=== PATIENT | female | born 1940 | race Caucasian/White ===

== ENCOUNTER 2024-08-23 14:46 | Outpatient (AMB) | payer MEDICARE, SELFPAY ==
--- NOTE | 2024-08-23 14:50 | HO.NEPHOV ---
Vital Signs 08/23/24 15:05 Height 5 ft 7 in Weight 202 lb BMI 31.6 BP 124/70 Blood Pressure Location Lt brachial Position Sitting Pulse 60 Pulse Source Pulse Oximeter Pulse Oximetry (%) 99 Oxygen Delivery Method Room Air Intake Visit Reasons: ENP: CKD STG 3B-# Not in service Medical Assistant Ob Gyn Required: No Accompanied by: Daughter Allergies No Known Allergies Allergy (Verified 08/23/24 15:02) HPI Comments Details: I had the pleasure of seeing Lauren who is a delightful 84-year-old, for chronic kidney disease. She has had history of aortic valve replacement following symptoms due to [place] aortic valve dysfunction. She has been told lately that her bioprosthetic AVR is not functioning very well and is not a candidate for valve replacement. She has history of cardiorenal syndrome in the past. Recently she had aspiration pneumonitis as well as congestive heart failure needing intubation and ventilation. She also has history of chronic diastolic heart failure. She had not tolerated spironolactone in the past due to side effects like dizziness, fatigue. She has history of renal calculi and is followed up with the Dr. Nichols. Recently she developed LANETTE during her hospitalization in [place]. Her renal functions have gone back to baseline now. She has been having C diff infection and is on tapering dose of vancomycin. She denies any dizziness, pedal edema, chest pain, shortness of breath, paroxysmal nocturnal dyspnea, orthopnea or active urinary symptoms. Her blood sugar control is suboptimal. She feels well. [facility] Medical History (Updated 08/26/24 @ 06:28 by Kem Vernon MD) Pilonidal cyst Mitral regurgitation Diabetic neuropathy Chronic kidney disease Rectal polyp Sleep apnea Kidney stones Atrial fibrillation Diabetes Hypertension High cholesterol Surgical History (Updated 08/23/24 @ 15:02 by Alvina Gold MA) History of hip surgery Hx of cardiac cath H/O colonoscopy History of rectal surgery History of ankle surgery Hx of aortic valve replacement Family History (Updated 08/23/24 @ 15:01 by Alvina Gold MA) Father Heart disease Mother Stomach cancer Anemia Brother Hypertension Diabetes Social History (Updated 08/23/24 @ 15:00 by Alvina Gold MA) Alcohol intake: never Patient Tobacco Use Status: Never used Tobacco Review of Systems Const All systems reviewed & are unremarkable except as noted in HPI and below Physical Exam Vital Signs: Last Vital Signs Pulse 60 08/23/24 15:05 BP 124/70 08/23/24 15:05 Pulse Ox 99 08/23/24 15:05 Oxygen Delivery Method Room Air 08/23/24 15:05 BMI result Body Mass Index 31.6 Const General: comfortable and no acute distress Orientation/consciousness: patient oriented x3 HEENT Head: Yes normocephalic Mouth: Normal oral and palatal mucosa present Eyes EOM: EOMs intact bilaterally Neck Neck: Yes supple Resp Auscultation: clear to auscultation bilaterally Cardio Jugular venous distension: no JVD Rate: regular rate GI Palpation (GI): Soft to palpation Auscultation: normal bowel sounds General: Yes no CVA tenderness Back/Spine/Pelvis Back: no CVA tenderness Skin General skin exam: no rashes or lesions noted Neuro General: patient oriented x3 and moves all extremities Extrem General: Yes no pedal edema Results Reviewed Nephrology Results: No Data to Display Assessment & Plan Assessment & Plan (1) Hypertension: Code(s): I10 - Essential (primary) hypertension Category: Medical Qualifiers: Hypertension type: primary hypertension Qualified Code(s): I10 - Essential (primary) hypertension (2) Kidney stones: Code(s): N20.0 - Calculus of kidney Category: Medical (3) CKD (chronic kidney disease) stage 3, GFR 30-59 ml/min: Code(s): N18.30 - Chronic kidney disease, stage 3 unspecified Category: Medical Qualifiers: Chronic kidney disease stage 3 subtype: stage 3a (GFR 45-59) Qualified Code(s): N18.31 - Chronic kidney disease, stage 3a Plan Lauren has CKD stage 3 due to diabetes, hypertension and loss of 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 Recently she had LANETTE but her serum creatinine is back to baseline now. Her volume status is optimal. Her fluid status can be quite tenuous given her aortic valve situation. Her blood pressure is currently at goal. She has history of renal calculi which has not caused any recent issues. She follows up closely with Dr. Nichols. She is on appropriate medications with stability in her hemodynamics and renal functions. I ordered workup for close monitoring of her renal functions. Time spent reviewing her records, patient encounter and documentation involved 51 minutes. All her and her daughter's questions were answered Orders: Orders Uric Acid 2 Months I10 - Essential (primary) hypertension, N18.30 - Chronic kidney disease, stage 3 unspecified, N20.0 - Calculus of kidney Blood Urea Nitrogen 2 Months I10 - Essential (primary) hypertension, N18.30 - Chronic kidney disease, stage 3 unspecified, N20.0 - Calculus of kidney Calcium 2 Months I10 - Essential (primary) hypertension, N18.30 - Chronic kidney disease, stage 3 unspecified, N20.0 - Calculus of kidney Phosphorus 2 Months I10 - Essential (primary) hypertension, N18.30 - Chronic kidney disease, stage 3 unspecified, N20.0 - Calculus of kidney Protein Creatinine Ratio, Ur 2 Months I10 - Essential (primary) hypertension, N18.30 - Chronic kidney disease, stage 3 unspecified, N20.0 - Calculus of kidney Immunofixation, Random Urine 2 Months I10 - Essential (primary) hypertension, N18.30 - Chronic kidney disease, stage 3 unspecified, N20.0 - Calculus of kidney Vitamin D 25-OH Total 2 Months I10 - Essential (primary) hypertension, N18.30 - Chronic kidney disease, stage 3 unspecified, N20.0 - Calculus of kidney Creatinine 2 Months I10 - Essential (primary) hypertension, N18.30 - Chronic kidney disease, stage 3 unspecified, N20.0 - Calculus of kidney Electrolytes 2 Months I10 - Essential (primary) hypertension, N18.30 - Chronic kidney disease, stage 3 unspecified, N20.0 - Calculus of kidney Parathyroid Hormone Intact 2 Months I10 - Essential (primary) hypertension, N18.30 - Chronic kidney disease, stage 3 unspecified, N20.0 - Calculus of kidney Complete Blood Count Auto Diff 2 Months I10 - Essential (primary) hypertension, N18.30 - Chronic kidney disease, stage 3 unspecified, N20.0 - Calculus of kidney Immunofixation Pnl, Serum 2 Months I10 - Essential (primary) hypertension, N18.30 - Chronic kidney disease, stage 3 unspecified, N20.0 - Calculus of kidney Coding Level of Care Code New Pt Level 5 (53812) Diagnoses Primary hypertension I10 Hypertension type: primary hypertension Kidney stones N20.0 Stage 3a chronic kidney disease N18.31 Chronic kidney disease stage 3 subtype: stage 3a (GFR 45-59)
--- OUTSIDE RECORDS SUMMARY | 2024-08-23 14:51 | XMS_ITS ---
Author Organization [facility] Address [address] [place] [address] Care Team Providers Care Fiberglass Roller Name Role Phone Cesar SALGADO, Ricky Primary Care Provider Unavailab santiago Kay Case Unavailable [phone] Allergies Allergen (clinical drug ingredient) Drug/Non Drug Allergy documented on EMR Reaction Allergy Type Onset Date Status ibuprofen Advil Unknown Drug Allergy Active Aleve Unknown Drug Allergy Active Motrin Unknown Drug Allergy Active Novocain Unknown Drug Allergy Active aspirin Aspirin Unknown Drug Allergy Active epinephrine Epinephrine Unknown Drug Allergy Act krysta REASON FOR VISIT At Risk Footcare, Ingrown Nail Medications Medication SIG (Take, Route, Frequency, Duration) Notes Start Date End Date Status Warfarin Sodium Acti ve metFORMIN HCl 1000 MG TAKE 1 TABLET BY MOUTH TWICE DAILY Oral for 90 Active Allopurinol 100 MG TAKE 2 TABLETS BY MOUTH EVERY DAY Oral for 30 Active Valsartan-hydroCHLOROt hiazide 160-12.5 MG TAKE 1 TABLET BY MOUTH DAILY. Oral for 90 days Active Metoprolol Succinate ER 100 MG TAKE 1 TABLET BY MOUTH DAILY Orally 25MG NIGHT TIME Active Tylenol 325 MG 1 tablet as needed Orally every 6 hrs Active Torsemide 20 MG as directed Ac tive Cholecalciferol Unkn own Ascorbic Acid Unknow n Gabapentin Active traMADol HCl 25 MG as directed Orally Active Senna-Docusate Sodium 8.6-50 MG 1 tablet as needed Orally Twice a day Active Physical Therapy 3-4x per week for 3-4 weeks 12/15/2016 Not-Taking Polyethylene Glycol Active Methocarbamol 500 MG 1.5 tablets Orally every 4 hrs Active Ammonium Lactate 12 % 1 application to affected area Externally to feet Twice a day for 30 days Active Chlorthalidone 25 MG TAKE 1 TABLET BY MOUTH IN THE MORNING WITH FOOD DAILY 90 DAYS Oral for 90 Days Active amLODIPine Besylate 5 MG TAKE 1 TABLET BY MOUTH EVERY DAY Oral for 30 5MG in AM & 2.5MG in PM Not-Taking Furosemide 40 MG TAKE 1 TABLET BY MOUTH EVERY MORNING & EVERY EVENING Oral for 45 Not-Taking coumadin 1 tab Oral Not-Takin g Extra Depth Orthopedic Shoes (1 Pair) with Customized Heat Molded Multidensity Innersoles (3 Pair) as directed Dx: NIDDM/Polyneuropathy (E11.42), Hammertoe Foot Deformity (M20.41,M20.42), Preulcerative Skin Lesion(s) (L85.1 03/14/2019 Active Centrum Silver Unkno wn Simvastatin 20 MG 1 tablet in the evening Orally Once a day Active Immunizations Vaccine Route Administration Date Status Comme nts Influenza Unknown 01/29/2024 Refused Social History Tobacco Use: Social History Observation Description Date Details (start date - stop date) Never Smoker NA - NA Tobacco Use/Smoking Question Answer Notes Are you a: nonsmoker Tobacco use other than smoking: Question Answer Notes Are you an other tobacco user? No Vital Signs Height 5 ft 7 in in 01/29/2024 Weight 210 lbs 01/29/2024 BMI 32.89 kg/m2 01/29/2024 Blood pressure systolic 112 mm Hg 01/29/20 24 Blood pressure diastolic 56 mm Hg 024 Procedures Procedure Date Ordered Date Performed Result Body Sit e 88375-Tbqwtaki Plate 01/29/2024 N/A 25021-TMXW SKIN LESIONS, 2 TO 4 01/29/2024 N/A [id number] DYSTROPHIC NAILS ANY # 01/29/2024 N/A Encounters Encounter Location Date Provider Diagnosis [facility] [address] [place] [address] 01/29/2024 Kay Black Type 2 diabetes mellitus with diabetic polyneuropathy E11.42 and Ingrown nail L60.0 Assessments Encounter Date Diagnosis (ICD Code) Assessment Notes Treatment Notes Treatment Clinical Notes Section Notes 01/29/2024 Type 2 diabetes mellitus with diabetic polyneuropathy (ICD-10 - E11.42) 01/29/2024 Ingrown nail (ICD-10 - L60.0) 01/29/2024 Other Plan Of Treatment Pending Test Test Name Order Date 56239-Nkhcdnau Plate 01/29/2024 78888-EDWP SKIN LESIONS, 2 TO 4 01/29/20 24 [id number] DYSTROPHIC NAILS ANY # Next Appt Details Follow Up: 2 Weeks,prn, Reas on: Provider Name:Kay Case , 11/18/2024 04:00:00 PM, [address] [place] [address], [phone], Procedure Notes * Category Sub-Category Detail Notes Nail Avulsion Procedure A fine sterile e levator was placed between the eponychium, nail fold, and nail plate to separate the structures. A sterile nail splitter, and/or sterile 316 blade, was then used to longitudinally section the nail along its entire length through the eponychium to the area under the nail fold. The offending portion of nail was from the nail bed with a rolling action and then removed with a hemostat. No underlying bone was identified. There was minimal bleeding as hemostasis was achieved through the temporary use of either a digital tourniquet or the aforementioned local with epinephrine. A bacitracin sterile dressing was applied. Local wound aftercare instructions were discussed and dispensed. The patient was informed of both conservative and future surgical procedures to prevent recurrence. Tylenol or Motrin was recommended for pain or discomfort (82236) Anesthesia was deferred - NEURO RAMEZ: patient has medically documented neuropathic condition affecting sensation Location Medial nail border , T5 Keratoma Treatment Parring or Cutting o f Benign Hyperkeratotic Lesion(s) 52382 (2-4 Lesions) - The Benign hyperkeratotic lesions, as described above were pared, and/or cut utilizing a sterile #15 blade, tissue nippers, and/or dremel Nail Reduction Nail Reduction Trimming of dyst rophic nails performed to reduce/remove overall nail length and girth, by manual and electrical means with use of a nail nipper and/or dremel, to more viable healthy nail plate or bed tissue 6-10 (G0127) Progress Notes * Lauren MULLER IDOB:[birth year] (83 yo F)Acc No.[id number]:01/29/2024 Progress Note Patient:?Lauren Muller I Provider:?Kay Case DPM :1940???Age:83 Y???Sex:Female D ate:01/29/2024 Address:[address] [place] [address] [id number] Pcp:Ricky Guerrero MD Subjective: * Chief Complaints: * ???At Risk FootcareIngrown N ail * HPI: ???At Risk footcare:?Pt States Last PCP Visit:?Date?01/04/2024 * Medical History:? * Surgical History:?Open Heart 11/21/2014nkle surgery 1979pilonidal cyst excision 1980 * Hospitalization/Major Diagno stic Procedure:?Broken Hip 12/05[facility]- Broken ribs 01/24/24 * Family History:?Mother: dece ased.?Father: .?Siblings: alive, diabetes, high blood pressure.? * Social History:?Tobacco Use:?Tobacco Use/Smoking?Are you a:?nonsmoker ?Tobacco use other than smoking?Are you an other tobacco user??No ???Miscellaneous:?no Caffeine, Decafe coffee , 1-2 cups per day. ?Children: yes. ?Exercise: yes, occasional. ?Marital status: . 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 * Medications:?TakingtraMADol HCl 25 MG Tablet as directed Orally Senna-Docusate Sodium 8.6-50 MG Tablet 1 tablet as needed Orally Twice a dayPolyethylene Glycol Methocarbamol 500 MG Tablet 1.5 tablets Orally every 4 hrsGabapentin Tylenol 325 MG Tablet 1 tablet as needed Orally every 6 hrsTorsemide 20 MG Tablet as directed Warfarin Sodium metFORMIN HCl 1000 MG Tablet TAKE 1 TABLET BY MOUTH TWICE DAILY Oral Allopurinol 100 MG Tablet TAKE 2 TABLETS BY MOUTH EVERY DAY Oral Valsartan-hydroCHLOROthiazide 160-12.5 MG Tablet TAKE 1 TABLET BY MOUTH DAILY. Oral Metoprolol Succinate ER 100 MG Tablet Extended Release 24 Hour TAKE 1 TABLET BY MOUTH DAILY Orally , Notes: 25MG NIGHT TIMESimvastatin 20 MG Tablet 1 tablet in the evening Orally Once a dayExtra Depth Orthopedic Shoes (1 Pair) with Customized Heat Molded Multidensity Innersoles (3 Pair) as directed Dx: NIDDM/Polyneuropathy (E11.42), Hammertoe Foot Deformity (M20.41,M20.42), Preulcerative Skin Lesion(s) (L85.1Ammonium Lactate 12 % Cream 1 application to affected area Externally to feet Twice a dayChlorthalidone 25 MG Tablet TAKE 1 TABLET BY MOUTH IN THE MORNING WITH FOOD DAILY 90 DAYS Oral Taking traMADol HCl 25 MG Tablet as directed Orally Taking Senna-Docusate Sodium 8.6-50 MG Tablet 1 tablet as needed Orally Twice a dayTaking Polyethylene Glycol Taking Methocarbamol 500 MG Tablet 1.5 tablets Orally every 4 hrsTaking Gabapentin Taking Tylenol 325 MG Tablet 1 tablet as needed Orally every 6 hrsTaking Torsemide 20 MG Tablet as directed Taking Warfarin Sodium Taking metFORMIN HCl 1000 MG Tablet TAKE 1 TABLET BY MOUTH TWICE DAILY Oral Taking Allopurinol 100 MG Tablet TAKE 2 TABLETS BY MOUTH EVERY DAY Oral Taking Valsartan- hydroCHLOROthiazide 160-12.5 MG Tablet TAKE 1 TABLET BY MOUTH DAILY. Oral Taking Metoprolol Succinate ER 100 MG Tablet Extended Release 24 Hour TAKE 1 TABLET BY MOUTH DAILY Orally , Notes: 25MG NIGHT TIMETaking Simvastatin 20 MG Tablet 1 tablet in the evening Orally Once a dayTaking Extra Depth Orthopedic Shoes (1 Pair) with Customized Heat Molded Multidensity Innersoles (3 Pair) as directed Dx: NIDDM/Polyneuropathy (E11.42), Hammertoe Foot Deformity (M20.41,M20.42), Preulcerative Skin Lesion(s) (L85.1Taking Ammonium Lactate 12 % Cream 1 application to affected area Externally to feet Twice a dayTaking Chlorthalidone 25 MG Tablet TAKE 1 TABLET BY MOUTH IN THE MORNING WITH FOOD DAILY 90 DAYS Oral Not-Taking/PRNamLODIPine Besylate 5 MG Tablet TAKE 1 TABLET BY MOUTH EVERY DAY Oral , Notes: 5MG in AM & 2.5MG in PMFurosemide 40 MG Tablet TAKE 1 TABLET BY MOUTH EVERY MORNING & EVERY EVENING Oral coumadin 1 tab Oral Physical Therapy 3-4x per week for 3-4 weeks Not-Taking/PRN amLODIPine Besylate 5 MG Tablet TAKE 1 TABLET BY MOUTH EVERY DAY Oral , Notes: 5MG in AM & 2.5MG in PMNot- Taking/PRN Furosemide 40 MG Tablet TAKE 1 TABLET BY MOUTH EVERY MORNING & EVERY EVENING Oral Not-Taking/PRN coumadin 1 tab Oral Not-Taking/PRN Physical Therapy 3-4x per week for 3-4 weeks UnknownCholecalciferol Ascorbic Acid Centrum Silver Unknown Cholecalciferol Unknown Ascorbic Acid Unknown Centrum Silver * Allergies:?AspirinAdvilAleve MotrinNovocainEpinephrineyes[Allergies Verified] Objective: * Vitals:?Ht: 5 ft 7 in, Wt: 2 10, BMI: 32.89, Shoe size: 10, BP: 112/56 mm Hg, BS: not taken, Wt-k.25 kg. * ???Past Orders: ???Lab:HEMOGLOBIN A1C (GLYCO HEMOGLOBIN) (Order Date - 05/17/2023) (Collection Date - 05/17/2023) ? Value Reference Range ?HEMOGLOBIN A1C % (HH) 8.5 * Examination: ???Ophthalmology Referral: ?DIABETES EYE EXAM?Ingrown Nail: ?INSPECTION:?Reveals nail incurvation, pain on palpation, groove hypertrophy , groove ischemia , Medial nail border , T5.?Dermatologic: ?SKIN FINDINGS:?, Skin exam reveals keratotic lesion(s) located at , Lateral, Midfoot, B/L, , Heel(s), Right .?Nails: ?NAILS are:?Elongated, overgrown, dystrophic, , , 1-5 Left foot , 2-5 Right foot.?Neurological: ?SENSORY:?exam demonstrates. reduced vibration lower extremity , reduced proprioception sensation, reduced light touch sensation, 5.07 monofilament test performed at plantar aspects of 5 varied sites per foot shows sensation, absent at Forefoot, at Midfoot, B/LPt relates increased anesthesia.? Assessment: * Assessment: 1.?Type 2 diabetes mellitus with diabetic polyneuropathy - E11.42 (Primary)?2.?Ingrown nail - L60.0? Plan: * Treatment: 2.?Ingrown nail?Procedure: 42607-Frshjngg Plate * Procedures:?Keratoma Treatment:?Parring or Cutting of Benign Hyperkeratotic Lesion(s)?05810 (2-4 Lesions) - The Benign hyperkeratotic lesions, as described above were pared, and/or cut utilizing a sterile #15 blade, tissue nippers, and/or dremel.?Nail Avulsion:?Location?Medial nail border , T5.?Anesthesia?was deferred - NEUROPATHY: patient has medically documented neuropathic condition affecting sensation.?Procedure?A fine sterile elevator was placed between the eponychium, nail fold, and nail plate to separate the structures. A sterile nail splitter, and/or sterile 316 blade, was then used to longitudinally section the nail along its entire length through the eponychium to the area under the nail fold. The offending portion of nail was from the nail bed with a rolling action and then removed with a hemostat. No underlying bone was identified. There was minimal bleeding as hemostasis was achieved through the temporary use of either a digital tourniquet or the aforementioned local with epinephrine. A bacitracin sterile dressing was applied. Local wound aftercare instructions were discussed and dispensed. The patient was informed of both conservative and future surgical procedures to prevent recurrence. Tylenol or Motrin was recommended for pain or discomfort (55896).?Nail Reduction:?Nail Reduction?Trimming of dystrophic nails performed to reduce/remove overall nail length and girth, by manual and electrical means with use of a nail nipper and/or dremel, to more viable healthy nail plate or bed tissue 6-10 (G0127).? * Immunizations:? Influenza (Not administered - Refused: Patient decision) * Procedure Codes:?67247 Avuls ion Plate, Modifiers: T5 54338 TRIM SKIN LESIONS, 2 TO 4, Modifiers: XS G0127 TRIMMING DYSTROPHIC NAILS ANY #, Modifiers: XS * Follow Up:?2 Weeks,prn * Images: * Sign off status: Completed true * Provider:Shamir Case DPM Date:?2023 Generated for Printi ng/Fawhitneyg/eTransmitting on:?08/23/2024 02:51 PM EST History and Physical Notes * HPI (History of Present Illness) Category Sub-Category Detail Notes Category Not es At Risk footcare Pt States Last PCP Visit: Date: 4 Examination Category Sub-Category Detail Notes Category Not es Ingrown Nail INSPECTION: Reveals nail inc urvation, pain on palpation, groove hypertrophy , groove ischemia , Medial nail border , T5 Neurological SENSORY: exam demonstrate s. reduced vibration lower extremity , reduced proprioception sensation, reduced light touch sensation, 5.07 monofilament test performed at plantar aspects of 5 varied sites per foot shows sensation, absent at Forefoot, at Midfoot, B/LPt relates increased anesthesia Dermatologic SKIN FINDINGS: , Skin exam reve als keratotic lesion(s) located at , Lateral, Midfoot, B/L, , Heel(s), Right ULCER: Ophthalmology Referral DIABETES EYE EXAM Diabetic Retinopa thy Screening:: Yes Findings of Diabetic Eye Exam:: no retin opathy Nails NAILS are: Elongated, overg rown, dystrophic, , , 1-5 Left foot , 2-5 Right foot Abscess/infected nail INSPECTION
--- OUTSIDE RECORDS SUMMARY | 2024-08-23 14:51 | XMS_ITS ---
[facility] Address [address] [place] [address] Care Team Providers Care Senior International Tax Manager Name Role Phone Cesar SALGADO, Ricky Primary Care Provider Unavailab santiago Kay Case Unavailable [phone] Allergies Allergen (clinical drug ingredient) Drug/Non Drug Allergy documented on EMR Reaction Allergy Type Onset Date Status ibuprofen Advil Unknown Drug Allergy Active Aleve Unknown Drug Allergy Active Motrin Unknown Drug Allergy Active Novocain Unknown Drug Allergy Active aspirin Aspirin Unknown Drug Allergy Active epinephrine Epinephrine Unknown Drug Allergy Act krysta REASON FOR VISIT At Risk Footcare, Skin problem(s) Medications Medication SIG (Take, Route, Frequency, Duration) Notes Start Date End Date Status Centrum Silver Unkno wn Ascorbic Acid Unknow n Cholecalciferol Unkn own Vancomycin HCl Activ e Physical Therapy 3-4x per week for 3-4 weeks 12/15/2016 Not-Taking coumadin 1 tab Oral Not-Takin g Furosemide 40 MG TAKE 1 TABLET BY MOUTH EVERY MORNING & EVERY EVENING Oral for 45 Not-Taking amLODIPine Besylate 5 MG TAKE 1 TABLET BY MOUTH EVERY DAY Oral for 30 5MG in AM & 2.5MG in PM Not-Taking Chlorthalidone 25 MG TAKE 1 TABLET BY MOUTH IN THE MORNING WITH FOOD DAILY 90 DAYS Oral for 90 Days Not-Taking Tylenol 325 MG 1 tablet as needed Orally every 6 hrs Not-Taking Senna-Docusate Sodium 8.6-50 MG 1 tablet as needed Orally Twice a day Not-Taking traMADol HCl 25 MG as directed Orally Not-Taking Gabapentin Not-Takin g Methocarbamol 500 MG 1.5 tablets Orally every 4 hrs Not-Taking Polyethylene Glycol Not-Taking Ammonium Lactate 12 % 1 application to affected area Externally to feet Twice a day for 30 days Not-Taking Simvastatin 20 MG 1 tablet in the evening Orally Once a day Active Metoprolol Succinate ER 100 MG TAKE 1 TABLET BY MOUTH DAILY Orally 25MG NIGHT TIME Active Valsartan-hydroCHLOROt hiazide 160-12.5 MG TAKE 1 TABLET BY MOUTH DAILY. Oral for 90 days Not-Taking Extra Depth Orthopedic Shoes (1 Pair) with Customized Heat Molded Multidensity Innersoles (3 Pair) as directed Dx: NIDDM/Polyneuropathy (E11.42), Hammertoe Foot Deformity (M20.41,M20.42), Preulcerative Skin Lesion(s) (L85.1 03/14/2019 Not-Taking Ammonium Lactate 12 % 1 application Externally to affected areas of dry skin to feet except for between the toes Twice a day for 30 days Active Allopurinol 100 MG TAKE 2 TABLETS BY MOUTH EVERY DAY Oral for 30 Active metFORMIN HCl 1000 MG TAKE 1 TABLET BY MOUTH TWICE DAILY Oral for 90 Not-Taking Warfarin Sodium Acti ve Torsemide 20 MG as directed Ac tive Jardiance 25 MG 1 tablet Orally Once a day Active Florastor Active Social History Tobacco Use: Social History Observation Description Date Details (start date - stop date) Never Smoker NA - NA Tobacco Use/Smoking Question Answer Notes Are you a: nonsmoker Tobacco use other than smoking: Question Answer Notes Are you an other tobacco user? No Vital Signs Height 5 ft 7 in in 08/19/2024 Weight 202 lbs 08/19/2024 BMI 31.63 kg/m2 08/19/2024 Blood pressure systolic 120 mm Hg 08/19/19 25 Blood pressure diastolic 70 mm Hg 025 Procedures Procedure Date Ordered Date Performed Result Body Sit e 93278-AADA SKIN LESIONS, 2 TO 4 08/19/2024 N/A [id number] DYSTROPHIC NAILS ANY # 08/19/2024 N/A Encounters Encounter Location Date Provider Diagnosis [facility] [address] [place] [address] 08/19/2024 Kay Black Type 2 diabetes mellitus with diabetic polyneuropathy E11.42 and Xerosis of skin L85.3 Assessments Encounter Date Diagnosis (ICD Code) Assessment Notes Treatment Notes Treatment Clinical Notes Section Notes 08/19/2024 Type 2 diabetes mellitus with diabetic polyneuropathy (ICD-10 - E11.42) 08/19/2024 Xerosis of skin (ICD-10 - L85.3) Plan Of Treatment Medication Medication Name Sig Start Date Stop Date Notes Ammonium Lactate 12 % 1 application Exte rnally to affected areas of dry skin to feet except for between the toes Twice a day for 30 days Pending Test Test Name Order Date 37101-GHHZ SKIN LESIONS, 2 TO 4 08/19/19 25 [id number] DYSTROPHIC NAILS ANY # Next Appt Details Follow Up: prn, Reason: Provider Name:Kay Case , 11/18/2024 04:00:00 PM, [address] [place] [address], [phone], Procedure Notes * Category Sub-Category Detail Notes Keratoma Treatment Parring or Cutting o f Benign Hyperkeratotic Lesion(s) (-56) 2-4 Lesions - Due to the at risk nature of the patients medical condition as documented in the exam findings, performance of this keratoderma treatment is medically necessary as its management by an unskilled/untrained nonprofessional would put this patients foot and overall health at risk. Therefore, the benign hyperkeratotic lesions, ( __ ) in total, locations as stated and described in the exam ( Lateral, Midfoot, B/L, plantar Heel(s), ), were pared, and/or cut utilizing a sterile 15 blade, tissue nippers, and/or power dremel instrumentation by the physician of record - 85222 Nail Reduction Nail Reduction (-27) Trimming o f all dystrophic nails - Due to the at risk nature of the patients medical condition as documented in the exam findings, performance of this nail treatment is medically necessary as its management by an unskilled/untrained nonprofessional would put this patients foot and overall health at risk. Therefore, the dystrophic nails, in locations as stated and described in the exam ( TA, T1, T2, T3, T4, T5, T6, T7, T8, T9, ), were debrided by the phisician of record to reduce/remove overall nail length and girth, by manual and electrical means with use of a nail nipper and/or dremel, to more viable healthy nail plate or bed tissue - G0127 Progress Notes * Lauren MULLER IDOB:[birth year] (84 yo F)Acc No.[id number]:08/19/2024 Progress Note Patient:Lauren MALDONADO I Provider:?Kay Case DPM :1940???Age:84 Y???Sex:Female D ate:08/19/2024 Address:[address] [place] [address] [id number] Pcp:Ricky Guerrero MD Subjective: * Chief Complaints: * ???At Risk FootcareSkin prob diego(s) * HPI: ???At Risk footcare:?Pt States Last PCP Visit:?Date?06/07/2024 ???Skin problems:?Nature:?dryness , scaling.?Location:?B/L .?Duration:?several days.?Course:?worse.? * ROS:?General/Constitutional:?Nausea?denies.?Vomiting?denies.?Hunger Thirst?denies.?Loss appetite?denies.?Chills?denies.?Fatigue?denies.?Fever?denies.?Night Sweats?denies.?Unexplained weight loss?denies.?Unexplained weight gain?denies.?HEENTM:?Dentures?denies.?Dizziness?denies.?Glasses/contacts?admits.?Retinopathy?den ies.?Blurred/double vision?denies.?TMJ?denies.?Discharge/drainage?denies.?Implants?denies.?Sore throat?denies.?Dental implants?denies.?Hard of hearing ?denies.?Difficulty chewing/swallowing/speaking?denies.?Nose bleeds?denies.?Sore mouth?denies.?Respiratory:?On O xygen?denies.?Pneumonia/pleurisy?denies.?Bronchitis?denies.?Emphysema?denies.?Co ughing?denies.?Cough blood?denies.?Shortness of breath?denies.?Wheezing?denies.?Cardiovascular:?Pacemaker?denies.?MVP?denies.?WPW?denies.?CHF?denies.?Heart attack?denies.?Septal defect?denies.?Rapid beat?denies.?Chest pain ?denies.?Atrial Fib.?denies.?Murmur/Palpitations?denies.?Gastrointestinal:?Hemorrhoids?denies.?Stomach/Abdominal pain?denies.?Dark blood stool?denies.?Irritable bowel ?denies.?Constipation?denies.?Diarrhea?denies.?Hematology:?Swelling?denies.?Clots?denies.?Varicose Veins?denies.?Bruising?denies.?Bleeding problem?denies.?Genitourinary:?Blood urine?denies.?Frequent/Painfu/urination/bladder control?denies.?Kidney stones?denies.?Infection (UTI)?denies.?Nephropathy?denies.?sex trans dis (STD)?denies.?Prostate?denies.?Musculoskeletal:?Hammertoes?admits.?Bunions?denies.?Back Pain?denies.?Muscle Cramps/ Resting?admits.?Muscle cramps / walking?denies.?Generalized aches and pains?denies.?Weakness?denies.?Integ.:?Zarate?denies.?Scars?denies.?Corns/calluses?, admits.?Ingrown nails?admits.?Painful nails?admits.?Open Sores?denies.?Rashes?denies.?Neurologic:?Difficulty sleeping?denies.?Brain disorder?denies.?Numbness?admits.?Balance t rouble?denies.?Confusion?denies.?Fainting/blackouts?denies.?Tingling?denies.?Gage mors?denies.? * Medical History:? * Surgical History:?Open Heart 11/21/2014nkle surgery 1980pilonidal cyst excision 1980 * Hospitalization/Major Diagno stic Procedure:?Broken Hip 12/05[facility]- Broken ribs 01/24/24[facility]- aspiration 06/2024 * Family History:?Mother: dece ased.?Father: .?Siblings: alive, diabetes, high blood pressure.? * Social History:?Tobacco Use:?Tobacco Use/Smoking?Are you a:?nonsmoker ?Tobacco use other than smoking?Are you an other tobacco user??No ???Miscellaneous:?Caffeine: no, Decafe coffee , 1-2 cups per day. ?Children: yes. ?Exercise: yes, occasional. ?Marital status: . 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 * Medications:?TakingVancomyci n HCl Florastor Jardiance 25 MG Tablet 1 tablet Orally Once a day Torsemide 20 MG Tablet as directed Warfarin Sodium Allopurinol 100 MG Tablet TAKE 2 TABLETS BY MOUTH EVERY DAY Oral Metoprolol Succinate ER 100 MG Tablet Extended Release 24 Hour TAKE 1 TABLET BY MOUTH DAILY Orally , Notes to Pharmacist: 25MG NIGHT TIMESimvastatin 20 MG Tablet 1 tablet in the evening Orally Once a day Taking Vancomycin HCl Taking Florastor Taking Jardiance 25 MG Tablet 1 tablet Orally Once a day Taking Torsemide 20 MG Tablet as directed Taking Warfarin Sodium Taking Allopurinol 100 MG Tablet TAKE 2 TABLETS BY MOUTH EVERY DAY Oral Taking Metoprolol Succinate ER 100 MG Tablet Extended Release 24 Hour TAKE 1 TABLET BY MOUTH DAILY Orally , Notes to Pharmacist: 25MG NIGHT TIMETaking Simvastatin 20 MG Tablet 1 tablet in the evening Orally Once a day Not-Taking/PRNmetFORMIN HCl 1000 MG Tablet TAKE 1 TABLET BY MOUTH TWICE DAILY Oral Valsartan-hydroCHLOROthiazide 160-12.5 MG Tablet TAKE 1 TABLET BY MOUTH DAILY. Oral Ammonium Lactate 12 % Cream 1 application to affected area Externally to feet Twice a day Extra Depth Orthopedic Shoes (1 Pair) with Customized Heat Molded Multidensity Innersoles (3 Pair) as directed Dx: NIDDM/Polyneuropathy (E11.42), Hammertoe Foot Deformity (M20.41,M20.42), Preulcerative Skin Lesion(s) (L85.1 traMADol HCl 25 MG Tablet as directed Orally Senna-Docusate Sodium 8.6-50 MG Tablet 1 tablet as needed Orally Twice a day Polyethylene Glycol Methocarbamol 500 MG Tablet 1.5 tablets Orally every 4 hrs Gabapentin Tylenol 325 MG Tablet 1 tablet as needed Orally every 6 hrs Chlorthalidone 25 MG Tablet TAKE 1 TABLET BY MOUTH IN THE MORNING WITH FOOD DAILY 90 DAYS Oral amLODIPine Besylate 5 MG Tablet TAKE 1 TABLET BY MOUTH EVERY DAY Oral , Notes to Pharmacist: 5MG in AM & 2.5MG in PMFurosemide 40 MG Tablet TAKE 1 TABLET BY MOUTH EVERY MORNING & EVERY EVENING Oral coumadin 1 tab Oral Physical Therapy 3-4x per week for 3-4 weeks Not-Taking/PRN metFORMIN HCl 1000 MG Tablet TAKE 1 TABLET BY MOUTH TWICE DAILY Oral Not-Taking/PRN Valsartan-hydroCHLOROthiazide 160-12.5 MG Tablet TAKE 1 TABLET BY MOUTH DAILY. Oral Not-Taking/PRN Ammonium Lactate 12 % Cream 1 application to affected area Externally to feet Twice a day Not-Taking/PRN Extra Depth Orthopedic Shoes (1 Pair) with Customized Heat Molded Multidensity Innersoles (3 Pair) as directed Dx: NIDDM/Polyneuropathy (E11.42), Hammertoe Foot Deformity (M20.41,M20.42), Preulcerative Skin Lesion(s) (L85.1 Not-Taking/PRN traMADol HCl 25 MG Tablet as directed Orally Not-Taking/PRN Senna-Docusate Sodium 8.6-50 MG Tablet 1 tablet as needed Orally Twice a day Not-Taking/PRN Polyethylene Glycol Not- Taking/PRN Methocarbamol 500 MG Tablet 1.5 tablets Orally every 4 hrs Not-Taking/PRN Gabapentin Not-Taking/PRN Tylenol 325 MG Tablet 1 tablet as needed Orally every 6 hrs Not-Taking/PRN Chlorthalidone 25 MG Tablet TAKE 1 TABLET BY MOUTH IN THE MORNING WITH FOOD DAILY 90 DAYS Oral Not-Taking/PRN amLODIPine Besylate 5 MG Tablet TAKE 1 TABLET BY MOUTH EVERY DAY Oral , Notes to Pharmacist: 5MG in AM & 2.5MG in PMNot- Taking/PRN Furosemide 40 MG Tablet TAKE 1 TABLET BY MOUTH EVERY MORNING & EVERY EVENING Oral Not-Taking/PRN coumadin 1 tab Oral Not-Taking/PRN Physical Therapy 3-4x per week for 3-4 weeks UnknownCholecalciferol Ascorbic Acid Centrum Silver Medication List reviewed and reconciled with the patientUnknown Cholecalciferol Unknown Ascorbic Acid Unknown Centrum Silver Medication List reviewed and reconciled with the patient * Allergies:?AspirinAdvilAleve MotrinNovocainEpinephrineyes[Allergies Verified] Objective: * Vitals:?Ht: 5 ft 7 in, Wt: 2 02, BMI: 31.63, Shoe size: 10, BP: 120/70 mm Hg, BS: not taken, Wt-k.63 kg. * ???Past Orders: ???Lab:HEMOGLOBIN A1C (GLYCO HEMOGLOBIN) (Order Date - 05/17/2024) (Collection Date & Time - 05/17/2024 03:42 PM) ? Value Reference Range ?HEMOGLOBIN A1C % (HH) 7.1 * Examination: ???Ophthalmology Referral: ?DIABETES EYE EXAM?General Examination: ?GENERAL APPEARANCE:?Reveals a pleasant, alert, well nourished, well- developed, well hydrated individual, who demonstrates proper attention to hygiene/body habitus, and is in no acute distress, Pt serves as own historian for office visit today.?ORIENTED:?person, place, and time.?FOOT EXAM:?Footwear Evaluation?Dermatologic: ?SKIN FINDINGS:?, Skin exam reveals keratotic lesion(s) located at , Lateral, Midfoot, B/L, plantar?Heel(s), Right , Skin shows sign(s) of, dryness, scaling, in a stocking fashion, no fissure(s) present, B/L.?Nails: ?NAILS are:?Elongated, overgrown, dystrophic, , , 1-5 Left foot , 2-5 Right foot , Nail plate intact.?Neurological: ?SENSORY:?exam demonstrates. reduced vibration lower extremity , reduced proprioception sensation, reduced light touch sensation, 5.07 monofilament test performed at plantar aspects of 5 varied sites per foot shows sensation, absent at Forefoot, at Midfoot, B/LPt relates increased anesthesia.?Orthopedic: ?FOOTWEAR:?good condition, exhibit proper fit and accommodation for pedal deformities. OT were inspected and noted to be worn, but in good condition giving proper support at the present time.? Assessment: * Assessment: 1.?Type 2 diabetes mellitus with diabetic polyneuropathy - E11.42 (Primary)???2.?Xerosis of skin - L85.3???Specify :Acute problem, Uncomplicated (3),Rx Management (4)??? Plan: * Treatment: 2.?Xerosis of skin? Start Ammonium Lactate Cream, 12 %, 1 application, Externally to affected areas of dry skin to feet except for between the toes, Twice a day, 30 days, 280, Refills 3.?? * Procedures:?Keratoma Treatment:?Parring or Cutting of Benign Hyperkeratotic Lesion(s)?(-56) 2-4 Lesions - Due to the at risk nature of the patients medical condition as documented in the exam findings, performance of this keratoderma treatment is medically necessary as its management by an unskilled/untrained nonprofessional would put this patients foot and overall health at risk. Therefore, the benign hyperkeratotic lesions, ( __ ) in total, locations as stated and described in the exam ( Lateral, Midfoot, B/L, plantar Heel(s), ), were pared, and/or cut utilizing a sterile 15 blade, tissue nippers, and/or power dremel instrumentation by the physician of record - 18045.?Nail Reduction:?Nail Reduction?(-27) Trimming of all dystrophic nails - Due to the at risk nature of the patients medical condition as documented in the exam findings, performance of this nail treatment is medically necessary as its management by an unskilled/untrained nonprofessional would put this patients foot and overall health at risk. Therefore, the dystrophic nails, in locations as stated and described in the exam ( TA, T1, T2, T3, T4, T5, T6, T7, T8, T9, ), were debrided by the phisician of record to reduce/remove overall nail length and girth, by manual and electrical means with use of a nail nipper and/or dremel, to more viable healthy nail plate or bed tissue - G0127.? * Procedure Codes:?70642 TRIM SKIN LESIONS, 2 TO 4, Modifiers: XS G0127 TRIMMING DYSTROPHIC NAILS ANY #, Modifiers: XS * Preventive Medicine:? ??Counseling:?Discussion:?-13: Office or other outpatient visit for the evaluation and management of an established patient, which required a medically appropriate history and/or examination and LOW level of DECISION MAKING for: 1 STABLE ACUTE UNCOMPLICATED PROBLEM, 2 OR MORE MINOR PROBLEMS, OR 1 STABLE CHRONIC PROBLEM, THAT POSE(S) A LOW RISK FOR MORBIDITY/MORTALITY. The visit on the day of the encounter encompassed interpreting the data and educating the patient as to the nature of their condition, treatment options available according to their individual PMH, meds, allergies, and overall health/living conditions, as well as any potential risks or complications that may occur from a failure to adhere to, and participate in, the recommended course of therapy. The discussion included a complete verbal, and/or written explanation of the examination results, any x-rays taken, the proposed diagnosis, and outline of the treatment plan. A schedule for future care needs was also explained. The patient verbalized an understanding of the instructions at this time and agreed to be an active participant in their treatment. If the patient should think of any questions or concerns after the visit, I have encouraged the patient to call the office.?Xerosis:?The patient was counseled on the diagnosis, potential etiologies, and treatment options for their skin condition. We discussed the risks and benefits of each option from performing no treatment, to utilizing OTC topical skin creams/ointments, to utilizing prescription topical creams/ointments, to utilizing customized compounded topical medications and use of nocturnal occlusion with any/all previously detailed therapies. We discussed the advantages and disadvantages of each possible treatment and importance for adherence to all the recommended therapies for optimum success and avoid potential complications such as open sore/infection/possible hospitalization. We discussed the potential effectiveness of each topical preparation as well as each ones possible side effects and/or patient medication interactions. Patient questions re: use, dosage, successful outcomes, and application consistency were reviewed and the patient verbalized that all answers were clearly understood. The patient has decided to apply Rx skin creams to their feet save the interspaces while paying special attention to the heels. Such was sent to their pharmacy at the time of visit.? ??Screening/Special Tests:?Fall Risk?Assessment:?Not performed, due to medical reason ?Plan of Care:?Not documented, no reason specified ?Screening:?One fall with injury in the past year ?FALLS: Screening for Future Fall Risk?Have you had any falls with injury in the past year??Yes * Follow Up:?prn * Images: * Sign off status: Completed true * Provider:?Kay Case DPM Date:?2024 Generated for Bruno allison/Pati/Jami on:?08/23/2024 02:51 PM EST History and Physical Notes * HPI (History of Present Illness) Category Sub-Category Detail Notes Category Not es Skin problems Nature: dryness , scaling Location: B/L Duration: several days Course: worse At Risk footcare Pt States Last PCP Visit: Date: 4 Examination Category Sub-Category Detail Notes Category Not es Ingrown Nail INSPECTION: Neurological SENSORY: exam demonstrate s. reduced vibration lower extremity , reduced proprioception sensation, reduced light touch sensation, 5.07 monofilament test performed at plantar aspects of 5 varied sites per foot shows sensation, absent at Forefoot, at Midfoot, B/LPt relates increased anesthesia Dermatologic SKIN FINDINGS: , Skin exam reve als keratotic lesion(s) located at , Lateral, Midfoot, B/L, plantar Heel(s), Right , Skin shows sign(s) of, dryness, scaling, in a stocking fashion, no fissure(s) present, B/L ULCER: Orthopedic FOOTWEAR: good condition, exhibit proper fit and accommodation for pedal deformities. OT were inspected and noted to be worn, but in good condition giving proper support at the present time General Examination GENERAL APPEARANCE: Reveals a pleasant, alert, well nourished, well-developed, well hydrated individual, who demonstrates proper attention to hygiene/body habitus, and is in no acute distress, Pt serves as own historian for office visit today FOOT EXAM: Lower Extremity Neurological Exa m performed:: Yes Visual exam of foot performed:: Yes Date: 05/06/2024 Sensory testing performed:: sensations d iminished Sensory and motor testing performed:: se nsations diminished Pedal pulse taking performed:: 2+ ORIENTED: person, place, and t temitope Footwear Evaluation Footwear Evaluation performe d:: Yes Ophthalmology Referral DIABETES EYE EXAM Procedure Perform ed:: Yes ?Date of Exam Performed: 01/15/2024 Findings of Diabetic Eye Exam:: no retin opathy Nails NAILS are: Elongated, overg rown, dystrophic, , , 1-5 Left foot , 2-5 Right foot , Nail plate intact Abscess/infected nail INSPECTION
--- OUTSIDE RECORDS SUMMARY | 2024-08-23 14:51 | XMS_ITS | Patient Health Record ---
Author Organization [facility] Address [address] [place] [address] Care Team Providers Care Boiler Testing Technician Name Role Phone Cesar SALGADO, Ricky Primary Care Provider Unavailab Kay Lacy Unavailable [phone] Allergies Allergen (clinical drug ingredient) Drug/Non Drug Allergy documented on EMR Reaction Allergy Type Onset Date Status ibuprofen Advil Unknown Drug Allergy Active Aleve Unknown Drug Allergy Active Motrin Unknown Drug Allergy Active Novocain Unknown Drug Allergy Active aspirin Aspirin Unknown Drug Allergy Active epinephrine Epinephrine Unknown Drug Allergy Act krysta Results Component Value Reference Range Notes HEMOGLOBIN A1C (GLYCOHEMOGLO BIN) Reviewed date:08/19/2024 03:43:19 PM Interpretation: Performing Lab: Notes/Report: HEMOGLOBIN A1C % (HH) 7.1 Reason For Referral No Information Medications Medication SIG (Take, Route, Frequency, Duration) Notes Start Date End Date Status Furosemide 40 MG TAKE 1 TABLET BY MOUTH EVERY MORNING & EVERY EVENING Oral for 45 Not-Taking amLODIPine Besylate 5 MG TAKE 1 TABLET BY MOUTH EVERY DAY Oral for 30 5MG in AM & 2.5MG in PM Not-Taking Ammonium Lactate 12 % 1 application Externally to affected areas of dry skin to feet except for between the toes Twice a day for 30 days Active Chlorthalidone 25 MG TAKE 1 TABLET BY MOUTH IN THE MORNING WITH FOOD DAILY 90 DAYS Oral for 90 Days Not-Taking Vancomycin HCl Activ e Jardiance 25 MG 1 tablet Orally Once a day Active Florastor Active Allopurinol 100 MG TAKE 2 TABLETS BY MOUTH EVERY DAY Oral for 30 Active metFORMIN HCl 1000 MG TAKE 1 TABLET BY MOUTH TWICE DAILY Oral for 90 Not-Taking Warfarin Sodium Acti ve Torsemide 20 MG as directed Ac tive Ammonium Lactate 12 % 1 application to affected area Externally to feet Twice a day for 30 days Not-Taking coumadin 1 tab Oral Not-Takin g Simvastatin 20 MG 1 tablet in the evening Orally Once a day Active Metoprolol Succinate ER 100 MG TAKE 1 TABLET BY MOUTH DAILY Orally 25MG NIGHT TIME Active Valsartan-hydroCHLOROt hiazide 160-12.5 MG TAKE 1 TABLET BY MOUTH DAILY. Oral for 90 days Not-Taking Centrum Silver Unkno wn Ascorbic Acid Unknow n Cholecalciferol Unkn own Physical Therapy 3-4x per week for 3-4 weeks 12/15/2016 Not-Taking Senna-Docusate Sodium 8.6-50 MG 1 tablet as needed Orally Twice a day Not-Taking traMADol HCl 25 MG as directed Orally Not-Taking Extra Depth Orthopedic Shoes (1 Pair) with Customized Heat Molded Multidensity Innersoles (3 Pair) as directed Dx: NIDDM/Polyneuropathy (E11.42), Hammertoe Foot Deformity (M20.41,M20.42), Preulcerative Skin Lesion(s) (L85.1 03/14/2019 Not-Taking Tylenol 325 MG 1 tablet as needed Orally every 6 hrs Not-Taking Gabapentin Not-Takin g Methocarbamol 500 MG 1.5 tablets Orally every 4 hrs Not-Taking Polyethylene Glycol Not-Taking Immunizations Vaccine Route Administration Date Status Comme nts COVID-19 Pfizer BioNTech Vaccine Unknown 04/15/2021 Administered First Dose: 08/16/2020 Second Dose: 09/07/2020 Influenza Unknown 12/15/2016 Refused Influenza Unknown 04/20/2017 Refused Influenza Unknown 08/27/2018 Refused Influenza Unknown 07/20/2020 Refused Influenza Unknown 01/29/2024 Refused Social History Tobacco Use: Social History Observation Description Date Details (start date - stop date) Never Smoker NA - NA Tobacco Use/Smoking Question Answer Notes Are you a: nonsmoker Alcohol Screen Question Answer Notes Did you have a drink containing alcohol in the p ast year? No Points 0 Interpretation Negative Tobacco use other than smoking: Question Answer Notes Are you an other tobacco user? No Problems Problem Type SNOMED Code ICD Code Onset Dates Problem Status W/U Status Risk Notes Problem Localized, primary osteoarthritis of the ankle and/or foot (143174992) Primary osteoarthritis, right ankle and foot (M19.071) Active confirmed Problem Acquired hammer toe of right foot (1877605367421399 ) Other hammer toe(s) (acquired), right foot (M20.41) Active confirmed Problem Acquired hammer toe of left foot (1599400160440252 ) Other hammer toe(s) (acquired), left foot (M20.42) Active confirmed Problem Polyneuropathy due to type 2 diabetes mellitus (188133499) Type 2 diabetes mellitus with diabetic polyneuropathy (E11.42) Active confirmed Vital Signs Blood pressure diastolic 70 mm Hg 08/19/2024 Height 5 ft 7 in in 08/19/2024 Blood pressure systolic 120 mm Hg 08/19/2024 Weight 202 lbs 08/19/2024 BMI 31.63 kg/m2 08/19/2024 Procedures Procedure Date Ordered Date Performed [place] [address] I&D ABSCESS- SIMPLE,SINGLE 10/02/2023 N/A 46065-RVVP SKIN LESIONS, 2 TO 4 10/02/2023 N/A F5075-UHKNZLEJ DYSTROPHIC NAILS ANY # 10/02/2023 N/A 44196-Nduprllt Plate 01/29/2024 N/A 61249-YLOX SKIN LESIONS, 2 TO 4 01/29/2024 N/A L6782-QHQMHDMY DYSTROPHIC NAILS ANY # 01/29/2024 N/A 80823-Mzwbtxqm Plate 05/06/2024 N/A 56852- Debride <25 sq cm 05/06/2024 N/A 12894-HSBJ SKIN LESIONS, 2 TO 4 05/06/2024 N/A L8608-GRHHNIDY DYSTROPHIC NAILS ANY # 05/06/2024 N/A 48481-GAYL SKIN LESIONS, 2 TO 4 08/19/2024 N/A L6928-NQSGADLI DYSTROPHIC NAILS ANY # 08/19/2024 N/A Encounters Encounter Location Date Provider Diagnosis [facility] [address] [address] 10/02/2023 Kay Black Type 2 diabetes mellitus with diabetic polyneuropathy E11.42 and Abscess of toe, left L02.612 [facility] [address] [address] 01/29/2024 Kay Black Type 2 diabetes mellitus with diabetic polyneuropathy E11.42 and Ingrown nail L60.0 [facility] [address] 05/06/2024 Kay Black Type 2 diabetes mellitus with diabetic polyneuropathy E11.42 ; Contusion of lesser toe of right foot without damage to nail, initial encounter S90.121A ; Ingrown nail L60.0 ; Pain in right toe(s) M79.674 and Skin ulcer of toe of right foot, limited to breakdown of skin L97.[address] [facility] [address] 08/19/2024 Kay Black Type 2 diabetes mellitus with diabetic polyneuropathy E11.42 and Xerosis of skin L85.3 Assessments Encounter Date Diagnosis (ICD Code) Assessment Notes Treatment Notes Treatment Clinical Notes Section Notes 10/02/2023 Type 2 diabetes mellitus with diabetic polyneuropathy (ICD-10 - E11.42) 01/29/2024 Type 2 diabetes mellitus with diabetic polyneuropathy (ICD-10 - E11.42) 01/29/2024 Ingrown nail (ICD-10 - L60.0) 05/06/2024 Type 2 diabetes mellitus with diabetic polyneuropathy (ICD-10 - E11.42) 05/06/2024 Contusion of lesser toe of right foot without damage to nail, initial encounter (ICD-10 - S90.121A) 08/19/2024 Type 2 diabetes mellitus with diabetic polyneuropathy (ICD-10 - E11.42) 08/19/2024 Xerosis of skin (ICD-10 - L85.3) 05/06/2024 Ingrown nail (ICD-10 - L60.0) 10/02/2023 Abscess of toe, left (ICD-10 - L02.612) Patient Educated with: WOUND CARE INSTRUCTIONS. pdf (WOUND CARE INSTRUCTIONS. pdf) 05/06/2024 Pain in right toe(s) (ICD-10 - M79.674) 05/06/2024 Skin ulcer of toe of right foot, limited to breakdown of skin (ICD-10 - L97.511) 01/29/2024 Other Plan Of Treatment Pending Test Test Name Order Date X ray : Foot, right 2V 11/16/2020 X ray : Foot, right 3V 12/15/2016 52242-Zskwnczo Plate 09/11/2017 47547-Wajocyiz Plate 02/19/2018 03643-Uluclrcd Plate 06/17/2019 97591-Pzkuuaqa Plate 02/15/2021 95362-Gruvhppm Plate 05/27/2021 08010-Inwjgnyk Plate 08/03/2021 95808-Vanffrqp Plate 11/08/2021 85159-Sqmakeui Plate 01/29/2024 63366-Duhsyymp Plate 05/06/2024 98373-Udhcbrna Plate Each Additional 46380-Regwmrcr Plate Each Additional 08/2020 26553-Krkujghb Plate Each Additional 08/2018 95666- Debride <25 sq cm 11/26/2018 39221- Debride <25 sq cm 07/20/2020 52782- Debride <25 sq cm 09/25/2017 67205- Debride <25 sq cm 08/15/2022 14780- Debride <25 sq cm 05/06/2024 52556 I&D ABSCESS- SIMPLE,SINGLE 024 76439 I&D ABSCESS- SIMPLE,SINGLE 022 34442 I&D ABSCESS- SIMPLE,SINGLE 023 29203-LJIN SKIN LESIONS, OVER 4 11/21/19 18 62952-QOMY SKIN LESIONS, 2 TO 4 05/28/20 18 27034-WHEI SKIN LESIONS, 2 TO 4 02/20/20 18 05566-IIDO SKIN LESIONS, 2 TO 4 12/16/19 17 09186-QFPN SKIN LESIONS, 2 TO 4 04/20/20 17 73273-CFGH SKIN LESIONS, 2 TO 4 07/03/20 17 50943-YFWQ SKIN LESIONS, 2 TO 4 09/11/19 18 10601-HBPM SKIN LESIONS, 2 TO 4 07/20/19 21 56603-QHWY SKIN LESIONS, 2 TO 4 04/02/20 20 72496-BICW SKIN LESIONS, 2 TO 4 09/19/19 20 50890-OUUK SKIN LESIONS, 2 TO 4 11/27/19 19 52089-JNIX SKIN LESIONS, 2 TO 4 08/27/19 19 76732-VDUE SKIN LESIONS, 2 TO 4 06/17/20 19 12464-OFVH SKIN LESIONS, 2 TO 4 03/14/20 19897-VXEM SKIN LESIONS, 2 TO 4 03/13/20 36036-LCNW SKIN LESIONS, 2 TO 4 06/19/20 99528-DULO SKIN LESIONS, 2 TO 4 10/02/19 24 90042-ILHH SKIN LESIONS, 2 TO 4 11/15/19 19970-PMQP SKIN LESIONS, 2 TO 4 08/15/19 99390-QVLW SKIN LESIONS, 2 TO 4 05/02/20 09035-FXAB SKIN LESIONS, 2 TO 4 02/16/20 03805-HENK SKIN LESIONS, 2 TO 4 11/17/19 33462-JPSB SKIN LESIONS, 2 TO 4 11/09/19 01208-HAAM SKIN LESIONS, 2 TO 4 05/27/20 30589-UMVF SKIN LESIONS, 2 TO 4 08/03/19 99069-SBUU SKIN LESIONS, 2 TO 4 01/29/20 26003-GVKR SKIN LESIONS, 2 TO 4 08/19/19 09286-KKDH SKIN LESIONS, 2 TO 4 05/06/20 79547-Swcn. Subungual Hematoma 57096-CTVZ NAIL(S) 11/16/2020 75017-AWJF NAIL(S) 02/15/2021 32952-WNYS NAIL(S) 05/27/2021 51957-ZJSD NAIL(S) 08/15/2022 80165-EWFY NAIL(S) 03/14/2019 44667-IZMR NAIL(S) 08/27/2018 17624-CVVC NAIL(S) 11/26/2018 31793-VQPG NAIL(S) 09/19/2019 60606-DFAV NAIL(S) 06/17/2019 20412-GSTN NAIL(S) 04/02/2020 20480-FTOU NAIL(S) 07/20/2020 74256-THAB NAIL(S) 07/03/2017 75229-YGRS NAIL(S) 04/20/2017 34915-DGDS NAIL(S) 12/15/2016 00785-DHZQ NAIL(S) 02/19/2018 76737-HRQK NAIL(S) 05/28/2018 43844-JKRR NAIL(S) 11/20/2017 J7220-JMARDQDR DYSTROPHIC NAILS ANY # Y4730-LMZRJHBF DYSTROPHIC NAILS ANY # B4388-GMPCFFEQ DYSTROPHIC NAILS ANY # K1237-IJUOTQLB DYSTROPHIC NAILS ANY # S2543-FFZSVCFJ DYSTROPHIC NAILS ANY # E4880-DKRZSCSN DYSTROPHIC NAILS ANY # W3710-LFPWOLYM DYSTROPHIC NAILS ANY # R2566-JSPAPUGQ DYSTROPHIC NAILS ANY # T3408-SCAUURTO DYSTROPHIC NAILS ANY # U3096-WKRHPEDT DYSTROPHIC NAILS ANY # Z0390-UBREFQFF DYSTROPHIC NAILS ANY # Next Appt Details Provider Name:Kay Case , 11/18/2024 04:00:00 PM, [address] [place] [address], [phone], Insurance Providers Payer Name Payer Address Payer Phone Subscriber Number Group Number Insured Name Patient Relationship to Insured Coverage Start Date Coverage End Date Medicare National Govt [facility] [address] [place] [address] [id number] Mayra rivera Lauren Self - patient is the insured 7 [employer] [address] [place] [address] [phone] [id number] Mayra rivera Lauren Self - patient is the insured Medical (General) History Medical History History ICD Code Broken bones Cataracts Diabetic type two Heart disease High blood pressure Chicken pox Measles Joint implants/screws Replacement Heart Valves Retinal Arterial Macro Aneurisum Water around heart, heart failure Broken ribs Surgical History Surgery Date(Month/Year) Open Heart 11/21/2014 ankle surgery 1980 pilonidal cyst excision 1980 Hospitalization History Reason Date(Month/Year) Broken Hip 12/05 [facility]- aspiration 06/2024 [facility]- Broken ribs 01/24/24
--- OUTSIDE RECORDS SUMMARY | 2024-08-23 14:51 | XMS_ITS ---
Author Organization [facility] [place] Address [address] [place] [address] Care Team Providers Care Varnish Melter Helper Name Role Phone Cesar SALGADO, Ricky Primary Care Provider Unavailab santiago Kay Case Unavailable [phone] Allergies Allergen (clinical drug ingredient) Drug/Non Drug Allergy documented on EMR Reaction Allergy Type Onset Date Status ibuprofen Advil Unknown Drug Allergy Active Aleve Unknown Drug Allergy Active Motrin Unknown Drug Allergy Active Novocain Unknown Drug Allergy Active aspirin Aspirin Unknown Drug Allergy Active epinephrine Epinephrine Unknown Drug Allergy Act krysta REASON FOR VISIT At Risk Footcare, Ingrown Nail, Painful Toe(s) Medications Medication SIG (Take, Route, Frequency, Duration) Notes Start Date End Date Status Ammonium Lactate 12 % 1 application to affected area Externally to feet Twice a day for 30 days Active traMADol HCl 25 MG as directed Orally Not-Taking Metoprolol Succinate ER 100 MG TAKE 1 TABLET BY MOUTH DAILY Orally 25MG NIGHT TIME Active Extra Depth Orthopedic Shoes (1 Pair) with Customized Heat Molded Multidensity Innersoles (3 Pair) as directed Dx: NIDDM/Polyneuropathy (E11.42), Hammertoe Foot Deformity (M20.41,M20.42), Preulcerative Skin Lesion(s) (L85.1 03/14/2019 Not-Taking Simvastatin 20 MG 1 tablet in the evening Orally Once a day Active Warfarin Sodium Acti ve Torsemide 20 MG as directed Ac tive Allopurinol 100 MG TAKE 2 TABLETS BY MOUTH EVERY DAY Oral for 30 Active metFORMIN HCl 1000 MG TAKE 1 TABLET BY MOUTH TWICE DAILY Oral for 90 Active Valsartan-hydroCHLOROt hiazide 160-12.5 MG TAKE 1 TABLET BY MOUTH DAILY. Oral for 90 days Active Cholecalciferol Unkn own Physical Therapy 3-4x per week for 3-4 weeks 12/15/2016 Not-Taking Centrum Silver Unkno wn Ascorbic Acid Unknow n coumadin 1 tab Oral Not-Takin g Tylenol 325 MG 1 tablet as needed Orally every 6 hrs Not-Taking Gabapentin Not-Takin g amLODIPine Besylate 5 MG TAKE 1 TABLET BY MOUTH EVERY DAY Oral for 30 5MG in AM & 2.5MG in PM Not-Taking Chlorthalidone 25 MG TAKE 1 TABLET BY MOUTH IN THE MORNING WITH FOOD DAILY 90 DAYS Oral for 90 Days Not-Taking Furosemide 40 MG TAKE 1 TABLET BY MOUTH EVERY MORNING & EVERY EVENING Oral for 45 Not-Taking Methocarbamol 500 MG 1.5 tablets Orally every 4 hrs Not-Taking Polyethylene Glycol Not-Taking Senna-Docusate Sodium 8.6-50 MG 1 tablet as needed Orally Twice a day Not-Taking Social History Tobacco Use: Social History Observation [...] Signs Height 5 ft 7 in in 05/06/2024 Weight 210 lbs 05/06/2024 BMI 32.89 kg/m2 05/06/2024 Blood pressure systolic 136 mm Hg 05/06/20 24 Blood pressure diastolic 70 mm Hg 024 Procedures Procedure Date Ordered Date Performed Result Body Sit e 18171-Lzqalgjz Plate 05/06/2024 N/A 68915- Debride <25 sq cm 05/06/2024 N/A 41965-FKPO SKIN LESIONS, 2 TO 4 05/06/2024 N/A Q9906-PZERRJFS DYSTROPHIC NAILS ANY # 05/06/2024 N/A Encounters Encounter Location Date Provider Diagnosis [facility] [address] [place] [address] 05/06/2024 Kay Black Type 2 diabetes mellitus with diabetic polyneuropathy E11.42 ; Contusion of lesser toe of right foot without damage to nail, initial encounter S90.121A ; Ingrown nail L60.0 ; Pain in right toe(s) M79.674 and Skin ulcer of toe of right foot, limited to breakdown of skin L97.511 Assessments Encounter Date Diagnosis (ICD Code) Assessment Notes Treatment Notes Treatment Clinical Notes Section Notes 05/06/2024 Type 2 diabetes mellitus with diabetic polyneuropathy (ICD-10 - E11.42) 05/06/2024 Contusion of lesser toe of right foot without damage to nail, initial encounter (ICD-10 - S90.121A) 05/06/2024 Ingrown nail (ICD-10 - L60.0) 05/06/2024 Pain in right toe(s) (ICD-10 - M79.674) 05/06/2024 Skin ulcer of toe of right foot, limited to breakdown of skin (ICD-10 - L97.511) Plan Of Treatment Pending Test Test Name Order Date 49780-Zfsyzeqb Plate 05/06/2024 49224- Debride <25 sq cm 05/06/2024 57301-XABH SKIN LESIONS, 2 TO 4 05/06/20 24 M5029-HWIWUEZU DYSTROPHIC NAILS ANY # Next Appt Details Follow Up: 2 Weeks, Reason: Provider Name:Kay Case , 11/18/2024 04:00:00 PM, [address] [place] [address], [phone], Procedure Notes * Category Sub-Category Detail Notes [...] Motrin was recommended for pain or discomfort (84632) Anesthesia was deferred - NEURO RAMEZ: patient has medically documented neuropathic condition affecting sensation Location Medial nail border , , TA Debride skin< 25 sq cm Open wound NEUROPATH Y: Physician of record performed open wound selective debridement of first 25 sq cm or less, of devitilized necrotic/nonviable soft tissue, fibrin, and exudate extending from the epidermis through the dermis, utilizing sharp dissection with sterile 15 blade, and/or tissue nippers. Hemostasis was controlled through direct pressure. Sterile antibiotic dressing applied, ANESTHESIA was not required due to presence of NEUROPATHY. Post debridement measurements: 12mm x 9 mm x 2mm. Character of the wound post debridement is stable (63849) Keratoma Treatment Parring or Cutting o f Benign Hyperkeratotic Lesion(s) 69550 (2-4 Lesions) - The Benign hyperkeratotic lesions, [...] (G0127) Progress Notes * Lauren MULLER IDOB:[birth year] (84 yo F)Acc No.[id number]:05/06/2024 Progress Note Patient:?Lauren MULLER I Provider:?Kay Case DPM :1940???Age:84 Y???Sex:Female D ate:05/06/2024 Address:[address] [place] [address] [place] [id number] Pcp:Ricky Guerrero MD Subjective: * Chief Complaints: * ???At Risk FootcareIngrown N ailPainful Toe(s) * HPI: ???At Risk footcare:?Pt States Last PCP Visit:?Date?03/14/2024 ???Toe pain:?Nature:?aching,?bruising,?discoloration,?swelling,?tenderness,.?Location:?Right foot.?Duration:?since DOI (04/30/2024).?Onset/Cause:?states traumatic ( banged toe?).?Course:?, improved.?Aggravated by:?any pressure, standing/walking, shoes.?Treatments:?rest/alter normal daily activity, ice.? * ROS:?General/Constitutional:?Nausea?denies.?Vomiting?denies.?Hunger Thirst?denies.?Loss appetite?denies.?Chills?denies.?Fatigue?denies.?Fever?denies.?Night Sweats?denies.?Unexplained weight loss?denies.?Unexplained weight gain?denies.?HEENTM:?Dentures?denies.?Dizziness?denies.?Glasses/contacts?admits.?Retinopathy?den ies.?Blurred/double vision?denies.?TMJ?denies.?Discharge/drainage?denies.?Implants?denies.?Sore throat?denies.?Dental implants?denies.?Hard of hearing ?denies.?Difficulty chewing/swallowing/speaking?denies.?Nose bleeds?denies.?Sore mouth?denies.?Respiratory:?On O xygen?denies.?Pneumonia/pleurisy?denies.?Bronchitis?denies.?Emphysema?denies.?Co ughing?denies.?Cough blood?denies.?Shortness of breath?denies.?Wheezing?denies.?Cardiovascular:?Pacemaker?denies.?MVP?denies.?WPW?denies.?CHF?denies.?Heart attack?denies.?Septal defect?denies.?Rapid beat?denies.?Chest pain ?denies.?Atrial Fib.?denies.?Murmur/Palpitations?denies.?Gastrointestinal:?Hemorrhoids?denies.?Stomach/Abdominal pain?denies.?Dark blood stool?denies.?Irritable bowel ?denies.?Constipation?denies.?Diarrhea?denies.?Hematology:?Swelling?denies.?Clots?denies.?Varicose Veins?denies.?Bruising?denies.?Bleeding problem?denies.?Genitourinary:?Blood urine?denies.?Frequent/Painfu/urination/bladder control?denies.?Kidney stones?denies.?Infection (UTI)?denies.?Nephropathy?denies.?sex trans dis (STD)?denies.?Prostate?denies.?Musculoskeletal:?Hammertoes?admits.?Bunions?denies.?Back Pain?denies.?Muscle Cramps/ Resting?admits.?Muscle cramps / walking?denies.?Generalized aches and pains?denies.?Weakness?denies.?Integ.:?Zarate?denies.?Scars?denies.?Corns/calluses?denies.?Ingrown nails?admits.?Painful nails?admits.?Open Sores?denies.?Rashes?denies.?Neurologic:?Difficulty sleeping?denies.?Brain disorder?denies.?Numbness?admits.?Balance t rouble?denies.?Confusion?denies.?Fainting/blackouts?denies.?Tingling?denies.?Gage mors?denies.? * Medical History:? * Surgical History:?Open Heart 11/21/2015ankle surgery 1979pilonidal cyst excision 1980 * Hospitalization/Major Diagno stic Procedure:?Broken Hip 12/05[facility]- Broken ribs 01/24/24 * Family History:?Mother: dece ased.?Father: .?Siblings: alive, diabetes, high blood pressure.? * Social History:?Tobacco Use:?Tobacco Use/Smoking?Are you a:?nonsmoker ?Tobacco use other than smoking?Are you an other tobacco user??No ???Drugs/Alcohol:?Drugs?Have you used drugs other than those for medical reasons in the past 12 months??No ?Alcohol Screen?Did you have a drink containing alcohol in the past year??No ?Points?0 ?Interpretation?Negative ???Miscellaneous:?Caffeine: no, Decafe coffee , 1-2 cups per day. ?Children: yes. ?Exercise: yes, occasional. ?Marital status: . 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 * Medications:?TakingTorsemide 20 MG Tablet as directed Warfarin Sodium [...] in the evening Orally Once a day Ammonium Lactate 12 % Cream 1 application to affected area Externally to feet Twice a day Taking Torsemide 20 MG Tablet [...] the evening Orally Once a day Taking Ammonium Lactate 12 % Cream 1 application to affected area Externally to feet Twice a day Not-Taking/PRNExtra Depth Orthopedic Shoes (1 Pair) with Customized [...] 3-4x per week for 3-4 weeks Not-Taking/PRN Extra Depth Orthopedic Shoes (1 Pair) with Customized Heat Molded Multidensity Innersoles (3 Pair) as directed Dx: NIDDM/Polyneuropathy (E11.42), Hammertoe Foot Deformity (M20.41,M20.42), Preulcerative Skin Lesion(s) (L85.1 Not-Taking/PRN traMADol HCl 25 MG Tablet as directed Orally Not- Taking/PRN Senna-Docusate Sodium 8.6-50 MG Tablet 1 tablet as needed Orally Twice a day Not-Taking/PRN Polyethylene Glycol Not-Taking/PRN Methocarbamol 500 MG Tablet 1.5 tablets Orally [...] Pharmacist: 5MG in AM & 2.5MG in PMNot-Taking/PRN Furosemide 40 MG Tablet TAKE 1 TABLET BY MOUTH EVERY MORNING & EVERY EVENING Oral Not-Taking/PRN coumadin 1 tab Oral Not-Taking/PRN Physical Therapy 3-4x per week for 3-4 weeks UnknownCholecalciferol Ascorbic Acid Centrum [place] Medication List reviewed and reconciled with the patientUnknown Cholecalciferol Unknown Ascorbic Acid Unknown Centrum Silver Medication List reviewed and reconciled with the patient * Allergies:?AspirinAdvilAleve MotrinNovocainEpinephrineyes[Allergies Verified] Objective: * Vitals:?Ht: 5 ft 7 in, Wt: 2 10, BMI: 32.89, Shoe size: 10, BP: 136/70 mm Hg, BS: not taken, Wt-k.25 kg. * ???Past Orders: ???Lab:HEMOGLOBIN A1C (GLYCO HEMOGLOBIN) (Order Date - 05/17/2023) (Collection Date & Time - 05/17/2023 03:23 PM) ? Value Reference Range ?HEMOGLOBIN A1C % (HH) 8.5 * Examination: ???Ophthalmology Referral: ?DIABETES EYE EXAM?Ingrown Nail: ?INSPECTION:?Reveals nail incurvation, pain on palpation, groove hypertrophy , groove ischemia , Medial nail border , , TA.?Dermatologic: ?SKIN FINDINGS:?, Skin exam reveals keratotic lesion(s) located at , Lateral, Midfoot, B/L, , Heel(s), Right .?ULCER:?Dorsal , T9 , LOCATION, SIZE, 10mm X 4mm X 2mm, BASE, granular, RIM, hyperkeratotic, UNDERMINING, absent, TRACKING, Full thickness breakdown of skin, DRAINAGE, serosanguineous, mild, NECROTIC TISSUE, loosely-adherent, yellow slough, MALODOR, absent, CALOR, absent, ERYTHEMA, absent, PAIN ON PALPATION, present.?Nails: ?NAILS are:?Elongated, overgrown, dystrophic, , , 1-5 Left foot , 2-5 Right foot , Nail plate intact.?Neurological: ?SENSORY:?exam demonstrates. reduced vibration lower extremity , reduced proprioception sensation, reduced light touch sensation, 5.07 monofilament test performed at plantar aspects of 5 varied sites per foot shows sensation, absent at Forefoot, at Midfoot, B/LPt relates increased anesthesia.?General Examination: ?GENERAL APPEARANCE:?Reveals a pleasant, alert, well nourished, well- developed, well hydrated individual, who demonstrates proper attention to hygiene/body habitus, and is in no acute distress, Pt serves as own historian for office visit today.?ORIENTED:?person, place, and time.?FOOT EXAM:?Footwear Evaluation?Orthopedic: ?FOOTWEAR:?good condition, exhibit proper fit and accommodation for pedal deformities. OT were inspected and noted to be worn, but in good condition giving proper support at the present time.? Assessment: * Assessment: 1.?Type 2 diabetes mellitus with diabetic polyneuropathy - E11.42???2.?Contusion of lesser toe of right foot without damage to nail, initial encounter - S90.121A (Primary)???Specify :Acute problem, Uncomplicated (3)???3.?Ingrown nail - L60.0???4.?Pain in right toe(s) - M79.674???5.?Skin ulcer of toe of right foot, limited to breakdown of skin - L97.511??? Plan: * Treatment: 2.?Ingrown nail?Procedure: 64021-Suzlgvzf Plate 3.?Skin ulcer of toe of righ t foot, limited to breakdown of skin?Procedure: 52193- Debride <25 sq cm * Procedures:?Debride skin< 25 sq cm:?Open wound?NEUROPATHY: Physician of record performed open wound selective debridement of first 25 sq cm or less, of devitilized necrotic/nonviable soft tissue, fibrin, and exudate extending from the epidermis through the dermis, utilizing sharp dissection with sterile 15 blade, and/or tissue nippers. Hemostasis was controlled through direct pressure. Sterile antibiotic dressing applied, ANESTHESIA was not required due to presence of NEUROPATHY. Post debridement measurements: 12mm x 9 mm x 2mm. Character of the wound post debridement is stable (88819).?Keratoma Treatment:?Parring or Cutting of Benign Hyperkeratotic Lesion(s)?36551 (2-4 Lesions) - The Benign hyperkeratotic lesions, as described above were pared, and/or cut utilizing a sterile #15 blade, tissue nippers, and/or dremel.?Nail Avulsion:?Location?Medial nail border , , TA.?Anesthesia?was deferred - NEUROPATHY: patient has medically documented [...] Motrin was recommended for pain or discomfort (67656).?Nail Reduction:?Nail Reduction?Trimming of dystrophic nails performed to reduce/remove overall nail length and girth, by manual and electrical means with use of a nail nipper and/or dremel, to more viable healthy nail plate or bed tissue 6-10 (G0127).? * Procedure Codes:?03410 Avuls ion [place], [place] [address] TRIM SKIN LESIONS, 2 TO 4, Modifiers: XS G0127 TRIMMING DYSTROPHIC NAILS ANY #, Modifiers: XS 65186 ACTIVE WOUND CARE/20 CM OR <, Modifiers: T9 * Preventive Medicine:? ??Counseling:?Discussion:?-13: Office or other [...] have encouraged the patient to call the office.?P.R.I.C.E.:?The patient was counseled on the use of P.R.I.C.E. and NSAIDS (if well tolerated) to aid in the recovery from their painful condition..? ??Screening/Special Tests:?Fall Risk?Assessment:?Performed ?Plan of Care:?Not documented, no reason specified ?Screening:?One fall with injury in the past year ?FALLS: Screening for Future Fall Risk?Have you had any falls with injury in the past year??Yes * Follow Up:?2 Weeks * Images: * Sign off status: Completed true * Provider:?Kay Case DPM Date:?2023 Generated for Bruno allison/Pati/Jami on:?08/23/2024 02:51 PM EST History and Physical Notes * HPI (History of Present Illness) Category Sub-Category Detail Notes Category Not es Toe pain Nature: aching, bruising , discoloration, swelling, tenderness, Location: Right foot Duration: since DOI () Onset/Cause: states traumatic ( b anged toe ) Course: , improved Aggravated by: any pressure, standi ng/walking, shoes Treatments: rest/alter normal da marci activity, ice At Risk footcare Pt States Last PCP Visit: Date: 4 Examination Category Sub-Category Detail Notes Category Not es Ingrown Nail INSPECTION: Reveals nail inc urvation, pain on palpation, groove hypertrophy , groove ischemia , Medial nail border , , TA Neurological SENSORY: exam demonstrate s. reduced vibration lower extremity , reduced proprioception sensation, reduced light touch sensation, 5.07 monofilament test performed at plantar aspects of 5 varied sites per foot shows sensation, absent at Forefoot, at Midfoot, B/LPt relates increased anesthesia Dermatologic SKIN FINDINGS: , Skin exam reve als keratotic lesion(s) located at , Lateral, Midfoot, B/L, , Heel(s), Right ULCER: Dorsal , T9 , LOCATI ON, SIZE, 10mm X 4mm X 2mm, BASE, granular, RIM, hyperkeratotic, UNDERMINING, absent, TRACKING, Full thickness breakdown of skin, DRAINAGE, serosanguineous, mild, NECROTIC TISSUE, loosely-adherent, yellow slough, MALODOR, absent, CALOR, absent, ERYTHEMA, absent, PAIN ON PALPATION, present Orthopedic FOOTWEAR: good condition, exhibit proper fit [...] Perform ed:: Yes ?Date of Exam Performed: 01/24/2024 Diabetic Retinopathy Screening:: Yes Findings of Diabetic Eye Exam:: no retin opathy Nails NAILS are: Elongated, overg rown, dystrophic, , , 1-5 Left foot , 2-5 Right foot , Nail plate intact Abscess/infected nail INSPECTION
--- OUTSIDE RECORDS SUMMARY | 2024-08-23 14:51 | XMS_ITS ---
Author Name [facility] Organization Unknown Results Test Name/Text Value Interpretation Date Range Source POC Glucose 163mg/dL Above high normal [id number] 65 - 99 [facility] POC Glucose 153mg/dL Above high normal 046918541231 65 - 99 [facility] POC Glucose 113mg/dL Above high normal 504234039448 65 - 99 H[facility] pro BNP, N-terminal 2480pg/mL Above high normal 279791371218 - 450 [facility]CT Magnesium SerPl-mCnc 2.1mg/dL Normal [id number] 1.6 - 2.7 H[facility]CT Chloride SerPl-sCnc 94mmol/L Below low normal 857364707103 98 - 107 H[facility]CT Glucose SerPl-mCnc 113mg/dL Above high normal 690417835187 65 - 99 HHCCT GFR/BSA.pred SerPlBld YVS-RTW-UqPYyl 22 Below low normal 062008104877 59 - HHCCT Creat SerPl-mCnc 2.2mg/dL Above high normal 514017966261 0. 4 - 1.1 HHCCT BUN/Creat SerPl 24Ratio Normal [id number] 10 - 25 H HCCT Anion Gap Bld-sCnc 13 Normal 546522242032 7 - 17 H[facility]CT Calcium SerPl-mCnc 9.5mg/dL Normal [id number] 8.7 - 10 .5 HHCCT CO2 SerPl-sCnc 26mmol/L Normal 624334897014 22 - 33 HH CCT BUN SerPl-mCnc 52mg/dL Above high normal 537177599852 8 - 21 HHCCT Sodium SerPl-sCnc 133mmol/L Below low normal 500851708936 13 6 - 145 HHCCT Potassium SerPl-sCnc 4.1mmol/L Normal 968901289848 3.4 - 5.3 HHCCT Phosphate SerPl-mCnc 4.3mg/dL Normal 557982804986 2.7 - 4.5 HHCCT LMWH PPP Research Archaeologist-aCnc 0.63IU/mL Normal [id number] CCT INR PPP 1.3 Normal 933332259615 CCT Prothrombin time 15.5seconds Above high normal 756595682908 10 - 13.5 HHCCT MCH RBC Qn Auto 28.1pg Normal 490560374922 27 - 31 H HCCT PMV Bld Auto 10.2fL Normal [id number] 7.5 - 12.[address] RDW RBC Auto-Rto 16.6% Above high normal 193248671320 11.5 - 14.5 HHCCT Hct VFr Bld Auto 27% Below low normal 167716792701 35 - 47 H[facility]CT Platelet num Bld Auto 194Thou/uL Normal [id number] 150 - 450 HHCCT MCHC RBC Auto-mCnc 31.1g/dL Normal [id number] 30 - 36 HHCCT MCV RBC Auto 90fL Normal [id number] 80 - 100 HHCC T WBC num Bld Auto 6.3Thou/uL Normal [id number] 4 - 11 HHCCT RBC num Bld Auto 2.99Mil/uL Below low normal [id number] 4 - 5.4 HHCCT Hgb Bld-mCnc 8.4g/dL Below low normal [id number] 11.7 - 15.7 HHCCT Anticoagulant WARFARIN (COUMADIN) Normal [id number] CCT Anticoagulant IV HEPARIN, UNFRACTIONATED Normal 604657916940 CCT POC Glucose 186mg/dL Above high normal 445318843051 65 - 99 H[facility]CT POC Glucose 115mg/dL Above high normal 022390152913 65 - 99 HHCCT POC Glucose 112mg/dL Above high normal 966705068380 65 - 99 HHCCT POC Glucose 123mg/dL Above high normal 799801501759 65 - 99 HHCCT Magnesium SerPl-mCnc 2.2mg/dL Normal 751650027345 1.6 - 2.7 HHCCT Chloride SerPl-sCnc 95mmol/L Below low normal 095621009813 98 - 107 HHCCT Glucose SerPl-mCnc 126mg/dL Above high normal 840583702970 65 - 99 HHCCT GFR/BSA.pred SerPlBld WYV-UHN-OmIXrb 22 Below low normal 496814170301 59 - HHCCT Creat SerPl-mCnc 2.2mg/dL Above high normal 354647128182 0. 4 - 1.1 HHCCT BUN/Creat SerPl 23Ratio Normal [id number] 10 - 25 H HCCT Anion Gap Bld-sCnc 13 Normal 592833151734 7 - 17 HHCCT Calcium SerPl-mCnc 9.4mg/dL Normal 450828844098 8.7 - 10 .5 HHCCT CO2 SerPl-sCnc 26mmol/L Normal [id number] 22 - 33 HH CCT BUN SerPl-mCnc 50mg/dL Above high normal 412490280659 8 - 21 HHCCT Sodium SerPl-sCnc 134mmol/L Below low normal 940383454190 13 6 - 145 HHCCT Potassium SerPl-sCnc 4.3mmol/L Normal 583061503719 3.4 - 5.3 HHCCT pro BNP, N-terminal 3087pg/mL Above high normal 696961455512 - 450 HHCCT INR PPP 1.2 Normal 269463730336 HHCCT Prothrombin time 14.4seconds Above high normal 408523104956 10 - 13.5 HHCCT LMWH PPP Research Archaeologist-aCnc 0.63IU/mL Normal [id number] HHCCT POC Glucose 126mg/dL Above high normal [id number] 65 - 99 HHCCT Anticoagulant WARFARIN (COUMADIN) Normal 444269619419 HHCCT Anticoagulant IV HEPARIN, UNFRACTIONATED Normal 540586202705 HHCCT POC Glucose 268mg/dL Above high normal [id number] 65 - 99 HHCCT POC Glucose 181mg/dL Above high normal 331853988244 65 - 99 HHCCT INR PPP 1.3 Normal [id number] HHCCT Prothrombin time 14.7seconds Above high normal 209469413521 10 - 13.5 HHCCT Anticoagulant WARFARIN (COUMADIN) Normal 339512325693 HHCCT POC Glucose 214mg/dL Above high normal 411310135517 65 - 99 HHCCT LMWH PPP Research Archaeologist-aCnc 0.58IU/mL Normal 570226487771 HHCCT POC Glucose 146mg/dL Above high normal 337610786872 - HHCCT Anticoagulant IV HEPARIN, UNFRACTIONATED Normal 274234068903 HHCCT POC Glucose 164mg/dL Above high normal 731206915679 HHCCT POC Glucose 240mg/dL Above high normal 796290271716 HHCCT POC Glucose 166mg/dL Above high normal 272420973403 HHCCT POC Glucose 144mg/dL Above high normal 903567494335 HHCCT LMWH PPP Research Archaeologist-aCnc 0.6IU/mL Normal 233223963542 HHCCT Phosphate SerPl-mCnc 4.2mg/dL Normal [id number] 2.7 - 4.5 HHCCT Magnesium SerPl-mCnc 2.2mg/dL Normal [id number] 1.6 - 2.7 HHCCT Chloride SerPl-sCnc 97mmol/L Below low normal [id number] 98 - 107 HHCCT Glucose SerPl-mCnc 136mg/dL Above high normal 272346969979 HHCCT GFR/BSA.pred SerPlBld KPD-TFY-YiRLkf 24 Below low normal [id number] 59 - HHCCT Creat SerPl-mCnc 2mg/dL Above high normal [id number] 0. 4 - 1.1 HHCCT BUN/Creat SerPl 25Ratio Normal [id number] 10 - 25 H HCCT Anion Gap Bld-sCnc 11 Normal [id number] 7 - 17 HHCCT Calcium SerPl-mCnc 9.6mg/dL Normal [id number] 8.7 - 10 .5 HHCCT CO2 SerPl-sCnc 27mmol/L Normal [id number] 22 - 33 HH CCT BUN SerPl-mCnc 49mg/dL Above high normal 392849318954 8 - 21 HHCCT Sodium SerPl-sCnc 135mmol/L Below low normal 309307584974 13 6 - 145 HHCCT Potassium SerPl-sCnc 4.3mmol/L Normal [id number] 3.4 - 5.3 HHCCT MCH RBC Qn Auto 28.1pg Normal [id number] 27 - 31 H HCCT PMV Bld Auto 10.2fL Normal [id number] 7.5 - 12.[address] RDW RBC Auto-Rto 16.4% Above high normal 681414615549 11.5 - 14.5 HHCCT Hct VFr Bld Auto 27.2% Below low normal 853983233095 35 - 47 HHCCT Platelet num Bld Auto 195Thou/uL Normal [id number] 150 - 450 HHCCT MCHC RBC Auto-mCnc 31.3g/dL Normal [id number] 30 - 36 HHCCT MCV RBC Auto 90fL Normal [id number] 80 - 100 HHCC T WBC num Bld Auto 5.5Thou/uL Normal [id number] 4 - 11 HHCCT RBC num Bld Auto 3.02Mil/uL Below low normal 4 - 5.4 HHCCT Hgb Bld-mCnc 8.5g/dL Below low normal [id number] 11.7 - 15.7 HHCCT Anticoagulant IV HEPARIN, UNFRACTIONATED Normal [id number] HHCCT POC Glucose 223mg/dL Above high normal [id number] 65 - 99 HHCCT POC Glucose 159mg/dL Above high normal 965058250563 65 - 99 HHCCT POC Glucose 183mg/dL Above high normal 399200426606 65 - 99 HHCCT Folate SerPl-mCnc 20ng/mL Normal [id number] 7.2 - HHCCT Phosphate SerPl-mCnc 4.3mg/dL Normal [id number] 2.7 - 4.5 HHCCT Magnesium SerPl-mCnc 2.2mg/dL Normal [id number] 1.6 - 2.7 HHCCT Ferritin SerPl-mCnc 266ug/L Normal [id number] 30 - 400 HHCCT Vit B12 SerPl-mCnc 736pg/mL Normal [id number] 243 - 89 4 HHCCT Iron SerPl-mCnc 37ug/dL Below low normal 618835826017 59 - 151 HHCCT Iron Satn MFr SerPl 16% Below low normal [id number] 20 - 50 HHCCT TIBC SerPl-mCnc 236ug/dL Normal [id number] 100 - 400 H HCCT UIBC SerPl-mCnc 199ug/dL Normal [id number] 112 - 346 H HCCT Chloride SerPl-sCnc 93mmol/L Below low normal [id number] 98 - 107 HHCCT Glucose SerPl-mCnc 142mg/dL Above high normal 716559393752 65 - 99 HHCCT GFR/BSA.pred SerPlBld YTI-GUJ-MlLXth 24 Below low normal 036550563594 59 - HHCCT Creat SerPl-mCnc 2mg/dL Above high normal [id number] 0. 4 - 1.1 HHCCT BUN/Creat SerPl 27Ratio Above high normal [id number] 10 - 25 HHCCT Anion Gap Bld-sCnc 12 Normal [id number] 7 - 17 HHCCT Calcium SerPl-mCnc 9.3mg/dL Normal [id number] 8.7 - 10 .5 HHCCT CO2 SerPl-sCnc 26mmol/L Normal [id number] 22 - 33 HH CCT BUN SerPl-mCnc 53mg/dL Above high normal 164896605987 8 - 21 HHCCT Sodium SerPl-sCnc 131mmol/L Below low normal 404564691058 13 6 - 145 HHCCT Potassium SerPl-sCnc 4.1mmol/L Normal [id number] 3.4 - 5.3 HHCCT POC Glucose 153mg/dL Above high normal 633907108478 65 - 99 HHCCT LMWH PPP Research Archaeologist-aCnc 0.49IU/mL Normal [id number] HHCCT MCH RBC Qn Auto 27.9pg Normal [id number] 27 - 31 H HCCT PMV Bld Auto 10.2fL Normal [id number] 7.5 - 12.[address] RDW RBC Auto-Rto 16.4% Above high normal [id number] 11.5 - 14.5 HHCCT Hct VFr Bld Auto 25.5% Below low normal [id number] 35 - 47 HHCCT Platelet num Bld Auto 185Thou/uL Normal [id number] 150 - 450 HHCCT MCHC RBC Auto-mCnc 30.6g/dL Normal [id number] 30 - 36 HHCCT MCV RBC Auto 91fL Normal [id number] 80 - 100 HHCC T WBC num Bld Auto 5.9Thou/uL Normal [id number] 4 - 11 HHCCT RBC num Bld Auto 2.8Mil/uL Below low normal 854073786578 4 - 5.4 HHCCT Hgb Bld-mCnc 7.8g/dL Below low normal 510276582090 11.7 - 15.7 HHCCT POC Glucose 158mg/dL Above high normal 922330664715 65 - HHCCT Anticoagulant IV HEPARIN, UNFRACTIONATED Normal [id number] HHCCT POC Glucose 240mg/dL Above high normal 395244520372 65 - HHCCT POC Glucose 159mg/dL Above high normal 789711188305 65 - 99 HHCCT WBC num/area UrnS HPF 3perhpf Normal [id number] 0 - 4 HHCCT Ketones Ur Strip-mCnc Normal [id number] - HHCCT Squamous num/area UrnS HPF 7PERHPF Normal [id number] HHCCT Prot Ur Strip-mCnc Normal [id number] - HHCCT Glucose Ur Strip-mCnc 0mg/dL Normal [id number] 0 - 99 HHCCT Nitrite Ur Ql Strip Normal [id number] - HHCCT Leukocyte esterase Ur Ql Strip Normal [id number] - HHCCT Bilirub Ur Strip-mCnc Normal [id number] - HHCCT Sp Gr Ur Strip 1.009 Normal [id number] 1.003 - 1.03 HHCCT RBC num/area UrnS HPF 1perhpf Normal [id number] 0 - 4 HHCCT pH Ur Strip 5 Normal [id number] 5 - 8 HHCCT Color Ur Normal [id number] HHCCT Clarity Ur Normal 796501354197 HHCCT Hgb Ur Ql Strip Normal [id number] - H HCCT pro BNP, N-terminal 4565pg/mL Above high normal [id number] - 450 HHCCT Sodium Ur-sCnc 25mmol/L Normal 949613232065 HH CCT UUN Ur-mCnc 502mg/dL Normal 364343282611 HHCCT Creat Ur-mCnc 70mg/dL Normal [id number] [facility] CT POC Glucose 188mg/dL Above high normal 445346441801 65 - 99 HHCCT BUN/Creat SerPl 27Ratio Above high normal [id number] 10 - 25 HHCCT BUN SerPl-mCnc 53mg/dL Above high normal 063848932486 8 - 21 HHCCT Magnesium SerPl-mCnc 2.2mg/dL Normal [id number] 1.6 - 2.7 HHCCT Chloride SerPl-sCnc 91mmol/L Below low normal [id number] 98 - 107 HHCCT Glucose SerPl-mCnc 204mg/dL Above high normal 878989946423 65 - 99 HHCCT GFR/BSA.pred SerPlBld IRV-ZIM-AfIOhq 24 Below low normal 664716329143 59 - HHCCT Creat SerPl-mCnc 2mg/dL Above high normal [id number] 0. 4 - 1.1 HHCCT Anion Gap Bld-sCnc 13 Normal [id number] 7 - 17 HHCCT Calcium SerPl-mCnc 9.5mg/dL Normal [id number] 8.7 - 10 .5 HHCCT CO2 SerPl-sCnc 26mmol/L Normal [id number] 22 - 33 HH CCT Sodium SerPl-sCnc 130mmol/L Below low normal 435503167122 13 6 - 145 HHCCT Potassium SerPl-sCnc 4.4mmol/L Normal [id number] 3.4 - 5.3 HHCCT Phosphate SerPl-mCnc 4.5mg/dL Normal [id number] 2.7 - 4.5 HHCCT LMWH PPP Research Archaeologist-aCnc 0.6IU/mL Normal 258321809084 HHCCT MCH RBC Qn Auto 28pg Normal [id number] 27 - 31 H HCCT PMV Bld Auto 10.6fL Normal [id number] 7.5 - 12.[address] RDW RBC Auto-Rto 16.5% Above high normal [id number] 11.5 - 14.5 HHCCT Hct VFr Bld Auto 27.3% Below low normal [id number] 35 - 47 HHCCT Platelet num Bld Auto 200Thou/uL Normal [id number] 150 - 450 HHCCT MCHC RBC Auto-mCnc 31.1g/dL Normal [id number] 30 - 36 HHCCT MCV RBC Auto 90fL Normal [id number] 80 - 100 HHCC T WBC num Bld Auto 6.2Thou/uL Normal [id number] 4 - 11 HHCCT RBC num Bld Auto 3.04Mil/uL Below low normal 601291255345 4 - 5.4 HHCCT Hgb Bld-mCnc 8.5g/dL Below low normal [id number] 11.7 - 15.7 HHCCT POC Glucose 138mg/dL Above high normal [id number] 65 - 99 HHCCT POC Glucose 161mg/dL Above high normal [id number] 65 - 99 HHCCT Anticoagulant IV HEPARIN, UNFRACTIONATED Normal 369893246650 HHCCT POC Glucose 219mg/dL Above high normal [id number] 65 - 99 HHCCT POC Glucose 255mg/dL Above high normal [id number] 65 - 99 HHCCT POC Glucose 172mg/dL Above high normal 246718860189 65 - 99 HHCCT POC Glucose 154mg/dL Above high normal [id number] 65 - 99 HHCCT Chloride SerPl-sCnc 93mmol/L Below low normal 218996217313 98 - 107 HHCCT Glucose SerPl-mCnc 137mg/dL Above high normal [id number] 65 - 99 HHCCT GFR/BSA.pred SerPlBld YBR-HSR-KzJFri 24 Below low normal 959083580984 59 - HHCCT Creat SerPl-mCnc 2mg/dL Above high normal [id number] 0. 4 - 1.1 HHCCT BUN/Creat SerPl 27Ratio Above high normal [id number] 10 - 25 HHCCT Anion Gap Bld-sCnc 12 Normal [id number] 7 - 17 HHCCT Calcium SerPl-mCnc 9.4mg/dL Normal [id number] 8.7 - 10 .5 HHCCT CO2 SerPl-sCnc 28mmol/L Normal [id number] 22 - 33 HH CCT BUN SerPl-mCnc 53mg/dL Above high normal [id number] 8 - 21 HHCCT Sodium SerPl-sCnc 133mmol/L Below low normal 356035381232 13 6 - 145 HHCCT Potassium SerPl-sCnc 4.1mmol/L Normal [id number] 3.4 - 5.3 HHCCT Phosphate SerPl-mCnc 4.6mg/dL Above high normal [id number] 2.7 - 4.5 HHCCT Magnesium SerPl-mCnc 2.1mg/dL Normal [id number] 1.6 - 2.7 HHCCT LMWH PPP Research Archaeologist-aCnc 0.53IU/mL Normal 690803235599 HHCCT MCH RBC Qn Auto 27.9pg Normal 791632077108 27 - 31 H HCCT PMV Bld Auto 10.2fL Normal [id number] 7.5 - 12.[address] RDW RBC Auto-Rto 16.2% Above high normal [id number] 11.5 - 14.5 HHCCT Hct VFr Bld Auto 27.1% Below low normal 539270411210 35 - 47 HHCCT Platelet num Bld Auto 196Thou/uL Normal [id number] 150 - 450 HHCCT MCHC RBC Auto-mCnc 31.4g/dL Normal [id number] 30 - 36 HHCCT MCV RBC Auto 89fL Normal [id number] 80 - 100 HHCC T WBC num Bld Auto 7.4Thou/uL Normal [id number] 4 - 11 HHCCT RBC num Bld Auto 3.05Mil/uL Below low normal 514102793500 4 - 5.4 HHCCT Hgb Bld-mCnc 8.5g/dL Below low normal [id number] 11.7 - 15.7 HHCCT Anticoagulant IV HEPARIN, UNFRACTIONATED Normal 403148460555 HHCCT POC Glucose 217mg/dL Above high normal 941665583928 65 - 99 HHCCT INR PPP 1.3 Normal [id number] HHCCT Prothrombin time 15.4seconds Above high normal [id number] 10 - 13.5 HHCCT Anticoagulant Normal [id number] [facility] CT POC Glucose 143mg/dL Above high normal 653749344274 65 - 99 HHCCT POC Glucose 170mg/dL Above high normal 270959373847 65 - 99 HHCCT Phosphate SerPl-mCnc 3.9mg/dL Normal [id number] 2.7 - 4.5 HHCCT Magnesium SerPl-mCnc 2.2mg/dL Normal [id number] 1.6 - 2.7 HHCCT Chloride SerPl-sCnc 93mmol/L Below low normal 931244549628 98 - 107 HHCCT Glucose SerPl-mCnc 136mg/dL Above high normal 140658088486 65 - 99 HHCCT GFR/BSA.pred SerPlBld XUN-NQF-CzLMck 26 Below low normal [id number] 59 - HHCCT Creat SerPl-mCnc 1.9mg/dL Above high normal 754966033112 0. 4 - 1.1 HHCCT BUN/Creat SerPl 25Ratio Normal [id number] 10 - 25 H HCCT Anion Gap Bld-sCnc 14 Normal [id number] 7 - 17 HHCCT Calcium SerPl-mCnc 9.4mg/dL Normal [id number] 8.7 - 10 .5 HHCCT CO2 SerPl-sCnc 27mmol/L Normal [id number] 22 - 33 HH CCT BUN SerPl-mCnc 47mg/dL Above high normal [id number] 8 - 21 HHCCT Sodium SerPl-sCnc 134mmol/L Below low normal 967283525845 13 6 - 145 HHCCT Potassium SerPl-sCnc 4mmol/L Normal [id number] 3.4 - 5.3 HHCCT LMWH PPP Research Archaeologist-aCnc 0.54IU/mL Normal 237609568596 HHCCT Imm Granulocytes/leuk NFr Bld Auto 1.5% Normal 448596698589 HHCCT Lymphocytes/leuk NFr Bld Auto 12.2% Normal 223653612601 HHCCT PMV Bld Auto 10fL Normal [id number] 7.5 - 12.[address] Monocytes num Bld Auto 0.53Thou/uL Normal 167444123988 0.2 - 1.5 HHCCT Hct VFr Bld Auto 28.2% Below low normal 542466333986 35 - 47 HHCCT Neutrophils num Bld Auto 5.99Thou/uL Normal [id number] 2 - 7.5 HHCCT Neutrophils/leuk NFr Bld Auto 72.6% Normal [id number] HHCCT Basophils/leuk NFr Bld Auto 1.1% Normal [id number] HHCCT Basophils num Bld Auto 0.09Thou/uL Normal 641856652210 0 - 0.2 HHCCT Monocytes/leuk NFr Bld Auto 6.4% Normal [id number] HHCCT Eosinophil num Bld Auto 0.51Thou/uL Normal 857826825480 0 - 0.7 HHCCT MCH RBC Qn Auto 28pg Normal [id number] 27 - 31 H HCCT Eosinophil/leuk NFr Bld Auto 6.2% Normal 312955866587 HHCCT Imm Granulocytes num Bld Auto 0.12Thou/uL Above high normal 225403717035 0 - 0.1 HHCCT RDW RBC Auto-Rto 16.1% Above high normal 428222137715 11.5 - 14.5 HHCCT Platelet num Bld Auto 231Thou/uL Normal [id number] 150 - 450 HHCCT MCHC RBC Auto-mCnc 31.2g/dL Normal [id number] 30 - 36 HHCCT MCV RBC Auto 90fL Normal 840378497154 80 - 100 HHCC T WBC num Bld Auto 8.3Thou/uL Normal 425206574804 4 - 11 HHCCT RBC num Bld Auto 3.14Mil/uL Below low normal 207886066498 4 - 5.4 HHCCT Hgb Bld-mCnc 8.8g/dL Below low normal 247939698558 11.7 - 15.7 HHCCT Lymphocytes num Bld Auto 1.01Thou/uL Below low normal [id number] 1.5 - 4.5 HHCCT POC Glucose 149mg/dL Above high normal 506004443997 65 - 99 HHCCT Anticoagulant IV HEPARIN, UNFRACTIONATED Normal 698891698222 HHCCT POC Glucose 181mg/dL Above high normal 130241725659 65 - 99 HHCCT POC Glucose 174mg/dL Above high normal [id number] 65 - 99 HHCCT POC Glucose 134mg/dL Above high normal 934158566659 65 - 99 HHCCT pro BNP, N-terminal 8560pg/mL Above high normal 395329947823 - 450 HHCCT POC Glucose 143mg/dL Above high normal 143075874073 65 - 99 HHCCT Magnesium SerPl-mCnc 2.2mg/dL Normal 249893274523 1.6 - 2.7 HHCCT Phosphate SerPl-mCnc 3.7mg/dL Normal [id number] 2.7 - 4.5 HHCCT Chloride SerPl-sCnc 93mmol/L Below low normal 801499168667 98 - 107 HHCCT Glucose SerPl-mCnc 134mg/dL Above high normal 738172826180 65 - 99 HHCCT GFR/BSA.pred SerPlBld PFP-EEQ-NxCQfp 30 Below low normal 033276821165 59 - HHCCT Creat SerPl-mCnc 1.7mg/dL Above high normal 928084772973 0. 4 - 1.1 HHCCT BUN/Creat SerPl 28Ratio Above high normal 299730444800 10 - 25 HHCCT Anion Gap Bld-sCnc 12 Normal [id number] 7 - 17 HHCCT Calcium SerPl-mCnc 9.3mg/dL Normal [id number] 8.7 - 10 .5 HHCCT CO2 SerPl-sCnc 28mmol/L Normal 22 - 33 HH CCT BUN SerPl-mCnc 47mg/dL Above high normal 523797092722 8 - 21 HHCCT Sodium SerPl-sCnc 133mmol/L Below low normal 945710420050 13 6 - 145 HHCCT Potassium SerPl-sCnc 4mmol/L Normal 150767655460 3.4 - 5.3 HHCCT LMWH PPP Research Archaeologist-aCnc 0.45IU/mL Normal 501547154969 HHCCT MCH RBC Qn Auto 27.8pg Normal [id number] 27 - 31 H HCCT PMV Bld Auto 10.1fL Normal 596075915912 7.5 - 12.[address] RDW RBC Auto-Rto 15.9% Above high normal 878720065596 11.5 - 14.5 HHCCT Hct VFr Bld Auto 28.4% Below low normal 658936673454 35 - 47 HHCCT Platelet num Bld Auto 206Thou/uL Normal [id number] 150 - 450 HHCCT MCHC RBC Auto-mCnc 31g/dL Normal [id number] 30 - 36 HHCCT MCV RBC Auto 90fL Normal [id number] 80 - 100 HHCC T WBC num Bld Auto 7.1Thou/uL Normal [id number] 4 - 11 HHCCT RBC num Bld Auto 3.16Mil/uL Below low normal 244303162967 4 - 5.4 HHCCT Hgb Bld-mCnc 8.8g/dL Below low normal 419124462762 11.7 - 15.7 HHCCT Anticoagulant IV HEPARIN, UNFRACTIONATED Normal 368318687311 HHCCT POC Glucose 165mg/dL Above high normal 584848715516 65 - 99 HHCCT POC Glucose 137mg/dL Above high normal 034309004917 65 - 99 HHCCT POC Glucose 162mg/dL Above high normal 348864817309 65 - 99 HHCCT Chloride SerPl-sCnc 97mmol/L Below low normal 393602236396 98 - 107 HHCCT Glucose SerPl-mCnc 133mg/dL Above high normal 274491420498 65 - 99 HHCCT GFR/BSA.pred SerPlBld COI-TGQ-VvLYgd 32 Below low normal 781573635072 59 - HHCCT Creat SerPl-mCnc 1.6mg/dL Above high normal 448514188465 0. 4 - 1.1 HHCCT BUN/Creat SerPl 31Ratio Above high normal [id number] 10 - 25 HHCCT Anion Gap Bld-sCnc 10 Normal [id number] 7 - 17 HHCCT Calcium SerPl-mCnc 9mg/dL Normal 242501357569 8.7 - 10 .5 HHCCT CO2 SerPl-sCnc 28mmol/L Normal [id number] 22 - 33 HH CCT BUN SerPl-mCnc 49mg/dL Above high normal 536434616749 8 - 21 HHCCT Sodium SerPl-sCnc 135mmol/L Below low normal 517331084303 13 6 - 145 HHCCT Potassium SerPl-sCnc 4.1mmol/L Normal 261554039913 3.4 - 5.3 HHCCT Phosphate SerPl-mCnc 3.7mg/dL Normal [id number] 2.7 - 4.5 HHCCT Magnesium SerPl-mCnc 2.2mg/dL Normal [id number] 1.6 - 2.7 HHCCT LMWH PPP Research Archaeologist-aCnc 0.43IU/mL Normal 049718329848 HHCCT MCH RBC Qn Auto 27.5pg Normal [id number] 27 - 31 H HCCT PMV Bld Auto 10.6fL Normal [id number] 7.5 - 12.[address] RDW RBC Auto-Rto 15.8% Above high normal 323174225498 11.5 - 14.5 HHCCT Hct VFr Bld Auto 26.3% Below low normal [id number] 35 - 47 HHCCT Platelet num Bld Auto 194Thou/uL Normal [id number] 150 - 450 HHCCT MCHC RBC Auto-mCnc 30g/dL Normal [id number] 30 - 36 HHCCT MCV RBC Auto 92fL Normal [id number] 80 - 100 HHCC T WBC num Bld Auto 7.3Thou/uL Normal 895984183833 4 - 11 HHCCT RBC num Bld Auto 2.87Mil/uL Below low normal 275183658732 4 - 5.4 HHCCT Hgb Bld-mCnc 7.9g/dL Below low normal [id number] 11.7 - 15.7 HHCCT POC Glucose 137mg/dL Above high normal 722840698701 65 - 99 HHCCT Anticoagulant IV HEPARIN, UNFRACTIONATED Normal 066388460071 HHCCT POC Glucose 175mg/dL Above high normal 594827394430 65 - 99 HHCCT POC Glucose 142mg/dL Above high normal 876534907984 65 - 99 HHCCT Chloride SerPl-sCnc 96mmol/L Below low normal 828283100917 98 - 107 HHCCT Glucose SerPl-mCnc 185mg/dL Above high normal 595629481331 65 - 99 HHCCT GFR/BSA.pred SerPlBld JPF-BHQ-LfXWgm 32 Below low normal 734193539082 59 - HHCCT Creat SerPl-mCnc 1.6mg/dL Above high normal [id number] 0. 4 - 1.1 HHCCT BUN/Creat SerPl 33Ratio Above high normal [id number] 10 - 25 [facility]CT Anion Gap Bld-sCnc 13 Normal [id number] 7 - 17 HHCCT Calcium SerPl-mCnc 9.1mg/dL Normal [id number] 8.7 - 10 .5 HHCCT CO2 SerPl-sCnc 28mmol/L Normal 22 - 33 HH CCT BUN SerPl-mCnc 52mg/dL Above high normal [id number] 8 - 21 HHCCT Sodium SerPl-sCnc 137mmol/L Normal [id number] 136 - 145 HHCCT Potassium SerPl-sCnc 4.4mmol/L Normal [id number] 3.4 - 5.3 HHCCT Phosphate SerPl-mCnc 3.1mg/dL Normal [id number] 2.7 - 4.5 HHCCT Magnesium SerPl-mCnc 2.4mg/dL Normal [id number] 1.6 - 2.7 HHCCT POC Glucose 168mg/dL Above high normal [id number] 65 - 99 HHCCT LMWH PPP Research Archaeologist-aCnc 0.48IU/mL Normal [id number] HHCCT POC Glucose 136mg/dL Above high normal [id number] 65 - 99 HHCCT Anticoagulant IV HEPARIN, UNFRACTIONATED Normal [id number] HHCCT LMWH PPP Research Archaeologist-aCnc 0.43IU/mL Normal [id number] HHCCT pro BNP, N-terminal 82990yo/mL Above high normal 165556185630 - 450 HHCCT Anticoagulant IV HEPARIN, UNFRACTIONATED Normal [id number] HHCCT POC Glucose 151mg/dL Above high normal 790124835007 65 - 99 HHCCT Magnesium SerPl-mCnc 2.3mg/dL Normal [id number] 1.6 - 2.7 HHCCT Phosphate SerPl-mCnc 3.9mg/dL Normal [id number] 2.7 - 4.5 HHCCT Chloride SerPl-sCnc 98mmol/L Normal [id number] 98 - 107 HHCCT Glucose SerPl-mCnc 121mg/dL Above high normal [id number] 65 - 99 HHCCT GFR/BSA.pred SerPlBld FRI-NAN-EkJDum 32 Below low normal [id number] 59 - HHCCT Creat SerPl-mCnc 1.6mg/dL Above high normal [id number] 0. 4 - 1.1 HHCCT BUN/Creat SerPl 36Ratio Above high normal [id number] 10 - 25 HHCCT Anion Gap Bld-sCnc 13 Normal [id number] 7 - 17 HHCCT Calcium SerPl-mCnc 8.4mg/dL Below low normal 282188467477 8 .7 - 10.5 HHCCT CO2 SerPl-sCnc 26mmol/L Normal [id number] 22 - 33 HH CCT BUN SerPl-mCnc 57mg/dL Above high normal [id number] 8 - 21 HHCCT Sodium SerPl-sCnc 137mmol/L Normal [id number] 136 - 145 HHCCT Potassium SerPl-sCnc 3.6mmol/L Normal [id number] 3.4 - 5.3 HHCCT Imm Granulocytes/leuk NFr Bld Auto 2.1% Normal [id number] HHCCT Lymphocytes/leuk NFr Bld Auto 13.5% Normal [id number] HHCCT PMV Bld Auto 10.3fL Normal [id number] 7.5 - 12.[address] Monocytes num Bld Auto 0.48Thou/uL Normal [id number] 0.2 - 1.5 HHCCT Hct VFr Bld Auto 24.3% Below low normal [id number] 35 - 47 HHCCT Neutrophils num Bld Auto 5.12Thou/uL Normal [id number] 2 - 7.5 HHCCT Neutrophils/leuk NFr Bld Auto 70.9% Normal [id number] HHCCT Basophils/leuk NFr Bld Auto 1% Normal [id number] HHCCT Basophils num Bld Auto 0.07Thou/uL Normal [id number] 0 - 0.2 HHCCT Monocytes/leuk NFr Bld Auto 6.7% Normal [id number] HHCCT Eosinophil num Bld Auto 0.42Thou/uL Normal [id number] 0 - 0.7 HHCCT MCH RBC Qn Auto 28.4pg Normal [id number] 27 - 31 H HCCT Eosinophil/leuk NFr Bld Auto 5.8% Normal [id number] HHCCT Imm Granulocytes num Bld Auto 0.15Thou/uL Above high normal 469821499540 0 - 0.1 HHCCT RDW RBC Auto-Rto 15.5% Above high normal [id number] 11.5 - 14.5 HHCCT Platelet num Bld Auto 162Thou/uL Normal [id number] 150 - 450 HHCCT MCHC RBC Auto-mCnc 31.3g/dL Normal [id number] 30 - 36 HHCCT MCV RBC Auto 91fL Normal [id number] 80 - 100 [facility] T WBC num Bld Auto 7.2Thou/uL Normal [id number] 4 - 11 [facility] RBC num Bld Auto 2.68Mil/uL Below low normal 377353653201 4 - 5.4 [facility] Hgb Bld-mCnc 7.6g/dL Below low normal 668828359711 11.7 - 15.7 [facility] Lymphocytes num Bld Auto 0.97Thou/uL Below low normal 290790932835 1.5 - 4.5 [facility] POC Glucose 164mg/dL Above high normal 767670169759 65 - 99 [facility] Chloride SerPl-sCnc 96mmol/L Below low normal 383625388717 98 - 107 [facility] Glucose SerPl-mCnc 158mg/dL Above high normal 184119495474 65 - 99 [facility] GFR/BSA.pred SerPlBld JSA-BLU-OxEMtk 30 Below low normal 017099545019 59 - HHCCT Creat SerPl-mCnc 1.7mg/dL Above high normal 339475590921 0. 4 - 1.1 H[facility]CT BUN/Creat SerPl 37Ratio Above high normal [id number] 10 - 25 [facility] Anion Gap Bld-sCnc 14 Normal [id number] 7 - 17 [facility] Calcium SerPl-mCnc 9.1mg/dL Normal [id number] 8.7 - 10 .5 H[facility]CT CO2 SerPl-sCnc 29mmol/L Normal [id number] 22 - 33 HH CCT BUN SerPl-mCnc 63mg/dL Above high normal 314526964016 8 - 21 [facility]CT Sodium SerPl-sCnc 139mmol/L Normal [id number] 136 - 145 [facility]CT Potassium SerPl-sCnc 4.2mmol/L Normal 3.4 - 5.3 H[facility]CT LMWH PPP Research Archaeologist-aCnc 0.3IU/mL Normal [id number] H[facility]CT Potassium SerPl-sCnc 4.1mmol/L Normal 3.4 - 5.3 H[facility]CT GFR/BSA.pred SerPlBld RJJ-YBG-KvREay 28 Below low normal 713984062060 59 - HHCCT Creat SerPl-mCnc 1.8mg/dL Above high normal 146963877733 0. 4 - 1.1 H[facility]CT Magnesium SerPl-mCnc 2.3mg/dL Normal 1.6 - 2.7 H[facility]CT Phosphate SerPl-mCnc 4.3mg/dL Normal 2.7 - 4.5 H[facility]CT POC Glucose 165mg/dL Above high normal [id number] 65 - 99 H[facility]CT Prot SerPl-mCnc 6.9g/dL Normal [id number] 6.3 - 8.3 H HCCT LDH SerPl L to P-cCnc 239U/L Normal [id number] 120 - 260 [facility]CT POC Glucose 206mg/dL Above high normal 773903444108 65 - 99 [facility]CT LMWH PPP Research Archaeologist-aCnc 0.04IU/mL Normal [id number] [facility] Anticoagulant IV HEPARIN, UNFRACTIONATED Normal [id number] [facility] Anticoagulant IV HEPARIN, UNFRACTIONATED Normal [id number] [facility] Monocytes/leuk NFr Fld 3% Normal [id number] [facility] Eosinophil/leuk NFr Fld Manual 2% Normal 732535117434 [facility] Histiocytes/leuk NFr Fld 22% Normal [id number] [facility] Mesothl Cell/leuk NFr Fld Manual 7% Normal 793812008749 [facility] Basophils/leuk NFr Fld Manual 5% Normal 893004736831 [facility] Appearance Fld Normal [id number] [facility] Color Fld Normal [id number] [facility] Cell Fract Fld-Imp Normal 788453886171 [facility] Neutrophil, Fluid 18% Normal [id number] [facility] Lymphocyte, Fluid 43% Normal 910007558949 [facility] LDH Fld L to P-cCnc 196U/L Normal 621932944144 [facility] Prot Fld-mCnc 1.7g/dL Normal [id number] [facility] CT Glucose Fld-mCnc 143mg/dL Normal 590577827107 [facility] RBC num Fld Auto 28408/CUMM Normal 659718259401 [facility] Nuc cell num Fld Auto 2024/CUMM Normal 419618055232 [facility] pH Fld 7.39 Normal 348170572484 [facility] pro BNP, N-terminal 39214pi/mL Above high normal 694535773976 - 450 [facility] POC Glucose 148mg/dL Above high normal 900343197998 65 - 99 [facility] Fluid Source PLEURAL Normal [id number] [facility] T Fluid Source PLEURAL Normal [id number] [facility] T Fluid Source PLEURAL Normal 284229477508 [facility] T Fluid Source PLEURAL Normal 253713808899 [facility] T Magnesium SerPl-mCnc 2.5mg/dL Normal [id number] 1.6 - 2.7 [facility]CT Chloride SerPl-sCnc 97mmol/L Below low normal 508360634318 98 - 107 [facility]CT Glucose SerPl-mCnc 140mg/dL Above high normal 839330217219 65 - 99 [facility]CT GFR/BSA.pred SerPlBld IFW-NPA-JjXStv 30 Below low normal 731211937428 59 - HHCCT Creat SerPl-mCnc 1.7mg/dL Above high normal 681788047707 0. 4 - 1.1 H[facility]CT BUN/Creat SerPl 38Ratio Above high normal 993630356149 10 - 25 [facility]CT Anion Gap Bld-sCnc 15 Normal 341939552026 7 - 17 [facility]CT Calcium SerPl-mCnc 8.9mg/dL Normal 926981687736 8.7 - 10 .5 [facility]CT CO2 SerPl-sCnc 25mmol/L Normal 236327561397 22 - 33 HH CCT BUN SerPl-mCnc 64mg/dL Above high normal 894157366739 8 - 21 [facility]CT Sodium SerPl-sCnc 137mmol/L Normal [id number] 136 - 145 [facility]CT Potassium SerPl-sCnc 3.8mmol/L Normal [id number] 3.4 - 5.3 H[facility]CT Phosphate SerPl-mCnc 4.3mg/dL Normal [id number] 2.7 - 4.5 [facility]CT LMWH PPP Research Archaeologist-aCnc 0.39IU/mL Normal 423839445497 [facility] Imm Granulocytes/leuk NFr Bld Auto 2.2% Normal 792888474592 [facility] Lymphocytes/leuk NFr Bld Auto 13.3% Normal 740801350113 [facility] PMV Bld Auto 10.5fL Normal [id number] 7.5 - 12.[address] Monocytes num Bld Auto 0.8Thou/uL Normal [id number] 0.2 - 1.5 H[facility]CT Hct VFr Bld Auto 27% Below low normal [id number] 35 - 47 [facility] Neutrophils num Bld Auto 5.79Thou/uL Normal 591886958311 2 - 7.5 [facility]CT Neutrophils/leuk NFr Bld Auto 68.4% Normal 045485016512 [facility] Basophils/leuk NFr Bld Auto 0.9% Normal 567041731183 [facility] Basophils num Bld Auto 0.08Thou/uL Normal [id number] 0 - 0.2 [facility]CT Monocytes/leuk NFr Bld Auto 9.4% Normal [id number] [facility] Eosinophil num Bld Auto 0.49Thou/uL Normal 286066948627 0 - 0.7 [facility]CT MCH RBC Qn Auto 28.4pg Normal 581156646316 27 - 31 H [facility] Eosinophil/leuk NFr Bld Auto 5.8% Normal 182411809532 [facility] Imm Granulocytes num Bld Auto 0.19Thou/uL Above high normal 494821717750 0 - 0.1 [facility]CT RDW RBC Auto-Rto 15.5% Above high normal 161875701154 11.5 - 14.5 [facility]CT Platelet num Bld Auto 162Thou/uL Normal [id number] 150 - 450 [facility]CT MCHC RBC Auto-mCnc 30.7g/dL Normal [id number] 30 - 36 H[facility]CT MCV RBC Auto 93fL Normal 249007005138 80 - 100 [facility] T WBC num Bld Auto 8.5Thou/uL Normal 951474526970 4 - 11 [facility]CT RBC num Bld Auto 2.92Mil/uL Below low normal 345511436041 4 - 5.4 H[facility]CT Hgb Bld-mCnc 8.3g/dL Below low normal 913697604227 11.7 - 15.7 H[facility]CT Lymphocytes num Bld Auto 1.13Thou/uL Below low normal 950868671265 1.5 - 4.5 H[facility]CT POC Glucose 147mg/dL Above high normal 278589576481 65 - 99 H[facility]CT LMWH PPP Research Archaeologist-aCnc 0.36IU/mL Normal 618614836580 [facility] POC Glucose 169mg/dL Above high normal 225141061061 65 - 99 [facility]CT Anticoagulant IV HEPARIN, UNFRACTIONATED Normal 664884179964 [facility] POC Glucose 156mg/dL Above high normal [id number] - 99 [facility]CT Anticoagulant IV HEPARIN, UNFRACTIONATED Normal [id number] [facility]CT Phosphate SerPl-mCnc 4mg/dL Normal 2.7 - 4.5 HHCCT Chloride SerPl-sCnc 100mmol/L Normal 98 - 107 [facility]CT Glucose SerPl-mCnc 146mg/dL Above high normal 086457227783 65 - 99 HHCCT GFR/BSA.pred SerPlBld VFV-LZU-UqUYat 30 Below low normal 801570744680 59 - HHCCT Creat SerPl-mCnc 1.7mg/dL Above high normal 861621924408 0. 4 - 1.1 H[facility]CT BUN/Creat SerPl 39Ratio Above high normal 648310694029 10 - 25 H[facility]CT Anion Gap Bld-sCnc 13 Normal [id number] 7 - 17 H[facility]CT Calcium SerPl-mCnc 9.1mg/dL Normal [id number] 8.7 - 10 .5 HHCCT CO2 SerPl-sCnc 28mmol/L Normal 22 - 33 HH CCT BUN SerPl-mCnc 66mg/dL Above high normal 341535311223 8 - 21 H[facility]CT Sodium SerPl-sCnc 141mmol/L Normal [id number] 136 - 145 HHCCT Potassium SerPl-sCnc 4.1mmol/L Normal [id number] 3.4 - 5.3 HHCCT Magnesium SerPl-mCnc 2.7mg/dL Normal [id number] 1.6 - 2.7 HHCCT POC Glucose 160mg/dL Above high normal 998330168380 65 - 99 [facility]CT POC Glucose 130mg/dL Above high normal 943398592595 65 - 99 [facility]CT POC Glucose 133mg/dL Above high normal 104034776119 65 - 99 HHCCT Chloride SerPl-sCnc 100mmol/L Normal [id number] 98 - 107 H[facility]CT Glucose SerPl-mCnc 121mg/dL Above high normal [id number] 65 - 99 HHCCT GFR/BSA.pred SerPlBld IKS-DXI-ZpPMrp 26 Below low normal 283531721818 59 - HHCCT Creat SerPl-mCnc 1.9mg/dL Above high normal 349207783129 0. 4 - 1.1 HHCCT BUN/Creat SerPl 38Ratio Above high normal [id number] 10 - 25 HHCCT Anion Gap Bld-sCnc 11 Normal [id number] 7 - 17 HHCCT Calcium SerPl-mCnc 9.2mg/dL Normal 792978411039 8.7 - 10 .5 HHCCT CO2 SerPl-sCnc 30mmol/L Normal [id number] 22 - 33 HH CCT BUN SerPl-mCnc 72mg/dL Above high normal 524549435786 8 - 21 HHCCT Sodium SerPl-sCnc 141mmol/L Normal [id number] 136 - 145 HHCCT Potassium SerPl-sCnc 4.1mmol/L Normal [id number] 3.4 - 5.3 HHCCT Phosphate SerPl-mCnc 4.4mg/dL Normal [id number] 2.7 - 4.5 HHCCT Magnesium SerPl-mCnc 2.7mg/dL Normal [id number] 1.6 - 2.7 H[facility]CT Globulin Ser Calc-mCnc 3.6g/dL Normal [id number] 1.5 - 3.9 HHCCT ALT SerPl-cCnc 10U/L Normal [id number] 10 - 50 HH CCT AST SerPl-cCnc 24U/L Normal 175849924026 10 - 50 HH CCT Albumin SerPl-mCnc 3.3g/dL Below low normal [id number] 3 .4 - 4.8 HHCCT Bilirub Direct SerPl-mCnc 0.3mg/dL Above high normal 971054920249 0 - 0.2 HHCCT Albumin/Glob SerPl 0.9Ratio Below low normal 229963702067 1 - 3 HHCCT Prot SerPl-mCnc 6.9g/dL Normal [id number] 6.3 - 8.3 H HCCT Bilirub SerPl-mCnc 0.5mg/dL Normal [id number] 0.2 - 1 HHCCT ALP SerPl-cCnc 156U/L Above high normal 316827987261 32 - 122 HHCCT pro BNP, N-terminal 33920mr/mL Above high normal 072989146898 - 450 H[facility]CT LMWH PPP Research Archaeologist-aCnc 0.36IU/mL Normal [id number] H[facility]CT MCH RBC Qn Auto 27.8pg Normal [id number] 27 - 31 H HCCT PMV Bld Auto 10.4fL Normal [id number] 7.5 - 12.[address] RDW RBC Auto-Rto 15.7% Above high normal 256438523564 11.5 - 14.5 HHCCT Hct VFr Bld Auto 27% Below low normal 022991284395 35 - 47 [facility]CT Platelet num Bld Auto 164Thou/uL Normal [id number] 150 - 450 [facility]CT MCHC RBC Auto-mCnc 30g/dL Normal [id number] 30 - 36 HHCCT MCV RBC Auto 93fL Normal 765040882757 80 - 100 [facility] T WBC num Bld Auto 8.7Thou/uL Normal [id number] 4 - 11 [facility]CT RBC num Bld Auto 2.91Mil/uL Below low normal 433810059190 4 - 5.4 H[facility]CT Hgb Bld-mCnc 8.1g/dL Below low normal 515268044600 11.7 - 15.7 HHCCT POC Glucose 136mg/dL Above high normal 946829448669 65 - 99 H[facility]CT Anticoagulant IV HEPARIN, UNFRACTIONATED Normal 675284068154 [facility]CT POC Glucose 144mg/dL Above high normal 155755952331 65 - 99 H[facility]CT POC Glucose 163mg/dL Above high normal 313054500729 65 - 99 HHCCT Anion Gap Bld-sCnc 14 Normal [id number] 7 - 17 HHCCT Chloride SerPl-sCnc 100mmol/L Normal [id number] 98 - 107 H[facility]CT Glucose SerPl-mCnc 133mg/dL Above high normal 601550479644 65 - 99 HHCCT GFR/BSA.pred SerPlBld QTF-LRB-AcYPdb 28 Below low normal 948831915796 59 - HHCCT Creat SerPl-mCnc 1.8mg/dL Above high normal 563053988953 0. 4 - 1.1 HHCCT BUN/Creat SerPl 38Ratio Above high normal [id number] 10 - 25 H[facility]CT Calcium SerPl-mCnc 9.3mg/dL Normal [id number] 8.7 - 10 .5 HHCCT CO2 SerPl-sCnc 28mmol/L Normal [id number] 22 - 33 HH CCT BUN SerPl-mCnc 69mg/dL Above high normal 199233304267 8 - 21 HHCCT Sodium SerPl-sCnc 142mmol/L Normal [id number] 136 - 145 HHCCT Potassium SerPl-sCnc 4.1mmol/L Normal [id number] 3.4 - 5.3 HHCCT Phosphate SerPl-mCnc 4.3mg/dL Normal [id number] 2.7 - 4.5 HHCCT Magnesium SerPl-mCnc 2.7mg/dL Normal [id number] 1.6 - 2.7 HHCCT POC Glucose 138mg/dL Above high normal 444211378847 65 - 99 HHCCT POC Glucose 160mg/dL Above high normal 010819634017 65 - 99 HHCCT POC Glucose 159mg/dL Above high normal 953413417005 65 - 99 HHCCT pro BNP, N-terminal 71396of/mL Above high normal 002970620133 - 450 HHCCT Phosphate SerPl-mCnc 4.2mg/dL Normal [id number] 2.7 - 4.5 HHCCT Magnesium SerPl-mCnc 2.6mg/dL Normal 267951649971 1.6 - 2.7 HHCCT Chloride SerPl-sCnc 105mmol/L Normal [id number] 98 - 107 HHCCT Glucose SerPl-mCnc 136mg/dL Above high normal 707193834510 65 - 99 HHCCT GFR/BSA.pred SerPlBld NAA-GNX-UnNTkn 30 Below low normal 831832644332 59 - HHCCT Creat SerPl-mCnc 1.7mg/dL Above high normal [id number] 0. 4 - 1.1 HHCCT BUN/Creat SerPl 41Ratio Above high normal 036761359853 10 - 25 HHCCT Anion Gap Bld-sCnc 14 Normal 981098799794 7 - 17 HHCCT Calcium SerPl-mCnc 8.7mg/dL Normal 604708435563 8.7 - 10 .5 HHCCT CO2 SerPl-sCnc 27mmol/L Normal [id number] 22 - 33 HH CCT BUN SerPl-mCnc 69mg/dL Above high normal 499754330155 8 - 21 HHCCT Sodium SerPl-sCnc 146mmol/L Above high normal 790063467139 1 36 - 145 HHCCT Potassium SerPl-sCnc 4.1mmol/L Normal [id number] 3.4 - 5.3 HHCCT LMWH PPP Research Archaeologist-aCnc 0.38IU/mL Normal [id number] HHCCT MCH RBC Qn Auto 28pg Normal [id number] 27 - 31 H HCCT PMV Bld Auto 10.4fL Normal [id number] 7.5 - 12.[address] RDW RBC Auto-Rto 15.9% Above high normal 033974798524 11.5 - 14.5 HHCCT Hct VFr Bld Auto 25.5% Below low normal 441612093617 35 - 47 HHCCT Platelet num Bld Auto 148Thou/uL Below low normal 590844051028 150 - 450 HHCCT MCHC RBC Auto-mCnc 30.6g/dL Normal [id number] 30 - 36 HHCCT MCV RBC Auto 91fL Normal [id number] 80 - 100 [facility] T WBC num Bld Auto 7.7Thou/uL Normal [id number] 4 - 11 HHCCT RBC num Bld Auto 2.79Mil/uL Below low normal 510752185842 4 - 5.4 HHCCT Hgb Bld-mCnc 7.8g/dL Below low normal 438350044495 11.7 - 15.7 HHCCT Anticoagulant HEPARIN, LOW MOLECULAR WEIGHT Normal 602159904689 HHCCT POC Glucose 156mg/dL Above high normal 303543665764 65 - 99 HHCCT POC Glucose 152mg/dL Above high normal 684542540525 65 - 99 HHCCT POC Glucose 118mg/dL Above high normal 596635745759 65 - 99 HHCCT POC Glucose 110mg/dL Above high normal 129703862500 65 - 99 HHCCT Magnesium SerPl-mCnc 2.4mg/dL Normal [id number] 1.6 - 2.7 HHCCT Phosphate SerPl-mCnc 3.7mg/dL Normal 072782048136 2.7 - 4.5 HHCCT Chloride SerPl-sCnc 104mmol/L Normal [id number] 98 - 107 HHCCT Glucose SerPl-mCnc 137mg/dL Above high normal 801177440386 65 - 99 HHCCT GFR/BSA.pred SerPlBld PYZ-IKL-MdKCto 30 Below low normal 328315642331 59 - HHCCT Creat SerPl-mCnc 1.7mg/dL Above high normal 467111687570 0. 4 - 1.1 HHCCT BUN/Creat SerPl 39Ratio Above high normal [id number] 10 - 25 HHCCT Anion Gap Bld-sCnc 13 Normal [id number] 7 - 17 HHCCT Calcium SerPl-mCnc 8.4mg/dL Below low normal 167047477355 8 .7 - 10.5 HHCCT CO2 SerPl-sCnc 26mmol/L Normal [id number] 22 - 33 HH CCT BUN SerPl-mCnc 66mg/dL Above high normal 413655117998 8 - 21 HHCCT Sodium SerPl-sCnc 143mmol/L Normal 224155131119 136 - 145 HHCCT Potassium SerPl-sCnc 4mmol/L Normal [id number] 3.4 - 5.3 HHCCT INR PPP 1.9 Normal 754835327172 HHCCT Prothrombin time 22.3seconds Above high normal 125050086585 10 - 13.5 HHCCT Anticoagulant IV HEPARIN, UNFRACTIONATED Normal 830627303614 HHCCT SaO2 % BldA 99.3% Above high normal 439101522867 94 - 97 HHCCT pCO2, Arterial 44mmHG Normal [id number] 32 - 45 HH CCT Total CO2, Arterial 29mmol/L Above high normal 304479427849 22 - 28 HHCCT P/F Ratio 253 Normal 794554323716 HHCCT pH, Arterial 7.42 Normal [id number] 7.35 - 7.45 HHCCT Base excess BldA Calc-sCnc 3.7mmol/L Normal [id number] HHCCT O2 Ct VFr BldA Calc 11.4mL/dL Below low normal 595818360307 15.7 - 21.6 HHCCT MetHgb MFr Bld 0.5% Normal [id number] 0.4 - 1.5 HH CCT COHgb MFr Bld 2.3% Above high normal 292943702019 0 - 2 HHCCT Hgb Bld-mCnc 8.2g/dL Below low normal 626307647301 11.7 - 15.7 HHCCT pO2, Arterial 101mmHG Above high normal 261637366887 75 - 95 HHCCT POC Glucose 195mg/dL Above high normal 066148310142 65 - 99 HHCCT Respiratory Information VENT 40% Normal [id number] HHCCT POC Glucose 172mg/dL Above high normal 020518825817 65 - 99 HHCCT POC Glucose 185mg/dL Above high normal 206641429221 65 - 99 HHCCT Phosphate SerPl-mCnc 3.6mg/dL Normal [id number] 2.7 - 4.5 HHCCT Chloride SerPl-sCnc 101mmol/L Normal [id number] 98 - 107 HHCCT Glucose SerPl-mCnc 163mg/dL Above high normal 608389152786 65 - 99 HHCCT GFR/BSA.pred SerPlBld DGX-BDO-WvRBaj 24 Below low normal 677971326134 59 - HHCCT Creat SerPl-mCnc 2mg/dL Above high normal 090590634564 0. 4 - 1.1 HHCCT BUN/Creat SerPl 34Ratio Above high normal 486643659799 10 - 25 HHCCT Anion Gap Bld-sCnc 11 Normal 401579885032 7 - 17 HHCCT Calcium SerPl-mCnc 8.6mg/dL Below low normal [id number] 8 .7 - 10.5 HHCCT CO2 SerPl-sCnc 26mmol/L Normal [id number] 22 - 33 HH CCT BUN SerPl-mCnc 67mg/dL Above high normal 961876923831 8 - 21 HHCCT Sodium SerPl-sCnc 138mmol/L Normal 295172024911 136 - 145 HHCCT Potassium SerPl-sCnc 4.2mmol/L Normal 249443036221 3.4 - 5.3 HHCCT pro BNP, N-terminal 45599cg/mL Above high normal 792912363668 - 450 HHCCT Magnesium SerPl-mCnc 2.4mg/dL Normal 993065835886 1.6 - 2.7 HHCCT LMWH PPP Research Archaeologist-aCnc 0.3IU/mL Normal 474183513196 HHCCT MCH RBC Qn Auto 27.7pg Normal 337455817592 27 - 31 H HCCT PMV Bld Auto 10.9fL Normal 767820628893 7.5 - 12.[address] RDW RBC Auto-Rto 15.9% Above high normal 565569564822 11.5 - 14.5 HHCCT Hct VFr Bld Auto 24.8% Below low normal 759331297150 35 - 47 HHCCT Platelet num Bld Auto 123Thou/uL Below low normal 552556390058 150 - 450 HHCCT MCHC RBC Auto-mCnc 30.6g/dL Normal 730993370825 30 - 36 HHCCT MCV RBC Auto 91fL Normal [id number] 80 - 100 [facility]CC T WBC num Bld Auto 8.6Thou/uL Normal [id number] 4 - 11 HHCCT RBC num Bld Auto 2.74Mil/uL Below low normal 880880465155 4 - 5.4 HHCCT Hgb Bld-mCnc 7.6g/dL Below low normal 781826893049 11.7 - 15.7 HHCCT POC Glucose 184mg/dL Above high normal 847996681959 65 - 99 HHCCT Anticoagulant IV HEPARIN, UNFRACTIONATED Normal 029055278675 HHCCT POC Glucose 206mg/dL Above high normal 414890112508 65 - 99 HHCCT POC Glucose 177mg/dL Above high normal 531499082893 65 - 99 HHCCT Phosphate SerPl-mCnc 3.6mg/dL Normal [id number] 2.7 - 4.5 HHCCT Chloride SerPl-sCnc 100mmol/L Normal 343538111000 98 - 107 HHCCT Glucose SerPl-mCnc 172mg/dL Above high normal 372366980911 65 - 99 HHCCT GFR/BSA.pred SerPlBld ZPY-BTS-MuICcu 23 Below low normal 146095878640 59 - HHCCT Creat SerPl-mCnc 2.1mg/dL Above high normal 705043432161 0. 4 - 1.1 HHCCT BUN/Creat SerPl 31Ratio Above high normal 636831238863 10 - 25 HHCCT Anion Gap Bld-sCnc 13 Normal 620468828542 7 - 17 HHCCT Calcium SerPl-mCnc 8.4mg/dL Below low normal 655099889495 8 .7 - 10.5 HHCCT CO2 SerPl-sCnc 25mmol/L Normal 763258291945 22 - 33 HH CCT BUN SerPl-mCnc 66mg/dL Above high normal 483488077249 8 - 21 HHCCT Sodium SerPl-sCnc 138mmol/L Normal 412479835517 136 - 145 HHCCT Potassium SerPl-sCnc 3.6mmol/L Normal 209403597669 3.4 - 5.3 HHCCT Magnesium SerPl-mCnc 2.3mg/dL Normal [id number] 1.6 - 2.7 HHCCT Hct VFr Bld Auto 24.1% Below low normal 683744134944 35 - 47 HHCCT Hgb Bld-mCnc 7.5g/dL Below low normal 641130637756 11.7 - 15.7 HHCCT POC Glucose 180mg/dL Above high normal 691043669938 65 - 99 HHCCT Hct VFr Bld Auto 23.3% Below low normal 412601194968 35 - 47 HHCCT Hgb Bld-mCnc 7.1g/dL Below low normal 701815735329 11.7 - 15.7 HHCCT POC Glucose 197mg/dL Above high normal 399000833841 65 - 99 HHCCT Hct VFr Bld Auto 22.8% Below low normal 318997090066 35 - 47 HHCCT Hgb Bld-mCnc 7g/dL Below low normal 925852271301 11.7 - 15.7 HHCCT POC Glucose 230mg/dL Above high normal 802382486321 65 - 99 HHCCT Phosphate SerPl-mCnc 3.6mg/dL Normal 961202595351 2.7 - 4.5 HHCCT Magnesium SerPl-mCnc 2.2mg/dL Normal 352809408385 1.6 - 2.7 HHCCT Chloride SerPl-sCnc 98mmol/L Normal [id number] 98 - 107 HHCCT Glucose SerPl-mCnc 179mg/dL Above high normal 189074801284 65 - 99 HHCCT GFR/BSA.pred SerPlBld RCT-TNX-KaFMkd 23 Below low normal 812390365115 59 - HHCCT Creat SerPl-mCnc 2.1mg/dL Above high normal 616396802404 0. 4 - 1.1 HHCCT BUN/Creat SerPl 30Ratio Above high normal 587256615595 10 - 25 HHCCT Anion Gap Bld-sCnc 13 Normal 362751206400 7 - 17 HHCCT Calcium SerPl-mCnc 8.4mg/dL Below low normal 797178350188 8 .7 - 10.5 HHCCT CO2 SerPl-sCnc 25mmol/L Normal 750282841418 22 - 33 HH CCT BUN SerPl-mCnc 63mg/dL Above high normal 149919400145 8 - 21 HHCCT Sodium SerPl-sCnc 136mmol/L Normal [id number] 136 - 145 HHCCT Potassium SerPl-sCnc 3.7mmol/L Normal [id number] 3.4 - 5.3 HHCCT pro BNP, N-terminal 58317mz/mL Above high normal 142260507506 - 450 HHCCT LMWH PPP Research Archaeologist-aCnc 0.37IU/mL Normal 200772123591 HHCCT MCH RBC Qn Auto 29pg Normal 113355792358 27 - 31 H HCCT PMV Bld Auto 10.8fL Normal [id number] 7.5 - 12.[address] RDW RBC Auto-Rto 15.9% Above high normal 373065665189 11.5 - 14.5 HHCCT Hct VFr Bld Auto 23.3% Below low normal 703879825852 35 - 47 HHCCT Platelet num Bld Auto 112Thou/uL Below low normal 743208281525 150 - 450 HHCCT MCHC RBC Auto-mCnc 31.3g/dL Normal 472542643658 30 - 36 HHCCT MCV RBC Auto 93fL Normal [id number] 80 - 100 HHCC T WBC num Bld Auto 9.6Thou/uL Normal [id number] 4 - 11 HHCCT RBC num Bld Auto 2.52Mil/uL Below low normal 215992259895 4 - 5.4 HHCCT Hgb Bld-mCnc 7.3g/dL Below low normal 514188784517 11.7 - 15.7 HHCCT POC Glucose 193mg/dL Above high normal 288124320679 65 - 99 HHCCT POC Glucose 179mg/dL Above high normal 863893931587 65 - 99 HHCCT Anticoagulant IV HEPARIN, UNFRACTIONATED Normal 112963191109 HHCCT POC Glucose 217mg/dL Above high normal 687136846710 65 - 99 HHCCT POC Glucose 171mg/dL Above high normal 570351137683 65 - 99 HHCCT Phosphate SerPl-mCnc 4mg/dL Normal 750380461835 2.7 - 4.5 HHCCT Chloride SerPl-sCnc 97mmol/L Below low normal 411054357338 98 - 107 HHCCT Glucose SerPl-mCnc 166mg/dL Above high normal 674076394825 65 - 99 HHCCT GFR/BSA.pred SerPlBld [id number] 23 Below low normal [id number] 59 - HHCCT Creat SerPl-mCnc 2.1mg/dL Above high normal [id number] 0. 4 - 1.1 HHCCT BUN/Creat SerPl 27Ratio Above high normal 520744284051 10 - 25 HHCCT Anion Gap Bld-sCnc 13 Normal 403010859750 7 - 17 HHCCT Calcium SerPl-mCnc 8.5mg/dL Below low normal 306088050139 8 .7 - 10.5 HHCCT CO2 SerPl-sCnc 25mmol/L Normal [id number] 22 - 33 HH CCT BUN SerPl-mCnc 56mg/dL Above high normal 632449812871 8 - 21 HHCCT Sodium SerPl-sCnc 135mmol/L Below low normal 622621741600 13 6 - 145 HHCCT Potassium SerPl-sCnc 3.6mmol/L Normal 392304458732 3.4 - 5.3 HHCCT Magnesium SerPl-mCnc 2.1mg/dL Normal 570204763178 1.6 - 2.7 HHCCT pO2 BldV 57mmHG Normal 489212105019 0 - 60 HHCCT pH BldV 7.4 Normal [id number] 7.33 - 7.[address] VFr BldV Calc 9.2mL/dL Normal [id number] 7.2 - 17.2 HHCCT pCO2 BldV 46mmHG Normal [id number] 35 - 50 HHCCT CO2 BldV-sCnc 29mmol/L Normal [id number] 23 - [address] Base excess BldA Calc-sCnc 2.8mmol/L Normal 157440359388 HHCCT SaO2 % BldV from pO2 90.9% Normal 809516789046 HHCCT MetHgb MFr Bld 0.7% Normal [id number] 0.4 - 1.5 HH CCT COHgb MFr Bld 2% Normal [id number] 0 - [address] Hgb Bld-mCnc 7.3g/dL Below low normal 040992571929 11.7 - 15.7 HHCCT Respiratory Information VENT 40% Normal 822002996764 HHCCT POC Glucose 205mg/dL Above high normal 920351940546 65 - 99 HHCCT Hct VFr Bld Auto 24.7% Below low normal 834237367460 35 - 47 HHCCT Hgb Bld-mCnc 7.7g/dL Below low normal 847974116927 11.7 - 15.7 HHCCT POC Glucose 181mg/dL Above high normal 395211462174 65 - 99 HHCCT LMWH PPP Research Archaeologist-aCnc 0.44IU/mL Normal 206123576394 HHCCT INR PPP 3.1 Normal 748909572830 HHCCT Prothrombin time 36.4seconds Above high normal 688471839444 10 - 13.5 HHCCT POC Glucose 284mg/dL Above high normal 056369732728 65 - 99 HHCCT Anticoagulant IV HEPARIN, UNFRACTIONATED Normal [id number] HHCCT Anticoagulant WARFARIN (COUMADIN) Normal 244271635088 HHCCT POC Glucose 201mg/dL Above high normal 379606738839 - 99 HHCCT LMWH PPP Research Archaeologist-aCnc 0.41IU/mL Normal [id number] HHCCT Anticoagulant IV HEPARIN, UNFRACTIONATED Normal 153291519663 HHCCT POC Glucose 154mg/dL Above high normal [id number] 65 - 99 HHCCT Chloride SerPl-sCnc 98mmol/L Normal 832731886699 98 - 107 HHCCT Glucose SerPl-mCnc 161mg/dL Above high normal 572518859573 65 - 99 HHCCT GFR/BSA.pred SerPlBld [id number] 22 Below low normal 346872627948 59 - HHCCT Creat SerPl-mCnc 2.2mg/dL Above high normal [id number] 0. 4 - 1.1 HHCCT BUN/Creat SerPl 25Ratio Normal 070940861134 10 - 25 H HCCT Anion Gap Bld-sCnc 14 Normal 858966910547 7 - 17 HHCCT Calcium SerPl-mCnc 8.6mg/dL Below low normal 654979213990 8 .7 - 10.5 HHCCT CO2 SerPl-sCnc 25mmol/L Normal [id number] 22 - 33 HH CCT BUN SerPl-mCnc 56mg/dL Above high normal 814109216887 8 - 21 HHCCT Sodium SerPl-sCnc 137mmol/L Normal 151863731593 136 - 145 HHCCT Potassium SerPl-sCnc 3.5mmol/L Normal [id number] 3.4 - 5.3 HHCCT Magnesium SerPl-mCnc 2.1mg/dL Normal 816794359902 1.6 - 2.7 HHCCT Phosphate SerPl-mCnc 3.3mg/dL Normal [id number] 2.7 - 4.5 HHCCT pro BNP, N-terminal 60938pq/mL Above high normal 410635352011 - 450 HHCCT Troponin T SerPl-mCnc 615ng/L Critically high 453672323084 - 15 HHCCT Delta 586 Above high normal 167375604300 - 3 HHCCT MCH RBC Qn Auto 28.6pg Normal 345245627807 27 - 31 H HCCT PMV Bld Auto 10.6fL Normal 322876454027 7.5 - 12.[address] RDW RBC Auto-Rto 15.9% Above high normal 596101096494 11.5 - 14.5 HHCCT Hct VFr Bld Auto 25.8% Below low normal [id number] 35 - 47 [facility] Platelet num Bld Auto 159Thou/uL Normal [id number] 150 - 450 [facility] MCHC RBC Auto-mCnc 32.2g/dL Normal [id number] 30 - 36 [facility] MCV RBC Auto 89fL Normal [id number] 80 - 100 HHCC T WBC num Bld Auto 20.8Thou/uL Above high normal 861752876210 4 - 11 [facility] RBC num Bld Auto 2.9Mil/uL Below low normal 911040983928 4 - 5.4 [facility]CT Hgb Bld-mCnc 8.3g/dL Below low normal 994928462417 11.7 - 15.7 HHCCT POC Glucose 174mg/dL Above high normal [id number] 65 - 99 H[facility]CT Troponin T SerPl-mCnc 658ng/L Critically high 021863449380 - 15 [facility] Delta 629 Above high normal 924077351292 - 3 HHCCT LMWH PPP Research Archaeologist-aCnc 0.23IU/mL Normal 863998816501 H[facility]CT Anticoagulant IV HEPARIN, UNFRACTIONATED Normal [id number] H[facility]CT pCO2, Arterial 33mmHG Normal [id number] 32 - 45 HH CCT Total CO2, Arterial 29mmol/L Above high normal [id number] 22 - 28 [facility]CT P/F Ratio 230 Normal HHCCT pH, Arterial 7.54 Above high normal 7.3 5 - 7.45 H[facility]CT Base excess BldA Calc-sCnc 5.3mmol/L Normal HHCCT pO2, Arterial 92mmHG Normal 75 - [address] Respiratory Information VENT 40% Normal HHCCT POC Glucose 203mg/dL Above high normal 65 - 99 H[facility]CT Chloride SerPl-sCnc 95mmol/L Below low normal 98 - 107 [facility] Glucose SerPl-mCnc 223mg/dL Above high normal 65 - 99 H[facility]CT GFR/BSA.pred SerPlBld QAQ-GAB-SfPMed 22 Below low normal [id number] 59 - HHCCT Creat SerPl-mCnc 2.2mg/dL Above high normal 0. 4 - 1.1 H[facility]CT BUN/Creat SerPl 26Ratio Above high normal [id number] 10 - 25 [facility] Anion Gap Bld-sCnc 15 Normal [id number] 7 - 17 [facility]CT Calcium SerPl-mCnc 8.9mg/dL Normal [id number] 8.7 - 10 .5 H[facility]CT CO2 SerPl-sCnc 25mmol/L Normal 22 - 33 HH CCT BUN SerPl-mCnc 57mg/dL Above high normal 8 - 21 H[facility]CT Sodium SerPl-sCnc 135mmol/L Below low normal 388956773866 13 6 - 145 [facility]CT Potassium SerPl-sCnc 3.8mmol/L Normal [id number] 3.4 - 5.3 H[facility]CT Phosphate SerPl-mCnc 3.2mg/dL Normal [id number] 2.7 - 4.5 H[facility]CT Magnesium SerPl-mCnc 2mg/dL Normal 036659479025 1.6 - 2.7 HHCCT aPTT PPP 34seconds Normal [id number] 25 - 36 [facility]CT Anticoagulant IV HEPARIN, UNFRACTIONATED Normal [id number] HHCCT Troponin T SerPl-mCnc 547ng/L Critically high 823566059541 - 15 [facility] Delta 518 Above high normal [id number] - 3 H[facility]CT LMWH PPP Research Archaeologist-aCnc 0.05IU/mL Normal [id number] HHCCT Anticoagulant WARFARIN (COUMADIN), BEING HELD Normal [id number] HHCCT POC Glucose 217mg/dL Above high normal 272876770026 65 - 99 H[facility]CT Est. average glucose Bld gHb Est-mCnc 177mg/dL Normal 627680360730 HHCCT Hgb A1c MFr Bld 7.8% Above high normal 035245682088 - 5 .7 H[facility]CT Chloride SerPl-sCnc 95mmol/L Below low normal 566044776215 98 - 107 [facility]CT Glucose SerPl-mCnc 234mg/dL Above high normal [id number] 65 - 99 H[facility]CT GFR/BSA.pred SerPlBld PGQ-RRG-SuYNwq 21 Below low normal 517294494980 59 - HHCCT Creat SerPl-mCnc 2.3mg/dL Above high normal [id number] 0. 4 - 1.1 H[facility]CT BUN/Creat SerPl 25Ratio Normal [id number] 10 - 25 H [facility]CT Anion Gap Bld-sCnc 14 Normal [id number] 7 - 17 [facility]CT Calcium SerPl-mCnc 9mg/dL Normal [id number] 8.7 - 10 .5 H[facility]CT CO2 SerPl-sCnc 25mmol/L Normal [id number] 22 - 33 HH CCT BUN SerPl-mCnc 58mg/dL Above high normal 742149188514 8 - 21 H[facility]CT Sodium SerPl-sCnc 134mmol/L Below low normal 103488483644 13 6 - 145 H[facility]CT Potassium SerPl-sCnc 3.8mmol/L Normal [id number] 3.4 - 5.3 HHCCT Troponin T SerPl-mCnc 426ng/L Critically high 962989728676 - 15 [facility]CT Delta 397 Above high normal 378124746899 - 3 H[facility]CT INR PPP 2.2 Normal 416468381045 HHCCT Prothrombin time 25.4seconds Above high normal 005923443788 10 - 13.5 HHCCT MCH RBC Qn Auto 28.4pg Normal [id number] 27 - 31 H [facility]CT PMV Bld Auto 10fL Normal [id number] 7.5 - 12.5 [facility] RDW RBC Auto-Rto 15.3% Above high normal [id number] 11.5 - 14.5 HHCCT Hct VFr Bld Auto 28.8% Below low normal 711829257905 35 - 47 [facility]CT Platelet num Bld Auto 192Thou/uL Normal [id number] 150 - 450 [facility]CT MCHC RBC Auto-mCnc 31.6g/dL Normal [id number] 30 - 36 H[facility]CT MCV RBC Auto 90fL Normal [id number] 80 - 100 HH[facility] T WBC num Bld Auto 25.1Thou/uL Above high normal 524215004940 4 - 11 [facility]CT RBC num Bld Auto 3.2Mil/uL Below low normal 769660992568 4 - 5.4 H[facility]CT Hgb Bld-mCnc 9.1g/dL Below low normal 817499615519 11.7 - 15.7 HHCCT POC Glucose 214mg/dL Above high normal [id number] 65 - 99 HHCCT Anticoagulant WARFARIN (COUMADIN) Normal [id number] HHCCT Phosphate SerPl-mCnc 4.4mg/dL Normal [id number] 2.7 - 4.5 HHCCT POC Glucose 229mg/dL Above high normal [id number] 65 - 99 H[facility]CT INR PPP Normal 149956108866 HHCCT Prothrombin time Normal [id number] 10 - 13.5 HHCCT COMMENT Normal [id number] HHCCT Anticoagulant OTHER AGENT OR UNKNOWN Normal [id number] HHCCT Troponin T SerPl-mCnc 95ng/L Critically high 737917177212 - 15 H[facility]CT Delta 66 Above high normal 433722533754 - 3 HHCCT Trigl SerPl-mCnc 163mg/dL Above high normal 180215066559 - 150 H[facility]CT Lactate SerPl-sCnc 2.8mmol/L Above high normal [id number] 0.5 - 1.9 HHCCT WBC num/area UrnS HPF 13perhpf Above high normal 309059443840 0 - 4 HHCCT Squamous num/area UrnS HPF 1PERHPF Normal [id number] HHCCT Bacteria UrnS Ql Micro Abnormal [id number] - HHCCT RBC num/area UrnS HPF 1perhpf Normal [id number] 0 - 4 HHCCT Ketones Ur Strip-mCnc Normal [id number] - HHCCT Prot Ur Strip-mCnc Normal 091084726076 - HHCCT Glucose Ur Strip-mCnc 0mg/dL Normal [id number] 0 - 99 HHCCT Nitrite Ur Ql Strip Normal [id number] - HHCCT Leukocyte esterase Ur Ql Strip Abnormal [id number] - HHCCT Bilirub Ur Strip-mCnc Normal [id number] - HHCCT Sp Gr Ur Strip 1.009 Normal [id number] 1.003 - 1.03 HHCCT pH Ur Strip 5 Normal [id number] 5 - 8 HHCCT Color Ur Normal [id number] HHCCT Clarity Ur Normal 882504971223 HHCCT Hgb Ur Ql Strip Normal [id number] - H HCCT Globulin Ser Calc-mCnc 4.3g/dL Above high normal [id number] 1.5 - 3.9 HHCCT ALT SerPl-cCnc 14U/L Normal [id number] 10 - 50 HH CCT AST SerPl-cCnc Normal [id number] 10 - 50 HH CCT Albumin SerPl-mCnc 3.9g/dL Normal [id number] 3.4 - 4. 8 HHCCT Bilirub Direct SerPl-mCnc Normal [id number] 0 - 0.2 HHCCT Albumin/Glob SerPl 0.9Ratio Below low normal [id number] 1 - 3 HHCCT Prot SerPl-mCnc 8.2g/dL Normal [id number] 6.3 - 8.3 H HCCT Bilirub SerPl-mCnc 0.6mg/dL Normal [id number] 0.2 - 1 HHCCT ALP SerPl-cCnc 137U/L Above high normal [id number] 32 - 122 HHCCT pro BNP, N-terminal 2389pg/mL Above high normal [id number] - 450 H[facility]CT Troponin T SerPl-mCnc 29ng/L Above high normal 821402607838 - 15 H[facility]CT Delta Normal 156348576022 - 3 HHCCT Magnesium SerPl-mCnc 2.3mg/dL Normal [id number] 1.6 - 2.7 HHCCT Chloride SerPl-sCnc 94mmol/L Below low normal [id number] 98 - 107 [facility]CT Glucose SerPl-mCnc 235mg/dL Above high normal [id number] 65 - 99 HHCCT GFR/BSA.pred SerPlBld QMM-QHT-UwIHky 28 Below low normal [id number] 59 - HHCCT Creat SerPl-mCnc 1.8mg/dL Above high normal [id number] 0. 4 - 1.1 HHCCT BUN/Creat SerPl 29Ratio Above high normal [id number] 10 - 25 HHCCT Anion Gap Bld-sCnc 19 Above high normal [id number] 7 - 17 H[facility]CT Calcium SerPl-mCnc 9.6mg/dL Normal [id number] 8.7 - 10 .5 HHCCT CO2 SerPl-sCnc 23mmol/L Normal [id number] 22 - 33 HH CCT BUN SerPl-mCnc 53mg/dL Above high normal [id number] 8 - 21 HHCCT Sodium SerPl-sCnc 136mmol/L Normal [id number] 136 - 145 HHCCT Potassium SerPl-sCnc 4.3mmol/L Normal [id number] 3.4 - 5.3 HHCCT Lactate SerPl-sCnc 4.3mmol/L Critically high [id number] 0. 5 - 1.9 HHCCT Imm Granulocytes/leuk NFr Bld Auto 0.5% Normal [id number] HHCCT Lymphocytes/leuk NFr Bld Auto 8.3% Normal [id number] HHCCT PMV Bld Auto 11.9fL Normal [id number] 7.5 - 12.[address] Monocytes num Bld Auto 0.94Thou/uL Normal [id number] 0.2 - 1.5 HHCCT Hct VFr Bld Auto 33.5% Below low normal [id number] 35 - 47 HHCCT Neutrophils num Bld Auto 14.89Thou/uL Above high normal [id number] 2 - 7.5 HHCCT Neutrophils/leuk NFr Bld Auto 84.5% Normal 989934980440 HHCCT Basophils/leuk NFr Bld Auto 0.3% Normal [id number] HHCCT Basophils num Bld Auto 0.06Thou/uL Normal [id number] 0 - 0.2 HHCCT Monocytes/leuk NFr Bld Auto 5.3% Normal [id number] HHCCT Eosinophil num Bld Auto 0.2Thou/uL Normal [id number] 0 - 0.7 HHCCT MCH RBC Qn Auto 28.5pg Normal [id number] 27 - 31 H HCCT Eosinophil/leuk NFr Bld Auto 1.1% Normal [id number] HHCCT Imm Granulocytes num Bld Auto 0.09Thou/uL Normal [id number] 0 - 0.1 HHCCT RDW RBC Auto-Rto 15.7% Above high normal [id number] 11.5 - 14.5 HHCCT Platelet num Bld Auto 276Thou/uL Normal [id number] 150 - 450 HHCCT MCHC RBC Auto-mCnc 31.6g/dL Normal [id number] 30 - 36 HHCCT MCV RBC Auto 90fL Normal [id number] 80 - 100 HHCC T WBC num Bld Auto 17.6Thou/uL Above high normal [id number] 4 - 11 HHCCT RBC num Bld Auto 3.72Mil/uL Below low normal [id number] 4 - 5.4 HHCCT Hgb Bld-mCnc 10.6g/dL Below low normal [id number] 11.7 - 15.7 HHCCT Lymphocytes num Bld Auto 1.46Thou/uL Below low normal [id number] 1.5 - 4.5 HHCCT INR PPP Normal [id number] HHCCT Prothrombin time Normal [id number] 10 - 13.5 HHCCT pO2 BldV 88mmHG Above high normal [id number] 0 - 60 HHCCT pH BldV 7.28 Below low normal [id number] 7.33 - 7.43 HHCCT pCO2 BldV 62mmHG Above high normal [id number] 35 - 50 HHCCT CO2 BldV-sCnc 30mmol/L Above high normal [id number] 23 - 29 HHCCT Base excess BldA Calc-sCnc 0.5mmol/L Normal [id number] HHCCT Respiratory Information VENT 100% Normal [id number] HHCCT Anticoagulant OTHER AGENT OR UNKNOWN Normal [id number] HHCCT Hgb A1c MFr Bld 9.2% Above high normal 750532292169 - 5 .7 HHCCT Est. average glucose Bld gHb Est-mCnc 217mg/dL Normal [id number] HHCCT POC Glucose 285mg/dL Above high normal [id number] 65 - 99 HHCCT POC Glucose 226mg/dL Above high normal [id number] 65 - 99 HHCCT Magnesium SerPl-mCnc 2.5mg/dL Normal [id number] 1.6 - 2.7 HHCCT AST SerPl-cCnc 24U/L Normal [id number] 10 - 50 HH CCT ALT SerPl-cCnc 12U/L Normal [id number] 10 - 50 HH CCT Creat SerPl-mCnc 2.2mg/dL Above high normal [id number] 0. 4 - 1.1 HHCCT Globulin Ser Calc-mCnc 3.4g/dL Normal [id number] 1.5 - 3.9 HHCCT CO2 SerPl-sCnc 29mmol/L Normal [id number] 22 - 33 HH CCT Albumin/Glob SerPl 0.9Ratio Below low normal [id number] 1 - 3 HHCCT Anion Gap Bld-sCnc 13 Normal [id number] 7 - 17 HHCCT Potassium SerPl-sCnc 3.5mmol/L Normal [id number] 3.4 - 5.3 HHCCT Bilirub SerPl-mCnc 0.6mg/dL Normal [id number] 0.2 - 1 HHCCT Calcium SerPl-mCnc 9.7mg/dL Normal [id number] 8.7 - 10 .5 HHCCT BUN SerPl-mCnc 58mg/dL Above high normal [id number] 8 - 21 HHCCT ALP SerPl-cCnc 111U/L Normal [id number] 32 - 122 HH CCT GFR/BSA.pred SerPlBld RDK-QLM-BmGGgg 22 Below low normal [id number] 59 - HHCCT Chloride SerPl-sCnc 95mmol/L Below low normal [id number] 98 - 107 HHCCT BUN/Creat SerPl 26Ratio Above high normal [id number] 10 - 25 HHCCT Albumin SerPl-mCnc 3.2g/dL Below low normal [id number] 3 .4 - 4.8 HHCCT Prot SerPl-mCnc 6.6g/dL Normal [id number] 6.3 - 8.3 H HCCT Glucose SerPl-mCnc 179mg/dL Above high normal [id number] 65 - 99 HHCCT Sodium SerPl-sCnc 137mmol/L Normal [id number] 136 - 145 HHCCT Phosphate SerPl-mCnc 4.6mg/dL Above high normal [id number] 2.7 - 4.5 HHCCT INR PPP 3 Normal [id number] HHCCT Prothrombin time 34.5seconds Above high normal [id number] 10 - 13.5 HHCCT Neutrophils num Bld Auto 3.79Thou/uL Normal [id number] 2 - 7.5 HHCCT Monocytes num Bld Auto 0.62Thou/uL Normal [id number] 0.2 - 1.5 HHCCT Eosinophil num Bld Auto 0.39Thou/uL Normal [id number] 0 - 0.7 HHCCT WBC num Bld Auto 5.8Thou/uL Normal [id number] 4 - 11 HHCCT MCHC RBC Auto-mCnc 32.2g/dL Normal [id number] 30 - 36 HHCCT Monocytes/leuk NFr Bld Auto 10.7% Normal [id number] HHCCT Hct VFr Bld Auto 29.8% Below low normal [id number] 35 - 47 HHCCT RBC num Bld Auto 3.11Mil/uL Below low normal [id number] 4 - 5.4 HHCCT RDW RBC Auto-Rto 15% Above high normal [id number] 11.5 - 14.5 HHCCT PMV Bld Auto 10.6fL Normal [id number] 7.5 - 12.[address] Eosinophil/leuk NFr Bld Auto 6.7% Normal [id number] HHCCT MCH RBC Qn Auto 30.9pg Normal [id number] 27 - 31 H HCCT Basophils/leuk NFr Bld Auto 0.9% Normal [id number] HHCCT Basophils num Bld Auto 0.05Thou/uL Normal [id number] 0 - 0.2 HHCCT Platelet num Bld Auto 127Thou/uL Below low normal [id number] 150 - 450 HHCCT Neutrophils/leuk NFr Bld Auto 65.3% Normal [id number] HHCCT MCV RBC Auto 96fL Normal [id number] 80 - 100 HHCC T Lymphocytes/leuk NFr Bld Auto 15.9% Normal [id number] HHCCT Lymphocytes num Bld Auto 0.92Thou/uL Below low normal [id number] 1.5 - 4.5 HHCCT Imm Granulocytes/leuk NFr Bld Auto 0.5% Normal [id number] HHCCT Hgb Bld-mCnc 9.6g/dL Below low normal [id number] 11.7 - 15.7 HHCCT Imm Granulocytes num Bld Auto 0.03Thou/uL Normal [id number] 0 - 0.1 HHCCT Calcium SerPl-mCnc 9.9mg/dL Normal [id number] 8.7 - 10 .5 HHCCT BUN SerPl-mCnc 63mg/dL Above high normal [id number] 8 - 21 HHCCT Creat SerPl-mCnc 2.2mg/dL Above high normal [id number] 0. 4 - 1.1 HHCCT GFR/BSA.pred SerPlBld AAD-BOS-MrLJxi 22 Below low normal [id number] 59 - HHCCT Chloride SerPl-sCnc 94mmol/L Below low normal [id number] 98 - 107 HHCCT BUN/Creat SerPl 29Ratio Above high normal [id number] 10 - 25 HHCCT CO2 SerPl-sCnc 28mmol/L Normal [id number] 22 - 33 HH CCT Anion Gap Bld-sCnc 14 Normal [id number] 7 - 17 HHCCT Potassium SerPl-sCnc 3.6mmol/L Normal [id number] 3.4 - 5.3 HHCCT Glucose SerPl-mCnc 190mg/dL Above high normal [id number] 65 - 99 HHCCT Sodium SerPl-sCnc 136mmol/L Normal [id number] 136 - 145 HHCCT Magnesium SerPl-mCnc 2.1mg/dL Normal [id number] 1.6 - 2.7 HHCCT Phosphate SerPl-mCnc 4.3mg/dL Normal [id number] 2.7 - 4.5 HHCCT Delta Normal [id number] - 3 HHCCT Troponin T SerPl-mCnc 35ng/L Above high normal 087411162054 - 15 HHCCT Neutrophils num Bld Auto 4.01Thou/uL Normal [id number] 2 - 7.5 HHCCT Monocytes num Bld Auto 0.61Thou/uL Normal [id number] 0.2 - 1.5 HHCCT Eosinophil num Bld Auto 0.4Thou/uL Normal [id number] 0 - 0.7 HHCCT WBC num Bld Auto 6.1Thou/uL Normal [id number] 4 - 11 HHCCT MCHC RBC Auto-mCnc 33.2g/dL Normal [id number] 30 - 36 HHCCT Monocytes/leuk NFr Bld Auto 10.1% Normal [id number] HHCCT Hct VFr Bld Auto 28% Below low normal [id number] 35 - 47 HHCCT RBC num Bld Auto 2.95Mil/uL Below low normal [id number] 4 - 5.4 HHCCT RDW RBC Auto-Rto 14.9% Above high normal [id number] 11.5 - 14.5 HHCCT PMV Bld Auto 10.7fL Normal [id number] 7.5 - 12.[address] Eosinophil/leuk NFr Bld Auto 6.6% Normal [id number] HHCCT MCH RBC Qn Auto 31.5pg Above high normal [id number] 27 - 31 HHCCT Basophils/leuk NFr Bld Auto 0.8% Normal [id number] HHCCT Basophils num Bld Auto 0.05Thou/uL Normal [id number] 0 - 0.2 HHCCT Platelet num Bld Auto 130Thou/uL Below low normal [id number] 150 - 450 HHCCT Neutrophils/leuk NFr Bld Auto 66.3% Normal [id number] HHCCT MCV RBC Auto 95fL Normal [id number] 80 - 100 HHCC T Lymphocytes/leuk NFr Bld Auto 15.9% Normal [id number] HHCCT Lymphocytes num Bld Auto 0.96Thou/uL Below low normal [id number] 1.5 - 4.5 HHCCT Imm Granulocytes/leuk NFr Bld Auto 0.3% Normal [id number] HHCCT Hgb Bld-mCnc 9.3g/dL Below low normal [id number] 11.7 - 15.7 HHCCT Imm Granulocytes num Bld Auto 0.02Thou/uL Normal [id number] 0 - 0.1 HHCCT POC Glucose 220mg/dL Above high normal [id number] 65 - 99 HHCCT Anticoagulant WARFARIN (COUMADIN), BEING HELD Normal [id number] HHCCT POC Glucose 267mg/dL Above high normal [id number] 65 - 99 HHCCT INR PPP 2.4 Normal [id number] HHCCT Prothrombin time 27.3seconds Above high normal [id number] 10 - 13.5 HHCCT Anticoagulant WARFARIN (COUMADIN) Normal [id number] HHCCT AST SerPl-cCnc 25U/L Normal [id number] 10 - 50 HH CCT ALT SerPl-cCnc 17U/L Normal [id number] 10 - 50 HH CCT Creat SerPl-mCnc 2.4mg/dL Above high normal [id number] 0. 4 - 1.1 HHCCT Globulin Ser Calc-mCnc 4g/dL Above high normal [id number] 1.5 - 3.9 HHCCT CO2 SerPl-sCnc 30mmol/L Normal [id number] 22 - 33 HH CCT Albumin/Glob SerPl 0.9Ratio Below low normal [id number] 1 - 3 HHCCT Anion Gap Bld-sCnc 12 Normal [id number] 7 - 17 HHCCT Potassium SerPl-sCnc 3.7mmol/L Normal [id number] 3.4 - 5.3 HHCCT Bilirub SerPl-mCnc 0.5mg/dL Normal [id number] 0.2 - 1 HHCCT Calcium SerPl-mCnc 10.8mg/dL Above high normal [id number] 8.7 - 10.5 HHCCT BUN SerPl-mCnc 61mg/dL Above high normal [id number] 8 - 21 HHCCT ALP SerPl-cCnc 133U/L Above high normal [id number] 32 - 122 HHCCT GFR/BSA.pred SerPlBld AYO-TJD-KuERod 20 Below low normal [id number] 59 - HHCCT Chloride SerPl-sCnc 94mmol/L Below low normal [id number] 98 - 107 HHCCT BUN/Creat SerPl 25Ratio Normal [id number] 10 - 25 H HCCT Albumin SerPl-mCnc 3.7g/dL Normal [id number] 3.4 - 4. 8 HHCCT Prot SerPl-mCnc 7.7g/dL Normal [id number] 6.3 - 8.3 H HCCT Glucose SerPl-mCnc 212mg/dL Above high normal [id number] 65 - 99 HHCCT Sodium SerPl-sCnc 136mmol/L Normal [id number] 136 - 145 HHCCT Neutrophils num Bld Auto 5.41Thou/uL Normal [id number] 2 - 7.5 HHCCT Monocytes num Bld Auto 0.8Thou/uL Normal [id number] 0.2 - 1.5 HHCCT Eosinophil num Bld Auto 0.38Thou/uL Normal [id number] 0 - 0.7 HHCCT WBC num Bld Auto 8Thou/uL Normal [id number] 4 - 11 HHCCT MCHC RBC Auto-mCnc 32.8g/dL Normal [id number] 30 - 36 HHCCT Monocytes/leuk NFr Bld Auto 10% Normal [id number] HHCCT Hct VFr Bld Auto 31.1% Below low normal [id number] 35 - 47 HHCCT RBC num Bld Auto 3.27Mil/uL Below low normal [id number] 4 - 5.4 HHCCT RDW RBC Auto-Rto 14.9% Above high normal [id number] 11.5 - 14.5 HHCCT PMV Bld Auto 10.1fL Normal [id number] 7.5 - 12.[address] Eosinophil/leuk NFr Bld Auto 4.8% Normal [id number] HHCCT MCH RBC Qn Auto 31.2pg Above high normal [id number] 27 - 31 HHCCT Basophils/leuk NFr Bld Auto 0.8% Normal [id number] HHCCT Basophils num Bld Auto 0.06Thou/uL Normal [id number] 0 - 0.2 HHCCT Platelet num Bld Auto 151Thou/uL Normal [id number] 150 - 450 HHCCT Neutrophils/leuk NFr Bld Auto 67.5% Normal [id number] HHCCT MCV RBC Auto 95fL Normal [id number] 80 - 100 HHCC T Lymphocytes/leuk NFr Bld Auto 16.4% Normal [id number] HHCCT Lymphocytes num Bld Auto 1.31Thou/uL Below low normal [id number] 1.5 - 4.5 HHCCT Imm Granulocytes/leuk NFr Bld Auto 0.5% Normal [id number] HHCCT Hgb Bld-mCnc 10.2g/dL Below low normal [id number] 11.7 - 15.7 HHCCT Imm Granulocytes num Bld Auto 0.04Thou/uL Normal [id number] 0 - 0.1 HHCCT History of Medication Use Medication Directions Dispensed Refills Start Date End Date Stat metFORMIN (FORTAMET) 1000 MG (OSM) 24 hr tablet Take 1 tablet (1,000 mg total) by mouth every morning with breakfast. suspended simvastatin (ZOCOR) 20 MG tablet Take 1 tablet (20 mg total) by mouth nightly. 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
--- OUTSIDE RECORDS SUMMARY | 2024-08-23 14:52 | XMS_ITS | Encounter Summary ---
Author Organization [facility] Address [address] [place] [address] Care Team Providers Care Loan Interviewer Mortgage Name Role Phone Ricky Guerrero MD Primary Care Provider [phone] Nile Garcia MD Unavailable [phone] Encounter Details Date Type Department Care Team (Late st Contact Info) Description 06/06/2024 Scanned Document [place] [id number] [address] [place] [address] Provider, Generic Social History Tobacco Use Types Packs/Day Years Used Date Smoking Tobacco: Never Smokeless Tobacco: Never Alcohol Use Standard Drinks/Week Comments Never 0 (1 standard drink = 0.6 oz pur e alcohol) [facility] Utilities Answer Date Recorded In the past 12 months has th e electric, gas, oil, or water company threatened to shut off services in your home? No 05/27/2024 Overall Financial Resource Strain (CARDIA) Answe r Date Recorded How hard is it for you to pa y for the very basics like food, housing, medical care, and heating? Not hard at all 05/27/2024 Hunger Vital Sign Answer Date Recorded Within the past 12 months, y ou worried that your food would run out before you got the money to buy more. Never true 05/27/20 24 Within the past 12 months, t he food you bought just didn't last and you didn't have money to get more. Never true 05/27/2024 PRAPARE - Transportation Answer Date Re corded In the past 12 months, has l ack of transportation kept you from medical appointments or from getting medications? No 05/17 In the past 12 months, has l ack of transportation kept you from meetings, work, or from getting things needed for daily living? No 05/27/2024 Housing Stability Vital Sign Answer Jose Luis e Recorded In the last 12 months, was t here a time when you were not able to pay the mortgage or rent on time? No 05/27/2024 In the past 12 months, how m any times have you moved where you were living? 1 05/27/2024 At any time in the past 12 m [facility], were you homeless or living in a half-way (including now)? No 05/27/2024 Sex and Gender Information Value Date Recorded Sex Assigned at Female 07/21/2023 8:17 AM EST Gender Identity Female 07/21/2023 8:17 AM EST Sexual Orientation Heterosexual (straight) 07/21 8:17 AM EST documented as of this encounter Plan of Treatment Not on file documented as of this encounter Procedures Procedure Name Priority Date/Time Associated Diagnosis Comments CARDIOLOGY ECHO 06/06/2024 10:32 AM EST documented in this encounter Results * CARDIOLOGY ECHO (06/06/2024 10:32 AM EST) Anatomical Region Laterality Modality Other Narrative 06/06/2024 10:32 AM EST Ordered by an unspecified provider. Generic Provider HX AMB PROCEDURES documented in this encounter Visit Diagnoses Not on filedocumented in this encounter Care Teams Loan Interviewer Mortgage Relationship Specialty Start Date End Date Ricky Guerrero MD [address] [place] [id number] PCP - General 01/24/24 Nile Garcia MD [address] [place] [id number] Primary Surface [employer] Supervisor Cardiovascular Disease 06/12/24 documented as of this encounter
--- OUTSIDE RECORDS SUMMARY | 2024-08-23 14:52 | XMS_ITS | Clinical Summary ---
Author Organization [facility] Address [address] [place] [address] Care Team Providers [facility] Name Role Phone Ricky Guerrero MD Primary Care Provider [phone] Nile Garcia MD Unavailable [phone] Allergies Active Allergy Reactions Criticality Noted Date Comments Aspirin Unknown/Patient and Family Unable to Define Medium 12/28/2023 Ibuprofen Unknown/Patient and Family Unable to Define Medium 12/28/2023 Naproxen Unknown/Patient and Family Unable to Define Medium 12/28/2023 Medications Medication Sig Dispensed Refills Start Date End Date Status simvastatin (ZOCOR) 20 MG tablet Take 1 tablet (20 mg total) by mouth nightly. Active allopurinol (ZYLOPRIM) 100 mg tablet Take 1 tablet (100 mg total) by mouth 2 (two) times a day. Active metoPROLOL SUCCINATE (TOPROL-XL) 50 MG 24 hr tablet Take 1 tablet (50 mg total) by mouth 2 times a day. Active warfarin (COUMADIN) 5 MG tabletIndications:Mu ltiple rib fractures involving four or more ribs Take 1 tablet (5 mg total) by mouth daily at the same time. From 5-7.5 mg Do not start before June 12, 2024. 30 tablet 06/12/2024 Active torsemide (DEMADEX) 20 MG tabletIndications:[place] decompensated heart failure (HCC) Take 4 tablets (80 mg total) by mouth daily. 60-80 mg daily 120 tablet 06/11/2024 Active ferrous sulfate 300 mg/5 mL oral solutionIndications: Iron deficiency anemia, unspecified iron deficiency anemia type Take 5 mL (300 mg total) by mouth daily. Take 2 hours before or 4 hours after acid reducers. 150 mL 06/11/2024 Active ascorbic acid (VITAMIN C) 500 MG tabletIndications:Ir on deficiency anemia, unspecified iron deficiency anemia type Take 1 tablet (500 mg total) by mouth daily. 30 tablet 06/11/2024 Active polyethylene glycol (miraLAx) 17 g packetIndications:Ir on deficiency anemia, unspecified iron deficiency anemia type,Constipation, unspecified constipation type Take 1 packet (17 g total) by mouth daily. 30 packet 06/11/2024 Active spironolactone (ALDACTONE) 25 MG tabletIndications:[place] decompensated heart failure (HCC) Take 1 tablet (25 mg total) by mouth every morning with breakfast. 30 tablet 06/11/2024 Active thiamine mononitrate (VITAMIN B-1) 100 MG tabletIndications:Ir on deficiency anemia, unspecified iron deficiency anemia type Take 1 tablet (100 mg total) by mouth daily. 30 tablet 06/11/2024 Active OneTouch Verio stripIndications:Typ e 2 diabetes mellitus without complication, without long-term current use of insulin ([facility]) Test blood glucose 3 times Daily or as instructed. 100 test strip 06/11/2024 Active OneTouch Delica Lancets 30G Misc lancetIndications:Ty pe 2 diabetes mellitus without complication, without long-term current use of insulin ([facility]) Test blood glucose 3 times Daily or as instructed. 100 lancet(s) 06/11/2024 Active Blood Glucose Monitoring Suppl (OneTouch Verio Flex System) w/Device KitIndications:Type 2 Diabetes Mellitus 1 Device by Does not apply route 3 (three) times a day before meals. Use as directed. 1 kit 06/11/2024 Active empagliflozin (JARDIANCE) 25 MG tabletIndications:[place] decompensated heart failure (HCC),Type 2 diabetes mellitus without complication, without long-term current use of insulin ([facility]) Take 1 tablet (25 mg total) by mouth daily. 30 tablet 06/12/2024 Active enoxaparin (LOVENOX) 80 MG/0.8ML injectionIndications :Acute on chronic renal insufficiency Inject 0.7 mL (70 mg total) under the skin every 24 hours. Do not start before June 12, 2024. 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/2024 Atrial fibrillation 06/02/2024 Acute hypoxemic respiratory failure 05/25/2024 LANETTE (acute kidney injury) 01/26/2024 Multiple rib fractures involving four or more ri bs 01/25/2024 Hyperlipidemia 01/25/2024 Resolved Problems Problem Noted Date Diagnosed Date Resolved Date Aspiration pneumonia 06/02/2024 024 Encounters Date Type Department Care Team Description 06/14/2024 Orders Only [address] [phone] Goran Thomas MD Acute on chronic renal insufficiency 06/12/2024 Orders Only [address] [phone] Goran Thomas MD Atrial fibrillation, unspecified type ([facility]) 06/11/2024 1:50 PM EST Ancillary Procedure [facility] [address] [place] [phone] Provider, File Room 06/11/2024 1:45 PM EST Ancillary Procedure [facility] [address] [place] [phone] Provider, File Room 06/11/2024 1:40 PM EST Ancillary Procedure [facility] [address] [place] [phone] Provider, File Room 06/11/2024 1:40 PM EST Ancillary Procedure [facility] [address] [place] [phone] Provider, File Room 06/10/2024 Documentation [facility] [place] [facility] [address] [place] [phone] Rhonda Up RN, NURSE NAVIGATOR 06/06/2024 Scanned Document [address] [phone] Provider, Generic 05/24/2024 9:52 PM EST - 06/11/2024 6:15 PM EST Hospital Encounter [address] [phone] Flavio Johnson MD Perkins, MD Diaz Terrell Megan, MD Powner, Jordan T, Sravan Hills MD Haw, MD Kimani Nath Gagan, MD Khan, MD Karin Brown, MD William Vallecillo Olushola O, MD McClure, Mitchell H, MD Acute respiratory failure (HCC) (Primary Dx); Multiple rib fractures involving four or more ribs; Acute decompensated heart failure (HCC); Severe aortic stenosis; Type 2 diabetes mellitus without complication, without long-term current use of insulin (HCC); Iron deficiency anemia, unspecified iron deficiency anemia type; Acute on chronic renal insufficiency; Atrial fibrillation, unspecified type (HCC); Constipation, unspecified constipation type Discharge Disposition: Home with Health Care Services 05/24/2024 Travel from Last 3 Months Social History Tobacco Use Types Packs/Day Years Used Date Smoking Tobacco: Never Smokeless Tobacco: Never Tobacco Cessation:Counseling Given: Not Answered Alcohol Use Standard Drinks/Week Comments Never 0 (1 standard drink = 0.6 oz pur e alcohol) [facility] Utilities Answer Date Recorded In the past 12 months has th e electric, gas, oil, or water [employer] threatened to shut off services in your [...] any time in the past 12 m [facility], were you homeless or living in a half-way (including now)? No 05/27/2024 Sex and Gender Information Value Date Recorded Sex Assigned at Female 07/21/2023 8:17 AM EST Gender Identity Female 07/21/2023 8:17 AM EST Sexual Orientation Heterosexual (straight) 07/21 8:17 AM EST Last Filed Vital Signs Vital Sign Reading Time Taken Comments Blood Pressure 131/58 06/11/2024 4:16 PM EST Pulse 66 06/11/2024 4:16 PM EST Temperature 36.1 ??C (96.9 ??F) 06/11/2024 4:16 PM ES T Respiratory Rate 18 06/11/2024 4:16 PM EST Oxygen Saturation 98% 06/11/2024 4:16 PM EST Inhaled Oxygen Concentration - - Weight 93 kg (205 lb) 06/11/2024 6:00 AM EST Height 172.7 cm (5' 8 ) 05/25/2024 3:10 AM EST Body Mass Index 31.17 05/25/2024 3:10 AM EST Plan of Treatment Health Maintenance Due Date Last Done Comments DTaP/Tdap/Td Vaccines (1 - Tdap) 1961 Pneumococcal Vaccines 50+ (1 of 2 - PCV) 1961 Zoster (Shingles) Vaccine (1 of 2) 1992 DXA Bone Density (Females,Ages 65 and older) 2007 RSV Vaccine 60 years and older and Patients (1 - 1-dose 75+ series) 2017 Influenza Vaccine 02/15/2024 COVID-19 Vaccine (4 - 2023-2 5 season) 2024 04/15/2021, 09/07/2020, 08/16/2020 Hepatitis B Vaccines Aged Out No long er eligible based on patient's age to complete this topic Procedures Procedure Name Priority Date/Time Associated Diagnosis Comments POCT GLUCOSE, FINGERSTICK Routine 06/11/2024 4:45 PM EST DENEEN ARCHIVE FOR REFERENCE ONLY XA Routine 06/11/2024 1:40 PM EST OUTSIDE ECHO IMAGE ARCHIVE Routine 06/11/2024 1:35 PM EST OUTSIDE ECHO IMAGE ARCHIVE Routine 06/11/2024 1:35 PM EST OUTSIDE ECHO IMAGE ARCHIVE Routine 06/11/2024 1:35 PM EST POCT GLUCOSE, FINGERSTICK Routine 06/11/2024 11:59 AM EST POCT GLUCOSE, FINGERSTICK Routine 06/11/2024 8:15 AM EST PROBNP, N-TERMINAL Routine 06/11/2024 6: 57 AM EST PROTIME-INR Routine 06/11/2024 6:57 AM EST HEPARIN ASSAY (ANTI-XA) Routine 06/11/20 6:57 AM EST PHOSPHORUS Routine 06/11/2024 6:57 AM EST MAGNESIUM Routine 06/11/2024 6:57 AM EST BASIC METABOLIC PANEL Routine 06/11/2024 6:57 AM EST COMPLETE BLOOD COUNT, WITHOUT DIFFERENTIAL Routine 06/11/2024 6:57 AM EST POCT GLUCOSE, FINGERSTICK Routine 06/10/2024 8:50 PM EST POCT GLUCOSE, FINGERSTICK Routine 06/10/2024 4:58 PM EST METANEB Routine 06/10/2024 2:01 PM EST POCT GLUCOSE, FINGERSTICK Routine 06/10/2024 12:52 PM EST POCT GLUCOSE, FINGERSTICK Routine 06/10/2024 12:26 PM EST METANEB Routine 06/10/2024 8:01 AM EST POCT GLUCOSE, FINGERSTICK Routine 06/10/2024 8:00 AM EST PROTIME-INR Routine 06/10/2024 7:30 AM EST PROBNP, N-TERMINAL Routine 06/10/2024 7: 30 AM EST MAGNESIUM Routine 06/10/2024 7:30 AM EST BASIC METABOLIC PANEL Routine 06/10/2024 7:30 AM EST HEPARIN ASSAY (ANTI-XA) Routine 06/10/20 7:30 AM EST METANEB Routine 06/09/2024 10:00 PM EST POCT GLUCOSE, FINGERSTICK Routine 06/09/2024 8:49 PM EST POCT GLUCOSE, FINGERSTICK Routine 06/09/2024 4:53 PM EST METANEB Routine 06/09/2024 2:00 PM EST PROTIME-INR Routine 06/09/2024 12:40 PM EST POCT GLUCOSE, FINGERSTICK Routine 06/09/2024 11:44 AM EST METANEB Routine 06/09/2024 8:00 AM EST HEPARIN ASSAY (ANTI-XA) Routine 06/09/20 7:38 AM EST POCT GLUCOSE, FINGERSTICK Routine 06/09/2024 7:23 AM EST METANEB Routine 06/08/2024 10:00 PM EST POCT GLUCOSE, FINGERSTICK Routine 06/08/2024 8:20 PM EST POCT GLUCOSE, FINGERSTICK Routine 06/08/2024 4:26 PM EST METANEB Routine 06/08/2024 2:00 PM EST POCT GLUCOSE, FINGERSTICK Routine 06/08/2024 12:42 PM EST POCT GLUCOSE, FINGERSTICK Routine 06/08/2024 8:20 AM EST METANEB Routine 06/08/2024 8:00 AM EST PHOSPHORUS Routine 06/08/2024 6:30 AM EST MAGNESIUM Routine 06/08/2024 6:30 AM EST BASIC METABOLIC PANEL Routine 06/08/2024 6:30 AM EST COMPLETE BLOOD COUNT, WITHOUT DIFFERENTIAL Routine 06/08/2024 6:30 AM EST HEPARIN ASSAY (ANTI-XA) Routine 06/08/20 6:30 AM EST METANEB Routine 06/07/2024 10:00 PM EST POCT GLUCOSE, FINGERSTICK Routine 06/07/2024 8:14 PM EST POCT GLUCOSE, FINGERSTICK Routine 06/07/2024 5:29 PM EST METANEB Routine 06/07/2024 2:01 PM EST POCT GLUCOSE, FINGERSTICK Routine 06/07/2024 11:59 AM EST METANEB Routine 06/07/2024 8:01 AM EST POCT GLUCOSE, FINGERSTICK Routine 06/07/2024 7:50 AM EST FOLATE LEVEL Routine 06/07/2024 6:22 AM EST VITAMIN B12 Routine 06/07/2024 6:22 AM EST FERRITIN Routine 06/07/2024 6:22 AM EST IRON AND TOTAL IRON BINDING CAPACITY Routine 06/07/2024 6:22 AM EST PHOSPHORUS Routine 06/07/2024 6:22 AM EST MAGNESIUM Routine 06/07/2024 6:22 AM EST BASIC METABOLIC PANEL Routine 06/07/2024 6:22 AM EST COMPLETE BLOOD COUNT, WITHOUT DIFFERENTIAL Routine 06/07/2024 6:22 AM EST HEPARIN ASSAY (ANTI-XA) Routine 06/07/20 6:22 AM EST XR CHEST 1 VIEW-PORTABLE Routine 06/07/2024 6:17 AM EST POCT GLUCOSE, FINGERSTICK Routine 06/07/2024 2:09 AM EST US RENAL Routine 06/07/2024 1:01 AM EST METANEB Routine 06/06/2024 10:00 PM EST POCT GLUCOSE, FINGERSTICK Routine 06/06/2024 8:52 PM EST POCT GLUCOSE, FINGERSTICK Routine 06/06/2024 5:20 PM EST METANEB Routine 06/06/2024 2:01 PM EST UREA NITROGEN, URINE, RANDOM Routine 06/06/2024 12:40 PM EST CREATININE, URINE, RANDOM Routine 06/06/2024 12:40 PM EST SODIUM, URINE, RANDOM Routine 06/06/2024 12:40 PM EST URINALYSIS WITH REFLEX TO MICROSCOPIC Routine 06/06/2024 12:35 PM EST POCT GLUCOSE, FINGERSTICK Routine 06/06/2024 12:16 PM EST TYPE AND SCREEN Routine 06/06/2024 11:10 AM EST CARDIOLOGY ECHO 06/06/2024 10:32 AM EST PROBNP, N-TERMINAL Routine 06/06/2024 9: 29 AM EST PHOSPHORUS Routine 06/06/2024 9:29 AM EST MAGNESIUM Routine 06/06/2024 9:29 AM EST BASIC METABOLIC PANEL Routine 06/06/2024 9:29 AM EST COMPLETE BLOOD COUNT, WITHOUT DIFFERENTIAL Routine 06/06/2024 9:29 AM EST HEPARIN ASSAY (ANTI-XA) Routine 06/06/20 9:29 AM EST METANEB Routine 06/06/2024 8:01 AM EST POCT GLUCOSE, FINGERSTICK Routine 06/06/2024 7:54 AM EST POCT GLUCOSE, FINGERSTICK Routine 06/06/2024 2:07 AM EST METANEB Routine 06/05/2024 10:00 PM EST POCT GLUCOSE, FINGERSTICK Routine 06/05/2024 9:27 PM EST ECG 12-LEAD Routine 06/05/2024 5:15 PM EST POCT GLUCOSE, FINGERSTICK Routine 06/05/2024 4:41 PM EST METANEB Routine 06/05/2024 2:01 PM EST POCT GLUCOSE, FINGERSTICK Routine 06/05/2024 12:08 PM EST POCT GLUCOSE, FINGERSTICK Routine 06/05/2024 8:12 AM EST METANEB Routine 06/05/2024 8:02 AM EST PHOSPHORUS Routine 06/05/2024 7:06 AM EST MAGNESIUM Routine 06/05/2024 7:06 AM EST BASIC METABOLIC PANEL Routine 06/05/2024 7:06 AM EST COMPLETE BLOOD COUNT, WITHOUT DIFFERENTIAL Routine 06/05/2024 7:06 AM EST HEPARIN ASSAY (ANTI-XA) Routine 06/05/20 7:06 AM EST METANEB Routine 06/04/2024 10:00 PM EST POCT GLUCOSE, FINGERSTICK Routine 06/04/2024 8:24 PM EST POCT GLUCOSE, FINGERSTICK Routine 06/04/2024 4:39 PM EST METANEB Routine 06/04/2024 2:00 PM EST POCT GLUCOSE, FINGERSTICK Routine 06/04/2024 12:02 PM EST POCT GLUCOSE, FINGERSTICK Routine 06/04/2024 8:09 AM EST METANEB Routine 06/04/2024 8:01 AM EST PROTIME-INR Routine 06/04/2024 7:28 AM EST PHOSPHORUS Routine 06/04/2024 7:28 AM EST MAGNESIUM Routine 06/04/2024 7:28 AM EST BASIC METABOLIC PANEL Routine 06/04/2024 7:28 AM EST COMPLETE BLOOD COUNT, WITH DIFFERENTIAL Routine 06/04/2024 7:28 AM EST HEPARIN ASSAY (ANTI-XA) Routine 06/04/20 7:28 AM EST METANEB Routine 06/03/2024 10:00 PM EST POCT GLUCOSE, FINGERSTICK Routine 06/03/2024 8:59 PM EST POCT GLUCOSE, FINGERSTICK Routine 06/03/2024 4:33 PM EST METANEB Routine 06/03/2024 2:01 PM EST POCT GLUCOSE, FINGERSTICK Routine 06/03/2024 11:59 AM EST POCT GLUCOSE, FINGERSTICK Routine 06/03/2024 8:07 AM EST METANEB Routine 06/03/2024 8:01 AM EST PROBNP, N-TERMINAL Routine 06/03/2024 7: 20 AM EST PHOSPHORUS Routine 06/03/2024 7:20 AM EST MAGNESIUM Routine 06/03/2024 7:20 AM EST BASIC METABOLIC PANEL Routine 06/03/2024 7:20 AM EST COMPLETE BLOOD COUNT, WITHOUT DIFFERENTIAL Routine 06/03/2024 7:20 AM EST HEPARIN ASSAY (ANTI-XA) Routine 06/03/20 7:20 AM EST METANEB Routine 06/02/2024 10:00 PM EST POCT GLUCOSE, FINGERSTICK Routine 06/02/2024 8:55 PM EST POCT GLUCOSE, FINGERSTICK Routine 06/02/2024 4:56 PM EST METANEB Routine 06/02/2024 2:00 PM EST POCT GLUCOSE, FINGERSTICK Routine 06/02/2024 12:10 PM EST METANEB Routine 06/02/2024 8:00 AM EST POCT GLUCOSE, FINGERSTICK Routine 06/02/2024 7:59 AM EST HEPARIN ASSAY (ANTI-XA) Routine 06/02/20 7:39 AM EST PHOSPHORUS Routine 06/02/2024 7:39 AM EST MAGNESIUM Routine 06/02/2024 7:39 AM EST COMPLETE BLOOD COUNT, WITHOUT DIFFERENTIAL Routine 06/02/2024 7:39 AM EST BASIC METABOLIC PANEL Routine 06/02/2024 7:39 AM EST METANEB Routine 06/01/2024 10:00 PM EST POCT GLUCOSE, FINGERSTICK Routine 06/01/2024 8:31 PM EST POCT GLUCOSE, FINGERSTICK Routine 06/01/2024 5:00 PM EST METANEB Routine 06/01/2024 2:00 PM EST PHOSPHORUS Routine 06/01/2024 12:58 PM EST MAGNESIUM Routine 06/01/2024 12:58 PM EST BASIC METABOLIC PANEL Routine 06/01/2024 12:58 PM EST POCT GLUCOSE, FINGERSTICK Routine 06/01/2024 11:58 AM EST HEPARIN ASSAY (ANTI-XA) Routine 06/01/20 24 9:10 AM EST POCT GLUCOSE, FINGERSTICK Routine 06/01/2024 8:04 AM EST METANEB Routine 06/01/2024 8:00 AM EST HEPARIN ASSAY (ANTI-XA) Routine 06/01/20 24 3:13 AM EST POCT GLUCOSE, FINGERSTICK Routine 06/01/2024 2:08 AM EST PROBNP, N-TERMINAL Routine 06/01/2024 12 :30 AM EST MAGNESIUM Routine 06/01/2024 12:30 AM EST PHOSPHORUS Routine 06/01/2024 12:30 AM EST COMPLETE BLOOD COUNT, WITH DIFFERENTIAL Routine 06/01/2024 12:30 AM EST BASIC METABOLIC PANEL Routine 06/01/2024 12:30 AM EST METANEB Routine 05/31/2024 10:00 PM EST POCT GLUCOSE, FINGERSTICK Routine 05/31/2024 8:10 PM EST BASIC METABOLIC PANEL Routine 05/31/2024 5:31 PM EST HEPARIN ASSAY (ANTI-XA) Routine 05/31/20 5:06 PM EST POCT GLUCOSE, FINGERSTICK Routine 05/31/2024 3:32 PM EST METANEB Routine 05/31/2024 2:01 PM EST POTASSIUM Routine 05/31/2024 12:42 PM EST CREATININE WITH EGFR Routine 05/31/2024 12:42 PM EST PHOSPHORUS Routine 05/31/2024 12:42 PM EST MAGNESIUM Routine 05/31/2024 12:42 PM EST PROTEIN, TOTAL Routine 05/31/2024 12:42 PM EST LACTATE DEHYDROGENASE (LDH) Routine 05/31/2024 12:42 PM EST METANEB Routine 05/31/2024 12:22 PM EST METANEB Routine 05/31/2024 12:22 PM EST METANEB Routine 05/31/2024 12:22 PM EST POCT GLUCOSE, FINGERSTICK Routine 05/31/2024 11:53 AM EST HEPARIN ASSAY (ANTI-XA) Routine 05/31/20 11:09 AM EST XR CHEST 1 VIEW-PORTABLE Routine 05/31/2024 10:50 AM EST POCT GLUCOSE, FINGERSTICK Routine 05/31/2024 8:05 AM EST US GUIDED BEDSIDE THORACENTESIS-LEFT Routine 05/31/2024 8:01 AM EST PROTEIN, BODY FLUID Routine 05/31/2024 7 :54 AM EST PH, BODY FLUID Routine 05/31/2024 7:54 AM EST LACTATE DEHYDROGENASE (LDH), BODY FLUID Routine 05/31/2024 7:54 AM EST GLUCOSE, BODY FLUID Routine 05/31/2024 7 :54 AM EST CELL COUNT REFLEX DIFFERENTIAL, BODY FLUID Routine 05/31/2024 7:54 AM EST BODY FLUID CULTURE (AEROBIC, ANAEROBIC AND GRAM STAIN) Routine 05/31/2024 7:54 AM EST PROBNP, N-TERMINAL Routine 05/31/2024 1: 58 AM EST MAGNESIUM Routine 05/31/2024 1:58 AM EST PHOSPHORUS Routine 05/31/2024 1:58 AM EST COMPLETE BLOOD COUNT, WITH DIFFERENTIAL Routine 05/31/2024 1:58 AM EST BASIC METABOLIC PANEL Routine 05/31/2024 1:58 AM EST HEPARIN ASSAY (ANTI-XA) Routine 05/31/20 1:58 AM EST POCT GLUCOSE, FINGERSTICK Routine 05/31/2024 1:20 AM EST HEPARIN ASSAY (ANTI-XA) Routine 05/31/20 12:17 AM EST POCT GLUCOSE, FINGERSTICK Routine 05/30/2024 8:08 PM EST POCT GLUCOSE, FINGERSTICK Routine 05/30/2024 4:18 PM EST PHOSPHORUS Routine 05/30/2024 12:39 PM EST MAGNESIUM Routine 05/30/2024 12:39 PM EST BASIC METABOLIC PANEL Routine 05/30/2024 12:39 PM EST POCT GLUCOSE, FINGERSTICK Routine 05/30/2024 11:49 AM EST METANEB Routine 05/30/2024 9:01 AM EST BED THERAPY, PERCUSSION & VIBRATION Routine 05/30/2024 9:01 AM EST POCT GLUCOSE, FINGERSTICK Routine 05/30/2024 7:42 AM EST POCT GLUCOSE, FINGERSTICK Routine 05/30/2024 4:03 AM EST PROBNP, N-TERMINAL Routine 05/30/2024 12 :53 AM EST PHOSPHORUS Routine 05/30/2024 12:53 AM EST HEPATIC FUNCTION PANEL Routine 12:53 AM EST MAGNESIUM Routine 05/30/2024 12:53 AM EST HEPARIN ASSAY (ANTI-XA) Routine 05/30/20 12:53 AM EST COMPLETE BLOOD COUNT, WITHOUT DIFFERENTIAL Routine 05/30/2024 12:53 AM EST BASIC METABOLIC PANEL Routine 05/30/2024 12:53 AM EST POCT GLUCOSE, FINGERSTICK Routine 05/30/2024 12:04 AM EST METANEB Routine 05/29/2024 9:00 PM EST BED THERAPY, PERCUSSION & VIBRATION Routine 05/29/2024 9:00 PM EST POCT GLUCOSE, FINGERSTICK Routine 05/29/2024 8:02 PM EST POCT GLUCOSE, FINGERSTICK Routine 05/29/2024 4:20 PM EST PHOSPHORUS Routine 05/29/2024 12:00 PM EST MAGNESIUM Routine 05/29/2024 12:00 PM EST BASIC METABOLIC PANEL Routine 05/29/2024 12:00 PM EST POCT GLUCOSE, FINGERSTICK Routine 05/29/2024 11:51 AM EST XR CHEST 1 VIEW-PORTABLE STAT 05/29/2024 9:04 AM EST METANEB Routine 05/29/2024 9:01 AM EST BED THERAPY, PERCUSSION & VIBRATION Routine 05/29/2024 9:01 AM EST POCT GLUCOSE, FINGERSTICK Routine 05/29/2024 7:32 AM EST POCT GLUCOSE, FINGERSTICK Routine 05/29/2024 4:05 AM EST PROBNP, N-TERMINAL Routine 05/29/2024 1: 10 AM EST PHOSPHORUS Routine 05/29/2024 1:10 AM EST HEPARIN ASSAY (ANTI-XA) Routine 05/29/20 1:10 AM EST MAGNESIUM Routine 05/29/2024 1:10 AM EST COMPLETE BLOOD COUNT, WITHOUT DIFFERENTIAL Routine 05/29/2024 1:10 AM EST BASIC METABOLIC PANEL Routine 05/29/2024 1:10 AM EST POCT GLUCOSE, FINGERSTICK Routine 05/29/2024 12:35 AM EST METANEB Routine 05/28/2024 9:00 PM EST BED THERAPY, PERCUSSION & VIBRATION Routine 05/28/2024 9:00 PM EST POCT GLUCOSE, FINGERSTICK Routine 05/28/2024 7:28 PM EST XR CHEST 1 VIEW-PORTABLE STAT 05/28/2024 3:40 PM EST POCT GLUCOSE, FINGERSTICK Routine 05/28/2024 3:14 PM EST POCT GLUCOSE, FINGERSTICK Routine 05/28/2024 2:24 PM EST PROTIME-INR Routine 05/28/2024 1:12 PM EST BASIC METABOLIC PANEL Routine 05/28/2024 1:12 PM EST MAGNESIUM Routine 05/28/2024 1:12 PM EST PHOSPHORUS Routine 05/28/2024 1:12 PM EST EXTUBATION Routine 05/28/2024 12:13 PM EST POCT GLUCOSE, FINGERSTICK Routine 05/28/2024 11:57 AM EST BLOOD GAS WITH COOXIMETRY, ARTERIAL Routine 05/28/2024 11:53 AM EST METANEB Routine 05/28/2024 9:00 AM EST BED THERAPY, PERCUSSION & VIBRATION Routine 05/28/2024 9:00 AM EST POCT GLUCOSE, FINGERSTICK Routine 05/28/2024 7:23 AM EST POCT GLUCOSE, FINGERSTICK Routine 05/28/2024 3:57 AM EST POCT GLUCOSE, FINGERSTICK Routine 05/28/2024 12:17 AM EST COMPLETE BLOOD COUNT, WITHOUT DIFFERENTIAL Routine 05/28/2024 12:00 AM EST PROBNP, N-TERMINAL Routine 05/28/2024 12 :00 AM EST PHOSPHORUS Routine 05/28/2024 12:00 AM EST MAGNESIUM Routine 05/28/2024 12:00 AM EST BASIC METABOLIC PANEL Routine 05/28/2024 12:00 AM EST HEPARIN ASSAY (ANTI-XA) Routine 05/28/20 12:00 AM EST METANEB Routine 05/27/2024 9:00 PM EST BED THERAPY, PERCUSSION & VIBRATION Routine 05/27/2024 9:00 PM EST POCT GLUCOSE, FINGERSTICK Routine 05/27/2024 7:24 PM EST POCT GLUCOSE, FINGERSTICK Routine 05/27/2024 3:50 PM EST HEMOGLOBIN AND HEMATOCRIT Routine 05/27/2024 1:10 PM EST PHOSPHORUS Routine 05/27/2024 1:10 PM EST MAGNESIUM Routine 05/27/2024 1:10 PM EST BASIC METABOLIC PANEL Routine 05/27/2024 1:10 PM EST ECHOCARDIOGRAM (TTE) COMPREHENSIVE (CONTRAST PRN) Routine 05/27/2024 11:13 AM EST POCT GLUCOSE, FINGERSTICK Routine 05/27/2024 11:12 AM EST HEMOGLOBIN AND HEMATOCRIT Routine 05/27/2024 10:19 AM EST METANEB Routine 05/27/2024 9:02 AM EST BED THERAPY, PERCUSSION & VIBRATION Routine 05/27/2024 9:02 AM EST POCT GLUCOSE, FINGERSTICK Routine 05/27/2024 7:21 AM EST HEMOGLOBIN AND HEMATOCRIT Routine 05/27/2024 5:46 AM EST POCT GLUCOSE, FINGERSTICK Routine 05/27/2024 3:42 AM EST POCT GLUCOSE, FINGERSTICK Routine 05/27/2024 12:23 AM EST POCT GLUCOSE, FINGERSTICK Routine 05/26/2024 11:59 PM EST HEPARIN ASSAY (ANTI-XA) Routine 05/26/20 11:48 PM EST PROBNP, N-TERMINAL Routine 05/26/2024 11 :48 PM EST COMPLETE BLOOD COUNT, WITHOUT DIFFERENTIAL Routine 05/26/2024 11:48 PM EST PHOSPHORUS Routine 05/26/2024 11:48 PM EST MAGNESIUM Routine 05/26/2024 11:48 PM EST BASIC METABOLIC PANEL Routine 05/26/2024 11:48 PM EST METANEB Routine 05/26/2024 9:00 PM EST BED THERAPY, PERCUSSION & VIBRATION Routine 05/26/2024 9:00 PM EST POCT GLUCOSE, FINGERSTICK Routine 05/26/2024 7:39 PM EST POCT GLUCOSE, FINGERSTICK Routine 05/26/2024 3:30 PM EST BLOOD GAS WITH COOXIMETRY, VENOUS Routine 05/26/2024 1:54 PM EST PHOSPHORUS Routine 05/26/2024 1:54 PM EST MAGNESIUM Routine 05/26/2024 1:54 PM EST BASIC METABOLIC PANEL Routine 05/26/2024 1:54 PM EST POCT GLUCOSE, FINGERSTICK Routine 05/26/2024 11:45 AM EST METANEB Routine 05/26/2024 9:00 AM EST BED THERAPY, PERCUSSION & VIBRATION Routine 05/26/2024 9:00 AM EST XR CHEST 1 VIEW-PORTABLE Routine 05/26/2024 7:36 AM EST POCT GLUCOSE, FINGERSTICK Routine 05/26/2024 7:30 AM EST HEMOGLOBIN AND HEMATOCRIT Routine 05/26/2024 7:19 AM EST HEPARIN ASSAY (ANTI-XA) Routine 05/26/20 6:47 AM EST PROTIME-INR Routine 05/26/2024 6:47 AM EST POCT GLUCOSE, FINGERSTICK Routine 05/26/2024 4:20 AM EST HEPARIN ASSAY (ANTI-XA) Routine 05/26/20 1:08 AM EST POCT GLUCOSE, FINGERSTICK Routine 05/25/2024 11:41 PM EST HIGH SENSITIVITY TROPONIN T CARD 05/25/2024 10:19 PM EST PROBNP, N-TERMINAL Routine 05/25/2024 10 :19 PM EST COMPLETE BLOOD COUNT, WITHOUT DIFFERENTIAL Routine 05/25/2024 10:19 PM EST PHOSPHORUS Routine 05/25/2024 10:19 PM EST MAGNESIUM Routine 05/25/2024 10:19 PM EST BASIC METABOLIC PANEL Routine 05/25/2024 10:19 PM EST METANEB Routine 05/25/2024 9:00 PM EST BED THERAPY, PERCUSSION & VIBRATION Routine 05/25/2024 9:00 PM EST POCT GLUCOSE, FINGERSTICK Routine 05/25/2024 8:05 PM EST HIGH SENSITIVITY TROPONIN T CARD 05/25/2024 6:07 PM EST HEPARIN ASSAY (ANTI-XA) Routine 05/25/20 6:07 PM EST BLOOD GAS, ARTERIAL Routine 05/25/2024 4 :26 PM EST POCT GLUCOSE, FINGERSTICK Routine 05/25/2024 3:56 PM EST RESPIRATORY CULTURE Routine 05/25/2024 1 2:11 PM EST PARTIAL THROMBOPLASTIN TIME (PTT) Routine 05/25/2024 12:01 PM EST BASIC METABOLIC PANEL Routine 05/25/2024 12:01 PM EST PHOSPHORUS Routine 05/25/2024 12:01 PM EST MAGNESIUM Routine 05/25/2024 12:01 PM EST POCT GLUCOSE, FINGERSTICK Routine 05/25/2024 11:19 AM EST METANEB Routine 05/25/2024 10:23 AM EST METANEB Routine 05/25/2024 10:23 AM EST METANEB Routine 05/25/2024 10:23 AM EST HEPARIN ASSAY (ANTI-XA) Routine 05/25/20 10:23 AM EST XR CHEST 1 VIEW-PORTABLE STAT 05/25/2024 10:16 AM EST HIGH SENSITIVITY TROPONIN T CARD 05/25/2024 10:16 AM EST BED THERAPY, PERCUSSION & VIBRATION Routine 05/25/2024 9:00 AM EST POCT GLUCOSE, FINGERSTICK Routine 05/25/2024 7:20 AM EST ECG 12-LEAD Routine 05/25/2024 5:40 AM EST HEMOGLOBIN A1C WITH ESTIMATED AVERAGE GLUCOSE Routine 05/25/2024 4:49 AM EST HIGH SENSITIVITY TROPONIN T CARD 05/25/2024 4:49 AM EST PROTIME-INR Routine 05/25/2024 4:49 AM EST COMPLETE BLOOD COUNT, WITHOUT DIFFERENTIAL Routine 05/25/2024 4:49 AM EST BASIC METABOLIC PANEL Routine 05/25/2024 4:49 AM EST POCT GLUCOSE, FINGERSTICK Routine 05/25/2024 4:45 AM EST BED THERAPY, PERCUSSION & VIBRATION Routine 05/25/2024 4:28 AM EST BED THERAPY, PERCUSSION & VIBRATION Routine 05/25/2024 4:28 AM EST POCT GLUCOSE, FINGERSTICK Routine 05/25/2024 3:49 AM EST PROTIME-INR STAT 05/25/2024 1:[address] THORAX W/O CONTRAST STAT 1:32 AM EST URINALYSIS W/ REFLEX TO MICROSCOPIC AND CULTURE STAT 05/25/2024 12:11 AM EST REFLEXIVE URINE CULTURE Routine 05/25/20 12:11 AM EST PHOSPHORUS CARD 05/24/2024 11:46 PM EST TRIGLYCERIDES STAT 05/24/2024 11:46 PM EST BLOOD CULTURE STAT 05/24/2024 11:46 PM EST BLOOD CULTURE STAT 05/24/2024 11:46 PM EST LACTIC ACID, PLASMA STAT 05/24/2024 1 1:46 PM EST HIGH SENSITIVITY TROPONIN T CARD 05/24/2024 11:46 PM EST INTUBATION Routine 05/24/2024 11:20 PM EST ECG 12-LEAD Routine 05/24/2024 11:09 PM EST XR CHEST 1 VIEW-PORTABLE STAT 05/24/2024 11:04 PM EST XR CHEST 1 VIEW-PORTABLE STAT 05/24/2024 10:24 PM EST ECG 12-LEAD STAT 05/24/2024 10:08 PM EST BLOOD GAS, VENOUS STAT 05/24/2024 9:5 8 PM EST LACTIC ACID, PLASMA STAT 05/24/2024 9 :58 PM EST PROTIME-INR STAT 05/24/2024 9:58 PM EST PROBNP, N-TERMINAL STAT 05/24/2024 9: 58 PM EST HIGH SENSITIVITY TROPONIN T CARD 05/24/2024 9:58 PM EST HEPATIC FUNCTION PANEL STAT 9:58 PM EST MAGNESIUM STAT 05/24/2024 9:58 PM EST BASIC METABOLIC PANEL STAT 05/24/2024 9:58 PM EST COMPLETE BLOOD COUNT, WITH DIFFERENTIAL STAT 05/24/2024 9:58 PM EST from Last 3 Months Results * (ABNORMAL) POCT Glucose, Fingerstick (06/11/2024 4:45 PM EST) Only the most recent of90 resultswithin the time period is included. POC Glucose 163(H) 65 - 99 mg/dL 06/11/2024 4:46 PM EST Blood specimen / Unknown 06/11/2024 4:45 PM EST 06/11/2024 4:46 PM EST Gregorio Healy MD POINT OF CARE TEST ORDERABLES HOSPITAL LAB See Below * DENEEN Archive for reference only XA (06/11/2024 1:40 PM EST) Narrative SYSTEMGENERATED, DOCUMENTATION - 06/11/2024 1:35 PM EST This order has been auto-finalized and does not contain a result. File Room Provider IMG DIGITIZE FILMS * Outside Echo Image Archive (06/11/2024 1:35 PM EST) File Room Provider CV ECHO ORDERABLES * Outside Echo Image Archive (06/11/2024 1:35 PM EST) File Room Provider CV ECHO ORDERABLES * Outside Echo Image Archive (06/11/2024 1:35 PM EST) File Room Provider CV ECHO ORDERABLES * (ABNORMAL) proBNP, N-terminal (06/11/2024 6:57 AM EST) Only the most recent of12 resultswithin the time period is included. proBNP, N-terminal 2,480(H) <450 pg/mL 06/11/2024 8:11 AM EST [facility] Plasma specimen / Unknown 06/11/2024 6:57 AM EST 06/11/2024 7:38 AM EST Goran Thomas MD [place] [address], [place] [address] * (ABNORMAL) Protime-INR (06/11/2024 6:57 AM EST) Only the most recent of9 resultswithin the time period is included. [facility] Anticoagulant WARFARIN (COUMADIN) 06/10/2024 11:00 PM EST Prothrombin Time (PT) 15.5(H) 10.0 - 13.5 seconds 06/11/2024 8:01 AM EST [facility] INR 1.3 06/11/2024 8:01 AM [facility] Comment:INR Therapeutic Rang es: Standard dose anticoagulant 2.0 to 3.0, High dose anticoagulant 2.5-3.5. Blood Plasma specimen / Unknown 06/11/2024 6:57 AM EST 06/11/2024 7:38 AM EST Sebastian Pacheco MD LAB BLOOD ORDERABL ES Performing Organization Address City/State/[facility] [place] [address], [place] [address] * Heparin Assay (Anti Xa) (06/11/2024 6:57 AM EST) Only the most recent of24 resultswithin the time period is included. [facility] Anti Xa 0.63 IU/mL 06/11/2024 8:01 AM [facility] Comment: (NOTE) Heparin Thromboembolic/Standard/Full Dose Protocol: Therapeutic Range: ? Age 18+: ? 0.30 - 0.70 IU/mL ? Age 0 - 17: ?? 0.35 - 0.70 IU/mL ? Heparin Cardiac/Low Dose Protocol: ? Therapeutic Range: ? 0.30 - 0.50 IU/mL ? Low Molecular Weight Heparin: ? Therapeutic Range: ? Age 18+: ? 0.50 - 1.50 IU/mL ? Age 0 - 17: ?? 0.50 - 1.00 ??IU/mL ? Anticoagulant IV HEPARIN, UNFRACTIONATED 06/10/2024 11:00 PM EST Blood Plasma specimen / Unknown 06/11/2024 6:57 AM EST 06/11/2024 7:38 AM EST Pham Faulkner MD LAB BLOOD ORDERABLES Performing Organization Address [facility]/State/[place] [address], [place] [address] * (ABNORMAL) Complete Blood Count, without Differential (06/11/2024 6:57 AM EST) Only the most recent of13 resultswithin the time period is included. White Blood Cell Count 6.3 4.0 - 11.0 Thou/uL 06/11/2024 7:53 AM EST [facility] Platelet Count 194 150 - 450 Thou/uL 06/11/2024 7:53 AM [facility] Hemoglobin 8.4(L) 11.7 - 15.7 g/dL 06/11/2024 7:53 AM [facility] Hematocrit 27.0(L) 35.0 - 47.0 % 06/11/2024 7:53 AM [facility] Red Blood Cell Count 2.99(L) 4.00 - 5.40 Mil/uL 06/11/2024 7:53 AM [facility] MCV 90 80 - 100 fL 06/11/2024 7:53 AM [facility] MCH 28.1 27.0 - 31.0 pg 06/11/2024 7:53 AM [facility] MCHC 31.1 30.0 - 36.0 g/dL 06/11/2024 7:53 AM [facility] RDW 16.6(H) 11.5 - 14.5 % 06/11/2024 7:53 AM [facility] MPV 10.2 7.5 - 12.5 fL 06/11/2024 7:53 AM [facility] Blood Blood specimen / Unknown 06/11/2024 6:57 AM EST 06/11/2024 7:38 AM EST Goran Thomas MD LAB BLOOD ORDERAB LES Performing Organization Address City/[facility]/[place] [address], [place] [address] * Phosphorus (06/11/2024 6:57 AM EST) Only the most recent of24 resultswithin the time period is included. Phosphorus 4.3 2.7 - 4.5 mg/dL 06/11/2024 8:11 AM [facility] Blood (Plasma/Serum) 06/11/2024 6:57 AM EST 06/11/2024 7:38 AM EST Goran Thomas MD [place] [address], [place] [address] * Magnesium (06/11/2024 6:57 AM EST) Only the most recent of25 resultswithin the time period is included. Magnesium 2.1 1.6 - 2.7 mg/dL 06/11/2024 8:11 AM [facility] Blood (Plasma/Serum) 06/11/2024 6:57 AM EST 06/11/2024 7:38 AM EST Goran Thomas MD [place] [address], [place] [address] * (ABNORMAL) Basic Metabolic Panel (06/11/2024 6:57 AM EST) Only the most recent of26 resultswithin the time period is included. Glucose 113(H) 65 - 99 mg/dL 06/11/2024 8:11 AM [facility] Comment:Fasting: <100 mg/dL, Non-Fasting: <200 mg/dL (ADA 2005) Blood Urea Nitrogen (BUN) 52(H) 8 - 21 mg/dL 06/11/2024 8:11 AM [facility] Creatinine 2.2(H) 0.4 - 1.1 mg/dL 06/11/2024 8:11 AM [facility] eGFR 22(L) >59 06/11/2024 8:11 AM [facility] Comment:CKD-EPI (2020) in mL /min/1.73 sq meters. Sodium 133(L) 136 - 145 mmol/L 06/11/2024 8:11 AM [facility] Potassium 4.1 3.4 - 5.3 mmol/L 06/11/2024 8:11 AM [facility] Chloride 94(L) 98 - 107 mmol/L 06/11/2024 8:11 AM [facility] CO2 26 22 - 33 mmol/L 06/11/2024 8:11 AM [facility] Anion Gap 13 7 - 17 06/11/2024 8:11 AM [facility] Calcium 9.5 8.7 - 10.5 mg/dL 06/11/2024 8:11 AM [facility] BUN/Creatinine Ratio 24 10.0 - 25.0 Ratio 06/11/2024 8:11 AM [facility] Blood (Plasma/Serum) 06/11/2024 6:57 AM EST 06/11/2024 7:38 AM EST Goran Thomas MD LAB BLOOD ORDERAB LES Performing Organization Address [facility] [place] [address], [place] [address] * (ABNORMAL) Iron and Total Iron Binding Capacity (06/07/2024 6:22 AM EST) Iron 37(L) 59 - 151 ug/dL 06/07/2024 8:01 AM [facility] UIBC 199 112 - 346 ug/dL 06/07/2024 8:01 AM [facility] Total Iron Binding Capacity 236 100 - 400 ug/dL 06/07/2024 8:01 AM [facility] Iron Sat 16(L) 20 - 50 % 06/07/2024 8:01 AM [facility] Blood (Plasma/Serum) 06/07/2024 6:22 AM EST 06/07/2024 7:21 AM EST Goran Thomas MD LAB BLOOD ORDERAB LES [facility] [address] [place] [address], [place] [address] * Folate Level (06/07/2024 6:22 AM EST) Folate, Serum >20.0 >7.2 ng/mL 06/07/2024 9:06 AM [facility] Comment:Specimen hemolyzed. Results may be artifactually elevated. Blood Serum specimen / Unknown 06/07/2024 6:22 AM EST 06/07/2024 7:21 AM EST Goran Thomas MD LAB BLOOD ORDERAB LES Performing Organization Address City/[facility]/[place] [address], [place] [address] * Ferritin (06/07/2024 6:22 AM EST) Ferritin 266 30 - 400 ug/L 06/07/2024 8:01 AM EST [facility] Blood (Plasma/Serum) 06/07/2024 6:22 AM EST 06/07/2024 7:21 AM EST Goran Thomas MD LAB BLOOD ORDERAB LES Performing Organization Address City/[facility] [place] [address], [place] [address] * Vitamin B12 (06/07/2024 6:22 AM EST) Vitamin B12 736 243 - 894 pg/mL 06/07/2024 8:01 AM EST [facility] Blood (Plasma/Serum) 06/07/2024 6:22 AM EST 06/07/2024 7:21 AM EST Goran Thomas MD LAB BLOOD ORDERAB LES Performing Organization Address City/[facility] [place] [address], [place] [address] * XR Chest 1 view-Portable (Morning) (06/07/2024 6:17 AM EST) Only the most recent of8 resultswithin the time period is included. Anatomical Region Laterality Modality Chest Computed Radiogr aphy 06/07/2024 5:20 AM EST Impressions 06/11/2024 8:40 AM EST 1. ??Pulmonary vascular congestion and interstitial edema. 2. ??Small bilateral pleural effusions, left greater than right, slightly more conspicuous from prior. 3. ??Patchy bibasilar opacities may represent atelectasis and/or infectious/inflammatory process. Narrative 06/11/2024 8:40 AM EST EXAMINATION: XR CHEST CLINICAL INFORMATION: Left pleural effusion COMPARISON: Chest radiograph from 05/31/2024. TECHNIQUE: Frontal view of the chest was obtained. FINDINGS: Midline sternotomy wires. Cardiac valve prosthesis. Surgical clips project over the mediastinum. Telemetry leads project over the thorax. Patchy bibasilar opacities. Central vascular and bilateral interstitial prominence. Blunting of the bilateral costophrenic angles. No discernible pneumothorax. Cardiomediastinal silhouette is unchanged. No acute osseous abnormality. Procedure Note Sarthak Branch MD - 06/11/2024 EXAMINATION: XR CHEST CLINICAL INFORMATION: Left pleural effusion COMPARISON: Chest radiograph from 05/31/2024. TECHNIQUE: Frontal view of the chest was obtained. FINDINGS: Midline sternotomy wires. Cardiac valve prosthesis. Surgical clips project over the mediastinum. Telemetry leads project over the thorax. Patchy bibasilar opacities. Central vascular and bilateral interstitial prominence. Blunting of the bilateral costophrenic angles. No discernible pneumothorax. Cardiomediastinal silhouette is unchanged. No acute osseous abnormality. IMPRESSION: 1. Pulmonary vascular congestion and interstitial edema. 2. Small bilateral pleural effusions, left greater than right, slightly more conspicuous from prior. 3. Patchy bibasilar opacities may represent atelectasis and/or infectious/inflammatory process. Goran Thomas MD IMG DIAGNOSTIC IM AGING ORDERABLES * US Renal (06/07/2024 1:01 AM EST) Anatomical Region Laterality Modality Abdomen Ultrasound 06/07/2024 12:4 4 AM EST Impressions 06/11/2024 11:26 AM EST 1. ??No hydronephrosis or nephrolithiasis. 2. ??Incidental slight increased echogenicity of the liver, which may represent hepatic steatosis. Narrative 06/11/2024 11:26 AM EST EXAMINATION: US RETROPERITONEUM LIMITED (RENAL ULTRASOUND) CLINICAL INFORMATION: Acute kidney injury COMPARISON: None available. TECHNIQUE: Real-time imaging of the kidneys and bladder. FINDINGS: RIGHT KIDNEY: Normal. No hydronephrosis. No renal calculi or focal parenchymal lesions. The kidney measures 11.4 x 5.1 x 5.1 cm (sag x AP x TRV). LEFT KIDNEY: Normal. No hydronephrosis. No renal calculi or focal parenchymal lesions. The kidney measures 10.1 x 5.1 x 5.3 cm (sag x AP x TRV). BLADDER: Normal. Incidental slight increased echogenicity of the liver, which may represent hepatic steatosis. Procedure Note Alex Shaw MD - 06/11/2024 EXAMINATION: US RETROPERITONEUM LIMITED (RENAL ULTRASOUND) CLINICAL INFORMATION: Acute kidney injury COMPARISON: None available. TECHNIQUE: Real-time imaging of the kidneys and bladder. FINDINGS: RIGHT KIDNEY: Normal. No hydronephrosis. No renal calculi or focal parenchymal lesions. The kidney measures 11.4 x 5.1 x 5.1 cm (sag x AP x TRV). LEFT KIDNEY: Normal. No hydronephrosis. No renal calculi or focal parenchymal lesions. The kidney measures 10.1 x 5.1 x 5.3 cm (sag x AP x TRV). BLADDER: Normal. Incidental slight increased echogenicity of the liver, which may represent hepatic steatosis. IMPRESSION: 1. No hydronephrosis or nephrolithiasis. 2. Incidental slight increased echogenicity of the liver, which may represent hepatic steatosis. Goran Thomas MD [facility] US ORDERABLES * Urea Nitrogen, Urine, Random (06/06/2024 12:40 PM EST) Urea Nitrogen, Random Urine 502 mg/dL 06/06/2024 1:30 PM EST [facility] Comment:Reference range not established for random specimen. Urine Urine specimen / Unknown 06/06/2024 12:40 PM EST 06/06/2024 12:55 PM EST Goran Thomas [place] [address], [place] [address] * Sodium, Urine, Random (06/06/2024 12:40 PM EST) Sodium, Urine Random 25 mmol/L 06/06/2024 1:30 PM [facility] Comment:Reference range not established for random specimen. Urine Urine specimen / Unknown 06/06/2024 12:40 PM EST 06/06/2024 12:55 PM EST Goran Thomas MD URINE ORDERABLES Performing Organization Address City/[facility]/[place] [address], [place] [address] * Creatinine, Urine, Random (06/06/2024 12:40 PM EST) Creatinine, Urine, Random 70 mg/dL 06/06/2024 1:30 PM [facility] Comment:Reference range not established for random specimen. Urine Urine specimen / Unknown 06/06/2024 12:40 PM EST 06/06/2024 12:55 PM EST Goran Thomas MD URINE ORDERABLES Performing Organization Address City/[facility]/[place] [address], [place] [address] * Urinalysis with Reflex to Microscopic (06/06/2024 12:35 PM EST) Color Yellow 06/06/2024 1:35 PM [facility] Clarity Slightly cloudy 06/06/2024 1:35 PM [facility] Specific [place] 1.009 1.003 - 1.030 06/06/2024 1:35 PM [facility] pH 5.0 5.0 - 8.0 06/06/2024 1:35 PM [facility] Leukocyte Esterase Negative Negative 06/06/2024 1:35 PM [facility] Nitrite Negative Negative 06/06/2024 1:35 PM [facility] Protein Negative Negative 06/06/2024 1:35 PM [facility] Glucose 0 0 - 99 mg/dL 06/06/2024 1:35 PM [facility] Ketones Negative Negative 06/06/2024 1:35 PM [facility] Blood Negative Negative 06/06/2024 1:35 PM [facility] Bilirubin Negative Negative 06/06/2024 1:35 PM [facility] WBC 3 0 - 4 per hpf 06/06/2024 1:35 PM [facility] RBC 1 0 - 4 per hpf 06/06/2024 1:35 PM [facility] Squamous Epithelial Cells 7 PER HPF 06/06/2024 1:35 PM [facility] X-Specimen 16 Voided urine specimen / Unknown 06/06/2024 12:35 PM EST 06/06/2024 12:54 PM EST Goran Thomas [place] [address], [place] [address] * Type and Screen (06/06/2024 11:10 AM EST) ABO/Rh AB POSITIVE 06/06/2024 12:56 PM [facility] Antibody Screen NEGATIVE 06/06/2024 12:56 PM [facility] Specimen Expiration 06/09/2024 06/06/2024 12:56 PM [facility] Blood Blood specimen / Unknown 06/06/2024 11:10 AM EST 06/06/2024 11:46 AM EST Katie Zepeda APRN [place]LOOD [place] [address], [place] [address] * CARDIOLOGY ECHO (06/06/2024 10:32 AM EST) Anatomical Region Laterality Modality Other Narrative 06/06/2024 10:32 AM EST Ordered by an unspecified provider. Generic Provider HX AMB PROCEDURES * ECG 12 lead (06/05/2024 5:15 PM EST) Only the most recent of4 resultswithin the time period is included. Pathologist [facility] Systolic BP 111 mmHg EKG [facility] Diastolic BP 51 mmHg EKG [facility] Ventricular rate 68 BPM EKG [facility] Atrial rate 63 BPM EKG [facility] QRS duration 138 ms EKG [facility] Q-T interval 424 ms EKG [facility] QTC calculation (Bazett) 450 ms EKG [facility] R axis -42 degrees EKG [facility] T axis 145 [facility] 06/05/2024 5:15 PM EST Narrative EKG [facility] - 06/05/2024 8:20 PM EST afib with pvc Left axis deviation Non-specific intra-ventricular conduction block Nonspecific T wave abnormality Abnormal ECG When compared with ECG of 25-May-2024 05:40, Nonspecific T wave abnormality, worse in Anterolateral leads Confirmed by MD Zazueta Daniel ([id number]) on 06/05/2024 8:20:32 PM Procedure Note Saulo Zazueta MD - 06/05/2024 afib with pvc Left axis deviation Non-specific intra-ventricular conduction block Nonspecific T wave abnormality Abnormal ECG When compared with ECG of 25-May-2024 05:40, Nonspecific T wave abnormality, worse in Anterolateral leads Confirmed by MD Zazueta Daniel ([id number]) on 06/05/2024 8:20:32 PM Flavio Johnson MD ECG ORDERABLES [facility] * (ABNORMAL) Complete Blood Count WITH Differential - in AM (06/04/2024 7:28 AM EST) Only the most recent of4 resultswithin the time period is included. Pathologist [facility] [place] White Blood Cell Count 8.3 4.0 - 11.0 Thou/uL 06/04/2024 8:13 AM EST [facility] Platelet Count 231 150 - 450 Thou/uL 06/04/2024 8:13 AM [facility] Hemoglobin 8.8(L) 11.7 - 15.7 g/dL 06/04/2024 8:13 AM [facility] Hematocrit 28.2(L) 35.0 - 47.0 % 06/04/2024 8:13 AM [facility] Red Blood Cell Count 3.14(L) 4.00 - 5.40 Mil/uL 06/04/2024 8:13 AM [facility] MCV 90 80 - 100 fL 06/04/2024 8:13 AM [facility] MCH 28.0 27.0 - 31.0 pg 06/04/2024 8:13 AM [facility] MCHC 31.2 30.0 - 36.0 g/dL 06/04/2024 8:13 AM [facility] RDW 16.1(H) 11.5 - 14.5 % 06/04/2024 8:13 AM [facility] MPV 10.0 7.5 - 12.5 fL 06/04/2024 8:13 AM [facility] Neutrophils Auto 72.6 % 06/04/20 8:13 AM [facility] Immature Granulocytes 1.5 % 06/04/2024 8:13 AM [facility] Lymphocytes Auto 12.2 % 06/04/20 8:13 AM [facility] Monocytes Auto 6.4 % 06/04/2024 8:13 [facility] Eosinophils Auto 6.2 % 06/04/20 8:13 AM [facility] Basophils Auto 1.1 % 06/04/2024 8:13 AM [facility] Abs Neutrophils Auto 5.99 2.00 - 7.50 Thou/uL 06/04/2024 8:13 AM [facility] Abs Immature Granulocytes 0.12(H) 0.00 - 0.10 Thou/uL 06/04/2024 8:13 AM [facility] Abs Lymphocytes Auto 1.01(L) 1.50 - 4.50 Thou/uL 06/04/2024 8:13 AM [facility] Abs Monocytes Auto 0.53 0.20 - 1.50 Thou/uL 06/04/2024 8:13 AM [facility] Abs Eosinophils Auto 0.51 0.00 - 0.70 Thou/uL 06/04/2024 8:13 AM EST [facility] Abs Basophils Auto 0.09 0.00 - 0.20 Thou/uL 06/04/2024 8:13 AM [facility] Blood Blood specimen / Unknown 06/04/2024 7:28 AM EST 06/04/2024 8:03 AM EST Renan Frazier MD [place] [address], [place] [address] * Protein, Total (05/31/2024 12:42 PM EST) Protein, Total 6.9 6.3 - 8.3 g/dL 05/31/2024 1:59 PM [facility] Blood (Plasma/Serum) 05/31/2024 12:42 PM EST 05/31/2024 1:25 PM EST Rachele Manning PA-C LAB BLOOD ORDERAB LES Performing Organization Address [facility] [place] [address], [place] [address] * POTASSIUM (05/31/2024 12:42 PM EST) Potassium 4.1 3.4 - 5.3 mmol/L 05/31/2024 5:28 PM EST [facility] Plasma/Serum 05/31/2024 12:4 2 PM EST 05/31/2024 1:25 PM EST Rachele Manning PA-C LAB BLOOD ORDERAB LES Performing Organization Address [facility] [place] [address], [place] [address] * Lactate Dehydrogenase (LDH) (05/31/2024 12:42 PM EST) Lactate Dehydrogenase (LDH) 239 120 - 260 U/L 05/31/2024 1:59 PM EST [facility] Blood (Plasma/Serum) 05/31/2024 12:42 PM EST 05/31/2024 1:25 PM EST Rachele Manning PA-C LAB BLOOD ORDERAB LES Performing Organization Address City/[facility] [place] [address], [place] [address] * (ABNORMAL) Creatinine with eGFR (05/31/2024 12:42 PM EST) Creatinine 1.8(H) 0.4 - 1.1 mg/dL 05/31/2024 5:28 PM EST [facility] eGFR 28(L) >59 05/31/2024 5:28 PM EST [facility] Comment:CKD-EPI (2020) in mL /min/1.73 sq meters. Plasma/Serum 05/31/2024 12:4 2 PM EST 05/31/2024 1:25 PM EST Rachele Manning PA-C LAB BLOOD ORDERAB LES Performing Organization Address [facility] [place] [address], [place] [address] * US Guided Bedside Thoracentesis-Left (05/31/2024 8:01 AM EST) Anatomical Region Laterality Modality Ultrasound Impressions 05/31/2024 8:12 AM EST Successful left ultrasound-guided diagnostic and therapeutic thoracentesis yielding 1250 mL of yellow fluid. ?? This procedure was performed and dictated by BELLE Harley Narrative 05/31/2024 8:12 AM EST PROCEDURE: Ultrasound-guided thoracentesis INDICATION: Left pleural effusion. SPECIMEN: Specimen collected as requested. Sample left with bedside RN. ACCESS: 6 Kinyarwanda [id number] closed needle/catheter system ?? REQUESTING PRACTITIONER: Rahcele Manning PA-C CLINICIAN(S): BELLE Harley PA CONSENT: Informed consent was obtained from the patient prior to the procedure. During this process, the procedure and potential alternatives were explained along with the intended outcome and benefits. The risks of the procedure, including the possibility of an unsuccessful procedure as well as the risk of not doing the procedure were discussed. the patient was given the opportunity to ask any questions regarding the procedure and appeared competent to make medical decisions. A signed consent form which documents this discussion was placed in the medical record. A timeout procedure was performed. HISTORY: Lauren Doan is a 84 y.o. old female with a suspected left pleural effusion. The patient was referred for an ultrasound-guided thoracentesis. MEDICATIONS: 10ml 1% lidocaine. ?? TECHNIQUE/FINDINGS: Appropriate pre-procedure medical history and imaging studies were reviewed. The ultrasound machine was brought to the patients bedside. Ultrasound images of the left thorax were obtained to localize a moderate pleural effusion. Images were permanently saved to the record. An area of the patient's back was prepped and draped in the standard sterile fashion. 10 mL of 1% lidocaine was used to obtain local anesthesia of the skin and deeper tissues. A standard small bore needle was introduced to sample fluid and demonstrated a safe access route. There was no evidence of traversing adjacent organs or vascular structures. A 6 Kinyarwanda [id number]-Y-Grgnhxfl closed needle/catheter system was utilized for access. 1250 mL of yellow fluid was aspirated before drainage ceased. The catheter was removed and a sterile dressing applied. The patient tolerated the procedure well without evidence of complications. ?? Rachele Manning PA-C IMG US ORDERABLES * Cell Count, Reflex Differential, Body Fluid (05/31/2024 7:54 AM EST) Appearance, Body Fluid Cloudy 05/31/2024 10:31 AM [facility] Color Pharr 05/31/2024 10:31 AM [facility] Nucleated Cells, Fluid 2,024 /CUMM 05/31/2024 9:18 AM [facility] RBC, Fluid 15,000 /CUMM 05/31/2024 9:18 AM [facility] Neutrophil, Body Fluid 18 % 05/31/2024 10:31 AM [facility] Lymphoctye, Body Fluid 43 % 05/31/2024 10:31 AM [facility] Monocyte, Body Fluid 3 % 05/31/2024 10:31 AM [facility] Histiocyte, Body Fluid 22 % 05/31/2024 10:31 AM [facility] Mesothelial, Body Fluid 7 % 05/31/2024 10:31 AM [facility] Eosinophil, Body Fluid 2 % 05/31/2024 10:31 AM [facility] Basophil, Body Fluid 5 % 05/31/2024 10:31 AM [facility] Smear Comment, Body Fluid The reference interval and other method performance specifications are unavailable for this body fluid. Comparison of the result with concentration in the blood, serum, or plasma is recommended 05/31/2024 10:31 AM [facility] Specimen from pleura obtained by thoracentesis / Unknown 05/31/2024 7:54 AM EST 05/31/2024 9:06 AM EST Rachele Manning PA-C BODY FLUIDS AND S TOOLS ORDERABLES Performing Organization Address City/[facility]/[place] [address], [place] [address] * Culture - Pleural Fluid (aerobic, anaerobic and Gram stain) (05/31/2024 7:54 AM EST) Gram stain suggestive of No neutrophils No organisms seen 05/31/2024 9:48 AM [facility] Culture No aerobes and anaerobes isolated after 7 days 06/07/2024 2:48 PM [facility] Microbiology Specimen from pleura obtained by thoracentesis / Unknown 05/31/2024 7:54 AM EST 05/31/2024 9:22 AM EST Rachele Manning PA-C MICROBIOLOGY - GE NERAL ORDERABLES [facility] [address] [place] [address], [address] [address] * Protein - Pleural Fluid (05/31/2024 7:54 AM EST) Source PLEURAL 05/31/2024 7:55 AM EST Protein, Body Fluid 1.7 g/dL 05/31/2024 9:32 AM EST [facility] Comment:The reference interv al(s) and other method performance specifications are unavailable for this body fluid. Comparison of this result with the concentration in the blood, serum, or plasma is recommended. Specimen from pleura obtained by thoracentesis / Unknown 05/31/2024 7:54 AM EST 05/31/2024 9:06 AM EST Rachele Manning PA-C BODY FLUIDS AND S TOOLS ORDERABLES Performing Organization Address City/[facility]/[place] [address], [place] [address] * LDH - Pleural Fluid (05/31/2024 7:54 AM EST) Source PLEURAL 05/31/2024 7:55 AM EST Lactate Dehydrogenase, Body Fluid 196 U/L 05/31/2024 9:32 AM EST [facility] Comment:The reference interv al(s) and other method performance specifications are unavailable for this body fluid. Comparison of this result with the concentration in the blood, serum, or plasma is recommended. Body Fluid Specimen from pleura obtained by thoracentesis / Unknown 05/31/2024 7:54 AM EST 05/31/2024 9:06 AM EST Rachele PADILLAC BODY FLUIDS AND S TOOLS ORDERABLES Performing Organization Address City/[facility]/ZIP Co de Phone Number [address] [address], [address] [address] * Glucose - Pleural Fluid (05/31/2024 7:54 AM EST) Source PLEURAL 05/31/2024 7:54 AM EST Glucose, Body Fluid 143 mg/dL 05/31/2024 9:32 AM EST [facility] Comment:The reference interv al(s) and other method performance specifications are unavailable for this body fluid. Comparison of this result with the concentration in the blood, serum, or plasma is recommended. Specimen from pleura obtained by thoracentesis / Unknown 05/31/2024 7:54 AM EST 05/31/2024 9:06 AM EST Rachele Manning PA-C BODY FLUIDS AND S TOOLS ORDERABLES Performing Organization Address City/[facility] [place] [address], [place] [address] * pH - Pleural Fluid (not avail at [facility]) (05/31/2024 7:54 AM EST) Source PLEURAL 05/31/2024 7:55 AM EST pH, Body Fluid 7.39 05/31/2024 9:14 AM [facility] Body Fluid Specimen from pleura obtained by thoracentesis / Unknown 05/31/2024 7:54 AM EST 05/31/2024 9:06 AM EST Rachele Manning PA-C BODY FLUIDS AND S TOOLS ORDERABLES Performing Organization Address City/[facility] [place] [address], [place] [address] * (ABNORMAL) HEPATIC FUNCTION PANEL (05/30/2024 12:53 AM EST) Only the most recent of2 resultswithin the time period is included. Pathologist [facility] [place] Alkaline Phosphatase 156(H) 32 - 122 U/L 05/30/2024 1:48 AM EST [facility] Aspartate Aminotrans (AST) 24 10 - 50 U/L 05/30/2024 1:48 AM [facility] Alanine Aminotrans (ALT) 10 10 - 50 U/L 05/30/2024 1:48 AM [facility] Bilirubin, Total 0.5 0.2 - 1.0 mg/dL 05/30/2024 1:48 AM [facility] Protein, Total 6.9 6.3 - 8.3 g/dL 05/30/2024 1:48 AM [facility] Albumin 3.3(L) 3.4 - 4.8 g/dL 05/30/2024 1:48 AM [facility] Bilirubin, Direct 0.3(H) 0 - 0.2 mg/dL 05/30/2024 1:48 AM [facility] Globulin 3.6 1.5 - 3.9 g/dL 05/30/2024 1:48 AM [facility] Albumin/Globulin Ratio 0.9(L) 1.0 - 3.0 Ratio 05/30/2024 1:48 AM [facility] Blood (Plasma/Serum) 05/30/2024 12:53 AM EST 05/30/2024 1:24 AM EST Miller Cherry DO [place] [address], [place] [address] * (ABNORMAL) Blood Gas with Cooximetry, Arterial (05/28/2024 11:53 AM EST) Respiratory Info VENT 40% 05/28/20 24 11:53 AM EST pH, Arterial 7.42 7.35 - 7.45 05/28/2024 12:10 PM [facility] pCO2, Arterial 44 32 - 45 mmHG 05/28/2024 12:10 PM [facility] pO2, Arterial 101(H) 75 - 95 mmHG 05/28/2024 12:10 PM [facility] CO2, Total 29(H) 22 - 28 mmol/L 05/28/2024 12:10 PM [facility] P/F Ratio 253 05/28/2024 12:10 PM [facility] Comment:P/F < 300 or < 200: question ALI or ARDS. Base Excess 3.7 mmol/L 05/28/2024 12:10 PM [facility] Comment:Reference Range: Neg ative 2 to Positive 3 Hemogloblin, Total 8.2(L) 11.7 - 15.7 g/dL 05/28/2024 12:10 PM [facility] O2 Saturation, Arterial 99.3(H) 94 - 97 % 05/28/2024 12:10 PM [facility] Carboxyhemoglobin 2.3(H) 0.0 - 2.0 % 05/28/2024 12:10 PM [facility] Methemoglobin 0.5 0.4 - 1.5 % 05/28/2024 12:10 PM [facility] O2 Content, Arterial 11.4(L) 15.7 - 21.6 mL/dL 05/28/2024 12:10 PM [facility] Blood specimen / Unknown 05/28/2024 11:53 AM EST 05/28/2024 12:02 PM EST Judson Goodwin PA-C LAB BLOOD ORDERABL ES Performing Organization Address City/[facility]/[place] [address], [place] [address] * (ABNORMAL) Hemoglobin and Hematocrit (05/27/2024 1:10 PM EST) Only the most recent of4 resultswithin the time period is included. Hematocrit 24.1(L) 35.0 - 47.0 % 05/27/2024 1:31 PM [facility] Hemoglobin 7.5(L) 11.7 - 15.7 g/dL 05/27/2024 1:31 PM [facility] Blood Blood specimen / Unknown 05/27/2024 1:10 PM EST 05/27/2024 1:21 PM EST Stanislav Carrillo PA-C LAB BLOOD ORDERABLE S Performing Organization Address City/[facility]/[place] [address], [place] [address] * ECHOCARDIOGRAM COMPREHENSIVE (05/27/2024 11:13 AM EST) Heart Rate 97 bpm BP Systolic 133 mmHg BP Diastolic 59 mmHg Height 68.00 inches Weight 218.00 lbs BSA 2.12 m2 LV perez vol 3D 160.0 mL LV Diastolic Volume 177 mL LV sys vol 3D 90.0 mL LV Systolic Volume 105 mL IVS (F:0.6-0.9, M:0.6-1.0) 0.9 cm IVS Mean (F:0.6-0.9, M:0.6-1.0) 0.9 cm LVIDD (F:3.8-5.2, M:4.2-5.8) 5.5 cm LVIDD Mean (F:3.8-5.2, M:4.2-5.8) 5.5 cm LVIDS (F:2.2-3.5, M:2.5-4.0) 3.5 cm LVIDS (F:2.2-3.5, M:2.5-4.0) 3.5 cm LVOT diameter 2.2 cm LVOT diameter mean 2.2 cm LVOT mn grad mean 2.0 mmHg LVOT VTI MEAN 18.4 cm LVOT mn grad 2.0 mmHg LVOT VTI 19.9 cm LVOT peak lon 1.0 m/s LVOT peak lon mean 1.0 m/s PW (F:0.6-0.9, M:0.6-1.0) 0.9 cm PW Mean (F:0.6-0.9, M:0.6-1.0) 0.9 cm LA sup-inf (apical 2-ch view) 8.29 cm LA volume 236.0 mL RA area 17.4 cm2 RA 2D Volume 42.0 mL AV mean gradient 37.0 mmHg Ao VTI 81.1 cm Ao peak lon 4.1 m/s Ao peak lon mean 3.7 m/s Sinuses of Valsalva 2.9 cm Sinuses of Valsalva Mean 2.9 cm Ascending aorta 3.2 cm Ascending aorta mean 3.2 cm MV Peak E-Wave 181.0 cm/s MV Peak E-Wave Mean 181.0 cm/s MV mean gradient mean 81.0 mmHg MV VTI MEAN 141.0 cm MV mean gradient 87.0 mmHg MV VTI 151.0 cm MV peak gradient 129.0 mmHg RVID d 3.5 cm RVID d Mean 3.5 cm RV Free wall pk S' 8.8 cm/s RV Free wall pk S' Mean 8.8 cm/s Tapse 1.8 cm Tapse Mean 1.8 cm TR Peak Lon 2.6 m/s Reeves BP EF (55-75) 41 % EF - 3D Echo 44 % LV Diastolic Volume Index (F:29-61, M:35-75) 83.5 mL/m2 LV Systolic Volume Index (F:8-24, M:11-31) 49.5 mL/m2 LV mass 185.8 g LV Mass Index (F:43-95, M:49-115) 87.7 g/m2 LV RWT 0.33 LA Volume Index (16-34) 111.3 mL/m2 LA Volume Index 19.8 mL/m2 LVOT area 3.8 cm2 Sinuses of Valsalva Index 1.4 cm/m2 Ascending aorta Index 1.5 cm/m2 TR Peak Gradient 27 mmHg AV LVOT peak gradient 4.0 mmHg AV peak gradient 67.2 mmHg LVOT stroke volume 76 mL SVI 35 mL/m2 Left Ventricular Cardiac Index 3.5 L/min/m2 Left Ventricular Cardiac Output 7.3 L/min AV area by cont VTI 0.9 cm2 Valve area - Index 0.4 cm2/m2 Dimensionless Index 0.25 LVOT SI 35.66 mL/m2 MV valve area by continuity eq 0.5 cm2 GLS 6.8 % Anatomical Region Laterality Modality Ultrasound Narrative 05/27/2024 11:34 AM EST ?The left ventricle is severely dilated. Left ventricular systolic function is mildly decreased. The quantitative EF is 44% by 3D imaging, and 41% by 2D Reeves biplane. The mid distal septum and anterior apex are akinetic. ?Right ventricular systolic function is normal. ?The left atrial cavity is severely dilated. ?There is severe aortic stenosis. The calculated valve area is 0.9 cm2, with a peak velocity of 4.1 m/s, a mean gradient of 37.0 mmHg, and a dimensionless index of ??0.25. ?There is severe degenerative mitral regurgitation. ?Compared to previous study on 07/21/2023, The septal wall motion abnormality is new. ??LV systolic function has decreased. ??MR has increased. Technical Details Overall the study quality was adequate. The study was technically difficult due to patient's body habitus. Left Ventricle The left ventricle is severely dilated. Wall thickness is normal. Left ventricular systolic function is mildly decreased. The quantitative EF is 44% by 3D imaging, and 41% by 2D Reeves biplane. Global longitudinal strain is abnormal at -6.8%. The mid distal septum and anterior apex are akinetic. Diastolic function could not be accurately assessed. Stroke volume is normal. Right Ventricle The right ventricle is normal in size. Right ventricular systolic function is normal. Left Atrium The left atrial cavity is severely dilated. Right Atrium Right atrial size is normal. Right atrial pressure cannot be accurately assessed in the setting of mechanical ventilation. Mitral Valve There is thickening and calcification of the mitral subvalvular apparatus. There is moderate mitral annular calcification. There is severe degenerative mitral regurgitation. Tricuspid Valve The tricuspid valve is structurally normal. There is trace tricuspid regurgitation. The estimated right ventricular systolic pressure is 27 mmHg plus right atrial pressure. The right atrial pressure could not be obtained. Aortic Valve The aortic valve leaflets are moderately thickened and exhibit severely reduced excursion.There is no aortic regurgitation. There is severe aortic stenosis. The calculated valve area is 0.9 cm2, with a peak velocity of 4.1 m/s, a mean gradient of 37.0 mmHg, and a dimensionless index of 0.25. Pulmonic Valve The pulmonic valve is structurally normal. There is trace pulmonic regurgitation. Ascending Aorta The aortic root dimension is normal. Pericardium There is no pericardial effusion. Prior Study Compared to previous study on 07/21/2023, The septal wall motion abnormality is new. LV systolic function has decreased. MR has increased.. Authorizing Provider Result Gerri Carrillo PA-C CV ECHO ORDERABLES * (ABNORMAL) Blood Gas with Cooximetry, Venous (05/26/2024 1:54 PM EST) Respiratory Info VENT 40% 05/26/20 24 1:55 PM EST Venous Blood PH 7.40 7.33 - 7.43 05/26/2024 2:19 PM [facility] Venous pCO2 46 35 - 50 mmHG 05/26/2024 2:19 PM [facility] Venous pO2 57 0 - 60 mmHG 05/26/2024 2:19 PM [facility] Venous Total CO2 29 23 - 29 mmol/L 05/26/2024 2:19 PM [facility] Base Excess 2.8 mmol/L 05/26/2024 2:19 PM [facility] Comment:Reference Range: Neg ative 2 to Positive 3 Hemogloblin, Total 7.3(L) 11.7 - 15.7 g/dL 05/26/2024 2:19 PM [facility] O2 Saturation, Venous 90.9 % 04/2024 2:19 PM [facility] Carboxyhemoglobin 2.0 0.0 - 2.0 % 05/26/2024 2:19 PM [facility] Methemoglobin 0.7 0.4 - 1.5 % 05/26/2024 2:19 PM [facility] Venous O2 Content 9.2 7.2 - 17.2 mL/dL 05/26/2024 2:19 PM [facility] Blood specimen / Unknown 05/26/2024 1:54 PM EST 05/26/2024 2:10 PM EST Alejandrina Aguilar PA-[place] [address], [place] [address] * (ABNORMAL) High Sensitivity Troponin T (Once) (05/25/2024 10:19 PM EST) Only the most recent of6 resultswithin the time period is included. High Sensitivity Troponin T 615(HH) <15 ng/L 05/25/2024 11:20 PM [facility] Comment:Recurring Critical R esult. Previously phoned. Delta (Change) 586(H) <3 05/25/2024 11:20 PM [facility] Comment:Increased Blood (Plasma/Serum) 05/25/2024 10:19 PM EST 05/25/2024 10:53 PM EST Laura Garland PA-C LAB BLOOD ORDERABLE S Performing Organization Address City/[facility]/[place] [address], [place] [address] * (ABNORMAL) Blood Gas, Arterial (STAT) (05/25/2024 4:26 PM EST) pH, Arterial 7.54(H) 7.35 - 7.45 05/25/2024 5:38 PM [facility] pCO2, Arterial 33 32 - 45 mmHG 05/25/2024 5:38 PM [facility] pO2, Arterial 92 75 - 95 mmHG 05/25/2024 5:38 PM [facility] CO2, Total 29(H) 22 - 28 mmol/L 05/25/2024 5:38 PM [facility] Respiratory Info VENT 40% 05/25/20 24 4:26 PM EST P/F Ratio 230 05/25/2024 5:38 PM [facility] Comment:P/F < 300 or < 200: question ALI or ARDS. Base Excess 5.3 mmol/L 05/25/2024 5:38 PM [facility] Comment:Reference Range: Neg ative 2 to Positive 3 Blood Blood specimen / Unknown 05/25/2024 4:26 PM EST 05/25/2024 5:30 PM EST Stanislav Carrillo PA-C LAB BLOOD ORDERABLE S Performing Organization Address City/[facility]/[place] [address], [place] [address] * Respiratory culture (aerobic and Gram stain) (05/25/2024 12:11 PM EST) Gram stain suggestive of Moderate neutrophils No squamous cells No organisms seen 05/25/2024 2:04 PM [facility] Culture Mixed normal kalli 05/27/2024 9:58 AM [facility] Microbiology Sputum specimen / Unknown 05/25/2024 12:11 PM EST 05/25/2024 1:25 PM EST Stanislav Carrillo PA-C MICROBIOLOGY - GENE RAL ORDERABLES Performing Organization Address City/[facility]/ZIP Co de Phone Number [facility] [address] [place] [address], [place] [address] * Partial Thromboplastin Time (PTT) (05/25/2024 12:01 PM EST) Anticoagulant IV HEPARIN, UNFRACTIONATED 05/25/2024 12:01 PM EST Partial Thromboplastin Time (PTT) 34 25 - 36 seconds 05/25/2024 12:56 PM EST [facility] Blood Plasma specimen / Unknown 05/25/2024 12:01 PM EST 05/25/2024 12:33 PM EST Stanislav Carrillo PA-C LAB BLOOD ORDERABLE S Performing Organization Address [facility] [place] [address], [place] [address] * (ABNORMAL) Hemoglobin A1c with Estimated Average Glucose (AM) (05/25/2024 4:49 AM EST) Hemoglobin A1C 7.8(H) <5.7 % 05/25/2024 5:28 AM EST [facility] Comment: A1c% ? Interpretation 5.7 - 6.0 ?Increase risk of diabetes 6.1 - 6.4 ?Higher risk of diabetes > or = 6.5 ?? Consistent with diabetes Diabetes Care, 33(Supp 1):S1-S61, 2010 Estimated Average Glucose 177 mg/dL 05/25/2024 5:28 AM EST [facility] Blood Blood specimen / Unknown 05/25/2024 4:49 AM EST 05/25/2024 4:55 AM EST Gregorio Healy MD LAB BLOOD ORDERABLE S Performing Organization Address City/[facility] Co de Phone Number [address] [address], [address] [place] [address] * CT Thorax w/o contrast (05/25/2024 1:32 AM EST) Anatomical Region Laterality Modality Chest Computed Tomogra phy 05/25/2024 1:17 AM EST Impressions 05/25/2024 4:14 PM EST 1. ??Findings concerning for bilateral aspiration pneumonitis with multifocal patchy opacities as described above. Additionally There is a moderate-sized left-sided pleural effusion. 2. ??Significant volume loss of the left lower lobe is likely secondary due to mucous plugging. 3. ??The appearance of diffusely calcified distal bronchi raise suspicion of sequelae of chronic aspiration. 4. ??Dependently layering material seen within the distal trachea likely represents acute aspirated material.. 5. ??Cardiomegaly. 6. ??Severe calcific atherosclerotic changes of the aortic arch as well as the coronary arteries. Prominent dilatation of the left atrium and left ventricle. Fleischner guidelines were followed. Interpreted by: ??Gregorio Oneill DO Foot Piece Assembler I personally reviewed the images and the resident's preliminary report and AGREE with the report as it is now presented ([id number]). Narrative 05/25/2024 4:14 PM EST EXAMINATION: CT CHEST WITHOUT CONTRAST CLINICAL INFORMATION: effusion vs edema vs pneumonia?. COMPARISON: Chest x-ray May 24, 2024. TECHNIQUE: Multidetector volumetric imaging was performed from the thoracic inlet to below the diaphragms without intravenous contrast. Sagittal and coronal reformatted images were obtained on the technologist workstation. This CT examination was performed using dose optimization techniques as appropriate, variously including the following: *Automated exposure control *Adjustment of mA and/or kV according to patient size (this includes techniques or standardized protocols for targeted exams where dose is matched to indication/reason for exam; i.e. extremities or head) *Use of iterative reconstruction technique Total exam dose-length product 215.8 mGy-cm FINDINGS: LUNG: Diffuse calcifications are seen throughout the distal bronchi particularly on the left. Distal mucous plugs are seen throughout the left lower lobe with associated significant volume loss and scattered groundglass opacities throughout the remainder of the left upper lobe. Scattered groundglass opacities in tree-in-bud appearance are seen throughout the right lung with right lower lobe volume loss and calcification of the bronchi. PLEURA: Moderate size left-sided pleural effusion. CORONARY ARTERY CALCIFICATION: Severe coronary artery calcifications. MEDIASTINUM: Cardiomegaly with severe dilatation of the left atrium and left ventricle. No pericardial effusion. ??No hilar or mediastinal lymphadenopathy. VASCULAR: Normal caliber thoracic aorta. CHEST WALL/AXILLA: No axillary or internal mammary lymphadenopathy. OSSEOUS STRUCTURES: No acute or suspicious osseous abnormality. UPPER ABDOMEN: Unremarkable. Procedure Note Jace Malone MD - 05/25/2024 EXAMINATION: CT CHEST WITHOUT CONTRAST CLINICAL INFORMATION: effusion vs edema vs pneumonia?. COMPARISON: Chest x-ray May 24, 2024. TECHNIQUE: Multidetector volumetric imaging was performed from the thoracic inlet to below the diaphragms without intravenous contrast. Sagittal and coronal reformatted images were obtained on the technologist workstation. This CT examination was performed using dose optimization techniques as appropriate, variously including the following: *Automated exposure control *Adjustment of mA and/or kV according to patient size (this includes techniques or standardized protocols for targeted exams where dose is matched to indication/reason for exam; i.e. extremities or head) *Use of iterative reconstruction technique Total exam dose-length product 215.8 mGy-cm FINDINGS: LUNG: Diffuse calcifications are seen throughout the distal bronchi particularly on the left. Distal mucous plugs are seen throughout the left lower lobe with associated significant volume loss and scattered groundglass opacities throughout the remainder of the left upper lobe. Scattered groundglass opacities in tree-in-bud appearance are seen throughout the right lung with right lower lobe volume loss and calcification of the bronchi. PLEURA: Moderate size left-sided pleural effusion. CORONARY ARTERY CALCIFICATION: Severe coronary artery calcifications. MEDIASTINUM: Cardiomegaly with severe dilatation of the left atrium and left ventricle. No pericardial effusion. No hilar or mediastinal lymphadenopathy. VASCULAR: Normal caliber thoracic aorta. CHEST WALL/AXILLA: No axillary or internal mammary lymphadenopathy. OSSEOUS STRUCTURES: No acute or suspicious osseous abnormality. UPPER ABDOMEN: Unremarkable. IMPRESSION: 1. Findings concerning for bilateral aspiration pneumonitis with multifocal patchy opacities as described above. Additionally There is a moderate-sized left-sided pleural effusion. 2. Significant volume loss of the left lower lobe is likely secondary due to mucous plugging. 3. The appearance of diffusely calcified distal bronchi raise suspicion of sequelae of chronic aspiration. 4. Dependently layering material seen within the distal trachea likely represents acute aspirated material.. 5. Cardiomegaly. 6. Severe calcific atherosclerotic changes of the aortic arch as well as the coronary arteries. Prominent dilatation of the left atrium and left ventricle. Fleischner guidelines were followed. Interpreted by: Gregorio Oneill DO Foot Piece Assembler I personally reviewed the images and the resident's preliminary report and AGREE with the report as it is now presented ([email or web address]). Gregorio Healy MD IMG CT ORDERABLES * (ABNORMAL) Urinalysis with Reflex to Microscopic and Culture (05/25/2024 12:11 AM EST) Color Yellow 05/25/2024 12:46 AM [facility] Clarity Slightly cloudy 05/25/2024 12:46 AM [facility] Specific [place] 1.009 1.003 - 1.030 05/25/2024 12:46 AM [facility] pH 5.0 5.0 - 8.0 05/25/2024 12:46 AM [facility] Leukocyte Esterase Small(A) Negative 05/25/2024 12:46 AM [facility] Nitrite Negative Negative 05/25/2024 12:46 AM [facility] Protein Negative Negative 05/25/2024 12:46 AM [facility] Glucose 0 0 - 99 mg/dL 05/25/2024 12:46 AM [facility] Ketones Negative Negative 05/25/2024 12:46 AM [facility] Blood Negative Negative 05/25/2024 12:46 AM [facility] Bilirubin Negative Negative 05/25/2024 12:46 AM [facility] WBC 13(H) 0 - 4 per hpf 05/25/2024 12:46 AM [facility] RBC 1 0 - 4 per hpf 05/25/2024 12:46 AM [facility] Bacteria Present(A) Absent 05/25/2024 12:46 AM [facility] Squamous Epithelial Cells 1 PER HPF 05/25/2024 12:46 AM [facility] X-Specimen 16 Urine specimen collection, closed drainage / Unknown 05/25/2024 12:11 AM EST 05/25/2024 12:19 AM EST Flavio Johnson MD URINE ORDERABLES [address] [address], [address] [address] * (ABNORMAL) Reflexive Urine Culture (05/25/2024 12:11 AM EST) Culture Klebsiella pneumoniae >=100,000 col/mL (A) 05/26/2024 2:17 PM EST [facility] Urine specimen collection, closed drainage / Unknown 05/25/2024 12:11 AM EST 05/25/2024 12:19 AM EST Narrative Organism Antibiotic Method Susceptibility Klebsiella pneumoniae Amoxicillin/Clavulanat e (REPORT) BACTERIAL TATY AND INTERPRETATION (MCG/ML) <=4/2: Susceptible Klebsiella pneumoniae Ampicillin (REPORT) BACTERIAL TATY AND INTERPRETATION (MCG/ML) >16: Resistant Klebsiella pneumoniae Cefazolin (REPORT) BACTERIAL TATY AND INTERPRETATION (MCG/ML) 2: Susceptible Klebsiella pneumoniae Ceftriaxone (REPORT) BACTERIAL TATY AND INTERPRETATION (MCG/ML) <=1: Susceptible Klebsiella pneumoniae Ciprofloxacin (REPORT) BACTERIAL TATY AND INTERPRETATION (MCG/ML) <=0.25: Susceptible Klebsiella pneumoniae Gentamicin (REPORT) BACTERIAL TATY AND INTERPRETATION (MCG/ML) <=2: Susceptible Klebsiella pneumoniae Levofloxacin (REPORT) BACTERIAL TATY AND INTERPRETATION (MCG/ML) <=0.5: Susceptible Klebsiella pneumoniae Nitrofurantoin (REPORT) BACTERIAL TATY AND INTERPRETATION (MCG/ML) >64: Resistant Klebsiella pneumoniae Tetracycline (REPORT) BACTERIAL TATY AND INTERPRETATION (MCG/ML) 4: Susceptible Klebsiella pneumoniae Tobramycin (REPORT) BACTERIAL TATY AND INTERPRETATION (MCG/ML) <=2: Susceptible Klebsiella pneumoniae Trimethoprim/Sulfameth oxazole (REPORT) BACTERIAL TATY AND INTERPRETATION (MCG/ML) <=0.5/9.5: Susceptible Klebsiella pneumoniae Ampicillin/Sulbactam (REPORT) BACTERIAL TATY AND INTERPRETATION (MCG/ML) 16/8: Intermediate Flavio Johnson MD MICROBIOLOGY - GENER AL ORDERABLES [facility] [address] [place] [address], * BLOOD CULTURE Peripheral (05/24/2024 11:46 PM EST) Only the most recent of2 resultswithin the time period is included. Culture Sterile after 5 days 05/30/2024 7:55 AM EST [facility] Microbiology Peripheral blood specimen / Unknown 05/24/2024 11:46 PM EST 05/25/2024 1:30 AM EST Gregorio Healy MD LAB BLOOD ORDERABLE S [facility] [address] * (ABNORMAL) Triglycerides (05/24/2024 11:46 PM EST) Triglycerides 163(H) <150 mg/dL 05/25/2024 12:56 AM EST [facility] Blood (Plasma/Serum) 05/24/2024 11:46 PM EST 05/25/2024 12:28 AM EST Flavio Johnson MD LAB BLOOD ORDERABLES Performing Organization Address [facility] [place] [address], [place] [address] * (ABNORMAL) Lactate Level X 2 (05/24/2024 11:46 PM EST) Only the most recent of2 resultswithin the time period is included. Lactic Acid 2.8(H) 0.5 - 1.9 mmol/L 05/25/2024 12:54 AM EST [facility] Blood Plasma specimen / Unknown 05/24/2024 11:46 PM EST 05/25/2024 12:28 AM EST Flavio Johnson MD LAB BLOOD ORDERABLES Performing Organization Address City/[facility] [place] [address], [place] [address] * INTUBATION (05/24/2024 11:20 PM EST) Narrative Flavio Johnson MD - 05/24/2024 11:20 PM EST Jessica Abrams, DO ? 05/24/2024 11:21 PM Intubation Date/Time: 05/24/2024 11:20 PM Performed by: Jessica Abrams, DO Authorized by: Flavio Johnson MD ?? Consent: ??Consent obtained: ??Emergent situation ??Consent given by: ??Patient and healthcare agent ??Alternatives discussed: ??Delayed treatment and no treatment Carmine protocol: ??Patient identity confirmed: ??Arm band Pre-procedure details: ??Indications: airway protection, altered consciousness and respiratory distress ?Patient status: ??Altered mental status ??Look externally: no concerns ?Neck mobility: normal ?Pharmacologic strategy: RSI ?Induction agents: ??Etomidate ??Paralytics: ??Rocuronium Procedure details: ??Preoxygenation: ??BiLevel ??CPR in progress: no ?Number of attempts: ??1 Successful intubation attempt details: ??Intubation method: ??Oral ??Intubation technique: direct and video assisted ?Laryngoscope blade: ??Mac 3 ??Tube size (mm): ??7.5 ??Tube type: ??Cuffed ??Tube visualized through cords: yes ?? Placement assessment: ??ETT at teeth/gumline (cm): ??23 ??Tube secured with: ??ETT vaughn ??Breath sounds: ??Equal ??Placement verification: chest rise, CXR verification, direct visualization, equal breath sounds, numeric ETCO2, tube exhalation and waveform ETCO2 ?CXR findings: ??Appropriate position Post-procedure details: ??Procedure completion: ??Tolerated well, no immediate complications Flavio Johnson MD PROCEDURE/MINOR SURG ICAL ORDERABLES * (ABNORMAL) Blood Gas, Venous (VBG) (05/24/2024 9:58 PM EST) Venous Blood PH 7.28(L) 7.33 - 7.43 05/24/2024 10:42 PM [facility] Venous pCO2 62(H) 35 - 50 mmHG 05/24/2024 10:42 PM [facility] Venous pO2 88(H) 0 - 60 mmHG 05/24/2024 10:42 PM [facility] Venous Total CO2 30(H) 23 - 29 mmol/L 05/24/2024 10:42 PM [facility] Respiratory Info VENT 100% 05/24/20 9:59 PM EST Base Excess 0.5 mmol/L 05/24/2024 10:42 PM [facility] Comment:Reference Range: Neg ative 2 to Positive 3 Blood Blood specimen / Unknown 05/24/2024 9:58 PM EST 05/24/2024 10:34 PM EST Flavio Johnson MD [place] [address], [address] [address] from Last 3 Months Advance Directives * Full Code (Latest Code Status on File) Date Activated Date Inactivated Comments 05/25/2024 1:19 AM * Full Code Date Activated Date Inactivated Comments 01/25/2024 10:24 AM 05/24/2024 9:48 PM Care Teams Cone [employer]er Relationship Specialty Start Date End Date Ricky Guerrero MD [address] [place] [id number] PCP - General 01/24/24 Nile Garcia MD [address] [place] [address] Primary Workers' Compensation Commissioner Cardiovascular Disease 06/12/24
[2024-08-23 15:05] VITALS: BP 124/70; PULSE 60; O2SAT 99; BMI 31.6
== END 2024-08-23 15:54 | disposition home or self-care (01) ==
PROVIDERS: PCP Internal Medicine; Referring Provider Internal Medicine; Visit Provider Internal Medicine Nephrology
DX: N20.0 Calculus of kidney (principal); I12.9 Hypertensive chronic kidney disease with stage 1 through stage 4 chronic kidney disease, or unspecified chronic kidney disease
CPT/HCPCS: 99204

== ENCOUNTER → 2024-08-23 14:46 | Outpatient (BNVA) | payer MEDICARE, SELFPAY | PROVIDERS: PCP Internal Medicine; Referring Provider Internal Medicine; Visit Provider Internal Medicine Nephrology | DX: I12.9 Hypertensive chronic kidney disease with stage 1 through stage 4 chronic kidney disease, or unspecified chronic kidney disease (principal); N18.30 Chronic kidney disease, stage 3 unspecified; N20.0 Calculus of kidney; Z95.2 Presence of prosthetic heart valve | CPT/HCPCS: 99202 ==

== ENCOUNTER 2024-10-25 14:37 | Outpatient (AMB) | payer MEDICARE, SELFPAY ==
--- NOTE | 2024-10-25 14:38 | HO.NEPHOV_ITS ---
Vital Signs 10/25/24 14:39 Height 5 ft 7 in BP 120/62 Blood Pressure Location Rt brachial Position Sitting Pulse 59 Pulse Source Pulse Oximeter Pulse Oximetry (%) 98 Oxygen Delivery Method Room Air Intake Visit Reasons: CKD-LVM Automobile Or Truck Rental Dispatcher Required: No Accompanied by: Daughter Allergies No Known Allergies Allergy (Verified 10/25/24 14:40) Do you need a note to return to daycare/school/sports/work: No HPI Comments Details: I had the pleasure of seeing Lauren who is a delightful 84-year-old, for F/U of chronic kidney disease. She has had history of aortic valve replacement following symptoms due to [place] aortic valve dysfunction. She has been told lately that her bioprosthetic AVR is not functioning very well and is not a candidate for valve replacement. She has history of cardiorenal syndrome in the past. Recently she had aspiration pneumonitis as well as congestive heart failure needing intubation and ventilation. She also has history of chronic diastolic heart failure. She had not tolerated spironolactone in the past due to side effects like dizziness, fatigue. She has history of renal calculi and is followed up with the Dr. Nichols. Recently she developed LANETTE during her hospitalization in [place]. Her renal functions have gone back to baseline now. She has been having C diff infection and is on tapering dose of vancomycin. She denies any dizziness, pedal edema, chest pain, shortness of breath, paroxysmal nocturnal dyspnea, orthopnea or active urinary symptoms. Her blood sugar control is suboptimal. She recently started on PO Vancomycin for 2 weeks for C Diff. She is also started on Cholestyramine. Her EF has improved to baseline. She is on Warfarin. [facility] Medical History Pilonidal cyst Mitral regurgitation Diabetic neuropathy Chronic kidney disease Rectal polyp Sleep apnea Kidney stones Atrial fibrillation Diabetes Hypertension High cholesterol Surgical History History of hip surgery Hx of cardiac cath H/O colonoscopy History of rectal surgery History of ankle surgery Hx of aortic valve replacement Family History Father Heart disease Mother Stomach cancer Anemia Brother Hypertension Diabetes Social History Alcohol intake: never Patient Tobacco Use Status: Never used Tobacco Review of Systems Const All systems reviewed & are unremarkable except as noted in HPI and below Physical Exam Const General: comfortable and no acute distress Orientation/consciousness: patient oriented x3 HEENT Head: Yes normocephalic Mouth: Normal oral and palatal mucosa present Eyes EOM: EOMs intact bilaterally Neck Neck: Yes supple Resp Auscultation: clear to auscultation bilaterally Cardio Jugular venous distension: no JVD Rate: regular rate GI Palpation (GI): Soft to palpation Auscultation: normal bowel sounds General: Yes no CVA tenderness Back/Spine/Pelvis Back: no CVA tenderness Skin General skin exam: no rashes or lesions noted Neuro General: patient oriented x3 and moves all extremities Extrem General: Yes no pedal edema Results Reviewed Nephrology Results: No Data to Display Assessment & Plan Assessment & Plan (1) CKD (chronic kidney disease) stage 3, GFR 30-59 ml/min: Code(s): N18.30 - Chronic kidney disease, stage 3 unspecified Category: Medical Qualifiers: Chronic kidney disease stage 3 subtype: stage 3a (GFR 45-59) Qualified Code(s): N18.31 - Chronic kidney disease, stage 3a (2) Kidney stones: Code(s): N20.0 - Calculus of kidney Category: Medical (3) Hypertension: Code(s): I10 - Essential (primary) hypertension Category: Medical Qualifiers: Hypertension type: primary hypertension Qualified Code(s): I10 - Essential (primary) hypertension Plan Lauren has CKD stage 3 due to diabetes, hypertension and loss of 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 Recently she had LANETTE but her serum creatinine is back to baseline now. Her volume status is optimal. Her fluid status can be quite tenuous given her aortic valve situation. Her blood pressure is currently at goal. She has history of renal calculi which has not caused any recent issues. She follows up closely with Dr. Nichols. She is on appropriate medications with stability in her hemodynamics and renal functions. ( She was on Spironolactone , Valsartan and Chlorthalidone before). I shall consider increasing her Jardiance to 25 mg daily & introduce ARB with time and ordered F/U labs for close monitoring of her renal functions. All her and her daughter's questions were answered Orders: Orders Blood Urea Nitrogen 3 Months I10 - Essential (primary) hypertension, N18.31 - Chronic kidney disease, stage 3a, N20.0 - Calculus of kidney Creatinine 3 Months I10 - Essential (primary) hypertension, N18.31 - Chronic kidney disease, stage 3a, N20.0 - Calculus of kidney Electrolytes 3 Months I10 - Essential (primary) hypertension, N18.31 - Chronic kidney disease, stage 3a, N20.0 - Calculus of kidney Coding Level of Care Code Est Pt Level 4 (28709) Diagnoses Stage 3a chronic kidney disease N18.31 Chronic kidney disease stage 3 subtype: stage 3a (GFR 45-59) Kidney stones N20.0 Primary hypertension I10 Hypertension type: primary hypertension
[2024-10-25 14:39] VITALS: BP 120/62; PULSE 59; O2SAT 98
--- OUTSIDE RECORDS SUMMARY | 2024-10-25 14:52 | XMS_ITS ---
Author Organization [facility] Address [address] [place] [address] Care Team Providers Care Director Of Architecture Name Role Phone Cesar SALGADO, Ricky Primary Care Provider Unavailab santiago Kay Case Unavailable [phone] Allergies Allergen (clinical drug ingredient) Drug/Non Drug [...] Ordered Date Performed Result Body Sit e 76992-Hcbqpkey Plate 01/29/2024 N/A 91554-NXNB SKIN LESIONS, 2 TO 4 01/29/2024 N/A T6133-ZYLKNQPJ DYSTROPHIC NAILS ANY # 01/29/2024 N/A Encounters Encounter Location Date Provider Diagnosis [facility] [address] [place] [address] 01/29/2024 Kay Black Type 2 diabetes mellitus with diabetic polyneuropathy E11.42 and Ingrown nail L60.0 Assessments Encounter Date Diagnosis (ICD Code) Assessment Notes Treatment Notes Treatment Clinical Notes Section Notes 01/29/2024 Type 2 diabetes mellitus with diabetic polyneuropathy (ICD-10 - E11.42) 01/29/2024 Ingrown nail (ICD-10 - L60.0) 01/29/2024 Other Plan Of Treatment Pending Test Test Name Order Date 84935-Iayjmtqm Plate 01/29/2024 09449-RBIS SKIN LESIONS, 2 TO 4 01/29/20 24 D8161-EFUWIOVN DYSTROPHIC NAILS ANY # Next Appt Details Follow Up: 2 Weeks,prn, Reas on: Provider Name:Kay Case , 11/18/2024 04:00:00 PM, [address] [place] [address], [phone], Procedure Notes * Category Sub-Category Detail Notes [...] Motrin was recommended for pain or discomfort (57232) Anesthesia was deferred - NEURO RAMEZ: patient has medically documented neuropathic condition affecting sensation Location Medial nail border , T5 Keratoma Treatment Parring or Cutting o f Benign Hyperkeratotic Lesion(s) 43165 (2-4 Lesions) - The Benign hyperkeratotic lesions, [...] * Lauren MULLER IDOB:[birth year] (83 yo F)Acc No.[id number]:01/29/2024 Progress Note Patient:?Lauren Muller I Provider:?Kay Case DPM :1940???Age:83 Y???Sex:Female D ate:01/29/2024 Address:[address] [place] [address] [id number] Pcp:Ricky Guerrero MD Subjective: * Chief Complaints: [...] 8.5 * Examination: ???Ophthalmology Referral: ?DIABETES EYE EXAM?Diabetic Retinopathy Screening:?Yes ?Findings of Diabetic Eye Exam:?no retinopathy?Ingrown Nail: ?INSPECTION:?Reveals nail incurvation, pain on palpation, [...] - L60.0? Plan: * Treatment: 2.?Ingrown nail?Procedure: 20765-Pqajaucf Plate * Procedures:?Keratoma Treatment:?Parring or Cutting of Benign Hyperkeratotic Lesion(s)?70465 (2-4 Lesions) - The Benign hyperkeratotic lesions, [...] Motrin was recommended for pain or discomfort (22247).?Nail Reduction:?Nail Reduction?Trimming of dystrophic nails performed to reduce/remove overall nail length and girth, by manual and electrical means with use of a nail nipper and/or dremel, to more viable healthy nail plate or bed tissue 6-10 (G0127).? * Immunizations:? Influenza (Not administered - Refused: Patient decision) * Procedure Codes:?84143 Avuls ion Plate, Modifiers: T5 17175 TRIM SKIN LESIONS, 2 TO 4, Modifiers: XS G0127 TRIMMING DYSTROPHIC NAILS ANY #, Modifiers: XS * Follow Up:?2 Weeks,prn * Images: * Sign off status: Completed true * Provider:?Kay Case DPM Date:?2023 Generated for Bruno allison/Pati/eTransmitting on:?10/25/2024 02:52 PM EDT History and Physical Notes * HPI (History [...]
--- OUTSIDE RECORDS SUMMARY | 2024-10-25 14:52 | XMS_ITS | Patient Health Record ---
Author Organization [facility] Address [address] [address] Care Team Providers Care Stock Chaser Name Role Phone Cesar SALGADO, Ricky Primary Care Provider Unavailab Kay Lacy Unavailable [phone] Allergies Allergen (clinical drug ingredient) Drug/Non Drug [...] primary osteoarthritis of the ankle and/or foot (237111093) Primary osteoarthritis, right ankle and foot (M19.071) Active confirmed Problem Acquired hammer toe of right foot (9734719490954989 ) Other hammer toe(s) (acquired), right foot (M20.41) Active confirmed Problem Acquired hammer toe of left foot (6220317960823119 ) Other hammer toe(s) (acquired), left foot (M20.42) Active confirmed Problem Polyneuropathy due to type 2 diabetes mellitus (039516829) Type 2 diabetes mellitus with diabetic polyneuropathy (E11.42) Active confirmed Vital Signs Blood pressure diastolic 70 mm Hg 08/19/2024 Height 5 ft 7 in in 08/19/2024 Blood pressure systolic 120 mm Hg 08/19/2024 Weight 202 lbs 08/19/2024 BMI 31.63 kg/m2 08/19/2024 Procedures Procedure Date Ordered Date Performed Result Body Sit e 46008-Bwfgmhdg Plate 01/29/2024 N/A 70803-XJLW SKIN LESIONS, 2 TO 4 01/29/2024 N/A N4860-HIXJEHGY DYSTROPHIC NAILS ANY # 01/29/2024 N/A 95141-Gsrsmwkh Plate 05/06/2024 N/A 52121- Debride <25 sq cm 05/06/2024 N/A 32966-GHUQ SKIN LESIONS, 2 TO 4 05/06/2024 N/A Z5384-OEKUDQMB DYSTROPHIC NAILS ANY # 05/06/2024 N/A 63145-WXGO SKIN LESIONS, 2 TO 4 08/19/2024 N/A M4425-XDORPEBZ DYSTROPHIC NAILS ANY # 08/19/2024 N/A Encounters Encounter Location Date Provider Diagnosis [facility] [address] [address] 01/29/2024 Kay Black Type 2 diabetes mellitus with diabetic polyneuropathy E11.42 and Ingrown nail L60.[address] [facility] [address] 05/06/2024 Kay Black Type 2 diabetes mellitus with diabetic polyneuropathy E11.42 ; Contusion of lesser toe of right foot without damage to nail, initial encounter S90.121A ; Ingrown nail L60.0 ; Pain in right toe(s) M79.674 and Skin ulcer of toe of right foot, limited to breakdown of skin L97.511 [facility] [place] [address] [place] [address] 08/19/2024 Kay Black Type 2 diabetes mellitus [...] L85.3) 05/06/2024 Ingrown nail (ICD-10 - L60.0) 05/06/2024 Pain in right toe(s) (ICD-10 - M79.674) 05/06/2024 Skin ulcer of toe of right foot, limited to breakdown of skin (ICD-10 - L97.511) 01/29/2024 Other Plan Of Treatment Pending Test Test Name Order Date X ray : Foot, right 2V 11/16/2020 X ray : Foot, right 3V 12/15/2016 44846-Qyskjeip Plate 09/11/2017 57068-Nuessgzy Plate 02/19/2018 95999-Xuhzuing Plate 06/17/2019 54354-Amvlzefw Plate 02/15/2021 61381-Ydyeneaa Plate 05/27/2021 97208-Yrcqpqtw Plate 08/03/2021 36112-Zebkudpc Plate 11/08/2021 71460-Zslighhf Plate 01/29/2024 48808-Jpsddebq Plate 05/06/2024 67964-Xxfyzull Plate Each Additional 27406-Uojfapab Plate Each Additional 08/2020 28211-Rslndwah Plate Each Additional 08/2018 63333- Debride <25 sq cm 11/26/2018 73770- Debride <25 sq cm 07/20/2020 30987- Debride <25 sq cm 09/25/2017 99057- Debride <25 sq cm 08/15/2022 83924- Debride <25 sq cm 05/06/2024 74065 I&D ABSCESS- SIMPLE,SINGLE 024 30017 I&D ABSCESS- SIMPLE,SINGLE 022 63967 I&D ABSCESS- SIMPLE,SINGLE 023 23897-EHEK SKIN LESIONS, OVER 4 11/21/19 18 79995-ELVK SKIN LESIONS, 2 TO 4 05/28/20 18 94194-LUSH SKIN LESIONS, 2 TO 4 02/20/20 18 54917-GNTU SKIN LESIONS, 2 TO 4 12/16/19 17941-EDOS SKIN LESIONS, 2 TO 4 04/20/20 08376-OMLR SKIN LESIONS, 2 TO 4 07/03/20 63311-SFUP SKIN LESIONS, 2 TO 4 09/11/19 18 37503-DRRU SKIN LESIONS, 2 TO 4 07/20/19 21 35099-KTUE SKIN LESIONS, 2 TO 4 04/02/20 20 04870-JUNM SKIN LESIONS, 2 TO 4 09/19/19 25597-ZMZB SKIN LESIONS, 2 TO 4 11/27/19 19 38230-KGGT SKIN LESIONS, 2 TO 4 08/27/19 19 27762-EMHU SKIN LESIONS, 2 TO 4 06/17/20 19 31350-WXDO SKIN LESIONS, 2 TO 4 03/14/20 19 21075-ELCD SKIN LESIONS, 2 TO 4 03/13/20 23 43032-FLWM SKIN LESIONS, 2 TO 4 06/19/20 23 72847-GJQS SKIN LESIONS, 2 TO 4 10/02/19 24 28674-NSRZ SKIN LESIONS, 2 TO 4 11/15/19 23 19272-OMEB SKIN LESIONS, 2 TO 4 08/15/19 23 91690-UIPR SKIN LESIONS, 2 TO 4 05/02/20 92645-PCKD SKIN LESIONS, 2 TO 4 02/16/20 21 55368-QQVE SKIN LESIONS, 2 TO 4 11/17/19 21 25071-NLGI SKIN LESIONS, 2 TO 4 11/09/19 27986-TFGF SKIN LESIONS, 2 TO 4 11/11/20 21 11116-QFMU SKIN LESIONS, 2 TO 4 08/03/19 22 98176-OEYH SKIN LESIONS, 2 TO 4 01/29/20 24 79219-AQPL SKIN LESIONS, 2 TO 4 08/19/19 25 83878-LCNF SKIN LESIONS, 2 TO 4 05/06/20 24 41942-Mnqj. Subungual Hematoma 78391-JHML NAIL(S) 11/16/2020 85745-WWPA NAIL(S) 02/15/2021 50771-WFLT NAIL(S) 05/27/2021 10352-VHCG NAIL(S) 08/15/2022 88559-ADPG NAIL(S) 03/14/2019 97481-CMQF NAIL(S) 08/27/2018 18422-INAU NAIL(S) 11/26/2018 04806-DNPT NAIL(S) 09/19/2019 79617-YEYB NAIL(S) 06/17/2019 84637-PPTJ NAIL(S) 04/02/2020 09970-NKVC NAIL(S) 07/20/2020 35514-BOXO NAIL(S) 07/03/2017 62189-LHEQ NAIL(S) 04/20/2017 61895-YEXU NAIL(S) 12/15/2016 51545-IDYJ NAIL(S) 02/19/2018 43181-NKGC NAIL(S) 05/28/2018 32125-KQRE NAIL(S) 11/20/2017 I4722-NFFSZQPE DYSTROPHIC NAILS ANY # K4444-HMIQINVJ DYSTROPHIC NAILS ANY # U8316-QRSCOVDG DYSTROPHIC NAILS ANY # C9508-HQNPSBOL DYSTROPHIC NAILS ANY # R5778-XZOFUUFT DYSTROPHIC NAILS ANY # E4634-URRPRJST DYSTROPHIC NAILS ANY # X9918-WDLDAOCW DYSTROPHIC NAILS ANY # H9259-TQYZPFHH DYSTROPHIC NAILS ANY # X1317-EJZJOMWV DYSTROPHIC NAILS ANY # G3362-HMIEPQHD DYSTROPHIC NAILS ANY # K8510-LZNIEIQP DYSTROPHIC NAILS ANY # Next Appt Details Provider Name:Kay Case , 11/18/2024 04:00:00 PM, [address] [place] [address], [phone], Insurance Providers Payer Name Payer Address Payer Phone Subscriber Number Group Number Insured Name Patient Relationship to Insured Coverage Start Date Coverage End Date Medicare National [facility] [address] [place] [address] [id number] Lauren Cooper Self - patient is the insured 7 [employer] [address] [place] [address] [phone] [id number] Lauren Cooper Self - patient is the insured Medical (General) History Medical History History ICD Code Broken bones Cataracts Diabetic type two Heart disease High blood pressure Chicken pox Measles Joint implants/screws Replacement Heart Valves Retinal Arterial Macro Aneurisum Water around heart, heart failure Broken ribs Surgical History Surgery Date(Month/Year) Open Heart 11/21/2014 ankle surgery 1979 pilonidal cyst excision 1980 Hospitalization History Reason Date(Month/Year) Broken Hip 12/05 [place] [facility]- aspiration 06/2024 [place] [facility]- Broken ribs 01/24/24
--- OUTSIDE RECORDS SUMMARY | 2024-10-25 14:52 | XMS_ITS | Clinical Summary ---
Author Organization [facility] [address] [facility] Address [address] [place] [address] Phone Care Team Providers Care Asset Protection Officer Name Role Phone Ricky Guerrero MD Primary Care Provider Allergies No known active allergies Medications cholestyramine (QUESTRAN) 4 gram powderIndicatio ns:Diarrhea of infectious origin Take 1 packet (4 g total) by mouth 1 (one) time each day. Dissolve in 8 oz of liquid and drink before a meal 30 packet 11 10/15/2024 10/16/19 26 Active Encounters Date Type Department Care Team Description 10/15/2024 3:30 PM EDT Office Visit Gastroenterology - [address] [place] [phone] Zeynep Morrison, [employer]ER Diarrhea of infectious origin (Primary Dx) from Last 3 Months Social History Tobacco Use Types Packs/Day Years Used Date Smoking Tobacco: Never Assessed Comments Unknown Sex and Gender Information Value Date Recorded Sex Assigned at Not on file Legal Sex Female 7:02 AM EST Gender Identity Not on file Sexual Orientation Not on file Last Filed Vital Signs Vital Sign Reading Time Taken Comments Blood Pressure - - Pulse - - Temperature - - Respiratory Rate - - Oxygen Saturation - - Inhaled Oxygen Concentration - - Weight 92.1 kg (203 lb) 10/15/2024 3:28 PM EDT Height 170.2 cm (5' 7 ) 10/15/2024 3:28 PM EDT Body Mass Index 31.79 10/15/2024 3:28 PM EDT Plan of Treatment Upcoming Encounters Date Type Department Care Team ([facility] st Contact Info) Description 10/29/2024 11:40 AM EDT Office Visit Gastroenterology - [address] [place] [address] Zeynep Morrison NP [address] [place] [address] Health Maintenance Due Date Last Done Comments Diabetes: Annual Foot Exam 1952 Diabetes: Annual Retina Eye Exam 1950 DTaP,Tdap,and Td Vaccines (1 - Tdap) 1961 Pneumococcal Vaccine: 50+ Years (1 of 1 - PCV) 1992 RSV Immunization Adult Patients (1 - 1-dose 75+ series) 2017 Cholesterol Screening (Lipid Panel) 06/19/2022 Depression Screening 06/19/2022 Falls Risk Assessment 06/19/2022 Medicare Annual Wellness Visit 06/19/2022 Osteoporosis Screening (Bone Density Screening) 06/19/2022 Social Influencers of Health Screening 06/19/2022 COVID-19 Vaccine ( season) 2024 08/23/2023, 04/15/2021, 09/07/2020, Additional history exists Diabetes: Annual Urine Albumin-Creatinine Ratio (uACR) 10/15/2024 Diabetes: Blood Sugar Control Test (HGBA1C) 10/15/2024 11/21/2014 Influenza Vaccine (Season Ended) 2025 Diabetes: Annual GFR (Glomerular Filtration Rate) 06/11/2025 06/11/2024, 06/10/2024, 06/08/2024, Additional history exists Hypertension/CHF/CAD Annual BMP Blood Test 06/11/2025 06/11/2024, 06/10/2024, 06/08/2024, Additional history exists Zoster Vaccines Completed 06/11/2018, 04/11/2018 HIB Vaccines Aged Out No longer eligi ble based on patient's age to complete this topic HPV Vaccines Aged Out No longer eligi ble based on patient's age to complete this topic Hepatitis A Vaccines Aged Out No long er eligible based on patient's age to complete this topic Hepatitis B Vaccines Aged Out No long er eligible based on patient's age to complete this topic IPV Vaccines Aged Out No longer eligi ble based on patient's age to complete this topic MMR Vaccines Aged Out No longer eligi ble based on patient's age to complete this topic Meningococcal ACWY Vaccine Aged Out N o longer eligible based on patient's age to complete this topic Meningococcal B Vaccine Aged Out No l onger eligible based on patient's age to complete this topic RSV Immunization Patients Under 20 months Aged Out No longer eligible based on patient's age to complete this topic Varicella Vaccines Aged Out No longer eligible based on patient's age to complete [place] [id number] MEDICARE [facility] Care Teams Asset Protection Officer Relationship Specialty Start Date End Date Ricky Guerrero MD [address] [place] [phone] PCP - General Internal Medicine 10/08/24
--- OUTSIDE RECORDS SUMMARY | 2024-10-25 14:54 | XMS_ITS ---
Author Organization [facility] Address [address] [facility] [place] [address] Care Team Providers Care Gta Name Role Phone Cesar SALGADO, Ricky Primary Care Provider Unavailab santiago Kay Case Unavailable [phone] Allergies Allergen (clinical drug ingredient) Drug/Non Drug [...] Ordered Date Performed Result Body Sit e 93737-JUJQ SKIN LESIONS, 2 TO 4 08/19/2024 N/A A1781-ICCISHEO DYSTROPHIC NAILS ANY # 08/19/2024 N/A Encounters Encounter Location Date Provider Diagnosis [facility] [place] [address] [place] [address] 08/19/2024 Kay Black Type 2 diabetes mellitus [...] days Pending Test Test Name Order Date 88578-LRVS SKIN LESIONS, 2 TO 4 08/19/19 25 J5871-SWIVJBDV DYSTROPHIC NAILS ANY # Next Appt Details Follow Up: prn, Reason: Provider Name:Kay Case , 11/18/2024 04:00:00 PM, [address] [place] [address], [phone], Procedure Notes * Category Sub-Category Detail Notes [...] instrumentation by the physician of record - 66837 Nail Reduction Nail Reduction (-27) Trimming o [...] * Lauren MULLER IDOB:[birth year] (84 yo F)Acc No.[id number]:08/19/2024 Progress Note Patient:Lauren MALDONADO I Provider:?Kay Case DPM :1940???Age:84 Y???Sex:Female D ate:08/19/2024 Address:[address] [place] [address] [id number] Pcp:Ricky Guerrero MD Subjective: * Chief Complaints: [...] 7.1 * Examination: ???Ophthalmology Referral: ?DIABETES EYE EXAM?Procedure Performed:?Yes ?Date of Exam Performed?01/15/2024 ?Findings of Diabetic Eye Exam:?no retinopathy?General Examination: ?GENERAL APPEARANCE:?Reveals a pleasant, alert, well nourished, well- developed, well hydrated individual, who demonstrates proper attention to hygiene/body habitus, and is in no acute distress, Pt serves as own historian for office visit today.?ORIENTED:?person, place, and time.?FOOT EXAM:?Lower Extremity Neurological Exam performed:?Yes ?Visual exam of foot performed:?Yes ?Date?05/06/2024 ?Sensory testing performed:?sensations diminished ?Sensory and motor testing performed:?sensations diminished ?Pedal pulse taking performed:?2+ ?Footwear Evaluation?Footwear Evaluation performed:?Yes?Dermatologic: ?SKIN FINDINGS:?, Skin exam reveals keratotic lesion(s) [...] instrumentation by the physician of record - 88747.?Nail Reduction:?Nail Reduction?(-27) Trimming of all dystrophic nails [...] or bed tissue - G0127.? * Procedure Codes:?08571 TRIM SKIN LESIONS, 2 TO 4, Modifiers: [...] Provider:?Kay Case DPM Date:?2024 Generated for Bruno allison/Pati/eTransmitting on:?10/25/2024 02:54 PM EDT History and Physical Notes * [...] fashion, no fissure(s) present, B/L ULCER: Orthopedic FOOTWEAR EVALUATION: good condit ion, exhibit proper fit and accommodation for pedal [...]
== END 2024-10-25 15:09 | disposition home or self-care (01) ==
LOC: HO.HKA 14:37
PROVIDERS: PCP Internal Medicine; Visit Provider Internal Medicine Nephrology
DX: N18.31 Chronic kidney disease, stage 3a (principal); N20.0 Calculus of kidney; I10 Essential (primary) hypertension
CPT/HCPCS: 99214

== ENCOUNTER → 2024-10-25 14:37 | Outpatient (BNVA) | payer MEDICARE, SELFPAY | PROVIDERS: PCP Internal Medicine; Visit Provider Internal Medicine Nephrology | DX: I12.9 Hypertensive chronic kidney disease with stage 1 through stage 4 chronic kidney disease, or unspecified chronic kidney disease (principal); N18.31 Chronic kidney disease, stage 3a; N20.0 Calculus of kidney | CPT/HCPCS: 99212 ==

== ENCOUNTER 2025-01-31 09:43 | Outpatient (AMB) | payer MEDICARE, SELFPAY ==
--- OUTSIDE RECORDS SUMMARY | 2025-01-31 09:52 | XMS_ITS | Clinical Summary ---
Author Organization [address] Address [address] [place] [address] Phone Care Team Providers Care Sales And Service Advisor Name Role Phone Rikcy Guerrero MD Primary Care Provider [phone] Allergies No known active allergies Medications cholestyramine (QUESTRAN) 4 gram powderIndicatio ns:Diarrhea of infectious origin Take 1 packet (4 g total) by mouth 1 (one) time each day. Dissolve in 8 oz of liquid and drink before a meal 30 packet 11 10/15/2024 10/16/19 26 Active Encounters Date Type Department Care Team Description 11/13/2024 Telephone Gastroenterology - [address] [place] [phone] Zeynep Morrison NP 11/13/2024 Telephone Gastroenterology - [address] [place] [phone] Zeynep Morrison NP 11/11/2024 Telephone Gastroenterology - [address] [place] [phone] Zeynep Morrison WOOD GOUGER from Last 3 Months Social History Tobacco [...] - Inhaled Oxygen Concentration - - Weight 92.5 kg (204 lb) 10/29/2024 11:40 AM EDT Height 170.2 cm (5' 7 ) 10/29/2024 11:40 AM EDT Body Mass Index 31.95 10/29/2024 11:40 AM EDT Plan of Treatment Health Maintenance Due Date [...] Control Test (HGBA1C) 10/15/2024 11/21/2014 Influenza Vaccine (#1) 2025 Diabetes: Annual GFR (Glomerular Filtration Rate) [...] age to complete this [place] [address] MEDICARE [facility] Care Teams Sales And Service Advisor Relationship Specialty Start Date End Date Ricky Guerrero MD [address] [place] [phone] PCP - General Internal Medicine 10/08/24
--- OUTSIDE RECORDS SUMMARY | 2025-01-31 09:53 | XMS_ITS | Patient Health Record ---
Author Organization [facility] Address [address] [facility] [place] [address] Care Team Providers Care Conference Center Manager Name Role Phone Cesar SALGADO, Ricky Primary Care Provider Unavailab santiago Kay Case Unavailable [phone] Allergies Allergen (clinical drug ingredient) Drug/Non Drug [...] Duration) Notes Start Date End Date Status Cholestyramine Activ e Jardiance 25 MG 1 tablet Orally Once a day Active Torsemide 20 MG as directed Ac tive Vancomycin HCl Not-T aking Florastor Active Gabapentin Not-Takin g Tylenol 325 MG 1 tablet as needed Orally every 6 hrs Not-Taking Warfarin Sodium Acti ve Allopurinol 100 MG TAKE 2 TABLETS BY MOUTH EVERY DAY Oral; Duration: 30 Active Methocarbamol 500 MG 1.5 tablets Orally every 4 hrs Not-Taking Furosemide 40 MG TAKE 1 TABLET BY MOUTH EVERY MORNING & EVERY EVENING Oral; Duration: 45 Not-Taking coumadin 1 tab Oral Not-Takin g Chlorthalidone 25 MG TAKE 1 TABLET BY MOUTH IN THE MORNING WITH FOOD DAILY 90 DAYS Oral; Duration: 90 Days Not-Taking amLODIPine Besylate 5 MG TAKE 1 TABLET BY MOUTH EVERY DAY Oral; Duration: 30 5MG in AM & 2.5MG in PM Not-Taking metFORMIN HCl 1000 MG TAKE 1 TABLET BY MOUTH TWICE DAILY Oral; Duration: 90 Not-Taking Valsartan-hydroCHLOROt hiazide 160-12.5 MG TAKE 1 TABLET BY MOUTH DAILY. Oral; Duration: 90 days Not-Taking Simvastatin 20 MG 1 tablet in the evening Orally Once a day Active Ammonium Lactate 12 % 1 application Externally to affected areas of dry skin to feet except for between the toes Twice a day; Duration: 30 days Active traMADol HCl 25 MG as directed Orally Not-Taking Senna-Docusate Sodium 8.6-50 MG 1 tablet as needed Orally Twice a day Not-Taking Ammonium Lactate 12 % 1 application to affected area Externally to feet Twice a day; Duration: 30 days Not-Taking Extra Depth Orthopedic Shoes (1 Pair) with Customized Heat Molded Multidensity Innersoles (3 Pair) as directed Dx: NIDDM/Polyneuropathy (E11.42), Hammertoe Foot Deformity (M20.41,M20.42), Preulcerative Skin Lesion(s) (L85.1 03/14/2019 Not-Taking Polyethylene Glycol Not-Taking Centrum Silver Unkno wn Ascorbic Acid Unknow n Physical Therapy 3-4x per week for 3-4 weeks 12/15/2016 Not-Taking Cholecalciferol Unkn own Metoprolol Succinate ER 100 MG TAKE 1 TABLET BY MOUTH DAILY Orally 25MG NIGHT TIME Active Immunizations Vaccine Route Administration Date Status Comme nts COVID-19 Pfizer BioNTnContact Surgical Vaccine Unknown 04/15/2021 Administered First Dose: 08/16/2020 [...] primary osteoarthritis of the ankle and/or foot (561669208) Primary osteoarthritis, right ankle and foot (M19.071) Active confirmed Problem Acquired hammer toe of right foot (7570218370782833 ) Other hammer toe(s) (acquired), right foot (M20.41) Active confirmed Problem Acquired hammer toe of left foot (7926664403480510 ) Other hammer toe(s) (acquired), left foot (M20.42) Active confirmed Problem Polyneuropathy due to type 2 diabetes mellitus (457770862) Type 2 diabetes mellitus with diabetic polyneuropathy (E11.42) Active confirmed Vital Signs Blood pressure diastolic 70 mm Hg 11/18/2024 Height 5 ft 7 in in 11/18/2024 Blood pressure systolic 120 mm Hg 11/18/2024 Weight 201 lbs 11/18/2024 BMI 31.48 kg/m2 11/18/2024 Procedures Procedure Date Ordered Date Performed Result Body Sit e 64023-Styovlmp Plate 05/06/2024 N/A 64059- Debride <25 sq cm 05/06/2024 N/A 62297-KLIF SKIN LESIONS, 2 TO 4 05/06/2024 N/A A9453-ETDBWBYB DYSTROPHIC NAILS ANY # 05/06/2024 N/A 55842-QGXF SKIN LESIONS, 2 TO 4 08/19/2024 N/A T1549-EZYOCZFQ DYSTROPHIC NAILS ANY # 08/19/2024 N/A 48605-ESQF SKIN LESIONS, 2 TO 4 11/18/2024 N/A Q3533-NWXJDUJY DYSTROPHIC NAILS ANY # 11/18/2024 N/A Encounters Encounter Location Date Provider Diagnosis [facility] [address] [address] 05/06/2024 Kay Black Type 2 diabetes mellitus with diabetic polyneuropathy E11.42 ; Contusion of lesser toe of right foot without damage to nail, initial encounter S90.121A ; Ingrown nail L60.0 ; Pain in right toe(s) M79.674 and Skin ulcer of toe of right foot, limited to breakdown of skin L97.511 [facility] [address] [address] 08/19/2024 Kay Black Type 2 diabetes mellitus with diabetic polyneuropathy E11.42 and Xerosis of skin L85.3 [facility] [place] [address] [place] [address] 11/18/2024 Kay Black Type 2 diabetes mellitus with diabetic polyneuropathy E11.42 and Xerosis of skin L85.3 Assessments Encounter Date Diagnosis (ICD Code) Assessment Notes Treatment Notes Treatment Clinical Notes Section Notes 05/06/2024 Type 2 diabetes mellitus with diabetic polyneuropathy (ICD-10 - E11.42) 08/19/2024 Type 2 diabetes mellitus with diabetic polyneuropathy (ICD-10 - E11.42) 08/19/2024 Xerosis of skin (ICD-10 - L85.3) 11/18/2024 Type 2 diabetes mellitus with diabetic polyneuropathy (ICD-10 - E11.42) 11/18/2024 Xerosis of skin (ICD-10 - L85.3) 05/06/2024 Contusion of lesser toe of right [...] X ray : Foot, right 3V 12/15/2016 39955-Tnxqzzrh Plate 09/11/2017 05470-Ppljjwsg Plate 02/19/2018 45426-Oyyldaba Plate 06/17/2019 86069-Mjbdqhzd Plate 02/15/2021 91792-Edmbzuwr Plate 05/27/2021 44635-Uybyxrpn Plate 08/03/2021 96580-Xyykxxnr Plate 11/08/2021 73706-Xspnfido Plate 01/29/2024 52168-Meubglpo Plate 05/06/2024 78913-Wmgkdquw Plate Each Additional 04626-Uublofnk Plate Each Additional 08/2020 94347-Pymazcoi Plate Each Additional 08/2018 11293- Debride <25 sq cm 11/26/2018 21078- Debride <25 sq cm 07/20/2020 20305- Debride <25 sq cm 09/25/2017 89449- Debride <25 sq cm 08/15/2022 72705- Debride <25 sq cm 05/06/2024 73934 I&D ABSCESS- SIMPLE,SINGLE 024 43355 I&D ABSCESS- SIMPLE,SINGLE 022 62042 I&D ABSCESS- SIMPLE,SINGLE 023 37482-UVNG SKIN LESIONS, OVER 4 11/21/19 18 19873-STYY SKIN LESIONS, 2 TO 4 05/28/20 18 13934-RKTT SKIN LESIONS, 2 TO 4 02/20/20 18 37022-OOIK SKIN LESIONS, 2 TO 4 12/16/19 17 13953-ZZOX SKIN LESIONS, 2 TO 4 04/20/20 02833-HAAV SKIN LESIONS, 2 TO 4 07/03/20 56587-MITD SKIN LESIONS, 2 TO 4 09/11/19 18 06633-JFXV SKIN LESIONS, 2 TO 4 07/20/19 21 49742-YZEX SKIN LESIONS, 2 TO 4 04/02/20 20 33688-RPLN SKIN LESIONS, 2 TO 4 09/19/19 74137-TVFG SKIN LESIONS, 2 TO 4 11/27/19 19 17850-WPRC SKIN LESIONS, 2 TO 4 08/27/19 19 72777-CEMO SKIN LESIONS, 2 TO 4 06/17/20 19 92411-IKRF SKIN LESIONS, 2 TO 4 03/14/20 19 13590-LYKS SKIN LESIONS, 2 TO 4 03/13/20 23 13198-IQZY SKIN LESIONS, 2 TO 4 06/19/20 23 63705-ZFEA SKIN LESIONS, 2 TO 4 10/02/19 24 23119-RRFO SKIN LESIONS, 2 TO 4 11/15/19 65919-JDTM SKIN LESIONS, 2 TO 4 08/15/19 23 66394-DFET SKIN LESIONS, 2 TO 4 05/02/20 22 45640-COGK SKIN LESIONS, 2 TO 4 02/16/20 21 32033-EPGE SKIN LESIONS, 2 TO 4 11/17/19 16594-UNAP SKIN LESIONS, 2 TO 4 11/09/19 22 80452-HMXG SKIN LESIONS, 2 TO 4 11/11/20 21 95305-ZHBF SKIN LESIONS, 2 TO 4 08/03/19 22 17613-HDJE SKIN LESIONS, 2 TO 4 01/29/20 24 51765-KMIN SKIN LESIONS, 2 TO 4 08/19/19 25 11688-SAJB SKIN LESIONS, 2 TO 4 11/19/19 25 66640-ELXZ SKIN LESIONS, 2 TO 4 05/06/20 24 78375-Zevh. Subungual Hematoma 68929-RDRS NAIL(S) 11/16/2020 51008-UPJI NAIL(S) 02/15/2021 38110-ROOH NAIL(S) 05/27/2021 12737-XYKT NAIL(S) 08/15/2022 22815-GBYE NAIL(S) 03/14/2019 38343-MSVO NAIL(S) 08/27/2018 30129-TWKR NAIL(S) 11/26/2018 08268-TPEL NAIL(S) 09/19/2019 77512-FWCI NAIL(S) 06/17/2019 33160-BQPQ NAIL(S) 04/02/2020 03374-FHQG NAIL(S) 07/20/2020 60353-PCJI NAIL(S) 07/03/2017 95756-BFDZ NAIL(S) 04/20/2017 36265-ZRVQ NAIL(S) 12/15/2016 02565-WVII NAIL(S) 02/19/2018 58785-YMCN NAIL(S) 05/28/2018 46964-ALPM NAIL(S) 11/20/2017 B3703-LOPWDKLN DYSTROPHIC NAILS ANY # Q6209-CAYDDEYF DYSTROPHIC NAILS ANY # J9812-SBTBWOCM DYSTROPHIC NAILS ANY # C3993-LWMRMIGP DYSTROPHIC NAILS ANY # O1878-LBFGLHKS DYSTROPHIC NAILS ANY # T5208-OZSJVHXO DYSTROPHIC NAILS ANY # G4210-FXOUEEEO DYSTROPHIC NAILS ANY # M3507-HRCCCZMZ DYSTROPHIC NAILS ANY # H3318-JERUHHTW DYSTROPHIC NAILS ANY # V5153-CZFXVDUN DYSTROPHIC NAILS ANY # H7584-DSXETWGQ DYSTROPHIC NAILS ANY # W0505-YMEDILHJ DYSTROPHIC NAILS ANY # Next Appt Details Provider Name:Kay Case , 03/03/2025 10:00:00 AM, [address] [facility], [place], [address], Insurance Providers Payer Name Payer Address Payer Phone Subscriber Number Group Number Insured Name Patient Relationship to Insured Coverage Start Date Coverage End Date Medicare National [employer] [address] [place] [address] [id number] Lauren Cooper Self - patient is the insured 7 [employer] [address] [place] [address] [phone] [id number] Lauren Cooper Self - patient is the [...] cyst excision 1980 Hospitalization History Reason Date(Month/Year) [facility]- aspiration 06/2024 [facility]- Broken ribs 01/24/24 Broken Hip 12/05
--- OUTSIDE RECORDS SUMMARY | 2025-01-31 09:53 | XMS_ITS | Encounter Summary ---
Author Organization [facility] Address [address] [place] [address] Care Team Providers Care Dietitian Research Name Role Phone Ricky Guerrero MD Primary Care Provider [phone] Nile Garcia MD Unavailable [phone] Encounter Details Date Type Department Care Team (Late st Contact Info) Description 06/06/2024 Scanned Document [place] [address] [address] [place] [address] Provider, Generic Social History Tobacco Use Types Packs/Day Years Used Date Smoking Tobacco: Never Smokeless Tobacco: Never Alcohol Use Standard Drinks/Week Comments Never 0 (1 standard drink = 0.6 oz pur e alcohol) [facility] Utilities Answer Date Recorded In the [...] any time in the past 12 m [facility], were you homeless or living in a care home (including now)? No 05/27/2024 Comments Unknown Sex and Gender Information Value Date Recorded Sex Assigned at Female 07/21/2023 8:17 AM EST Legal Sex Female 1:07 PM EST Gender Identity Female 07/21/2023 8:17 AM [...] AM EST Ordered by an unspecified provider. us Generic Provider HX AMB PROCEDURES Final Result documented in this encounter Visit Diagnoses Not on filedocumented in this encounter Care Teams Dietitian Research Relationship Specialty Start Date End Date Ricky Guerrero MD [address] [place] [address] PCP - General 01/24/24 Nile Garcia MD [address] [place] [phone] Primary General Ii Farmworker Cardiovascular Disease 06/12/24 documented as of this encounter
--- OUTSIDE RECORDS SUMMARY | 2025-01-31 09:53 | XMS_ITS | Data Portability ---
Author Organization [place] - [facility] Address [address] [place] [address] Care Team Providers Care Infrastructure Tech Name Role Phone [facility] Primary Care Provider Assessment Encounter Date Assessment Date Assessment LastModified by Organization Details LastModified Time 02/06/2022 02/06/2022 Overview/History : 81 YO F new to and new to provider PM of DM, CHF d/t valve insufficiency, a fib recent hospital stay for Rt hip fx and 2 week rehab stay at [facility] for rehab. She was dc Monday less than 48 hours ago. She was initially doing brennon well, was energetic, performing ADLs, and ambulating w/ her walker. Today she began to decline fairy rapidly since after her morning medicines. Much more lethargic, she cannot stand and she is having lightheadedness/ dizziness (worse w/ standing) and general malaise and weakness. Unsure what is causing it as she has been eating and taking her meds at prescribed by rehab. Of note they did adjust and increase some of her BP meds, addn it seems she has orders for frequent CBC blood draws w/ [facility] for monitoring of newly diagnosed anemia. Family believes she had positive guaiac at rehab. Apparently [facility] was here this morning and she was doing okay at that point and they left but when she got worse over the morning they called [facility] and they reccomended she go to the hospital or call us for in person evaluation. Since then she has continued to feel worse. She is sitting upright and conversive but is more lethargic than usual. No pain and no fevers. No abd pain, NVD, numbness/tinglin g, focal weakness, issues speaking, changes to vision, tremors, no severe headache, no chest pain, no palpitations. No other reported sxs today. Exam: Vitals: HypoTN ~90/50, stays low throughout the visit, HR ~95 but does go up to 110 after standing and attempting to ambulate, O2 sat stable and afebrile Constitutional: 81 yo elderly female sitting upright in her wheelchair, she is tired appearing but arousable, she does not appear acutely toxic not in any acute distress. Eyes: PERRL at 4mm, EOM's intact, corrective lenses, No swelling, no discharge, sclera / conjunctiva clear ENT: no nasal discharge, no erythema/ exudate noted in oropharynx, uvula midline, moist mucous membranes slightly CV: irreg irreg w/ known a fib, no rubs/ murmurs/ gallops heard, 2+ radial pulses bilaterally, 1+ BL edema and no calf tenderness BL, 2+ DP/ PT pulses bilaterally Pulm: breath sounds clear and equal bilaterally, no wheeze/ rhonchi or rales on auscultation. Speaks in full sentences, no increased work of breathing. GI: Soft, non-tender to palpation. No masses, normal bowel sounds. : No CVA tenderness bilaterally. No suprapubic tenderness. MS: Self ambulatory patient w/ her walker BUT ONLY FOR A FEW STEPS THEN GETS VERY LIGHTHEADED AND DIZZY AND MUST IMMEDIATELY SIT DOWN, moves all limbs without deficit Neuro: No focal deficits, A&O x4, CN s II-XII grossly normal, sensation intact, no nystagmus Skin: No rash, appears pale Psych: Calm, cooperative, non-manic. Pleasant. DDx considered, but not limited to: Dehydration/Over medication/hypo/ erglycemia/Hypo/ perglycemia/Cent ral Vertigo/Anemia Work up/Results: Attempted IV blood draw x2 and could not get access d/t pt veins being so small and dry! Doubt cardiac as no cp, palpitations, HR generally stable until she stands which is to be expected as she attempts to ambulate No numbness tingling, neuro exam benign doubt neuro process but cannot fully be r/o Lungs CTAB so doubt pulm process and O2 sat is stable at 98-100% Plan/Discussion: Dizzy/Lightheade d: -Initially mild while pt sitting and talking to us while taking hx -Then on attempting ambulation VERY SIGNIFICANT DIZZYNESS PT STATES ROOM IS QUIET AND VISION GOING. HAD HER SIT IMMEDIATELY AND SHE GOT A BIT BETTER. -Unsure exactly cause of her sxs and cannot check blood on scene as we attempt IV placement x2 and veins blow immediately or impossible to get blood draw. Very thready pulses BL. She does have MMM. -I wonder if she could be over medicated as she is getting lots of BP meds in the am and they upped BP meds at hospital. She was on fluid restriction it seems at rehab and she has not been following this at home so ? dehydration and/or sodium issue. Again cannot check. Doubt hypoglycemia but cannot check to be sure -? anemia and wonder if she could be tachycardic truly but on metoprolol which could be blunting response -Again unfortunately cannot get blood to [facility] earlier today but pt did not want to go, we are able to convince her to go for stat testing, fluids, possible imaging and tx. She is agreeable and so is family who is present, -EMS is called and pt is handed off to [facility] -Expect called to [facility] Pt and fam is on agreement and verbalizes understanding with the above plans at this time. Pt and fam has no other questions or concerns at this time. All questiosn are answered to the best of my ability. Pt and fam thanks us for our visit today. [email or web address] Not available 02/06/2022 18:36:07 Plan of Treatment Reminders Order Date Submit Date Provider Last Modified By Organization Details Last Modified Time Details Appointments None record ed. Lab None record ed. Referral None record ed. Procedures None record ed. Surgeries None record ed. Imaging None record ed. Medication Orders None record ed. Patient TargetsNo targets recorded. Patient InstructionsNo instructions recorded. Reason for Referral None Reported. Procedures Surgical History Date Name Laterality Status Provider Name and Address Organization Details Recorded Time repair of hip completed BELLE Marquez, [place], [address], [place] - [facility] 02/06/2022 17:30:00 Imaging Results None recorded. Procedure Notes None recorded. Medical Equipment None Reported. Allergies No known drug allergies Medications Name Sig Start Date Stop Date Status Note LastModified by Organization Details LastModified Time amoxicillin 500 mg capsule TAKE 4 CAPSULES BY MOUTH 1 HOUR PRIOR TO DENTAL APPOINTMENT active Not Available Not Available Not Available furosemide 40 mg tablet TAKE 1 TABLET BY MOUTH EVERY DAY active Not Available Not Available No t Available metoprolol succinate ER 50 mg tablet,exten ded release 24 hr TAKE 1 TABLET BY MOUTH EVERY DAY active Not Available Not Available No t Available warfarin 7.5 mg tablet TAKE 1 TABLET BY MOUTH EVERY DAY DIRECTED BY [facility] active Not Available Not Available No t Available sucralfate 1 gram tablet TAKE 1 TABLET BY MOUTH BEFORE MEALS AND AT BEDTIME active Not Available Not Available N ot Available metoprolol succinate ER 100 mg tablet,exten ded release 24 hr active Not Available Not Available Not Available amlodipine 2.5 mg tablet TAKE 1 TABLET BY MOUTH BEFORE BED IN ADDITION TO MORNING DOSE active Not Available Not Available No t Available amlodipine 5 mg tablet TAKE 1 TABLET DAILY IN THE MORNING AND 1/2 TABLET AT BEDTIME active Not Available Not Available No t Available allopurinol 100 mg tablet TAKE 2 TABLETS BY MOUTH EVERY DAY active Not Available Not Available No t Available tramadol 50 mg tablet PLEASE SEE ATTACHED FOR DETAILED DIRECTIONS active Not Available Not Available N ot Available simvastatin 20 mg tablet TAKE 1 TABLET BY MOUTH EVERY DAY active Not Available Not Available No t Available ferrous sulfate 325 mg (65 mg iron) tablet TAKE 1 TABLET BY MOUTH EVERY DAY active Not Available Not Available No t Available metformin 1,000 mg tablet TAKE 1 TABLET BY MOUTH EVERY DAY IN THE MORNING active Not Available Not Available No t Available valsartan 320 mg-hydrochlo rothiazide 25 mg tablet TAKE 1 TABLET BY MOUTH EVERY DAY active Not Available Not Available No t Available cholecalcife rol (vitamin D3) 25 mcg (1,000 unit) tablet TAKE 1 TABLET BY MOUTH EVERY DAY active Not Available Not Available No t Available Vitals Date Recorded Respiratory rate Heart rate Body temperature Oxygen saturation Oxygen saturation in Arterial blood by Pulse oximetry Systolic And Diastolic Provider Name and Address Organization Details Last Updated DateTime 2 20 /min 95 /min 96.6 [degF] 100 % 100 % 90/40 mm[Hg] Not Available [facility] 2 17:42:42 Social History None recorded. Functional Status Question Answer Note LastModified by Organizat ion Details LastModified Time Do you use any illicit or recreational drugs? No Information not available 02/06/2022 Do you or have you ever used any other forms of tobacco or nicotine? No Information not available 02/06/2022 What is your level of alcohol consumption? None Information not available 02/06/2022 Mental Status None recorded. Family History Relationship Description Onset Age of this Age Resolved Age Notes LastModified by Organization Details LastModified Time Brother Heart disease [email or web address] Not available 2021 17:28:14 Father Diabetes mellitus [email or web address] Not available 2021 17:28:32 Medical History Condition Response Coronary Artery Disease N Depression N COPD N Hypothyroidism N A-fib Y Cancer N Stroke N High Cholesterol Y Rheumatoid Arthritis N Kidney Disease N Parkinson's Disease N Diabetes Y CHF Y Dementia N Asthma N Pulmonary Embolism N Hypertension Y Osteoporosis N Gynecological HistoryNo gynecological history recorded. Obstetrics History GPAL:G 0 P 0 0 0 0 Past Encounters Encounter ID Performer Location Encounter Start Date Encounter Closed Date Diagnosis/Indication Diagnosis SNOMED-CT Code Diagnosis ICD10 Code Diagnosis Note [id number] BELLE Barnhart [facility] - [address] [address] 02/06/2022 15:57:22 02/08/2022 11:05:40 Lightheadedness 312958780 R42 Dizziness [id number] R42 Health Concerns Section Related Observation LastModified by Organization Detai ls LastModified Time None Recorded Concern Status LastModified by Organization Details LastModified Time None Recorded Advance Directives Directive None Recorded Payers Insurance Date Sequence Insurance Name Policy Number Policy Dahl Covered Member ID Dahl Member ID Guarantor Name 03/10/2022 2 [place] [id number] Lauren Doan [id number] Lauren Doan 02/06/2022 1 *SELF PAY* Lauren Doan [id number] Lauren Doan 02/06/2022 1 [place] [employer] Lauren Doan [id number] Lauren Doan 02/18/2022 1 [place] [employer] Lauren Doan [id number] Lauren Doan Notes Date Note Type Note Provider Name and Address Organization Details Recorded Time 02/06/2022 text/html 81 [facility] F [facility] CHF d/t valve insufficiency, a fib recent hospital stay for Rt hip fx and 2 week rehab stay at [facility] for rehab. She was dc Monday less than 48 hours ago. She was initially doing brennon well, was energetic, performing ADLs, and ambulating w/ her walker. Today she began to decline fairy rapidly since after her morning medicines. Much more lethargic, she cannot stand and she is having lightheadedness/d izziness (worse w/ standing) and general malaise and weakness. Unsure what is causing it as she has been eating and taking her meds at prescribed by rehab. Of note they did adjust and increase some of her BP meds, addn it seems she has orders for frequent CBC blood draws w/ [facility] for monitoring of newly diagnosed anemia. Family believes she had positive guaiac at rehab. Apparently [facility] was here this morning and she was doing okay at that point and they left but when she got worse over the morning they called [facility] and they reccomended she go to the hospital or call us for in person evaluation. Since then she has continued to feel worse. She is sitting upright and conversive but is more lethargic than usual. No pain and no fevers. No abd pain, NVD, numbness/tingling , focal weakness, issues speaking, changes to vision, tremors, no severe headache, no chest pain, no palpitations. No other reported sxs today. BELLE Marquez [address], [place], [address], [place] - [facility] 02/06/2022 18:36:18 OBGyn Episode No OBEpisode recorded.
--- OUTSIDE RECORDS SUMMARY | 2025-01-31 09:53 | XMS_ITS ---
Author Name [facility] Organization Unknown Results Test Name/Text Value Interpretation Date Range Source POC Glucose 163.0 mg/dL Above high normal 06/11/2024 65 - 99 HHCCT POC Glucose 153.0 mg/dL Above high normal 06/11/2024 65 - 99 HHCCT POC Glucose 113.0 mg/dL Above high normal 06/11/2024 65 - 99 HHCCT Sodium SerPl-sCnc 133.0 mmol/L Below low normal 06/11/2024 1 36 - 145 HHCCT Potassium SerPl-sCnc 4.1 mmol/L Normal 06/11/2024 3.4 - 5.3 HHCCT Anion Gap Bld-sCnc 13.0 Normal 06/11/2024 7 - 17 HHCCT GFR/BSA.pred SerPlBld [id number] 22.0 Below low normal 06/11/2024 59 - HHCCT Calcium SerPl-mCnc 9.5 mg/dL Normal 06/11/2024 8.7 - 10.5 HHCCT CO2 SerPl-sCnc 26.0 mmol/L Normal 06/11/2024 22 - 33 HH CCT BUN SerPl-mCnc 52.0 mg/dL Above high normal 06/11/2024 8 - 2 1 HHCCT Chloride SerPl-sCnc 94.0 mmol/L Below low normal 06/11/2024 98 - 107 HHCCT Creat SerPl-mCnc 2.2 mg/dL Above high normal 06/11/2024 0.4 - 1.1 HHCCT Glucose SerPl-mCnc 113.0 mg/dL Above high normal 06/11/2024 65 - 99 HHCCT BUN/Creat SerPl 24.0 Ratio Normal 06/11/2024 10 - 25 HH CCT Magnesium SerPl-mCnc 2.1 mg/dL Normal 06/11/2024 1.6 - 2.7 HHCCT pro BNP, N-terminal 2480.0 pg/mL Above high normal 4 - 450 HHCCT Phosphate SerPl-mCnc 4.3 mg/dL Normal 06/11/2024 2.7 - 4.5 HHCCT LMWH PPP Reconciliation Accountant-aCnc 0.63 IU/mL Normal 06/11/2024 HHCCT Anticoagulant IV HEPARIN, UNFRACTIONATED Normal 06/11/2024 HHCCT INR PPP 1.3 Normal 06/11/2024 HHCCT Prothrombin time 15.5 seconds Above high normal 06/11/2024 1 0 - 13.5 HHCCT Anticoagulant WARFARIN (COUMADIN) Normal 06/11/2024 HHCCT RDW RBC Auto-Rto 16.6 % Above high normal 06/11/2024 11.5 - 14.5 HHCCT MCHC RBC Auto-mCnc 31.1 g/dL Normal 06/11/2024 30 - 36 HHCCT Platelet num Bld Auto 194.0 Thou/uL Normal 06/11/2024 150 - 450 HHCCT PMV Bld Auto 10.2 fL Normal 06/11/2024 7.5 - 12.5 HHCCT WBC num Bld Auto 6.3 Thou/uL Normal 06/11/2024 4 - 11 HHCCT Hct VFr Bld Auto 27.0 % Below low normal 06/11/2024 35 - 47 HHCCT MCV RBC Auto 90.0 fL Normal 06/11/2024 80 - 100 HHCCT RBC num Bld Auto 2.99 Mil/uL Below low normal 06/11/2024 4 - 5.4 HHCCT Hgb Bld-mCnc 8.4 g/dL Below low normal 06/11/2024 11.7 - 15 .7 HHCCT MCH RBC Qn Auto 28.1 pg Normal 06/11/2024 27 - [address] POC Glucose 186.0 mg/dL Above high normal 06/11/2024 65 - 99 HHCCT POC Glucose 115.0 mg/dL Above high normal 06/10/2024 65 - 99 HHCCT POC Glucose 112.0 mg/dL Above high normal 06/10/2024 65 - 99 HHCCT POC Glucose 123.0 mg/dL Above high normal 06/10/2024 65 - 99 HHCCT POC Glucose 126.0 mg/dL Above high normal 06/10/2024 65 - 99 HHCCT pro BNP, N-terminal 3087.0 pg/mL Above high normal 4 - 450 HHCCT BUN SerPl-mCnc 50.0 mg/dL Above high normal 06/10/2024 8 - 2 1 HHCCT Calcium SerPl-mCnc 9.4 mg/dL Normal 06/10/2024 8.7 - 10.5 HHCCT BUN/Creat SerPl 23.0 Ratio Normal 06/10/2024 10 - 25 HH CCT Glucose SerPl-mCnc 126.0 mg/dL Above high normal 06/10/2024 65 - 99 HHCCT Potassium SerPl-sCnc 4.3 mmol/L Normal 06/10/2024 3.4 - 5.3 HHCCT Chloride SerPl-sCnc 95.0 mmol/L Below low normal 06/10/2024 98 - 107 HHCCT Anion Gap Bld-sCnc 13.0 Normal 06/10/2024 7 - 17 HHCCT Creat SerPl-mCnc 2.2 mg/dL Above high normal 06/10/2024 0.4 - 1.1 HHCCT Sodium SerPl-sCnc 134.0 mmol/L Below low normal 06/10/2024 1 36 - 145 HHCCT GFR/BSA.pred SerPlBld [id number] 22.0 Below low normal 06/10/2024 59 - HHCCT CO2 SerPl-sCnc 26.0 mmol/L Normal 06/10/2024 22 - 33 HH CCT Magnesium SerPl-mCnc 2.2 mg/dL Normal 06/10/2024 1.6 - 2.7 HHCCT LMWH PPP Reconciliation Accountant-aCnc 0.63 IU/mL Normal 06/10/2024 HHCCT Anticoagulant IV HEPARIN, UNFRACTIONATED Normal 06/10/2024 HHCCT INR PPP 1.2 Normal 06/10/2024 HHCCT Prothrombin time 14.4 seconds Above high normal 06/10/2024 1 0 - 13.5 HHCCT Anticoagulant WARFARIN (COUMADIN) Normal 06/10/2024 HHCCT POC Glucose 268.0 mg/dL Above high normal 06/10/2024 65 - 99 HHCCT POC Glucose 181.0 mg/dL Above high normal 06/09/2024 65 - 99 HHCCT INR PPP 1.3 Normal 06/09/2024 HHCCT Prothrombin time 14.7 seconds Above high normal 06/09/2024 1 0 - 13.5 HHCCT Anticoagulant WARFARIN (COUMADIN) Normal 06/09/2024 HHCCT POC Glucose 214.0 mg/dL Above high normal 06/09/2024 65 - 99 HHCCT LMWH PPP Reconciliation Accountant-aCnc 0.58 IU/mL Normal 06/09/2024 HHCCT Anticoagulant IV HEPARIN, UNFRACTIONATED Normal 06/09/2024 HHCCT POC Glucose 146.0 mg/dL Above high normal 06/09/2024 65 - 99 HHCCT POC Glucose 164.0 mg/dL Above high normal 06/09/2024 65 - 99 HHCCT POC Glucose 240.0 mg/dL Above high normal 06/08/2024 65 - 99 HHCCT POC Glucose 166.0 mg/dL Above high normal 06/08/2024 65 - 99 HHCCT POC Glucose 144.0 mg/dL Above high normal 06/08/2024 65 - 99 HHCCT LMWH PPP Reconciliation Accountant-aCnc 0.6 IU/mL Normal 06/08/2024 HHCCT Anticoagulant IV HEPARIN, UNFRACTIONATED Normal 06/08/2024 HHCCT Magnesium SerPl-mCnc 2.2 mg/dL Normal 06/08/2024 1.6 - 2.7 HHCCT Creat SerPl-mCnc 2.0 mg/dL Above high normal 06/08/2024 0.4 - 1.1 HHCCT Chloride SerPl-sCnc 97.0 mmol/L Below low normal 06/08/2024 98 - 107 HHCCT Sodium SerPl-sCnc 135.0 mmol/L Below low normal 06/08/2024 1 36 - 145 HHCCT CO2 SerPl-sCnc 27.0 mmol/L Normal 06/08/2024 22 - 33 HH CCT Anion Gap Bld-sCnc 11.0 Normal 06/08/2024 7 - 17 HHCCT Glucose SerPl-mCnc 136.0 mg/dL Above high normal 06/08/2024 65 - 99 HHCCT Calcium SerPl-mCnc 9.6 mg/dL Normal 06/08/2024 8.7 - 10.5 HHCCT BUN/Creat SerPl 25.0 Ratio Normal 06/08/2024 10 - 25 HH CCT GFR/BSA.pred SerPlBld [id number] 24.0 Below low normal 06/08/2024 59 - HHCCT BUN SerPl-mCnc 49.0 mg/dL Above high normal 06/08/2024 8 - 2 1 HHCCT Potassium SerPl-sCnc 4.3 mmol/L Normal 06/08/2024 3.4 - 5.3 HHCCT Phosphate SerPl-mCnc 4.2 mg/dL Normal 06/08/2024 2.7 - 4.5 HHCCT MCV RBC Auto 90.0 fL Normal 06/08/2024 80 - 100 HHCCT PMV Bld Auto 10.2 fL Normal 06/08/2024 7.5 - 12.5 HHCCT WBC num Bld Auto 5.5 Thou/uL Normal 06/08/2024 4 - 11 HHCCT Platelet num Bld Auto 195.0 Thou/uL Normal 06/08/2024 150 - 450 HHCCT Hct VFr Bld Auto 27.2 % Below low normal 06/08/2024 35 - 47 HHCCT RBC num Bld Auto 3.02 Mil/uL Below low normal 06/08/2024 4 - 5.4 HHCCT MCHC RBC Auto-mCnc 31.3 g/dL Normal 06/08/2024 30 - 36 HHCCT RDW RBC Auto-Rto 16.4 % Above high normal 06/08/2024 11.5 - 14.5 HHCCT Hgb Bld-mCnc 8.5 g/dL Below low normal 06/08/2024 11.7 - 15 .7 HHCCT MCH RBC Qn Auto 28.1 pg Normal 06/08/2024 27 - [address] POC Glucose 223.0 mg/dL Above high normal 06/08/2024 65 - 99 HHCCT POC Glucose 159.0 mg/dL Above high normal 06/07/2024 65 - 99 HHCCT POC Glucose 183.0 mg/dL Above high normal 06/07/2024 65 - 99 HHCCT POC Glucose 153.0 mg/dL Above high normal 06/07/2024 65 - 99 HHCCT Folate SerPl-mCnc >20.0 ng/mL Normal 06/07/2024 7.2 - HHCCT UIBC SerPl-mCnc 199.0 ug/dL Normal 06/07/2024 112 - 346 H HCCT Iron Satn MFr SerPl 16.0 % Below low normal 06/07/2024 20 - 50 HHCCT Iron SerPl-mCnc 37.0 ug/dL Below low normal 06/07/2024 59 - 151 HHCCT TIBC SerPl-mCnc 236.0 ug/dL Normal 06/07/2024 100 - 400 H HCCT Glucose SerPl-mCnc 142.0 mg/dL Above high normal 06/07/2024 65 - 99 HHCCT BUN SerPl-mCnc 53.0 mg/dL Above high normal 06/07/2024 8 - 2 1 HHCCT BUN/Creat SerPl 27.0 Ratio Above high normal 06/07/2024 10 - 25 HHCCT Calcium SerPl-mCnc 9.3 mg/dL Normal 06/07/2024 8.7 - 10.5 HHCCT Chloride SerPl-sCnc 93.0 mmol/L Below low normal 06/07/2024 98 - 107 HHCCT Sodium SerPl-sCnc 131.0 mmol/L Below low normal 06/07/2024 1 36 - 145 HHCCT GFR/BSA.pred SerPlBld [id number] 24.0 Below low normal 06/07/2024 59 - HHCCT Potassium SerPl-sCnc 4.1 mmol/L Normal 06/07/2024 3.4 - 5.3 HHCCT CO2 SerPl-sCnc 26.0 mmol/L Normal 06/07/2024 22 - 33 HH CCT Creat SerPl-mCnc 2.0 mg/dL Above high normal 06/07/2024 0.4 - 1.1 HHCCT Anion Gap Bld-sCnc 12.0 Normal 06/07/2024 7 - 17 HHCCT Phosphate SerPl-mCnc 4.3 mg/dL Normal 06/07/2024 2.7 - 4.5 HHCCT Vit B12 SerPl-mCnc 736.0 pg/mL Normal 06/07/2024 243 - 89 4 HHCCT Magnesium SerPl-mCnc 2.2 mg/dL Normal 06/07/2024 1.6 - 2.7 HHCCT Ferritin SerPl-mCnc 266.0 ug/L Normal 06/07/2024 30 - 400 HHCCT LMWH PPP Reconciliation Accountant-aCnc 0.49 IU/mL Normal 06/07/2024 HHCCT Anticoagulant IV HEPARIN, UNFRACTIONATED Normal 06/07/2024 HHCCT MCV RBC Auto 91.0 fL Normal 06/07/2024 80 - 100 HHCCT RDW RBC Auto-Rto 16.4 % Above high normal 06/07/2024 11.5 - 14.5 HHCCT RBC num Bld Auto 2.8 Mil/uL Below low normal 06/07/2024 4 - 5.4 HHCCT PMV Bld Auto 10.2 fL Normal 06/07/2024 7.5 - 12.5 HHCCT Hct VFr Bld Auto 25.5 % Below low normal 06/07/2024 35 - 47 HHCCT WBC num Bld Auto 5.9 Thou/uL Normal 06/07/2024 4 - 11 HHCCT MCH RBC Qn Auto 27.9 pg Normal 06/07/2024 27 - [address] MCHC RBC Auto-mCnc 30.6 g/dL Normal 06/07/2024 30 - 36 HHCCT Hgb Bld-mCnc 7.8 g/dL Below low normal 06/07/2024 11.7 - 15 .7 HHCCT Platelet num Bld Auto 185.0 Thou/uL Normal 06/07/2024 150 - 450 HHCCT POC Glucose 158.0 mg/dL Above high normal 06/07/2024 65 - 99 HHCCT POC Glucose 240.0 mg/dL Above high normal 06/07/2024 65 - 99 HHCCT POC Glucose 159.0 mg/dL Above high normal 06/06/2024 65 - 99 HHCCT Sodium Ur-sCnc 25.0 mmol/L Normal 06/06/2024 HH CCT Creat Ur-mCnc 70.0 mg/dL Normal 06/06/2024 HHCC T UUN Ur-mCnc 502.0 mg/dL Normal 06/06/2024 HHCCT Nitrite Ur Ql Strip Negative Normal 06/06/2024 - CCT Prot Ur Strip-mCnc Negative Normal 06/06/2024 - CCT Hgb Ur Ql Strip Negative Normal 06/06/2024 - HHC CT Leukocyte esterase Ur Ql Strip Negative Normal 06/06/2024 - CCT RBC num/area UrnS HPF 1.0 per hpf Normal 06/06/2024 0 - 4 HHCCT Bilirub Ur Strip-mCnc Negative Normal 06/06/2024 - CCT Ketones Ur Strip-mCnc Negative Normal 06/06/2024 - HHCCT WBC num/area UrnS HPF 3.0 per hpf Normal 06/06/2024 0 - 4 HHCCT Color Ur Yellow Normal 06/06/2024 HHCCT Clarity Ur Slightly cloudy Normal 06/06/2024 HH CCT pH Ur Strip 5.0 Normal 06/06/2024 5 - 8 HHCCT Sp Gr Ur Strip 1.009 Normal 06/06/2024 1.003 - 1.03 HHCCT Glucose Ur Strip-mCnc 0.0 mg/dL Normal 06/06/2024 0 - 99 HHCCT Squamous num/area UrnS HPF 7.0 PER HPF Normal 06/06/2024 HHCCT POC Glucose 188.0 mg/dL Above high normal 06/06/2024 65 - 99 HHCCT pro BNP, N-terminal 4565.0 pg/mL Above high normal 4 - 450 HHCCT BUN/Creat SerPl 27.0 Ratio Above high normal 06/06/2024 10 - 25 HHCCT BUN SerPl-mCnc 53.0 mg/dL Above high normal 06/06/2024 8 - 2 1 HHCCT GFR/BSA.pred SerPlBld [id number] 24.0 Below low normal 06/06/2024 59 - HHCCT Glucose SerPl-mCnc 204.0 mg/dL Above high normal 06/06/2024 65 - 99 HHCCT Chloride SerPl-sCnc 91.0 mmol/L Below low normal 06/06/2024 98 - 107 HHCCT Sodium SerPl-sCnc 130.0 mmol/L Below low normal 06/06/2024 1 36 - 145 HHCCT Anion Gap Bld-sCnc 13.0 Normal 06/06/2024 7 - 17 HHCCT Potassium SerPl-sCnc 4.4 mmol/L Normal 06/06/2024 3.4 - 5.3 HHCCT Creat SerPl-mCnc 2.0 mg/dL Above high normal 06/06/2024 0.4 - 1.1 HHCCT Calcium SerPl-mCnc 9.5 mg/dL Normal 06/06/2024 8.7 - 10.5 HHCCT CO2 SerPl-sCnc 26.0 mmol/L Normal 06/06/2024 22 - 33 HH CCT Magnesium SerPl-mCnc 2.2 mg/dL Normal 06/06/2024 1.6 - 2.7 HHCCT Phosphate SerPl-mCnc 4.5 mg/dL Normal 06/06/2024 2.7 - 4.5 HHCCT LMWH PPP Reconciliation Accountant-aCnc 0.6 IU/mL Normal 06/06/2024 HHCCT Anticoagulant IV HEPARIN, UNFRACTIONATED Normal 06/06/2024 HHCCT Hct VFr Bld Auto 27.3 % Below low normal 06/06/2024 35 - 47 HHCCT RBC num Bld Auto 3.04 Mil/uL Below low normal 06/06/2024 4 - 5.4 HHCCT MCV RBC Auto 90.0 fL Normal 06/06/2024 80 - 100 HHCCT RDW RBC Auto-Rto 16.5 % Above high normal 06/06/2024 11.5 - 14.5 HHCCT Platelet num Bld Auto 200.0 Thou/uL Normal 06/06/2024 150 - 450 HHCCT WBC num Bld Auto 6.2 Thou/uL Normal 06/06/2024 4 - 11 HHCCT MCH RBC Qn Auto 28.0 pg Normal 06/06/2024 27 - [address] Hgb Bld-mCnc 8.5 g/dL Below low normal 06/06/2024 11.7 - 15 .7 HHCCT MCHC RBC Auto-mCnc 31.1 g/dL Normal 06/06/2024 30 - 36 HHCCT PMV Bld Auto 10.6 fL Normal 06/06/2024 7.5 - 12.5 HHCCT POC Glucose 138.0 mg/dL Above high normal 06/06/2024 65 - 99 HHCCT POC Glucose 161.0 mg/dL Above high normal 06/06/2024 65 - 99 HHCCT POC Glucose 219.0 mg/dL Above high normal 06/06/2024 65 - 99 HHCCT POC Glucose 255.0 mg/dL Above high normal 06/05/2024 65 - 99 HHCCT POC Glucose 172.0 mg/dL Above high normal 06/05/2024 65 - 99 HHCCT POC Glucose 154.0 mg/dL Above high normal 06/05/2024 65 - 99 HHCCT Creat SerPl-mCnc 2.0 mg/dL Above high normal 06/05/2024 0.4 - 1.1 HHCCT CO2 SerPl-sCnc 28.0 mmol/L Normal 06/05/2024 22 - 33 HH CCT BUN SerPl-mCnc 53.0 mg/dL Above high normal 06/05/2024 8 - 2 1 HHCCT Chloride SerPl-sCnc 93.0 mmol/L Below low normal 06/05/2024 98 - 107 HHCCT Anion Gap Bld-sCnc 12.0 Normal 06/05/2024 7 - 17 HHCCT Potassium SerPl-sCnc 4.1 mmol/L Normal 06/05/2024 3.4 - 5.3 HHCCT Sodium SerPl-sCnc 133.0 mmol/L Below low normal 06/05/2024 1 36 - 145 HHCCT BUN/Creat SerPl 27.0 Ratio Above high normal 06/05/2024 10 - 25 HHCCT GFR/BSA.pred SerPlBld [id number] 24.0 Below low normal 06/05/2024 59 - HHCCT Calcium SerPl-mCnc 9.4 mg/dL Normal 06/05/2024 8.7 - 10.5 HHCCT Glucose SerPl-mCnc 137.0 mg/dL Above high normal 06/05/2024 65 - 99 HHCCT Magnesium SerPl-mCnc 2.1 mg/dL Normal 06/05/2024 1.6 - 2.7 HHCCT Phosphate SerPl-mCnc 4.6 mg/dL Above high normal 06/05/2024 2.7 - 4.5 HHCCT LMWH PPP Reconciliation Accountant-aCnc 0.53 IU/mL Normal 06/05/2024 HHCCT Anticoagulant IV HEPARIN, UNFRACTIONATED Normal 06/05/2024 HHCCT MCV RBC Auto 89.0 fL Normal 06/05/2024 80 - 100 HHCCT RBC num Bld Auto 3.05 Mil/uL Below low normal 06/05/2024 4 - 5.4 HHCCT WBC num Bld Auto 7.4 Thou/uL Normal 06/05/2024 4 - 11 HHCCT MCHC RBC Auto-mCnc 31.4 g/dL Normal 06/05/2024 30 - 36 HHCCT MCH RBC Qn Auto 27.9 pg Normal 06/05/2024 27 - [address] Platelet num Bld Auto 196.0 Thou/uL Normal 06/05/2024 150 - 450 HHCCT RDW RBC Auto-Rto 16.2 % Above high normal 06/05/2024 11.5 - 14.5 HHCCT Hgb Bld-mCnc 8.5 g/dL Below low normal 06/05/2024 11.7 - 15 .7 HHCCT PMV Bld Auto 10.2 fL Normal 06/05/2024 7.5 - 12.5 HHCCT Hct VFr Bld Auto 27.1 % Below low normal 06/05/2024 35 - 47 HHCCT POC Glucose 217.0 mg/dL Above high normal 06/05/2024 65 - 99 HHCCT POC Glucose 143.0 mg/dL Above high normal 06/04/2024 65 - 99 HHCCT POC Glucose 170.0 mg/dL Above high normal 06/04/2024 65 - 99 HHCCT POC Glucose 149.0 mg/dL Above high normal 06/04/2024 65 - 99 HHCCT Prothrombin time 15.4 seconds Above high normal 06/04/2024 1 0 - 13.5 HHCCT INR PPP 1.3 Normal 06/04/2024 HHCCT Anticoagulant Information not given Normal 06/04/2024 HHCCT Magnesium SerPl-mCnc 2.2 mg/dL Normal 06/04/2024 1.6 - 2.7 HHCCT Glucose SerPl-mCnc 136.0 mg/dL Above high normal 06/04/2024 65 - 99 HHCCT BUN/Creat SerPl 25.0 Ratio Normal 06/04/2024 10 - 25 HH CCT BUN SerPl-mCnc 47.0 mg/dL Above high normal 06/04/2024 8 - 2 1 HHCCT CO2 SerPl-sCnc 27.0 mmol/L Normal 06/04/2024 22 - 33 HH CCT Calcium SerPl-mCnc 9.4 mg/dL Normal 06/04/2024 8.7 - 10.5 HHCCT Potassium SerPl-sCnc 4.0 mmol/L Normal 06/04/2024 3.4 - 5.3 HHCCT GFR/BSA.pred SerPlBld [id number] 26.0 Below low normal 06/04/2024 59 - HHCCT Creat SerPl-mCnc 1.9 mg/dL Above high normal 06/04/2024 0.4 - 1.1 HHCCT Anion Gap Bld-sCnc 14.0 Normal 06/04/2024 7 - 17 HHCCT Sodium SerPl-sCnc 134.0 mmol/L Below low normal 06/04/2024 1 36 - 145 HHCCT Chloride SerPl-sCnc 93.0 mmol/L Below low normal 06/04/2024 98 - 107 HHCCT Phosphate SerPl-mCnc 3.9 mg/dL Normal 06/04/2024 2.7 - 4.5 HHCCT LMWH PPP Reconciliation Accountant-aCnc 0.54 IU/mL Normal 06/04/2024 HHCCT Anticoagulant IV HEPARIN, UNFRACTIONATED Normal 06/04/2024 HHCCT Monocytes num Bld Auto 0.53 Thou/uL Normal 06/04/2024 0.2 - 1.5 HHCCT MCH RBC Qn Auto 28.0 pg Normal 06/04/2024 27 - [address] Imm Granulocytes/leuk NFr Bld Auto 1.5 % Normal 06/04/2024 HHCCT Neutrophils/leuk NFr Bld Auto 72.6 % Normal 06/04/2024 HHCCT PMV Bld Auto 10.0 fL Normal 06/04/2024 7.5 - 12.5 HHCCT MCHC RBC Auto-mCnc 31.2 g/dL Normal 06/04/2024 30 - 36 HHCCT Neutrophils num Bld Auto 5.99 Thou/uL Normal 06/04/2024 2 - 7.5 HHCCT RDW RBC Auto-Rto 16.1 % Above high normal 06/04/2024 11.5 - 14.5 HHCCT Basophils/leuk NFr Bld Auto 1.1 % Normal 06/04/2024 HHCCT Hct VFr Bld Auto 28.2 % Below low normal 06/04/2024 35 - 47 HHCCT Lymphocytes num Bld Auto 1.01 Thou/uL Below low normal 06/04/2024 1.5 - 4.5 HHCCT Hgb Bld-mCnc 8.8 g/dL Below low normal 06/04/2024 11.7 - 15 .7 HHCCT Basophils num Bld Auto 0.09 Thou/uL Normal 06/04/2024 0 - 0.2 HHCCT Lymphocytes/leuk NFr Bld Auto 12.2 % Normal 06/04/2024 HHCCT Monocytes/leuk NFr Bld Auto 6.4 % Normal 06/04/2024 HHCCT Platelet num Bld Auto 231.0 Thou/uL Normal 06/04/2024 150 - 450 HHCCT Imm Granulocytes num Bld Auto 0.12 Thou/uL Above high normal 06/04/2024 0 - 0.1 HHCCT Eosinophil/leuk NFr Bld Auto 6.2 % Normal 06/04/2024 HHCCT MCV RBC Auto 90.0 fL Normal 06/04/2024 80 - 100 HHCCT Eosinophil num Bld Auto 0.51 Thou/uL Normal 06/04/2024 0 - 0.7 HHCCT RBC num Bld Auto 3.14 Mil/uL Below low normal 06/04/2024 4 - 5.4 HHCCT WBC num Bld Auto 8.3 Thou/uL Normal 06/04/2024 4 - 11 HHCCT POC Glucose 181.0 mg/dL Above high normal 06/04/2024 65 - 99 HHCCT POC Glucose 174.0 mg/dL Above high normal 06/03/2024 65 - 99 HHCCT POC Glucose 134.0 mg/dL Above high normal 06/03/2024 65 - 99 HHCCT POC Glucose 143.0 mg/dL Above high normal 06/03/2024 65 - 99 HHCCT pro BNP, N-terminal 8560.0 pg/mL Above high normal 4 - 450 HHCCT GFR/BSA.pred SerPlBld [id number] 30.0 Below low normal 06/03/2024 59 - HHCCT Chloride SerPl-sCnc 93.0 mmol/L Below low normal 06/03/2024 98 - 107 HHCCT Glucose SerPl-mCnc 134.0 mg/dL Above high normal 06/03/2024 65 - 99 HHCCT Anion Gap Bld-sCnc 12.0 Normal 06/03/2024 7 - 17 HHCCT CO2 SerPl-sCnc 28.0 mmol/L Normal 06/03/2024 22 - 33 HH CCT Potassium SerPl-sCnc 4.0 mmol/L Normal 06/03/2024 3.4 - 5.3 HHCCT Calcium SerPl-mCnc 9.3 mg/dL Normal 06/03/2024 8.7 - 10.5 HHCCT Creat SerPl-mCnc 1.7 mg/dL Above high normal 06/03/2024 0.4 - 1.1 HHCCT BUN/Creat SerPl 28.0 Ratio Above high normal 06/03/2024 10 - 25 HHCCT BUN SerPl-mCnc 47.0 mg/dL Above high normal 06/03/2024 8 - 2 1 HHCCT Sodium SerPl-sCnc 133.0 mmol/L Below low normal 06/03/2024 1 36 - 145 HHCCT Magnesium SerPl-mCnc 2.2 mg/dL Normal 06/03/2024 1.6 - 2.7 HHCCT Phosphate SerPl-mCnc 3.7 mg/dL Normal 06/03/2024 2.7 - 4.5 HHCCT LMWH PPP Reconciliation Accountant-aCnc 0.45 IU/mL Normal 06/03/2024 HHCCT Anticoagulant IV HEPARIN, UNFRACTIONATED Normal 06/03/2024 HHCCT RDW RBC Auto-Rto 15.9 % Above high normal 06/03/2024 11.5 - 14.5 HHCCT Platelet num Bld Auto 206.0 Thou/uL Normal 06/03/2024 150 - 450 HHCCT MCV RBC Auto 90.0 fL Normal 06/03/2024 80 - 100 HHCCT Hct VFr Bld Auto 28.4 % Below low normal 06/03/2024 35 - 47 HHCCT MCHC RBC Auto-mCnc 31.0 g/dL Normal 06/03/2024 30 - 36 HHCCT PMV Bld Auto 10.1 fL Normal 06/03/2024 7.5 - 12.5 HHCCT MCH RBC Qn Auto 27.8 pg Normal 06/03/2024 27 - [address] Hgb Bld-mCnc 8.8 g/dL Below low normal 06/03/2024 11.7 - 15 .7 HHCCT RBC num Bld Auto 3.16 Mil/uL Below low normal 06/03/2024 4 - 5.4 HHCCT WBC num Bld Auto 7.1 Thou/uL Normal 06/03/2024 4 - 11 HHCCT POC Glucose 165.0 mg/dL Above high normal 06/03/2024 65 - 99 HHCCT POC Glucose 137.0 mg/dL Above high normal 06/02/2024 65 - 99 HHCCT POC Glucose 162.0 mg/dL Above high normal 06/02/2024 65 - 99 HHCCT POC Glucose 137.0 mg/dL Above high normal 06/02/2024 65 - 99 HHCCT Creat SerPl-mCnc 1.6 mg/dL Above high normal 06/02/2024 0.4 - 1.1 HHCCT Chloride SerPl-sCnc 97.0 mmol/L Below low normal 06/02/2024 98 - 107 HHCCT Anion Gap Bld-sCnc 10.0 Normal 06/02/2024 7 - 17 HHCCT Calcium SerPl-mCnc 9.0 mg/dL Normal 06/02/2024 8.7 - 10.5 HHCCT Potassium SerPl-sCnc 4.1 mmol/L Normal 06/02/2024 3.4 - 5.3 HHCCT BUN SerPl-mCnc 49.0 mg/dL Above high normal 06/02/2024 8 - 2 1 HHCCT BUN/Creat SerPl 31.0 Ratio Above high normal 06/02/2024 10 - 25 HHCCT GFR/BSA.pred SerPlBld [id number] 32.0 Below low normal 06/02/2024 59 - HHCCT Sodium SerPl-sCnc 135.0 mmol/L Below low normal 06/02/2024 1 36 - 145 HHCCT CO2 SerPl-sCnc 28.0 mmol/L Normal 06/02/2024 22 - 33 HH CCT Glucose SerPl-mCnc 133.0 mg/dL Above high normal 06/02/2024 65 - 99 HHCCT Phosphate SerPl-mCnc 3.7 mg/dL Normal 06/02/2024 2.7 - 4.5 HHCCT Magnesium SerPl-mCnc 2.2 mg/dL Normal 06/02/2024 1.6 - 2.7 HHCCT LMWH PPP Reconciliation Accountant-aCnc 0.43 IU/mL Normal 06/02/2024 HHCCT Anticoagulant IV HEPARIN, UNFRACTIONATED Normal 06/02/2024 HHCCT RBC num Bld Auto 2.87 Mil/uL Below low normal 06/02/2024 4 - 5.4 HHCCT Hct VFr Bld Auto 26.3 % Below low normal 06/02/2024 35 - 47 HHCCT MCH RBC Qn Auto 27.5 pg Normal 06/02/2024 27 - [address] MCV RBC Auto 92.0 fL Normal 06/02/2024 80 - 100 HHCCT MCHC RBC Auto-mCnc 30.0 g/dL Normal 06/02/2024 30 - 36 HHCCT WBC num Bld Auto 7.3 Thou/uL Normal 06/02/2024 4 - 11 HHCCT Platelet num Bld Auto 194.0 Thou/uL Normal 06/02/2024 150 - 450 HHCCT RDW RBC Auto-Rto 15.8 % Above high normal 06/02/2024 11.5 - 14.5 HHCCT Hgb Bld-mCnc 7.9 g/dL Below low normal 06/02/2024 11.7 - 15 .7 HHCCT PMV Bld Auto 10.6 fL Normal 06/02/2024 7.5 - 12.5 HHCCT POC Glucose 175.0 mg/dL Above high normal 06/02/2024 65 - 99 HHCCT POC Glucose 142.0 mg/dL Above high normal 06/01/2024 65 - 99 HHCCT Magnesium SerPl-mCnc 2.4 mg/dL Normal 06/01/2024 1.6 - 2.7 HHCCT Glucose SerPl-mCnc 185.0 mg/dL Above high normal 06/01/2024 65 - 99 HHCCT BUN/Creat SerPl 33.0 Ratio Above high normal 06/01/2024 10 - 25 HHCCT Creat SerPl-mCnc 1.6 mg/dL Above high normal 06/01/2024 0.4 - 1.1 HHCCT Calcium SerPl-mCnc 9.1 mg/dL Normal 06/01/2024 8.7 - 10.5 HHCCT Sodium SerPl-sCnc 137.0 mmol/L Normal 06/01/2024 136 - 14 5 HHCCT Chloride SerPl-sCnc 96.0 mmol/L Below low normal 06/01/2024 98 - 107 HHCCT Anion Gap Bld-sCnc 13.0 Normal 06/01/2024 7 - 17 HHCCT BUN SerPl-mCnc 52.0 mg/dL Above high normal 06/01/2024 8 - 2 1 HHCCT CO2 SerPl-sCnc 28.0 mmol/L Normal 06/01/2024 22 - 33 HH CCT GFR/BSA.pred SerPlBld [id number] 32.0 Below low normal 06/01/2024 59 - HHCCT Potassium SerPl-sCnc 4.4 mmol/L Normal 06/01/2024 3.4 - 5.3 HHCCT Phosphate SerPl-mCnc 3.1 mg/dL Normal 06/01/2024 2.7 - 4.5 HHCCT POC Glucose 168.0 mg/dL Above high normal 06/01/2024 65 - 99 HHCCT LMWH PPP Reconciliation Accountant-aCnc 0.48 IU/mL Normal 06/01/2024 HHCCT Anticoagulant IV HEPARIN, UNFRACTIONATED Normal 06/01/2024 HHCCT POC Glucose 136.0 mg/dL Above high normal 06/01/2024 65 - 99 HHCCT LMWH PPP Reconciliation Accountant-aCnc 0.43 IU/mL Normal 06/01/2024 HHCCT Anticoagulant IV HEPARIN, UNFRACTIONATED Normal 06/01/2024 HHCCT POC Glucose 151.0 mg/dL Above high normal 06/01/2024 65 - 99 HHCCT pro BNP, N-terminal 48278.0 pg/mL Above high normal 06/01/20 24 - 450 HHCCT CO2 SerPl-sCnc 26.0 mmol/L Normal 06/01/2024 22 - 33 HH CCT BUN/Creat SerPl 36.0 Ratio Above high normal 06/01/2024 10 - 25 HHCCT Glucose SerPl-mCnc 121.0 mg/dL Above high normal 06/01/2024 65 - 99 HHCCT Chloride SerPl-sCnc 98.0 mmol/L Normal 06/01/2024 98 - 10 7 HHCCT BUN SerPl-mCnc 57.0 mg/dL Above high normal 06/01/2024 8 - 2 1 HHCCT GFR/BSA.pred SerPlBld [id number] 32.0 Below low normal 06/01/2024 59 - HHCCT Creat SerPl-mCnc 1.6 mg/dL Above high normal 06/01/2024 0.4 - 1.1 HHCCT Anion Gap Bld-sCnc 13.0 Normal 06/01/2024 7 - 17 HHCCT Calcium SerPl-mCnc 8.4 mg/dL Below low normal 06/01/2024 8.7 - 10.5 HHCCT Sodium SerPl-sCnc 137.0 mmol/L Normal 06/01/2024 136 - 14 5 HHCCT Potassium SerPl-sCnc 3.6 mmol/L Normal 06/01/2024 3.4 - 5.3 HHCCT Phosphate SerPl-mCnc 3.9 mg/dL Normal 06/01/2024 2.7 - 4.5 HHCCT Magnesium SerPl-mCnc 2.3 mg/dL Normal 06/01/2024 1.6 - 2.7 HHCCT RBC num Bld Auto 2.68 Mil/uL Below low normal 06/01/2024 4 - 5.4 HHCCT Eosinophil/leuk NFr Bld Auto 5.8 % Normal 06/01/2024 HHCCT Platelet num Bld Auto 162.0 Thou/uL Normal 06/01/2024 150 - 450 HHCCT MCV RBC Auto 91.0 fL Normal 06/01/2024 80 - 100 HHCCT Neutrophils/leuk NFr Bld Auto 70.9 % Normal 06/01/2024 HHCCT Imm Granulocytes num Bld Auto 0.15 Thou/uL Above high normal 06/01/2024 0 - 0.1 HHCCT Hgb Bld-mCnc 7.6 g/dL Below low normal 06/01/2024 11.7 - 15 .7 HHCCT Basophils/leuk NFr Bld Auto 1.0 % Normal 06/01/2024 HHCCT Monocytes/leuk NFr Bld Auto 6.7 % Normal 06/01/2024 HHCCT PMV Bld Auto 10.3 fL Normal 06/01/2024 7.5 - 12.5 HHCCT MCH RBC Qn Auto 28.4 pg Normal 06/01/2024 27 - [address] Basophils num Bld Auto 0.07 Thou/uL Normal 06/01/2024 0 - 0.2 HHCCT Hct VFr Bld Auto 24.3 % Below low normal 06/01/2024 35 - 47 HHCCT Monocytes num Bld Auto 0.48 Thou/uL Normal 06/01/2024 0.2 - 1.5 HHCCT MCHC RBC Auto-mCnc 31.3 g/dL Normal 06/01/2024 30 - 36 HHCCT Lymphocytes num Bld Auto 0.97 Thou/uL Below low normal 06/01/2024 1.5 - 4.5 [facility] Lymphocytes/leuk NFr Bld Auto 13.5 % Normal 06/01/2024 [facility] RDW RBC Auto-Rto 15.5 % Above high normal 06/01/2024 11.5 - 14.5 H[facility] Imm Granulocytes/leuk NFr Bld Auto 2.1 % Normal 06/01/2024 [facility] WBC num Bld Auto 7.2 Thou/uL Normal 06/01/2024 4 - 11 [facility] Neutrophils num Bld Auto 5.12 Thou/uL Normal 06/01/2024 2 - 7.5 H[facility]CT Eosinophil num Bld Auto 0.42 Thou/uL Normal 06/01/2024 0 - 0.7 [facility] POC Glucose 164.0 mg/dL Above high normal 06/01/2024 65 - 99 H[facility]CT BUN/Creat SerPl 37.0 Ratio Above high normal 05/31/2024 10 - 25 HHCCT Sodium SerPl-sCnc 139.0 mmol/L Normal 05/31/2024 136 - 14 5 H[facility]CT Potassium SerPl-sCnc 4.2 mmol/L Normal 05/31/2024 3.4 - 5.3 HHCCT Glucose SerPl-mCnc 158.0 mg/dL Above high normal 05/31/2024 65 - 99 HHCCT Calcium SerPl-mCnc 9.1 mg/dL Normal 05/31/2024 8.7 - 10.5 HHCCT GFR/BSA.pred SerPlBld [id number]-[id number] 30.0 Below low normal 05/31/2024 59 - HHCCT Creat SerPl-mCnc 1.7 mg/dL Above high normal 05/31/2024 0.4 - 1.1 HHCCT CO2 SerPl-sCnc 29.0 mmol/L Normal 05/31/2024 22 - 33 HH CCT BUN SerPl-mCnc 63.0 mg/dL Above high normal 05/31/2024 8 - 2 1 HHCCT Anion Gap Bld-sCnc 14.0 Normal 05/31/2024 7 - 17 H[facility]CT Chloride SerPl-sCnc 96.0 mmol/L Below low normal 05/31/2024 98 - 107 H[facility]CT LMWH PPP Reconciliation Accountant-aCnc 0.3 IU/mL Normal 05/31/2024 H[facility]CT Anticoagulant IV HEPARIN, UNFRACTIONATED Normal 05/31/2024 HHCCT POC Glucose 165.0 mg/dL Above high normal 05/31/2024 65 - 99 HHCCT GFR/BSA.pred SerPlBld HCO-WPJ-KfNBya 28.0 Below low normal 05/31/2024 59 - HHCCT Creat SerPl-mCnc 1.8 mg/dL Above high normal 05/31/2024 0.4 - 1.1 HHCCT Potassium SerPl-sCnc 4.1 mmol/L Normal 05/31/2024 3.4 - 5.3 HHCCT Magnesium SerPl-mCnc 2.3 mg/dL Normal 05/31/2024 1.6 - 2.7 HHCCT Phosphate SerPl-mCnc 4.3 mg/dL Normal 05/31/2024 2.7 - 4.5 HHCCT Prot SerPl-mCnc 6.9 g/dL Normal 05/31/2024 6.3 - 8.3 [facility] LDH SerPl L to P-cCnc 239.0 U/L Normal 05/31/2024 120 - 260 [facility] POC Glucose 206.0 mg/dL Above high normal 05/31/2024 65 - 99 [facility] LMWH PPP Reconciliation Accountant-aCnc <0.04 IU/mL Normal 05/31/2024 [facility] Anticoagulant IV HEPARIN, UNFRACTIONATED Normal 05/31/2024 [facility] POC Glucose 148.0 mg/dL Above high normal 05/31/2024 65 - 99 [facility] Appearance Fld Cloudy Normal 05/31/2024 [facility] T Color Fld [place] Normal 05/31/2024 [facility] Eosinophil/leuk NFr Fld Manual 2.0 % Normal 05/31/2024 [facility] Histiocytes/leuk NFr Fld 22.0 % Normal 05/31/2024 [facility] Monocytes/leuk NFr Fld 3.0 % Normal 05/31/2024 [facility] Basophils/leuk NFr Fld Manual 5.0 % Normal 05/31/2024 [facility] Neutrophil, Fluid 18.0 % Normal 05/31/2024 [facility] Cell Fract Fld-Imp The reference interval and other method performance specifications are unavailable for this body fluid. Comparison of the result with concentration in the blood, serum, or plasma is recommended Normal 05/31/2024 [facility] Lymphocyte, Fluid 43.0 % Normal 05/31/2024 [facility] [place] Cell/leuk NFr Fld Manual 7.0 % Normal 05/31/2024 [facility] Nuc cell num Fld Auto 2024.0 /CUMM Normal 05/31/2024 [facility] RBC num Fld Auto 92174.0 /CUMM Normal 05/31/2024 [facility] Glucose Fld-mCnc 143.0 mg/dL Normal 05/31/2024 [facility] Fluid Source PLEURAL Normal 05/31/2024 [facility] LDH Fld L to P-cCnc 196.0 U/L Normal 05/31/2024 [facility] Fluid Source PLEURAL Normal 05/31/2024 [facility] Prot Fld-mCnc 1.7 g/dL Normal 05/31/2024 [facility] Fluid Source PLEURAL Normal 05/31/2024 [facility] pH Fld 7.39 Normal 05/31/2024 [facility] Fluid Source PLEURAL Normal 05/31/2024 H[facility] pro BNP, N-terminal 06525.0 pg/mL Above high normal 05/31/20 24 - 450 [facility] Magnesium SerPl-mCnc 2.5 mg/dL Normal 05/31/2024 1.6 - 2.7 H[facility]CT Phosphate SerPl-mCnc 4.3 mg/dL Normal 05/31/2024 2.7 - 4.5 HHCCT GFR/BSA.pred SerPlBld HCQ-GNC-JuKKrg 30.0 Below low normal 05/31/2024 59 - HHCCT BUN SerPl-mCnc 64.0 mg/dL Above high normal 05/31/2024 8 - 2 1 H[facility]CT Creat SerPl-mCnc 1.7 mg/dL Above high normal 05/31/2024 0.4 - 1.1 [facility]CT Anion Gap Bld-sCnc 15.0 Normal 05/31/2024 7 - 17 H[facility]CT BUN/Creat SerPl 38.0 Ratio Above high normal 05/31/2024 10 - 25 H[facility]CT Chloride SerPl-sCnc 97.0 mmol/L Below low normal 05/31/2024 98 - 107 [facility]CT Potassium SerPl-sCnc 3.8 mmol/L Normal 05/31/2024 3.4 - 5.3 [facility]CT Calcium SerPl-mCnc 8.9 mg/dL Normal 05/31/2024 8.7 - 10.5 [facility]CT Glucose SerPl-mCnc 140.0 mg/dL Above high normal 05/31/2024 65 - 99 HHCCT CO2 SerPl-sCnc 25.0 mmol/L Normal 05/31/2024 22 - 33 HH CCT Sodium SerPl-sCnc 137.0 mmol/L Normal 05/31/2024 136 - 14 5 H[facility]CT LMWH PPP Reconciliation Accountant-aCnc 0.39 IU/mL Normal 05/31/2024 [facility] Anticoagulant IV HEPARIN, UNFRACTIONATED Normal 05/30/2024 [facility]CT Neutrophils num Bld Auto 5.79 Thou/uL Normal 05/31/2024 2 - 7.5 [facility]CT Lymphocytes/leuk NFr Bld Auto 13.3 % Normal 05/31/2024 [facility] Basophils/leuk NFr Bld Auto 0.9 % Normal 05/31/2024 [facility] RDW RBC Auto-Rto 15.5 % Above high normal 05/31/2024 11.5 - 14.5 HHCCT Monocytes num Bld Auto 0.8 Thou/uL Normal 05/31/2024 0.2 - 1.5 H[facility]CT Platelet num Bld Auto 162.0 Thou/uL Normal 05/31/2024 150 - 450 [facility]CT Hgb Bld-mCnc 8.3 g/dL Below low normal 05/31/2024 11.7 - 15 .7 HHCCT PMV Bld Auto 10.5 fL Normal 05/31/2024 7.5 - 12.5 H[facility]CT Eosinophil/leuk NFr Bld Auto 5.8 % Normal 05/31/2024 [facility] MCH RBC Qn Auto 28.4 pg Normal 05/31/2024 27 - [address] RBC num Bld Auto 2.92 Mil/uL Below low normal 05/31/2024 4 - 5.4 HHCCT Lymphocytes num Bld Auto 1.13 Thou/uL Below low normal 05/31/2024 1.5 - 4.5 HHCCT Hct VFr Bld Auto 27.0 % Below low normal 05/31/2024 35 - 47 HHCCT WBC num Bld Auto 8.5 Thou/uL Normal 05/31/2024 4 - 11 H[facility]CT Monocytes/leuk NFr Bld Auto 9.4 % Normal 05/31/2024 H[facility]CT Imm Granulocytes/leuk NFr Bld Auto 2.2 % Normal 05/31/2024 H[facility]CT Imm Granulocytes num Bld Auto 0.19 Thou/uL Above high normal 05/31/2024 0 - 0.1 HHCCT Neutrophils/leuk NFr Bld Auto 68.4 % Normal 05/31/2024 H[facility]CT MCHC RBC Auto-mCnc 30.7 g/dL Normal 05/31/2024 30 - 36 H[facility]CT MCV RBC Auto 93.0 fL Normal 05/31/2024 80 - 100 H[facility]CT Eosinophil num Bld Auto 0.49 Thou/uL Normal 05/31/2024 0 - 0.7 HHCCT Basophils num Bld Auto 0.08 Thou/uL Normal 05/31/2024 0 - 0.2 HHCCT POC Glucose 147.0 mg/dL Above high normal 05/31/2024 65 - 99 HHCCT LMWH PPP Reconciliation Accountant-aCnc 0.36 IU/mL Normal 05/31/2024 H[facility]CT Anticoagulant IV HEPARIN, UNFRACTIONATED Normal 05/30/2024 [facility]CT POC Glucose 169.0 mg/dL Above high normal 05/31/2024 65 - 99 H[facility]CT POC Glucose 156.0 mg/dL Above high normal 05/30/2024 65 - 99 HHCCT Anion Gap Bld-sCnc 13.0 Normal 05/30/2024 7 - 17 HHCCT Sodium SerPl-sCnc 141.0 mmol/L Normal 05/30/2024 136 - 14 5 HHCCT Glucose SerPl-mCnc 146.0 mg/dL Above high normal 05/30/2024 65 - 99 HHCCT BUN/Creat SerPl 39.0 Ratio Above high normal 05/30/2024 10 - 25 HHCCT CO2 SerPl-sCnc 28.0 mmol/L Normal 05/30/2024 22 - 33 HH CCT Creat SerPl-mCnc 1.7 mg/dL Above high normal 05/30/2024 0.4 - 1.1 HHCCT BUN SerPl-mCnc 66.0 mg/dL Above high normal 05/30/2024 8 - 2 1 HHCCT Chloride SerPl-sCnc 100.0 mmol/L Normal 05/30/2024 98 - 1 07 HHCCT Calcium SerPl-mCnc 9.1 mg/dL Normal 05/30/2024 8.7 - 10.5 HHCCT Potassium SerPl-sCnc 4.1 mmol/L Normal 05/30/2024 3.4 - 5.3 HHCCT GFR/BSA.pred SerPlBld QTL-AMC-MoXYuv 30.0 Below low normal 05/30/2024 59 - HHCCT Magnesium SerPl-mCnc 2.7 mg/dL Normal 05/30/2024 1.6 - 2.7 HHCCT Phosphate SerPl-mCnc 4.0 mg/dL Normal 05/30/2024 2.7 - 4.5 HHCCT POC Glucose 160.0 mg/dL Above high normal 05/30/2024 65 - 99 HHCCT POC Glucose 130.0 mg/dL Above high normal 05/30/2024 65 - 99 HHCCT POC Glucose 133.0 mg/dL Above high normal 05/30/2024 65 - 99 HHCCT Globulin Ser Calc-mCnc 3.6 g/dL Normal 05/30/2024 1.5 - 3.9 HHCCT AST SerPl-cCnc 24.0 U/L Normal 05/30/2024 10 - 50 HH[facility] T ALP SerPl-cCnc 156.0 U/L Above high normal 05/30/2024 32 - 1 22 HHCCT Albumin SerPl-mCnc 3.3 g/dL Below low normal 05/30/2024 3.4 - 4.8 HHCCT Prot SerPl-mCnc 6.9 g/dL Normal 05/30/2024 6.3 - 8.[address] Bilirub SerPl-mCnc 0.5 mg/dL Normal 05/30/2024 0.2 - 1 HHCCT ALT SerPl-cCnc 10.0 U/L Normal 05/30/2024 10 - 50 [facility] T Albumin/Glob SerPl 0.9 Ratio Below low normal 05/30/2024 1 - 3 HHCCT Bilirub Direct SerPl-mCnc 0.3 mg/dL Above high normal 05/30/2024 0 - 0.2 HHCCT Creat SerPl-mCnc 1.9 mg/dL Above high normal 05/30/2024 0.4 - 1.1 HHCCT Chloride SerPl-sCnc 100.0 mmol/L Normal 05/30/2024 98 - 1 07 HHCCT Glucose SerPl-mCnc 121.0 mg/dL Above high normal 05/30/2024 65 - 99 HHCCT BUN SerPl-mCnc 72.0 mg/dL Above high normal 05/30/2024 8 - 2 1 HHCCT Potassium SerPl-sCnc 4.1 mmol/L Normal 05/30/2024 3.4 - 5.3 HHCCT GFR/BSA.pred SerPlBld [id number]-RpIJed 26.0 Below low normal 05/30/2024 59 - HHCCT Calcium SerPl-mCnc 9.2 mg/dL Normal 05/30/2024 8.7 - 10.5 HHCCT Sodium SerPl-sCnc 141.0 mmol/L Normal 05/30/2024 136 - 14 5 HHCCT CO2 SerPl-sCnc 30.0 mmol/L Normal 05/30/2024 22 - 33 HH CCT Anion Gap Bld-sCnc 11.0 Normal 05/30/2024 7 - 17 HHCCT BUN/Creat SerPl 38.0 Ratio Above high normal 05/30/2024 10 - 25 HHCCT pro BNP, N-terminal 95521.0 pg/mL Above high normal 05/30/20 24 - 450 H[facility]CT Magnesium SerPl-mCnc 2.7 mg/dL Normal 05/30/2024 1.6 - 2.7 HHCCT Phosphate SerPl-mCnc 4.4 mg/dL Normal 05/30/2024 2.7 - 4.5 HHCCT LMWH PPP Reconciliation Accountant-aCnc 0.36 IU/mL Normal 05/30/2024 HHCCT Anticoagulant IV HEPARIN, UNFRACTIONATED Normal 05/30/2024 HHCCT Hct VFr Bld Auto 27.0 % Below low normal 05/30/2024 35 - 47 HHCCT MCV RBC Auto 93.0 fL Normal 05/30/2024 80 - 100 H[facility]CT Platelet num Bld Auto 164.0 Thou/uL Normal 05/30/2024 150 - 450 HHCCT Hgb Bld-mCnc 8.1 g/dL Below low normal 05/30/2024 11.7 - 15 .7 HHCCT WBC num Bld Auto 8.7 Thou/uL Normal 05/30/2024 4 - 11 HHCCT MCH RBC Qn Auto 27.8 pg Normal 05/30/2024 27 - [address] RBC num Bld Auto 2.91 Mil/uL Below low normal 05/30/2024 4 - 5.4 HHCCT PMV Bld Auto 10.4 fL Normal 05/30/2024 7.5 - 12.5 HHCCT MCHC RBC Auto-mCnc 30.0 g/dL Normal 05/30/2024 30 - 36 HHCCT RDW RBC Auto-Rto 15.7 % Above high normal 05/30/2024 11.5 - 14.5 HHCCT POC Glucose 136.0 mg/dL Above high normal 05/30/2024 65 - 99 HHCCT POC Glucose 144.0 mg/dL Above high normal 05/30/2024 65 - 99 HHCCT POC Glucose 163.0 mg/dL Above high normal 05/29/2024 65 - 99 HHCCT Anion Gap Bld-sCnc 14.0 Normal 05/29/2024 7 - 17 HHCCT Chloride SerPl-sCnc 100.0 mmol/L Normal 05/29/2024 98 - 1 07 HHCCT BUN SerPl-mCnc 69.0 mg/dL Above high normal 05/29/2024 8 - 2 1 HHCCT Potassium SerPl-sCnc 4.1 mmol/L Normal 05/29/2024 3.4 - 5.3 HHCCT BUN/Creat SerPl 38.0 Ratio Above high normal 05/29/2024 10 - 25 HHCCT Glucose SerPl-mCnc 133.0 mg/dL Above high normal 05/29/2024 65 - 99 HHCCT GFR/BSA.pred SerPlBld HRG-ERA-EsTGwd 28.0 Below low normal 05/29/2024 59 - HHCCT Creat SerPl-mCnc 1.8 mg/dL Above high normal 05/29/2024 0.4 - 1.1 HHCCT CO2 SerPl-sCnc 28.0 mmol/L Normal 05/29/2024 22 - 33 HH CCT Calcium SerPl-mCnc 9.3 mg/dL Normal 05/29/2024 8.7 - 10.5 HHCCT Sodium SerPl-sCnc 142.0 mmol/L Normal 05/29/2024 136 - 14 5 HHCCT Magnesium SerPl-mCnc 2.7 mg/dL Normal 05/29/2024 1.6 - 2.7 HHCCT Phosphate SerPl-mCnc 4.3 mg/dL Normal 05/29/2024 2.7 - 4.5 HHCCT POC Glucose 138.0 mg/dL Above high normal 05/29/2024 65 - 99 HHCCT POC Glucose 160.0 mg/dL Above high normal 05/29/2024 65 - 99 HHCCT POC Glucose 159.0 mg/dL Above high normal 05/29/2024 65 - 99 HHCCT pro BNP, N-terminal 53285.0 pg/mL Above high normal 05/29/20 24 - 450 HHCCT Phosphate SerPl-mCnc 4.2 mg/dL Normal 05/29/2024 2.7 - 4.5 HHCCT Glucose SerPl-mCnc 136.0 mg/dL Above high normal 05/29/2024 65 - 99 HHCCT BUN SerPl-mCnc 69.0 mg/dL Above high normal 05/29/2024 8 - 2 1 HHCCT Creat SerPl-mCnc 1.7 mg/dL Above high normal 05/29/2024 0.4 - 1.1 HHCCT Calcium SerPl-mCnc 8.7 mg/dL Normal 05/29/2024 8.7 - 10.5 HHCCT CO2 SerPl-sCnc 27.0 mmol/L Normal 05/29/2024 22 - 33 HH CCT Sodium SerPl-sCnc 146.0 mmol/L Above high normal 05/29/2024 136 - 145 HHCCT Anion Gap Bld-sCnc 14.0 Normal 05/29/2024 7 - 17 HHCCT Chloride SerPl-sCnc 105.0 mmol/L Normal 05/29/2024 98 - 1 07 HHCCT Potassium SerPl-sCnc 4.1 mmol/L Normal 05/29/2024 3.4 - 5.3 HHCCT BUN/Creat SerPl 41.0 Ratio Above high normal 05/29/2024 10 - 25 HHCCT GFR/BSA.pred SerPlBld ZWD-QJP-GkVXas 30.0 Below low normal 05/29/2024 59 - HHCCT Magnesium SerPl-mCnc 2.6 mg/dL Normal 05/29/2024 1.6 - 2.7 HHCCT LMWH PPP Reconciliation Accountant-aCnc 0.38 IU/mL Normal 05/29/2024 HHCCT Anticoagulant HEPARIN, LOW MOLECULAR WEIGHT Normal 05/29/2024 HHCCT MCHC RBC Auto-mCnc 30.6 g/dL Normal 05/29/2024 30 - 36 HHCCT MCH RBC Qn Auto 28.0 pg Normal 05/29/2024 27 - [address] Platelet num Bld Auto 148.0 Thou/uL Below low normal 05/29/2024 150 - 450 HHCCT MCV RBC Auto 91.0 fL Normal 05/29/2024 80 - 100 HHCCT RDW RBC Auto-Rto 15.9 % Above high normal 05/29/2024 11.5 - 14.5 HHCCT PMV Bld Auto 10.4 fL Normal 05/29/2024 7.5 - 12.5 HHCCT Hct VFr Bld Auto 25.5 % Below low normal 05/29/2024 35 - 47 HHCCT Hgb Bld-mCnc 7.8 g/dL Below low normal 05/29/2024 11.7 - 15 .7 HHCCT RBC num Bld Auto 2.79 Mil/uL Below low normal 05/29/2024 4 - 5.4 HHCCT WBC num Bld Auto 7.7 Thou/uL Normal 05/29/2024 4 - 11 HHCCT POC Glucose 156.0 mg/dL Above high normal 05/29/2024 65 - 99 HHCCT POC Glucose 152.0 mg/dL Above high normal 05/29/2024 65 - 99 HHCCT POC Glucose 118.0 mg/dL Above high normal 05/29/2024 65 - 99 HHCCT POC Glucose 110.0 mg/dL Above high normal 05/28/2024 65 - 99 HHCCT Phosphate SerPl-mCnc 3.7 mg/dL Normal 05/28/2024 2.7 - 4.5 HHCCT Magnesium SerPl-mCnc 2.4 mg/dL Normal 05/28/2024 1.6 - 2.7 HHCCT Calcium SerPl-mCnc 8.4 mg/dL Below low normal 05/28/2024 8.7 - 10.5 HHCCT Glucose SerPl-mCnc 137.0 mg/dL Above high normal 05/28/2024 65 - 99 HHCCT Potassium SerPl-sCnc 4.0 mmol/L Normal 05/28/2024 3.4 - 5.3 HHCCT Chloride SerPl-sCnc 104.0 mmol/L Normal 05/28/2024 98 - 1 07 HHCCT CO2 SerPl-sCnc 26.0 mmol/L Normal 05/28/2024 22 - 33 HH CCT BUN/Creat SerPl 39.0 Ratio Above high normal 05/28/2024 10 - 25 HHCCT BUN SerPl-mCnc 66.0 mg/dL Above high normal 05/28/2024 8 - 2 1 HHCCT Sodium SerPl-sCnc 143.0 mmol/L Normal 05/28/2024 136 - 14 5 HHCCT Anion Gap Bld-sCnc 13.0 Normal 05/28/2024 7 - 17 HHCCT GFR/BSA.pred SerPlBld RZU-RND-EiFErt 30.0 Below low normal 05/28/2024 59 - HHCCT Creat SerPl-mCnc 1.7 mg/dL Above high normal 05/28/2024 0.4 - 1.1 HHCCT Prothrombin time 22.3 seconds Above high normal 05/28/2024 1 0 - 13.5 HHCCT INR PPP 1.9 Normal 05/28/2024 HHCCT Anticoagulant IV HEPARIN, UNFRACTIONATED Normal 05/28/2024 HHCCT POC Glucose 195.0 mg/dL Above high normal 05/28/2024 65 - 99 HHCCT SaO2 % BldA 99.3 % Above high normal 05/28/2024 94 - 97 HHCCT pCO2, Arterial 44.0 mmHG Normal 05/28/2024 32 - 45 [facility] T P/F Ratio 253.0 Normal 05/28/2024 HHCCT pO2, Arterial 101.0 mmHG Above high normal 05/28/2024 75 - 9 5 HHCCT Hgb Bld-mCnc 8.2 g/dL Below low normal 05/28/2024 11.7 - 15 .[address] VFr BldA Calc 11.4 mL/dL Below low normal 05/28/2024 1 5.7 - 21.6 HHCCT pH, Arterial 7.42 Normal 05/28/2024 7.35 - 7.45 HHCC T COHgb MFr Bld 2.3 % Above high normal 05/28/2024 0 - 2 HHCCT MetHgb MFr Bld 0.5 % Normal 05/28/2024 0.4 - 1.5 [facility] T Total CO2, Arterial 29.0 mmol/L Above high normal 05/28/2024 22 - 28 HHCCT Base excess BldA Calc-sCnc 3.7 mmol/L Normal 05/28/2024 HHCCT Respiratory Information VENT 40% Normal 05/28/2024 HHCCT POC Glucose 172.0 mg/dL Above high normal 05/28/2024 65 - 99 HHCCT POC Glucose 185.0 mg/dL Above high normal 05/28/2024 65 - 99 HHCCT POC Glucose 184.0 mg/dL Above high normal 05/28/2024 65 - 99 HHCCT Chloride SerPl-sCnc 101.0 mmol/L Normal 05/28/2024 98 - 1 07 HHCCT BUN SerPl-mCnc 67.0 mg/dL Above high normal 05/28/2024 8 - 2 1 HHCCT Glucose SerPl-mCnc 163.0 mg/dL Above high normal 05/28/2024 65 - 99 HHCCT Creat SerPl-mCnc 2.0 mg/dL Above high normal 05/28/2024 0.4 - 1.1 HHCCT Potassium SerPl-sCnc 4.2 mmol/L Normal 05/28/2024 3.4 - 5.3 HHCCT BUN/Creat SerPl 34.0 Ratio Above high normal 05/28/2024 10 - 25 HHCCT GFR/BSA.pred SerPlBld TQF-HDR-NpODxa 24.0 Below low normal 05/28/2024 59 - HHCCT Anion Gap Bld-sCnc 11.0 Normal 05/28/2024 7 - 17 HHCCT CO2 SerPl-sCnc 26.0 mmol/L Normal 05/28/2024 22 - 33 HH CCT Calcium SerPl-mCnc 8.6 mg/dL Below low normal 05/28/2024 8.7 - 10.5 HHCCT Sodium SerPl-sCnc 138.0 mmol/L Normal 05/28/2024 136 - 14 5 HHCCT Phosphate SerPl-mCnc 3.6 mg/dL Normal 05/28/2024 2.7 - 4.5 HHCCT pro BNP, N-terminal 37033.0 pg/mL Above high normal 05/28/20 24 - 450 HHCCT Magnesium SerPl-mCnc 2.4 mg/dL Normal 05/28/2024 1.6 - 2.7 HHCCT LMWH PPP Reconciliation Accountant-aCnc 0.3 IU/mL Normal 05/28/2024 HHCCT Anticoagulant IV HEPARIN, UNFRACTIONATED Normal 05/28/2024 HHCCT RBC num Bld Auto 2.74 Mil/uL Below low normal 05/28/2024 4 - 5.4 HHCCT Hgb Bld-mCnc 7.6 g/dL Below low normal 05/28/2024 11.7 - 15 .7 HHCCT RDW RBC Auto-Rto 15.9 % Above high normal 05/28/2024 11.5 - 14.5 HHCCT Hct VFr Bld Auto 24.8 % Below low normal 05/28/2024 35 - 47 HHCCT MCV RBC Auto 91.0 fL Normal 05/28/2024 80 - 100 HHCCT PMV Bld Auto 10.9 fL Normal 05/28/2024 7.5 - 12.5 HHCCT Platelet num Bld Auto 123.0 Thou/uL Below low normal 05/28/2024 150 - 450 HHCCT MCHC RBC Auto-mCnc 30.6 g/dL Normal 05/28/2024 30 - 36 HHCCT MCH RBC Qn Auto 27.7 pg Normal 05/28/2024 27 - [address] WBC num Bld Auto 8.6 Thou/uL Normal 05/28/2024 4 - 11 HHCCT POC Glucose 206.0 mg/dL Above high normal 05/28/2024 65 - 99 HHCCT POC Glucose 177.0 mg/dL Above high normal 05/27/2024 65 - 99 HHCCT BUN/Creat SerPl 31.0 Ratio Above high normal 05/27/2024 10 - 25 HHCCT BUN SerPl-mCnc 66.0 mg/dL Above high normal 05/27/2024 8 - 2 1 HHCCT Potassium SerPl-sCnc 3.6 mmol/L Normal 05/27/2024 3.4 - 5.3 HHCCT Creat SerPl-mCnc 2.1 mg/dL Above high normal 05/27/2024 0.4 - 1.1 HHCCT GFR/BSA.pred SerPlBld [id number] 23.0 Below low normal 05/27/2024 59 - HHCCT Chloride SerPl-sCnc 100.0 mmol/L Normal 05/27/2024 98 - 1 07 HHCCT Glucose SerPl-mCnc 172.0 mg/dL Above high normal 05/27/2024 65 - 99 HHCCT Sodium SerPl-sCnc 138.0 mmol/L Normal 05/27/2024 136 - 14 5 HHCCT CO2 SerPl-sCnc 25.0 mmol/L Normal 05/27/2024 22 - 33 HH CCT Calcium SerPl-mCnc 8.4 mg/dL Below low normal 05/27/2024 8.7 - 10.5 HHCCT Anion Gap Bld-sCnc 13.0 Normal 05/27/2024 7 - 17 HHCCT Phosphate SerPl-mCnc 3.6 mg/dL Normal 05/27/2024 2.7 - 4.5 HHCCT Magnesium SerPl-mCnc 2.3 mg/dL Normal 05/27/2024 1.6 - 2.7 HHCCT Hct VFr Bld Auto 24.1 % Below low normal 05/27/2024 35 - 47 HHCCT Hgb Bld-mCnc 7.5 g/dL Below low normal 05/27/2024 11.7 - 15 .7 HHCCT POC Glucose 180.0 mg/dL Above high normal 05/27/2024 65 - 99 HHCCT Hgb Bld-mCnc 7.1 g/dL Below low normal 05/27/2024 11.7 - 15 .7 HHCCT Hct VFr Bld Auto 23.3 % Below low normal 05/27/2024 35 - 47 HHCCT POC Glucose 197.0 mg/dL Above high normal 05/27/2024 65 - 99 HHCCT Hgb Bld-mCnc 7.0 g/dL Below low normal 05/27/2024 11.7 - 15 .7 HHCCT Hct VFr Bld Auto 22.8 % Below low normal 05/27/2024 35 - 47 HHCCT POC Glucose 230.0 mg/dL Above high normal 05/27/2024 65 - 99 HHCCT POC Glucose 193.0 mg/dL Above high normal 05/27/2024 65 - 99 HHCCT POC Glucose 179.0 mg/dL Above high normal 05/27/2024 65 - 99 HHCCT Magnesium SerPl-mCnc 2.2 mg/dL Normal 05/27/2024 1.6 - 2.7 HHCCT BUN/Creat SerPl 30.0 Ratio Above high normal 05/27/2024 10 - 25 HHCCT Sodium SerPl-sCnc 136.0 mmol/L Normal 05/27/2024 136 - 14 5 HHCCT Creat SerPl-mCnc 2.1 mg/dL Above high normal 05/27/2024 0.4 - 1.1 HHCCT Glucose SerPl-mCnc 179.0 mg/dL Above high normal 05/27/2024 65 - 99 HHCCT CO2 SerPl-sCnc 25.0 mmol/L Normal 05/27/2024 22 - 33 HH CCT Calcium SerPl-mCnc 8.4 mg/dL Below low normal 05/27/2024 8.7 - 10.5 HHCCT Anion Gap Bld-sCnc 13.0 Normal 05/27/2024 7 - 17 HHCCT GFR/BSA.pred SerPlBld [id number] 23.0 Below low normal 05/27/2024 59 - HHCCT Chloride SerPl-sCnc 98.0 mmol/L Normal 05/27/2024 98 - 10 7 HHCCT BUN SerPl-mCnc 63.0 mg/dL Above high normal 05/27/2024 8 - 2 1 HHCCT Potassium SerPl-sCnc 3.7 mmol/L Normal 05/27/2024 3.4 - 5.3 HHCCT Phosphate SerPl-mCnc 3.6 mg/dL Normal 05/27/2024 2.7 - 4.5 HHCCT pro BNP, N-terminal 91468.0 pg/mL Above high normal 05/27/20 24 - 450 HHCCT LMWH PPP Reconciliation Accountant-aCnc 0.37 IU/mL Normal 05/27/2024 HHCCT Anticoagulant IV HEPARIN, UNFRACTIONATED Normal 05/27/2024 HHCCT Hct VFr Bld Auto 23.3 % Below low normal 05/27/2024 35 - 47 HHCCT RDW RBC Auto-Rto 15.9 % Above high normal 05/27/2024 11.5 - 14.5 HHCCT Hgb Bld-mCnc 7.3 g/dL Below low normal 05/27/2024 11.7 - 15 .7 HHCCT Platelet num Bld Auto 112.0 Thou/uL Below low normal 05/27/2024 150 - 450 HHCCT RBC num Bld Auto 2.52 Mil/uL Below low normal 05/27/2024 4 - 5.4 HHCCT WBC num Bld Auto 9.6 Thou/uL Normal 05/27/2024 4 - 11 HHCCT MCV RBC Auto 93.0 fL Normal 05/27/2024 80 - 100 HHCCT MCHC RBC Auto-mCnc 31.3 g/dL Normal 05/27/2024 30 - 36 HHCCT MCH RBC Qn Auto 29.0 pg Normal 05/27/2024 27 - [address] PMV Bld Auto 10.8 fL Normal 05/27/2024 7.5 - 12.5 HHCCT POC Glucose 217.0 mg/dL Above high normal 05/27/2024 65 - 99 HHCCT POC Glucose 171.0 mg/dL Above high normal 05/26/2024 65 - 99 HHCCT Phosphate SerPl-mCnc 4.0 mg/dL Normal 05/26/2024 2.7 - 4.5 HHCCT Potassium SerPl-sCnc 3.6 mmol/L Normal 05/26/2024 3.4 - 5.3 HHCCT BUN/Creat SerPl 27.0 Ratio Above high normal 05/26/2024 10 - 25 HHCCT Calcium SerPl-mCnc 8.5 mg/dL Below low normal 05/26/2024 8.7 - 10.5 HHCCT Sodium SerPl-sCnc 135.0 mmol/L Below low normal 05/26/2024 1 36 - 145 HHCCT CO2 SerPl-sCnc 25.0 mmol/L Normal 05/26/2024 22 - 33 HH CCT Chloride SerPl-sCnc 97.0 mmol/L Below low normal 05/26/2024 98 - 107 HHCCT Glucose SerPl-mCnc 166.0 mg/dL Above high normal 05/26/2024 65 - 99 HHCCT GFR/BSA.pred SerPlBld [id number] 23.0 Below low normal 05/26/2024 59 - HHCCT BUN SerPl-mCnc 56.0 mg/dL Above high normal 05/26/2024 8 - 2 1 HHCCT Anion Gap Bld-sCnc 13.0 Normal 05/26/2024 7 - 17 HHCCT Creat SerPl-mCnc 2.1 mg/dL Above high normal 05/26/2024 0.4 - 1.1 HHCCT Magnesium SerPl-mCnc 2.1 mg/dL Normal 05/26/2024 1.6 - 2.7 HHCCT Hgb Bld-mCnc 7.3 g/dL Below low normal 05/26/2024 11.7 - 15 .7 HHCCT pH BldV 7.4 Normal 05/26/2024 7.33 - 7.43 HHCCT pO2 BldV 57.0 mmHG Normal 05/26/2024 0 - 60 HHCCT SaO2 % BldV from pO2 90.9 % Normal 05/26/2024 HHCCT pCO2 BldV 46.0 mmHG Normal 05/26/2024 35 - 50 HHCCT CO2 BldV-sCnc 29.0 mmol/L Normal 05/26/2024 23 - [address] MetHgb MFr Bld 0.7 % Normal 05/26/2024 0.4 - 1.5 HHCC T COHgb MFr Bld 2.0 % Normal 05/26/2024 0 - [address] VFr BldV Calc 9.2 mL/dL Normal 05/26/2024 7.2 - 17. 2 HHCCT Base excess BldA Calc-sCnc 2.8 mmol/L Normal 05/26/2024 HHCCT Respiratory Information VENT 40% Normal 05/26/2024 HHCCT POC Glucose 205.0 mg/dL Above high normal 05/26/2024 65 - 99 HHCCT POC Glucose 181.0 mg/dL Above high normal 05/26/2024 65 - 99 HHCCT Hct VFr Bld Auto 24.7 % Below low normal 05/26/2024 35 - 47 HHCCT Hgb Bld-mCnc 7.7 g/dL Below low normal 05/26/2024 11.7 - 15 .7 HHCCT INR PPP 3.1 Normal 05/26/2024 HHCCT Prothrombin time 36.4 seconds Above high normal 05/26/2024 1 0 - 13.5 HHCCT Anticoagulant WARFARIN (COUMADIN) Normal 05/26/2024 HHCCT LMWH PPP Reconciliation Accountant-aCnc 0.44 IU/mL Normal 05/26/2024 HHCCT Anticoagulant IV HEPARIN, UNFRACTIONATED Normal 05/26/2024 HHCCT POC Glucose 201.0 mg/dL Above high normal 05/26/2024 65 - 99 HHCCT LMWH PPP Reconciliation Accountant-aCnc 0.41 IU/mL Normal 05/26/2024 HHCCT Anticoagulant IV HEPARIN, UNFRACTIONATED Normal 05/26/2024 HHCCT POC Glucose 154.0 mg/dL Above high normal 05/26/2024 65 - 99 HHCCT Phosphate SerPl-mCnc 3.3 mg/dL Normal 05/26/2024 2.7 - 4.5 HHCCT Troponin T SerPl-mCnc 615.0 ng/L Critically high 05/26/2024 - 15 HHCCT Delta 586.0 Above high normal 05/26/2024 - 3 H HCCT pro BNP, N-terminal 80776.0 pg/mL Above high normal 05/26/20 24 - 450 HHCCT Magnesium SerPl-mCnc 2.1 mg/dL Normal 05/26/2024 1.6 - 2.7 HHCCT BUN SerPl-mCnc 56.0 mg/dL Above high normal 05/26/2024 8 - 2 1 HHCCT Calcium SerPl-mCnc 8.6 mg/dL Below low normal 05/26/2024 8.7 - 10.5 HHCCT Potassium SerPl-sCnc 3.5 mmol/L Normal 05/26/2024 3.4 - 5.3 HHCCT BUN/Creat SerPl 25.0 Ratio Normal 05/26/2024 10 - 25 HH CCT GFR/BSA.pred SerPlBld [id number] 22.0 Below low normal 05/26/2024 59 - HHCCT Anion Gap Bld-sCnc 14.0 Normal 05/26/2024 7 - 17 H[facility]CT Chloride SerPl-sCnc 98.0 mmol/L Normal 05/26/2024 98 - 10 7 HHCCT CO2 SerPl-sCnc 25.0 mmol/L Normal 05/26/2024 22 - 33 HH CCT Creat SerPl-mCnc 2.2 mg/dL Above high normal 05/26/2024 0.4 - 1.1 HHCCT Glucose SerPl-mCnc 161.0 mg/dL Above high normal 05/26/2024 65 - 99 HHCCT Sodium SerPl-sCnc 137.0 mmol/L Normal 05/26/2024 136 - 14 5 HHCCT MCHC RBC Auto-mCnc 32.2 g/dL Normal 05/26/2024 30 - 36 HHCCT MCV RBC Auto 89.0 fL Normal 05/26/2024 80 - 100 HHCCT RDW RBC Auto-Rto 15.9 % Above high normal 05/26/2024 11.5 - 14.5 HHCCT PMV Bld Auto 10.6 fL Normal 05/26/2024 7.5 - 12.5 HHCCT MCH RBC Qn Auto 28.6 pg Normal 05/26/2024 27 - [address] WBC num Bld Auto 20.8 Thou/uL Above high normal 05/26/2024 4 - 11 HHCCT Platelet num Bld Auto 159.0 Thou/uL Normal 05/26/2024 150 - 450 HHCCT Hgb Bld-mCnc 8.3 g/dL Below low normal 05/26/2024 11.7 - 15 .7 HHCCT Hct VFr Bld Auto 25.8 % Below low normal 05/26/2024 35 - 47 HHCCT RBC num Bld Auto 2.9 Mil/uL Below low normal 05/26/2024 4 - 5.4 HHCCT POC Glucose 174.0 mg/dL Above high normal 05/26/2024 65 - 99 HHCCT Delta 629.0 Above high normal 05/25/2024 - 3 H HCCT Troponin T SerPl-mCnc 658.0 ng/L Critically high 05/25/2024 - 15 HHCCT LMWH PPP Reconciliation Accountant-aCnc 0.23 IU/mL Normal 05/25/2024 HHCCT Anticoagulant IV HEPARIN, UNFRACTIONATED Normal 05/25/2024 HHCCT Base excess BldA Calc-sCnc 5.3 mmol/L Normal 05/25/2024 HHCCT pH, Arterial 7.54 Above high normal 05/25/2024 7.35 - 7 .45 HHCCT pO2, Arterial 92.0 mmHG Normal 05/25/2024 75 - 95 HHCCT Total CO2, Arterial 29.0 mmol/L Above high normal 05/25/2024 22 - 28 HHCCT P/F Ratio 230.0 Normal 05/25/2024 HHCCT pCO2, Arterial 33.0 mmHG Normal 05/25/2024 32 - 45 HHCC T Respiratory Information VENT 40% Normal 05/25/2024 HHCCT POC Glucose 203.0 mg/dL Above high normal 05/25/2024 65 - 99 HHCCT Magnesium SerPl-mCnc 2.0 mg/dL Normal 05/25/2024 1.6 - 2.7 HHCCT Anion Gap Bld-sCnc 15.0 Normal 05/25/2024 7 - 17 HHCCT Sodium SerPl-sCnc 135.0 mmol/L Below low normal 05/25/2024 1 36 - 145 HHCCT Creat SerPl-mCnc 2.2 mg/dL Above high normal 05/25/2024 0.4 - 1.1 HHCCT BUN SerPl-mCnc 57.0 mg/dL Above high normal 05/25/2024 8 - 2 1 HHCCT Glucose SerPl-mCnc 223.0 mg/dL Above high normal 05/25/2024 65 - 99 HHCCT Calcium SerPl-mCnc 8.9 mg/dL Normal 05/25/2024 8.7 - 10.5 HHCCT CO2 SerPl-sCnc 25.0 mmol/L Normal 05/25/2024 22 - 33 HH CCT Chloride SerPl-sCnc 95.0 mmol/L Below low normal 05/25/2024 98 - 107 HHCCT BUN/Creat SerPl 26.0 Ratio Above high normal 05/25/2024 10 - 25 HHCCT Potassium SerPl-sCnc 3.8 mmol/L Normal 05/25/2024 3.4 - 5.3 HHCCT GFR/BSA.pred SerPlBld [id number] 22.0 Below low normal 05/25/2024 59 - HHCCT Phosphate SerPl-mCnc 3.2 mg/dL Normal 05/25/2024 2.7 - 4.5 HHCCT aPTT PPP 34.0 seconds Normal 05/25/2024 25 - 36 HHCCT Anticoagulant IV HEPARIN, UNFRACTIONATED Normal 05/25/2024 HHCCT POC Glucose 284.0 mg/dL Above high normal 05/26/2024 65 - 99 HHCCT LMWH PPP Reconciliation Accountant-aCnc 0.05 IU/mL Normal 05/25/2024 HHCCT Anticoagulant WARFARIN (COUMADIN), BEING HELD Normal 05/25/2024 HHCCT Troponin T SerPl-mCnc 547.0 ng/L Critically high 05/25/2024 - 15 HHCCT Delta 518.0 Above high normal 05/25/2024 - 3 H HCCT POC Glucose 217.0 mg/dL Above high normal 05/25/2024 65 - 99 HHCCT Hgb A1c MFr Bld 7.8 % Above high normal 05/25/2024 - 5.7 HHCCT Est. average glucose Bld gHb Est-mCnc 177.0 mg/dL Normal 05/25/2024 HHCCT Anion Gap Bld-sCnc 14.0 Normal 05/25/2024 7 - 17 HHCCT Creat SerPl-mCnc 2.3 mg/dL Above high normal 05/25/2024 0.4 - 1.1 HHCCT Chloride SerPl-sCnc 95.0 mmol/L Below low normal 05/25/2024 98 - 107 HHCCT BUN SerPl-mCnc 58.0 mg/dL Above high normal 05/25/2024 8 - 2 1 HHCCT BUN/Creat SerPl 25.0 Ratio Normal 05/25/2024 10 - 25 HH CCT Potassium SerPl-sCnc 3.8 mmol/L Normal 05/25/2024 3.4 - 5.3 HHCCT Sodium SerPl-sCnc 134.0 mmol/L Below low normal 05/25/2024 1 36 - 145 HHCCT Glucose SerPl-mCnc 234.0 mg/dL Above high normal 05/25/2024 65 - 99 HHCCT Calcium SerPl-mCnc 9.0 mg/dL Normal 05/25/2024 8.7 - 10.5 HHCCT GFR/BSA.pred SerPlBld [id number] 21.0 Below low normal 05/25/2024 59 - HHCCT CO2 SerPl-sCnc 25.0 mmol/L Normal 05/25/2024 22 - 33 HH CCT Delta 397.0 Above high normal 05/25/2024 - 3 H HCCT Troponin T SerPl-mCnc 426.0 ng/L Critically high 05/25/2024 - 15 HHCCT Prothrombin time 25.4 seconds Above high normal 05/25/2024 1 0 - 13.5 HHCCT INR PPP 2.2 Normal 05/25/2024 HHCCT Anticoagulant WARFARIN (COUMADIN) Normal 05/25/2024 HHCCT Hct VFr Bld Auto 28.8 % Below low normal 05/25/2024 35 - 47 HHCCT Hgb Bld-mCnc 9.1 g/dL Below low normal 05/25/2024 11.7 - 15 .7 HHCCT RBC num Bld Auto 3.2 Mil/uL Below low normal 05/25/2024 4 - 5.4 HHCCT MCH RBC Qn Auto 28.4 pg Normal 05/25/2024 27 - [address] Platelet num Bld Auto 192.0 Thou/uL Normal 05/25/2024 150 - 450 HHCCT WBC num Bld Auto 25.1 Thou/uL Above high normal 05/25/2024 4 - 11 HHCCT PMV Bld Auto 10.0 fL Normal 05/25/2024 7.5 - 12.5 HHCCT MCV RBC Auto 90.0 fL Normal 05/25/2024 80 - 100 HHCCT RDW RBC Auto-Rto 15.3 % Above high normal 05/25/2024 11.5 - 14.5 HHCCT MCHC RBC Auto-mCnc 31.6 g/dL Normal 05/25/2024 30 - 36 HHCCT POC Glucose 214.0 mg/dL Above high normal 05/25/2024 65 - 99 HHCCT POC Glucose 229.0 mg/dL Above high normal 05/25/2024 65 - 99 HHCCT COMMENT Blood/anticoagulant ratio of specimen is unsatisfactory for testing, please repeat. Normal 05/25/2024 [facility] Prothrombin time Blood/anticoagulant ratio of specimen is unsatisfactory for testing, please repeat. Normal 05/25/2024 10 - 13.5 CCT INR PPP Blood/anticoagulant ratio of specimen is unsatisfactory for testing, please repeat. Normal 05/25/2024 [facility] Anticoagulant OTHER AGENT OR UNKNOWN Normal 05/25/2024 CCT WBC num/area UrnS HPF 13.0 per hpf Above high normal 05/25/2024 0 - 4 HHCCT Squamous num/area UrnS HPF 1.0 PER HPF Normal 05/25/2024 HHCCT Bacteria UrnS Ql Micro Present Abnormal 05/25/2024 - [facility] RBC num/area UrnS HPF 1.0 per hpf Normal 05/25/2024 0 - 4 HHCCT Leukocyte esterase Ur Ql Strip Small Abnormal 05/25/2024 - [facility] Glucose Ur Strip-mCnc 0.0 mg/dL Normal 05/25/2024 0 - 99 HHCCT Ketones Ur Strip-mCnc Negative Normal 05/25/2024 - CCT Color Ur Yellow Normal 05/25/2024 HHCCT Hgb Ur Ql Strip Negative Normal 05/25/2024 - C CT Prot Ur Strip-mCnc Negative Normal 05/25/2024 - CCT Bilirub Ur Strip-mCnc Negative Normal 05/25/2024 - CCT Sp Gr Ur Strip 1.009 Normal 05/25/2024 1.003 - 1.03 HHCCT pH Ur Strip 5.0 Normal 05/25/2024 5 - 8 HHCCT Nitrite Ur Ql Strip Negative Normal 05/25/2024 - [facility] Clarity Ur Slightly cloudy Normal 05/25/2024 HH CCT Phosphate SerPl-mCnc 4.4 mg/dL Normal 05/25/2024 2.7 - 4.5 HHCCT Troponin T SerPl-mCnc 95.0 ng/L Critically high 05/25/2024 - 15 HHCCT Delta 66.0 Above high normal 05/25/2024 - 3 H HCCT Trigl SerPl-mCnc 163.0 mg/dL Above high normal 05/25/2024 - 150 HHCCT Lactate SerPl-sCnc 2.8 mmol/L Above high normal 05/25/2024 0 .5 - 1.9 HHCCT ALP SerPl-cCnc 137.0 U/L Above high normal 05/25/2024 32 - 1 22 HHCCT ALT SerPl-cCnc 14.0 U/L Normal 05/25/2024 10 - 50 HHCC T Prot SerPl-mCnc 8.2 g/dL Normal 05/25/2024 6.3 - 8.[address] Globulin Ser Calc-mCnc 4.3 g/dL Above high normal 05/25/2024 1.5 - 3.9 HHCCT Albumin/Glob SerPl 0.9 Ratio Below low normal 05/25/2024 1 - 3 HHCCT Bilirub SerPl-mCnc 0.6 mg/dL Normal 05/25/2024 0.2 - 1 HHCCT Bilirub Direct SerPl-mCnc Specimen hemolyzed. Test not performed. Normal 05/25/2024 0 - 0.2 HHCCT Albumin SerPl-mCnc 3.9 g/dL Normal 05/25/2024 3.4 - 4.8 HHCCT AST SerPl-cCnc Specimen hemolyzed. Test not performed. Normal 05/25/2024 10 - 50 HHCCT Magnesium SerPl-mCnc 2.3 mg/dL Normal 05/25/2024 1.6 - 2.7 HHCCT pro BNP, N-terminal 2389.0 pg/mL Above high normal 4 - 450 HHCCT Troponin T SerPl-mCnc 29.0 ng/L Above high normal 05/25/2024 - 15 HHCCT Delta NO PREVIOUS RESULT Normal 05/25/2024 - 3 HHCCT Chloride SerPl-sCnc 94.0 mmol/L Below low normal 05/25/2024 98 - 107 HHCCT Sodium SerPl-sCnc 136.0 mmol/L Normal 05/25/2024 136 - 14 5 HHCCT GFR/BSA.pred SerPlBld [id number] 28.0 Below low normal 05/25/2024 59 - HHCCT BUN SerPl-mCnc 53.0 mg/dL Above high normal 05/25/2024 8 - 2 1 HHCCT BUN/Creat SerPl 29.0 Ratio Above high normal 05/25/2024 10 - 25 HHCCT Calcium SerPl-mCnc 9.6 mg/dL Normal 05/25/2024 8.7 - 10.5 HHCCT Potassium SerPl-sCnc 4.3 mmol/L Normal 05/25/2024 3.4 - 5.3 HHCCT CO2 SerPl-sCnc 23.0 mmol/L Normal 05/25/2024 22 - 33 HH CCT Glucose SerPl-mCnc 235.0 mg/dL Above high normal 05/25/2024 65 - 99 HHCCT Creat SerPl-mCnc 1.8 mg/dL Above high normal 05/25/2024 0.4 - 1.1 HHCCT Anion Gap Bld-sCnc 19.0 Above high normal 05/25/2024 7 - 17 HHCCT Lactate SerPl-sCnc 4.3 mmol/L Critically high 05/25/2024 0.5 - 1.9 HHCCT MCH RBC Qn Auto 28.5 pg Normal 05/25/2024 27 - [address] Neutrophils/leuk NFr Bld Auto 84.5 % Normal 05/25/2024 HHCCT MCHC RBC Auto-mCnc 31.6 g/dL Normal 05/25/2024 30 - 36 HHCCT Hgb Bld-mCnc 10.6 g/dL Below low normal 05/25/2024 11.7 - 15 .7 HHCCT Basophils/leuk NFr Bld Auto 0.3 % Normal 05/25/2024 HHCCT Hct VFr Bld Auto 33.5 % Below low normal 05/25/2024 35 - 47 HHCCT Basophils num Bld Auto 0.06 Thou/uL Normal 05/25/2024 0 - 0.2 HHCCT Neutrophils num Bld Auto 14.89 Thou/uL Above high normal 05/25/2024 2 - 7.5 HHCCT Imm Granulocytes num Bld Auto 0.09 Thou/uL Normal 05/25/2024 0 - 0.1 HHCCT RBC num Bld Auto 3.72 Mil/uL Below low normal 05/25/2024 4 - 5.4 HHCCT PMV Bld Auto 11.9 fL Normal 05/25/2024 7.5 - 12.5 HHCCT Lymphocytes num Bld Auto 1.46 Thou/uL Below low normal 05/25/2024 1.5 - 4.5 HHCCT RDW RBC Auto-Rto 15.7 % Above high normal 05/25/2024 11.5 - 14.5 HHCCT WBC num Bld Auto 17.6 Thou/uL Above high normal 05/25/2024 4 - 11 HHCCT Lymphocytes/leuk NFr Bld Auto 8.3 % Normal 05/25/2024 HHCCT Monocytes num Bld Auto 0.94 Thou/uL Normal 05/25/2024 0.2 - 1.5 HHCCT Eosinophil num Bld Auto 0.2 Thou/uL Normal 05/25/2024 0 - 0.7 HHCCT Monocytes/leuk NFr Bld Auto 5.3 % Normal 05/25/2024 HHCCT Eosinophil/leuk NFr Bld Auto 1.1 % Normal 05/25/2024 HHCCT Platelet num Bld Auto 276.0 Thou/uL Normal 05/25/2024 150 - 450 HHCCT MCV RBC Auto 90.0 fL Normal 05/25/2024 80 - 100 HHCCT Imm Granulocytes/leuk NFr Bld Auto 0.5 % Normal 05/25/2024 HHCCT INR PPP Specimen clotted. Test not performed. Normal 05/25/2024 HHCCT Prothrombin time Specimen clotted. Test not performed. Normal 05/25/2024 10 - 13.5 HHCCT Anticoagulant OTHER AGENT OR UNKNOWN Normal 05/25/2024 CCT Base excess BldA Calc-sCnc 0.5 mmol/L Normal 05/25/2024 HHCCT pCO2 BldV 62.0 mmHG Above high normal 05/25/2024 35 - 50 H HCCT CO2 BldV-sCnc 30.0 mmol/L Above high normal 05/25/2024 23 - 29 HHCCT pH BldV 7.28 Below low normal 05/25/2024 7.33 - 7.43 HHCCT pO2 BldV 88.0 mmHG Above high normal 05/25/2024 0 - 60 H HCCT Respiratory Information VENT 100% Normal 05/25/2024 CCT POC Glucose 285.0 mg/dL Above high normal 01/26/2024 65 - 99 CCT Est. average glucose Bld gHb Est-mCnc 217.0 mg/dL Normal 01/26/2024 CCT Hgb A1c MFr Bld 9.2 % Above high normal 01/26/2024 - 5.7 HHCCT POC Glucose 226.0 mg/dL Above high normal 01/26/2024 65 - 99 CCT Potassium SerPl-sCnc 3.5 mmol/L Normal 01/26/2024 3.4 - 5.3 HHCCT Anion Gap Bld-sCnc 13.0 Normal 01/26/2024 7 - 17 HHCCT Glucose SerPl-mCnc 179.0 mg/dL Above high normal 01/26/2024 65 - 99 HHCCT Creat SerPl-mCnc 2.2 mg/dL Above high normal 01/26/2024 0.4 - 1.1 HHCCT Prot SerPl-mCnc 6.6 g/dL Normal 01/26/2024 6.3 - 8.[address] Sodium SerPl-sCnc 137.0 mmol/L Normal 01/26/2024 136 - 14 5 HHCCT Albumin SerPl-mCnc 3.2 g/dL Below low normal 01/26/2024 3.4 - 4.8 HHCCT Bilirub SerPl-mCnc 0.6 mg/dL Normal 01/26/2024 0.2 - 1 HHCCT BUN SerPl-mCnc 58.0 mg/dL Above high normal 01/26/2024 8 - 2 1 HHCCT ALP SerPl-cCnc 111.0 U/L Normal 01/26/2024 32 - 122 HHCC T AST SerPl-cCnc 24.0 U/L Normal 01/26/2024 10 - 50 HHCC T Calcium SerPl-mCnc 9.7 mg/dL Normal 01/26/2024 8.7 - 10.5 HHCCT Albumin/Glob SerPl 0.9 Ratio Below low normal 01/26/2024 1 - 3 HHCCT Chloride SerPl-sCnc 95.0 mmol/L Below low normal 01/26/2024 98 - 107 HHCCT Globulin Ser Calc-mCnc 3.4 g/dL Normal 01/26/2024 1.5 - 3.9 HHCCT CO2 SerPl-sCnc 29.0 mmol/L Normal 01/26/2024 22 - 33 HH CCT BUN/Creat SerPl 26.0 Ratio Above high normal 01/26/2024 10 - 25 HHCCT ALT SerPl-cCnc 12.0 U/L Normal 01/26/2024 10 - 50 HHCC T GFR/BSA.pred SerPlBld [id number] 22.0 Below low normal 01/26/2024 59 - HHCCT Magnesium SerPl-mCnc 2.5 mg/dL Normal 01/26/2024 1.6 - 2.7 HHCCT Phosphate SerPl-mCnc 4.6 mg/dL Above high normal 01/26/2024 2.7 - 4.5 HHCCT Prothrombin time 34.5 seconds Above high normal 01/26/2024 1 0 - 13.5 HHCCT INR PPP 3.0 Normal 01/26/2024 HHCCT Anticoagulant WARFARIN (COUMADIN), BEING HELD Normal 01/26/2024 HHCCT Imm Granulocytes num Bld Auto 0.03 Thou/uL Normal 01/26/2024 0 - 0.1 HHCCT Basophils num Bld Auto 0.05 Thou/uL Normal 01/26/2024 0 - 0.2 HHCCT Lymphocytes/leuk NFr Bld Auto 15.9 % Normal 01/26/2024 HHCCT Eosinophil num Bld Auto 0.39 Thou/uL Normal 01/26/2024 0 - 0.7 HHCCT MCV RBC Auto 96.0 fL Normal 01/26/2024 80 - 100 HHCCT Monocytes/leuk NFr Bld Auto 10.7 % Normal 01/26/2024 HHCCT Hct VFr Bld Auto 29.8 % Below low normal 01/26/2024 35 - 47 HHCCT Imm Granulocytes/leuk NFr Bld Auto 0.5 % Normal 01/26/2024 HHCCT Basophils/leuk NFr Bld Auto 0.9 % Normal 01/26/2024 HHCCT Monocytes num Bld Auto 0.62 Thou/uL Normal 01/26/2024 0.2 - 1.5 HHCCT Neutrophils num Bld Auto 3.79 Thou/uL Normal 01/26/2024 2 - 7.5 HHCCT Eosinophil/leuk NFr Bld Auto 6.7 % Normal 01/26/2024 HHCCT RDW RBC Auto-Rto 15.0 % Above high normal 01/26/2024 11.5 - 14.5 HHCCT MCH RBC Qn Auto 30.9 pg Normal 01/26/2024 27 - [address] Platelet num Bld Auto 127.0 Thou/uL Below low normal 01/26/2024 150 - 450 HHCCT Hgb Bld-mCnc 9.6 g/dL Below low normal 01/26/2024 11.7 - 15 .7 HHCCT Neutrophils/leuk NFr Bld Auto 65.3 % Normal 01/26/2024 HHCCT Lymphocytes num Bld Auto 0.92 Thou/uL Below low normal 01/26/2024 1.5 - 4.5 HHCCT RBC num Bld Auto 3.11 Mil/uL Below low normal 01/26/2024 4 - 5.4 HHCCT PMV Bld Auto 10.6 fL Normal 01/26/2024 7.5 - 12.5 HHCCT WBC num Bld Auto 5.8 Thou/uL Normal 01/26/2024 4 - 11 HHCCT MCHC RBC Auto-mCnc 32.2 g/dL Normal 01/26/2024 30 - 36 HHCCT Creat SerPl-mCnc 2.2 mg/dL Above high normal 01/26/2024 0.4 - 1.1 HHCCT Potassium SerPl-sCnc 3.6 mmol/L Normal 01/26/2024 3.4 - 5.3 HHCCT Chloride SerPl-sCnc 94.0 mmol/L Below low normal 01/26/2024 98 - 107 HHCCT BUN SerPl-mCnc 63.0 mg/dL Above high normal 01/26/2024 8 - 2 1 HHCCT GFR/BSA.pred SerPlBld [id number] 22.0 Below low normal 01/26/2024 59 - HHCCT Calcium SerPl-mCnc 9.9 mg/dL Normal 01/26/2024 8.7 - 10.5 HHCCT Anion Gap Bld-sCnc 14.0 Normal 01/26/2024 7 - 17 HHCCT CO2 SerPl-sCnc 28.0 mmol/L Normal 01/26/2024 22 - 33 HH CCT Sodium SerPl-sCnc 136.0 mmol/L Normal 01/26/2024 136 - 14 5 HHCCT Glucose SerPl-mCnc 190.0 mg/dL Above high normal 01/26/2024 65 - 99 HHCCT BUN/Creat SerPl 29.0 Ratio Above high normal 01/26/2024 10 - 25 HHCCT Phosphate SerPl-mCnc 4.3 mg/dL Normal 01/26/2024 2.7 - 4.5 HHCCT Delta NO PREVIOUS RESULT Normal 01/26/2024 - 3 HHCCT Troponin T SerPl-mCnc 35.0 ng/L Above high normal 01/26/2024 - 15 HHCCT Magnesium SerPl-mCnc 2.1 mg/dL Normal 01/26/2024 1.6 - 2.7 HHCCT Basophils num Bld Auto 0.05 Thou/uL Normal 01/26/2024 0 - 0.2 HHCCT MCHC RBC Auto-mCnc 33.2 g/dL Normal 01/26/2024 30 - 36 HHCCT Hgb Bld-mCnc 9.3 g/dL Below low normal 01/26/2024 11.7 - 15 .7 HHCCT Lymphocytes num Bld Auto 0.96 Thou/uL Below low normal 01/26/2024 1.5 - 4.5 HHCCT Monocytes num Bld Auto 0.61 Thou/uL Normal 01/26/2024 0.2 - 1.5 HHCCT Imm Granulocytes/leuk NFr Bld Auto 0.3 % Normal 01/26/2024 HHCCT Neutrophils num Bld Auto 4.01 Thou/uL Normal 01/26/2024 2 - 7.5 HHCCT Neutrophils/leuk NFr Bld Auto 66.3 % Normal 01/26/2024 HHCCT Eosinophil/leuk NFr Bld Auto 6.6 % Normal 01/26/2024 HHCCT MCH RBC Qn Auto 31.5 pg Above high normal 01/26/2024 27 - 31 HHCCT RDW RBC Auto-Rto 14.9 % Above high normal 01/26/2024 11.5 - 14.5 HHCCT Eosinophil num Bld Auto 0.4 Thou/uL Normal 01/26/2024 0 - 0.7 HHCCT Imm Granulocytes num Bld Auto 0.02 Thou/uL Normal 01/26/2024 0 - 0.1 HHCCT Basophils/leuk NFr Bld Auto 0.8 % Normal 01/26/2024 HHCCT Platelet num Bld Auto 130.0 Thou/uL Below low normal 01/26/2024 150 - 450 HHCCT WBC num Bld Auto 6.1 Thou/uL Normal 01/26/2024 4 - 11 HHCCT PMV Bld Auto 10.7 fL Normal 01/26/2024 7.5 - 12.5 HHCCT Monocytes/leuk NFr Bld Auto 10.1 % Normal 01/26/2024 HHCCT RBC num Bld Auto 2.95 Mil/uL Below low normal 01/26/2024 4 - 5.4 HHCCT Hct VFr Bld Auto 28.0 % Below low normal 01/26/2024 35 - 47 HHCCT MCV RBC Auto 95.0 fL Normal 01/26/2024 80 - 100 HHCCT Lymphocytes/leuk NFr Bld Auto 15.9 % Normal 01/26/2024 HHCCT POC Glucose 220.0 mg/dL Above high normal 01/26/2024 65 - 99 HHCCT POC Glucose 267.0 mg/dL Above high normal 01/25/2024 65 - 99 HHCCT Prothrombin time 27.3 seconds Above high normal 01/25/2024 1 0 - 13.5 HHCCT INR PPP 2.4 Normal 01/25/2024 HHCCT Anticoagulant WARFARIN (COUMADIN) Normal 01/25/2024 HHCCT BUN/Creat SerPl 25.0 Ratio Normal 01/25/2024 10 - 25 HH CCT ALT SerPl-cCnc 17.0 U/L Normal 01/25/2024 10 - 50 HHCC T Albumin/Glob SerPl 0.9 Ratio Below low normal 01/25/2024 1 - 3 HHCCT AST SerPl-cCnc 25.0 U/L Normal 01/25/2024 10 - 50 HHCC T Chloride SerPl-sCnc 94.0 mmol/L Below low normal 01/25/2024 98 - 107 HHCCT Sodium SerPl-sCnc 136.0 mmol/L Normal 01/25/2024 136 - 14 5 HHCCT Calcium SerPl-mCnc 10.8 mg/dL Above high normal 01/25/2024 8 .7 - 10.5 HHCCT ALP SerPl-cCnc 133.0 U/L Above high normal 01/25/2024 32 - 1 22 HHCCT Globulin Ser Calc-mCnc 4.0 g/dL Above high normal 01/25/2024 1.5 - 3.9 HHCCT Creat SerPl-mCnc 2.4 mg/dL Above high normal 01/25/2024 0.4 - 1.1 HHCCT Bilirub SerPl-mCnc 0.5 mg/dL Normal 01/25/2024 0.2 - 1 HHCCT Albumin SerPl-mCnc 3.7 g/dL Normal 01/25/2024 3.4 - 4.8 HHCCT GFR/BSA.pred SerPlBld [id number] 20.0 Below low normal 01/25/2024 59 - HHCCT BUN SerPl-mCnc 61.0 mg/dL Above high normal 01/25/2024 8 - 2 1 HHCCT Anion Gap Bld-sCnc 12.0 Normal 01/25/2024 7 - 17 HHCCT Prot SerPl-mCnc 7.7 g/dL Normal 01/25/2024 6.3 - 8.[address] Glucose SerPl-mCnc 212.0 mg/dL Above high normal 01/25/2024 65 - 99 HHCCT Potassium SerPl-sCnc 3.7 mmol/L Normal 01/25/2024 3.4 - 5.3 HHCCT CO2 SerPl-sCnc 30.0 mmol/L Normal 01/25/2024 22 - 33 HH CCT WBC num Bld Auto 8.0 Thou/uL Normal 01/25/2024 4 - 11 HHCCT Eosinophil num Bld Auto 0.38 Thou/uL Normal 01/25/2024 0 - 0.7 HHCCT Basophils num Bld Auto 0.06 Thou/uL Normal 01/25/2024 0 - 0.2 HHCCT Monocytes/leuk NFr Bld Auto 10.0 % Normal 01/25/2024 HHCCT MCH RBC Qn Auto 31.2 pg Above high normal 01/25/2024 27 - 31 HHCCT Imm Granulocytes/leuk NFr Bld Auto 0.5 % Normal 01/25/2024 HHCCT Neutrophils num Bld Auto 5.41 Thou/uL Normal 01/25/2024 2 - 7.5 HHCCT Neutrophils/leuk NFr Bld Auto 67.5 % Normal 01/25/2024 HHCCT Lymphocytes num Bld Auto 1.31 Thou/uL Below low normal 01/25/2024 1.5 - 4.5 HHCCT Eosinophil/leuk NFr Bld Auto 4.8 % Normal 01/25/2024 HHCCT MCHC RBC Auto-mCnc 32.8 g/dL Normal 01/25/2024 30 - 36 HHCCT Imm Granulocytes num Bld Auto 0.04 Thou/uL Normal 01/25/2024 0 - 0.1 HHCCT RBC num Bld Auto 3.27 Mil/uL Below low normal 01/25/2024 4 - 5.4 HHCCT RDW RBC Auto-Rto 14.9 % Above high normal 01/25/2024 11.5 - 14.5 HHCCT Platelet num Bld Auto 151.0 Thou/uL Normal 01/25/2024 150 - 450 HHCCT Basophils/leuk NFr Bld Auto 0.8 % Normal 01/25/2024 HHCCT MCV RBC Auto 95.0 fL Normal 01/25/2024 80 - 100 HHCCT Lymphocytes/leuk NFr Bld Auto 16.4 % Normal 01/25/2024 HHCCT Monocytes num Bld Auto 0.8 Thou/uL Normal 01/25/2024 0.2 - 1.5 HHCCT Hgb Bld-mCnc 10.2 g/dL Below low normal 01/25/2024 11.7 - 15 .7 HHCCT PMV Bld Auto 10.1 fL Normal 01/25/2024 7.5 - 12.5 HHCCT Hct VFr Bld Auto 31.1 % Below low normal 01/25/2024 35 - 47 HHCCT History of Medication Use Medication Directions Dispensed Refills Start Date End Date Stat us metFORMIN (FORTAMET) 1000 MG (OSM) 24 hr tablet Take 1 tablet (1,000 mg total) by mouth every morning with breakfast. suspended simvastatin (ZOCOR) 20 MG tablet Take 1 tablet (20 mg total) by mouth nightly. suspended Allergies Allergen Reaction Severity Comment Documented Date Source Statu s NAPROXEN UNKNOWN/PATIENT AND FAMILY UNABLE TO DEFINE 12/28/2023 [facility] active ASPIRIN UNKNOWN/PATIENT AND FAMILY UNABLE TO DEFINE [facility] IBUPROFEN UNKNOWN/PATIENT AND FAMILY UNABLE TO DEFINE [facility] Problems Problem Status Onset Date Problem Type Date of Resoluti on Source Pulmonary hypertension active 2024-06-02 ProblemAct [facility] Acute heart failure with mildly reduced ejection fraction (HFmrEF, 41-49%) active 2024-06-02 ProblemAct [facility] Prosthetic aortic valve stenosis active 2024-06-02 ProblemAct [facility] Aspiration pneumonia active 2024-06-02 ProblemAct [facility] Multiple rib fractures involving four or more ribs active 2024-01-25 ProblemAct [facility] Atrial fibrillation active 2024-06-02 ProblemAct [facility] [place] (acute kidney injury) active 2024-01-26 ProblemAct [facility] Acute hypoxemic respiratory failure active 2024-05-25 ProblemAct [facility] Pleural effusion active 2024-06-02 ProblemAct [facility] Mitral regurgitation active 2024-06-02 ProblemAct [facility] Hyperlipidemia active 2024-01-[address] Encounters Encounter Type Encounter Reason Primary Diagnosis Location Date Inpatient Acute respiratory failure, unspecified whether with hypoxia or hypercapnia Acute respiratory failure, unspecified whether with hypoxia or hypercapnia [facility] 05/24/2024 Observation Unspecified fall, initial encounter Unspecified fall, initial encounter [facility] 01/24/2024 Ambulatory Chronic diastolic (congestive) heart failure Chronic diastolic (congestive) heart failure [facility] 07/21/2023 Care Team Organization Name Specialty Phone Email Start Date End [facility] Ricky Guerrero Primary Care 01/25/2024 [facility] PCP [facility] [employer] [facility] [facility] 08/06/2023 10/02/2024 [facility] PCP,No Primary Care 07/21/2023 10/02/2024 [facility] 07/21/2023 07/21/2023 [facility] NO PCP Primary Care 07/21/2023 07/21/2023
--- NOTE | 2025-01-31 10:18 | HO.NEPHOV_ITS ---
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 She has had history of aortic valve replacement following symptoms due to [place] aortic valve dysfunction. She has been told lately that her bioprosthetic AVR is not functioning very well and is not a candidate for valve replacement. She has history of cardiorenal syndrome in the past. She has H/O aspiration pneumonitis as well as congestive heart failure needing intubation and ventilation. She also has history of chronic diastolic heart failure. She had not tolerated spironolactone in the past due to side effects like dizziness, fatigue. She has history of renal calculi and is followed up with the Dr. Nichols. She had C diff infection and was treated with PO vancomycin. She denies any dizziness, pedal edema, chest pain, shortness of breath, paroxysmal nocturnal dyspnea, orthopnea or active urinary symptoms. Her blood sugar control is fair. She remains on Cholestyramine. Her EF has improved to baseline. She has been feeling better and is eating well. Whenever she sees she is gaining weight she has been increasing her diuretics to bring the weight down which has caused her serum creatinine to go up from her baseline. She is on Warfarin. [facility] Medical History Pilonidal cyst Mitral regurgitation Diabetic neuropathy Chronic kidney disease Rectal polyp Sleep apnea Kidney stones Atrial fibrillation Diabetes Hypertension High cholesterol Surgical History History of hip surgery Hx of cardiac cath H/O colonoscopy History of rectal surgery History of ankle surgery Hx of aortic valve replacement Family History Father Heart disease Mother Stomach cancer Anemia Brother Hypertension Diabetes Social History Alcohol intake: never Patient Tobacco Use Status: Never used Tobacco Review of Systems Const All systems reviewed & are unremarkable except as noted in HPI and below Physical Exam Vital Signs: Last Vital Signs Pulse 59 01/31/25 10:19 BP 132/80 01/31/25 10:19 Pulse Ox 97 01/31/25 10:19 Oxygen Delivery Method Room Air 01/31/25 10:19 Const General: comfortable and no acute distress Orientation/consciousness: patient oriented x3 HEENT Head: Yes normocephalic Mouth: Normal oral and palatal mucosa present Eyes EOM: EOMs intact bilaterally Neck Neck: Yes supple Resp Auscultation: clear to auscultation bilaterally Cardio Jugular venous distension: no JVD Rate: regular rate GI Palpation (GI): Soft to palpation Auscultation: normal bowel sounds General: Yes no CVA tenderness Back/Spine/Pelvis Back: no CVA tenderness Skin General skin exam: no rashes or lesions noted Neuro General: patient oriented x3 and moves all extremities Extrem General: Yes no pedal edema Assessment & Plan Assessment & Plan (1) Hypertension: Code(s): I10 - Essential (primary) hypertension Category: Medical Qualifiers: Hypertension type: primary hypertension Qualified Code(s): I10 - Essential (primary) hypertension (2) Kidney stones: Code(s): N20.0 - Calculus of kidney Category: Medical (3) CKD (chronic kidney disease) stage 3, GFR 30-59 ml/min: Code(s): N18.30 - Chronic kidney disease, stage 3 unspecified Category: Medical Qualifiers: Chronic kidney disease stage 3 subtype: stage 3a (GFR 45-59) Qualified Code(s): N18.31 - Chronic kidney disease, stage 3a Plan Lauren has CKD stage 3 due to diabetes, hypertension and loss of 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 Recently she had LANETTE due to excess diuresis. Her volume status is optimal. Her fluid status can be quite tenuous given her aortic valve situation. Her blood pressure is currently at goal. She has history of renal calculi which has not caused any recent issues. She follows up closely with Dr. Nichols. She is on appropriate medications with stability in her hemodynamics and renal functions. ( She was on Spironolactone , Valsartan and Chlorthalidone before). I shall consider increasing her Jardiance to 25 mg daily & introduce ARB with time and ordered F/U labs for close monitoring of her renal functions. All her and her daughter's questions were answered Orders: Orders Electrolytes 3 Months I10 - Essential (primary) hypertension, N18.31 - Chronic kidney disease, stage 3a, N20.0 - Calculus of kidney Blood Urea Nitrogen 3 Months I10 - Essential (primary) hypertension, N18.31 - Chronic kidney disease, stage 3a, N20.0 - Calculus of kidney Creatinine 3 Months I10 - Essential (primary) hypertension, N18.31 - Chronic kidney disease, stage 3a, N20.0 - Calculus of kidney Creatinine 2 Months I10 - Essential (primary) hypertension, N18.31 - Chronic kidney disease, stage 3a, N20.0 - Calculus of kidney Blood Urea Nitrogen 2 Months I10 - Essential (primary) hypertension, N18.31 - Chronic kidney disease, stage 3a, N20.0 - Calculus of kidney Electrolytes 2 Months I10 - Essential (primary) hypertension, N18.31 - Chronic kidney disease, stage 3a, N20.0 - Calculus of kidney Electrolytes 1 Month I10 - Essential (primary) hypertension, N18.31 - Chronic kidney disease, stage 3a Blood Urea Nitrogen 1 Month I10 - Essential (primary) hypertension, N18.31 - Chronic kidney disease, stage 3a Creatinine 1 Month I10 - Essential (primary) hypertension, N18.31 - Chronic kidney disease, stage 3a Uric Acid 3 Months I10 - Essential (primary) hypertension, N18.31 - Chronic kidney disease, stage 3a, N20.0 - Calculus of kidney Coding Level of Care Code Est Pt Level 4 (29059) Diagnoses Primary hypertension I10 Hypertension type: primary hypertension Kidney stones N20.0 Stage 3a chronic kidney disease N18.31 Chronic kidney disease stage 3 subtype: stage 3a (GFR 45-59)
[2025-01-31 10:19] VITALS: BP 132/80; PULSE 59; O2SAT 97
== END 2025-01-31 10:47 | disposition home or self-care (01) ==
LOC: HO.HKA 09:43
PROVIDERS: PCP Internal Medicine; Visit Provider Internal Medicine Nephrology
DX: I10 Essential (primary) hypertension (principal); N20.0 Calculus of kidney; N18.31 Chronic kidney disease, stage 3a
CPT/HCPCS: 99214

== ENCOUNTER → 2025-01-31 09:43 | Outpatient (BNVA) | payer MEDICARE, SELFPAY | PROVIDERS: PCP Internal Medicine; Visit Provider Internal Medicine Nephrology | DX: E11.22 Type 2 diabetes mellitus with diabetic chronic kidney disease (principal); I12.9 Hypertensive chronic kidney disease with stage 1 through stage 4 chronic kidney disease, or unspecified chronic kidney disease; N18.31 Chronic kidney disease, stage 3a; N20.0 Calculus of kidney | CPT/HCPCS: 99212 ==

== ENCOUNTER 2025-05-02 14:42 | Outpatient (AMB) | payer MEDICARE, SELFPAY ==
--- NOTE | 2025-05-02 14:58 | HO.NEPHOV ---
Vital Signs 05/02/25 15:01 Height 5 ft 7 in Weight 207 lb 6 oz BMI 32.5 BP 122/60 Blood Pressure Location Rt brachial Position Sitting Pulse 73 Pulse Source Pulse Oximeter Pulse Oximetry (%) 97 Oxygen Delivery Method Room Air Intake Visit Reasons: -[facility] Route Manager Required: No Accompanied by: Daughter Allergies No Known Allergies Allergy (Verified 05/02/25 15:01) HPI Comments Details: I had the pleasure of seeing Lauren who is a delightful 84-year-old, for F/U of chronic kidney disease. She has had history of aortic valve replacement following symptoms due to [place] aortic valve dysfunction. She has been told lately that her bioprosthetic AVR is not functioning very well and is not a candidate for valve replacement. She has history of cardiorenal syndrome in the past. She has H/O aspiration pneumonitis as well as congestive heart failure needing intubation and ventilation. She also has history of chronic diastolic heart failure. She had not tolerated spironolactone in the past due to side effects like dizziness, fatigue. She has history of renal calculi and is followed up with the Dr. Nichols. She had C diff infection and was treated with PO vancomycin. She denies any dizziness, pedal edema, chest pain, shortness of breath, paroxysmal nocturnal dyspnea, orthopnea or active urinary symptoms. Her blood sugar control is fair. She remains on Cholestyramine. Her EF has improved to baseline. She has been feeling better and is eating well. She is on Warfarin. [facility] Medical History Pilonidal cyst Mitral regurgitation Diabetic neuropathy Chronic kidney disease Rectal polyp Sleep apnea Kidney stones Atrial fibrillation Diabetes Hypertension High cholesterol Surgical History History of hip surgery Hx of cardiac cath H/O colonoscopy History of rectal surgery History of ankle surgery Hx of aortic valve replacement Family History Father Heart disease Mother Stomach cancer Anemia Brother Hypertension Diabetes Social History Alcohol intake: never Patient Tobacco Use Status: Never used Tobacco Review of Systems Const All systems reviewed & are unremarkable except as noted in HPI and below Physical Exam Vital Signs: Last Vital Signs Pulse 73 05/02/25 15:01 BP 122/60 05/02/25 15:01 Pulse Ox 97 05/02/25 15:01 Oxygen Delivery Method Room Air 05/02/25 15:01 BMI result Body Mass Index 32.5 Const General: comfortable and no acute distress Orientation/consciousness: patient oriented x3 HEENT Head: Yes normocephalic Mouth: Normal oral and palatal mucosa present Eyes EOM: EOMs intact bilaterally Neck Neck: Yes supple Resp Auscultation: clear to auscultation bilaterally Cardio Jugular venous distension: no JVD Rate: regular rate GI Palpation (GI): Soft to palpation Auscultation: normal bowel sounds General: Yes no CVA tenderness Back/Spine/Pelvis Back: no CVA tenderness Skin General skin exam: no rashes or lesions noted Neuro General: patient oriented x3 and moves all extremities Extrem General: Yes no pedal edema Assessment & Plan Assessment & Plan (1) CKD (chronic kidney disease) stage 3, GFR 30-59 ml/min: Code(s): N18.30 - Chronic kidney disease, stage 3 unspecified Category: Medical Qualifiers: Chronic kidney disease stage 3 subtype: stage 3a (GFR 45-59) Qualified Code(s): N18.31 - Chronic kidney disease, stage 3a (2) Hypertension: Code(s): I10 - Essential (primary) hypertension Category: Medical Qualifiers: Hypertension type: primary hypertension Qualified Code(s): I10 - Essential (primary) hypertension (3) Kidney stones: Code(s): N20.0 - Calculus of kidney Category: Medical Plan Lauren has CKD stage 3 due to diabetes, hypertension and loss of 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 Her volume status is optimal. Her fluid status can be quite tenuous given her aortic valve situation. Her blood pressure is currently at goal. She has history of renal calculi which has not caused any recent issues. She follows up closely with Dr. Nichols. She is on appropriate medications with stability in her hemodynamics and renal functions. ( She was on Spironolactone , Valsartan and Chlorthalidone before). I shall consider increasing her Jardiance to 25 mg daily & introduce ARB with time and ordered F/U labs for close monitoring of her renal functions.( Her A1c should be better). All her and her daughter's questions were answered Orders: Orders Hemoglobin A1c 3 Months I10 - Essential (primary) hypertension, N18.31 - Chronic kidney disease, stage 3a, N20.0 - Calculus of kidney Creatinine 3 Months I10 - Essential (primary) hypertension, N18.31 - Chronic kidney disease, stage 3a, N20.0 - Calculus of kidney Electrolytes 3 Months I10 - Essential (primary) hypertension, N18.31 - Chronic kidney disease, stage 3a, N20.0 - Calculus of kidney Blood Urea Nitrogen 3 Months I10 - Essential (primary) hypertension, N18.31 - Chronic kidney disease, stage 3a, N20.0 - Calculus of kidney Coding Level of Care Code Est Pt Level 4 (44976) Diagnoses Stage 3a chronic kidney disease N18.31 Chronic kidney disease stage 3 subtype: stage 3a (GFR 45-59) Primary hypertension I10 Hypertension type: primary hypertension Kidney stones N20.0
[2025-05-02 15:01] VITALS: BP 122/60; PULSE 73; O2SAT 97; BMI 32.5
--- OUTSIDE RECORDS SUMMARY | 2025-05-02 17:10 | XMS_ITS | Data Portability ---
Author Organization [place] [facility] Address [address] [place] [address] Care Team Providers Care Marketing Ambassador Name Role Phone [facility] Primary Care Provider Assessment Encounter Date Assessment Date Assessment LastModified by Organization Details LastModified Time 02/06/2022 02/06/2022 Overview/History : 81 YO F new to and new to provider PM of DM, CHF d/t valve insufficiency, a fib recent hospital stay for Rt hip fx and 2 week rehab stay at [facility] for rehab. She was dc Monday [...] response -Again unfortunately cannot get blood to [facility] earlier today but pt did not want to go, we are able to convince her to go for stat testing, fluids, possible imaging and tx. She is agreeable and so is family who is present, -EMS is called and pt is handed off to [facility] -Expect called to [facility] Pt and fam is on agreement [...] Time repair of hip completed BELLE Marquez, [place], [address], [place] [facility] 02/06/2022 17:30:00 Imaging Results [...] available 2021 17:28:32 Medical History Condition Response Diabetes Y Coronary Artery Disease N CHF Y Parkinson's Disease N Cancer N Dementia N Stroke N Hypothyroidism N Depression N COPD N Asthma N High Cholesterol Y Rheumatoid Arthritis N Pulmonary Embolism N Hypertension Y A-fib Y Osteoporosis N Kidney Disease N Gynecological HistoryNo gynecological history recorded. Obstetrics History GPAL:G 0 P 0 0 0 0 Past Encounters Encounter ID Performer Location Encounter Start Date Encounter Closed Date Diagnosis/Indication Diagnosis SNOMED-CT Code Diagnosis ICD10 Code Diagnosis IMO Codes Diagnosis Note [id number] BELLE Barnhart [facility] [address] [place] [address] 02/06/2022 15:57:22 02/08/2022 11:05:40 Lightheadedness [id number] R42 Dizziness [id number] R42 Health Concerns Section Related Observation LastModified by Organization Detai ls LastModified Time None Recorded Concern Status LastModified by Organization Details LastModified Time None Recorded Advance Directives Directive None Recorded Payers Insurance Date Sequence Insurance Name Policy Number Policy Dahl Covered Member ID Dahl Member ID Guarantor Name 03/10/2022 2 [place] [id number] Lauren Doan [id number] Lauren Doan 02/06/2022 1 *SELF PAY* Lauren Doan [id number] Lauren Doan 02/06/2022 1 [place] [employer] Lauren Doan [id number] Lauren Doan 02/18/2022 1 [place] [employer] Lauren Doan [id number] Lauren Doan Notes Date Note Type Note Provider Name and Address Organization Details Recorded Time 02/06/2022 text/html 81 YO F new to and new to [facility] of DM, CHF d/t valve insufficiency, a fib recent hospital stay for Rt hip fx and 2 week rehab stay at [facility] for rehab. She was dc Monday [...] No other reported sxs today. BELLE Marquez [facility] Kimberly Gomez, [place], [address], [place] [facility] 02/06/2022 18:36:18 OBGyn Episode No OBEpisode recorded.
== END 2025-05-02 15:24 | disposition home or self-care (01) ==
LOC: HO.HKA 14:42
PROVIDERS: PCP Internal Medicine; Visit Provider Internal Medicine Nephrology
DX: N18.31 Chronic kidney disease, stage 3a (principal); I10 Essential (primary) hypertension; N20.0 Calculus of kidney
CPT/HCPCS: 99214

== ENCOUNTER → 2025-05-02 14:42 | Outpatient (BNVA) | payer MEDICARE, SELFPAY | PROVIDERS: PCP Internal Medicine; Visit Provider Internal Medicine Nephrology | DX: E11.22 Type 2 diabetes mellitus with diabetic chronic kidney disease (principal); I12.9 Hypertensive chronic kidney disease with stage 1 through stage 4 chronic kidney disease, or unspecified chronic kidney disease; N18.31 Chronic kidney disease, stage 3a; N20.0 Calculus of kidney | CPT/HCPCS: 99212 ==